=== PATIENT | female | born 1985 | race Caucasian/White ===

== ENCOUNTER → 2018-06-24 16:03 | Outpatient (CLI) | payer BC, SELFPAY ==
[2018-06-24 17:53] LABS: Absolute Lymphocyte Count 2.35 X10^3/ul (0.83-4.51); Absolute Neutrophil Count 5.5 X10^3/uL (2.0-7.7); Basophil# 0.06 X10^3/uL; Basophil% 0.7 % (0-1); Eosinophils% 1.2 % (0-5); Hematocrit 40.9 % (37-47); Hemoglobin 13.6 g/dl (12.0-15.0); Lymphocyte # 2.35 X10^3/ul (4.0); Lymphocyte % 27.6 % (19-41); Mean Corp Hgb Conc 33.3 g/gl (32-36); Mean Corpuscular Hgb 29.8 pg (27.0-32.0); Mean Corpuscular Volume 89.7 fL (81-99); Mean Platelet Vol. 9.9 fl (6.2-12.0); Monocyte# 0.52 X10^3/uL; Monocyte% 6.1 % (0-10); Neutrophil # 5.46 X10^3/uL (2.7-7.7); Neutrophil % 64.2 % (47-70); Platelet Count 331 K/mm3 (150-450); RBC Distribution Width CV 12.6 % (11.6-14.6); RBC Distribution Width SD 40.9 fl (35.1-43.9); Red Blood Count 4.56 M/mm3 (4.2-5.4); White Blood Count 8.5 K/mm3 (4.4-11.0)
[2018-06-24 17:54] LABS: POSITIVE COUNT NO; POSITIVE DIFFERENTIAL NO; POSITIVE MORPHOLOGY NO
[2018-06-24 18:33] LABS: ALB/GLOB Ratio 1.2 RATIO (0.9-2.4); AST(SGOT) 16 U/L (15-37); Alanine Aminotransfer ALT/SGPT 21 U/L (13-56); Albumin, Serum 4.2 g/dL (3.2-5.0); Alkaline Phosphatase 79 U/L (45-117); Anion Gap 10 (5-15); BUN 11 mg/dL (7-18); BUN/Creat Ratio 17.2 RATIO (10-20); Calcium,Total 9.3 mg/dL (8.5-10.1); Chloride 105 mmol/L (98-107); Creatinine, Serum 0.64 mg/dL (0.55-1.02); EST Glomerular Filtration Rate 115 mL/min (>60); Est Glom Filt Rate - Afr Amer 139 mL/min (>60); Globulin 3.5 g/dL (2.2-4.2); Glucose 78 mg/dL (74-106); Potassium 4.2 mmol/L (3.5-5.1); Protein, Total 7.7 g/dL (6.4-8.2); Sodium Level 140 mmol/L (136-145); Thyroid Stim Hormone (TSH) 3.77 uIU/mL (0.358-3.74)
== END ==
PROVIDERS: Family Provider Family Medicine; PCP Family Medicine; Referring Provider Family Medicine; Visit Provider Family Medicine
DX: F32.9 Major depressive disorder, single episode, unspecified (principal)
CPT/HCPCS: 36415; 80053; 84443; 85025

== ENCOUNTER → 2019-04-04 | Outpatient (CLI) | payer BC, SELFPAY | END | disposition home or self-care (01) | PROVIDERS: PCP Family Medicine; Referring Provider Obstetrics & Gynecology; Visit Provider Obstetrics & Gynecology | DX: Z12.4 Encounter for screening for malignant neoplasm of cervix (principal) ==

== ENCOUNTER → 2019-04-16 09:40 | Outpatient (CLI) | payer BC, SELFPAY ==
[2019-04-16 10:57] LABS: Glucose 75GTT - Fasting 85 mg/dL (70-99)
[2019-04-16 11:38] LABS: Glucose 75GTT - 30 minutes 144 mg/dL (100-160)
[2019-04-16 11:38] LABS: Glucose 75GTT - 60 minutes 104 mg/dL (100-160)
[2019-04-16 12:25] LABS: Insulin 75GTT - Fasting 7.9 mU/L (2.6-37.6)
[2019-04-16 12:25] LABS: Insulin 75GTT - 30 MIN 119.1 mU/L (Not Estab.)
[2019-04-16 12:27] LABS: Insulin 75GTT - 60 min 98.6 mU/L (Not Estab)
[2019-04-16 12:43] LABS: Glucose 75GTT - 120 minutes 62 mg/dL (70-140)
== END ==
PROVIDERS: PCP Family Medicine; Visit Provider Obstetrics & Gynecology
DX: Z13.1 Encounter for screening for diabetes mellitus (principal); E28.8 Other ovarian dysfunction; E31.9 Polyglandular dysfunction, unspecified
CPT/HCPCS: 36415; 82951; 82952; 83525

== ENCOUNTER → 2019-04-18 12:05 | Outpatient (CLI) | payer BC, SELFPAY ==
--- NOTE | 2019-04-18 12:25 | RAD_ITS ---
EXAM DESCRIPTION: Hysterosalpingogram CLINICAL HISTORY: 34 years Female, infertility COMPARISON: None. TECHNIQUE: 20 seconds of fluoroscopy was performed and 5 fluoroscopic images were performed FINDINGS: Dr.Summer Brooke performed hysterosalpingogram and fluoroscopy was performed showing the uterus to be normal. The right ductal reduction well visualized and appear normal bilaterally and contrast material spills onto the perineum indicating both oviducts are patent and normal. RAD/Salpingogram IMPRESSION: Normal hysterosalpingogram. Electronically Signed: Ganesh Palacio, at 13:57 EST Tel , Service support ,
== END ==
PROVIDERS: PCP Family Medicine; Referring Provider Obstetrics & Gynecology; Visit Provider Obstetrics & Gynecology
DX: N97.9 Female infertility, unspecified (principal)
CPT/HCPCS: 58340; 74740

== ENCOUNTER → 2019-07-07 11:26 | Outpatient (CLI) | payer BC, SELFPAY ==
[2019-07-07 14:09] LABS: T3 Total - Triiodothyronine 1.25 ng/mL (0.6-1.81)
[2019-07-07 14:14] LABS: Estradiol 39.6 pg/mL; Prolactin 6.3 ng/mL; T4 Free Direct 0.86 ng/dL (0.76-1.46); Thyroid Stim Hormone (TSH) 1.11 uIU/mL (0.358-3.74)
[2019-07-08 16:41] LABS: Sex Hormone-binding Globulin 67.7 nmol/L (24.6-122.0)
[2019-07-09 13:39] LABS: 17-Hydroxyprogesterone 56 ng/dL (.)
[2019-07-09 16:28] LABS: Vitamin D,25 Hydroxy 18.7 ng/mL
[2019-07-09 16:31] LABS: ALB/GLOB Ratio 1.2 RATIO (0.9-2.4); AST(SGOT) 16 U/L (15-37); Alanine Aminotransfer ALT/SGPT 21 U/L (13-56); Albumin, Serum 4.3 g/dL (3.2-5.0); Alkaline Phosphatase 67 U/L (45-117); Anion Gap 6 (5-15); BUN 12 mg/dL (7-18); BUN/Creat Ratio 16.3 RATIO (10-20); CRP, High Sensitivity Cardiac 2.24 mg/L; Calcium,Total 9.3 mg/dL (8.5-10.1); Chloride 105 mmol/L (98-107); Creatinine, Serum 0.74 mg/dL (0.55-1.02); EST Glomerular Filtration Rate 97 mL/min (>60); Est Glom Filt Rate - Afr Amer 117 mL/min (>60); Globulin 3.7 g/dL (2.2-4.2); Glucose 79 mg/dL (74-106); Potassium 4.4 mmol/L (3.5-5.1); Sodium Level 136 mmol/L (136-145)
== END ==
PROVIDERS: PCP Family Medicine; Visit Provider Obstetrics & Gynecology
DX: Z13.1 Encounter for screening for diabetes mellitus (principal); Z11.3 Encounter for screening for infections with a predominantly sexual mode of transmission; E20.8 Other hypoparathyroidism; E31.8 Other polyglandular dysfunction; N94.6 Dysmenorrhea, unspecified
CPT/HCPCS: 36415; 80053; 82306; 82533; 82627; 82670; 83001; 83498; 84146; 84270; 84403; 84439; 84443; 84480; 84481; 86141; 82626

== ENCOUNTER 2019-08-07 09:27 | Day surgery (SDC) | payer BC, SELFPAY ==
[2019-08-01 11:56] LABS: Hematocrit 42.5 % (37-47); Mean Corp Hgb Conc 32.9 g/dL (32-36); Mean Corpuscular Volume 94.2 fL (81-99); Mean Platelet Vol. 9.3 fl (6.2-12.0); Platelet Count 299 K/mm3 (150-450); RBC Distribution Width CV 11.6 % (11.6-14.6); RBC Distribution Width SD 39.9 fl (35.1-43.9); Red Blood Count 4.51 M/mm3 (4.2-5.4); White Blood Count 7.5 K/mm3 (4.4-11.0)
[2019-08-01 12:05] LABS: Prothrombin Time (Protime)PT. 13.2 SECONDS (11.7-14.9)
[2019-08-01 12:06] LABS: Partial Thromboplast Time 26.2 Seconds (24.1-36.2)
[2019-08-07] VITALS (7 sets, daily range): BP systolic 100–129; BP diastolic 52–81; PULSE 75–97; RESP 15–18; TEMP 36.3–37.2; O2SAT 95–100; BMI 28.4
--- NOTE | 2019-08-07 08:30 | HP.PCM_ITS ---
- Problem List (1) Dysmenorrhea, unspecified Status: Acute History and Physical Date of Admission: 08/07/19 Date: 08/01/2019 Name: SOLANGE MCDONNELL Age: 34 Date of : 1985 Solange Mcdonnell, a 34 year old female 0 0 0 0 0, presents for Diagnostic laparoscopy, surgical treatment of endometriosis on August 07, 2019 at 12:30. -- Solange has a hx dysmenorrhea and infertility. ULTRASOUND UTERUS: 8.3 x 4.1 x 3.8cm anterior submucous fibroid measures 1.5 x 1.3 x 1.4cm. ENDOMETRIAL ECHO: 9.7mm. RIGHT OVARY: 3.9 x 3.7 x 2.4cm. simple follicle seen measures 2 x 2.2 x 2cm. LEFT OVARY: 3.2 x 2.4 x 2.5cm. BLADDER: No bladder masses visualized. FREE FLUID: NONE. OTHER PERTINENT FINDINGS: simple right ovarian cyst measures 2 x 2.2 x 2cm. Anterior submucous fibroid 1.5 x 1.3 x 1.4cm. MEDICATIONS HISTORY: Current medications prescribed by our practice are: 1. metformin 500 mg tablet, 1 tab PO daily daily x 1 week, then 1 po bid x 1 week, then 1 po tid 2. Synthroid 50 mcg tablet, One pill by mouth once a day 3. Vitamin D3 100 mcg (4,000 unit) capsule, 1 tab po daily Patient is also takin. fluoxetine 40 mg capsule, daily ALLERGIES: Penicillins, Rash Infections - Chicken pox Illnesses - Depression/Mild anxiety Accidents - no injuries of consequence Hospitalizations - see surgery Review of Systems: GENERAL - Denies fever, or chills SKIN - Denies skin changes EYES - Denies visual changes EARS - Denies difficulty hearing NOSE - Denies nasal congestion or bleeding MOUTH - Denies sore throat or difficulty swallowing NECK - Denies pain or swelling RESPIRATORY - Denies shortness of breath or wheezing CARDIOVASCULAR - Denies palpitations or chest pain GASTROINTESTINAL - Denies nausea, vomiting, diarrhea, constipation GENITOURINARY - Denies dysuria, frequency of urination, incontinence of urine MUSCULOSKELETAL - Denies joint or muscle pain NEUROLOGICAL - Denies localized numbness or weakness PSYCHIATRIC - Denies depression or anxiety ENDOCRINE - Denies heat or cold intolerance, weight loss or gain HEMATO-IMMUNOLOGIC - Denies excesive bleeding with cuts SOCIAL HISTORY: Alcohol Use - socially and weekends Smoking - denies smoking Diet - no special diet Lifestyle - moderate stress lifestyle and Exercise - walking Employer - [employer] Job Description - [employer] Illicit Drug Use - denies use of street drugs Sexual Activity - Hours Worked - 40+ Spouse-Sig Other Name - Primitivo Spouse-Sig Other Occupation - Electric Truck Operator Control - None-attempting pregancy FAMILY HISTORY: MENSTRUAL HISTORY: LMP Known?- DefiniteAmount/Duration - 3-4 DAYS, Frequency - monthly days, LMP - 07/11/19, Age Onset Menarche - 15 PAST PREGNANCIES: Total Pregnancies - 0; Full Term Pregnancies - 0; Premature - 0; Abortions, Induced - 0; Abortions, Spontaneous - 0; Ectopics - 0; Multiple Births - 0; Living Children - 0 SURGICAL HISTORY: 1. ACL repair, L knee, 2003 ; - PHYSICAL EXAM BP- 90/70 Sitting, Right arm, regular cuff Temp- 98.5 Taken Orally Weight- 160.89506 lbs Height- 63.75 inch BMI:27.74 CONSTITUTIONAL - NAD, well nourished, and well developed SKIN - No rash, lesions, or ulcers HEENT - Normocephalic, PERRLA, EOMI LUNGS - CTA x2 without wheezes, crackles or rales CARDIAC - Regular rate and rhythm without rubs, murmurs, or gallops ABDOMEN - Without hepatosplenomegaly, distention, masses, rebound, or guarding; normal bowel sounds; no hernias EXTREMITIES - No edema or calf tenderness NEUROLOGICAL - normal gait, normal balance, normal motor PSYCHIATRIC - A and O to time, place, person, mood and affect External Genitial Vagina - non-tender without lesions Urethra/Urethral Meatus - non-tender Bladder - non-tender Vagina - vaginal contreras are pink and moist without loss of rugae and no evidence of atropy Cervix - without cervical motion tenderness and has normal size and features without evident lesions Uterus - 5-6 cm in size, mobile and nontender Adnexa - clear without massess or tenderness Laboratory Tests 08/07/19 08/01/19 08/01/19 Range/Units 09:00 11:32 11:32 WBC (4.4-11.0) K/mm3 RBC (4.2-5.4) M/mm3 Hgb (12.0-15.0) g/dL Hct (37-47) % MCV (81-99) fL MCH (27.0-32.0) pg MCHC (32-36) g/dL RDW Std Deviation (35.1-43.9) fl RDW Coeff of Gerry (11.6-14.6) % Plt Count (150-450) K/mm3 MPV (6.2-12.0) fl PT 13.2 (11.7-14.9) SECONDS INR 1.0 APTT 26.2 (24.1-36.2) Seconds COVID-19 (MOIRA) Not Detected (Not Detect) Blood Type A POSITIVE Antibody Screen NEGATIVE 08/01/19 Range/Units 11:32 WBC 7.5 (4.4-11.0) K/mm3 RBC 4.51 (4.2-5.4) M/mm3 Hgb 14.0 (12.0-15.0) g/dL Hct 42.5 (37-47) % MCV 94.2 (81-99) fL MCH 31.0 (27.0-32.0) pg MCHC 32.9 (32-36) g/dL RDW Std Deviation 39.9 (35.1-43.9) fl RDW Coeff of Gerry 11.6 (11.6-14.6) % Plt Count 299 (150-450) K/mm3 MPV 9.3 (6.2-12.0) fl PT (11.7-14.9) SECONDS INR APTT (24.1-36.2) Seconds COVID-19 (MOIRA) (Not Detect) Blood Type Antibody Screen ASSESSMENT/PLAN: 1. Dysmenorrhea, Unspecified, Encounter For Procreative Investigation And Testing, Hypothyroidism and Unspecified Plan for diagnostic laparoscopy, surgical treatment of endometriosis as indicated. Reviewed procedure, how performed, surgical r isks/benefits/indications/alternatives consents signed and reviewed Blood transfusion acceptable Preop labs ordered Procedure Criteria Procedure Type: Elective COVID Risk Discussion: The surgeon/proceduralist and patient have discussed in detail the risk of exposure to and/or potential harm posed by the COVID-19 virus with having a surgery/procedure at this time versus the risk of delaying the surgery/procedure. It is not possible to know either the risk of delaying the surgery or procedure or chance of getting an infection with perfect accuracy, but a joint decision was made between the patient and the surgeon/proceduralist to proceed at this time with the scheduled surgery/procedure as indicated on the consent form.
[2019-08-07 11:11] LABS: Internal QC Validated? YES +Cl - CLEAR BKGD; Pregnancy, Urine Negative Negative
[2019-08-07] MEDS: Lactated Ringers 1,000 ML 100 ML IV ×3 (11:15→16:13)
--- NOTE | 2019-08-07 12:35 | MISC_PTH ---
PATIENT: KIRAN MILLIGAN LOC: [facility] [place] U#:[id number] AGE/SX: 34/F ROOM: RE08/07/[address]: Dr. Kimberli Eastman MD : 1985 BED: DIS: 08/07/2019 SPEC #: [id number] RECD: 08/08/19 10:10 STATUS: MICHAEL REPaulino #: [id number] LEI: 08/07/19 12:[address]: Kimberli Ricketts DEPT: SURGICAL PATHOLOGY RECD BY: Taj Hall ENTERED: 08/08/19 13:05 SP TYPE: MISC OTHR DR: Dr. Jess Guerrero MD Tissues: A - Peritoneal cavity, NOS B - Peritoneal cavity, NOS C - Peritoneal cavity, NOS D - Abdomen, NOS E - Peritoneal cavity, NOS F - Peritoneal cavity, NOS G - Peritoneal cavity, NOS Procedures: Surgery Specimen Level IV HEADER OPERATION: Diagnostic laparoscopy with treatment of endometriosis PRE-OP DIAGNOSIS: Dysmenorrhea TISSUE SUBMITTED: A - Left anterior peritoneum, B - Anterior cul-de-sac peritoneum, C - Left round ligament endometriosis, D - Right abdominal side wall, E - Left uterosacral peritoneum, F - Right uterosacral peritoneum, G - Right ovarian fossa peritoneum MICROSCOPIC DIAGNOSIS A. Left anterior peritoneum, biopsy: Fragments of benign fibrofatty tissue. B. Anterior cul-de-sac peritoneum, biopsy: Consistent with endometriosis. C. Left round ligament, biopsy: Consistent with endometriosis. D. Right abdominal side wall, biopsy: Consistent with endometriosis. E. Left uterosacral peritoneum, biopsy: Consistent with endometriosis. F. Right uterosacral peritoneum, biopsy: Consistent with endometriosis. G. Right ovarian fossa peritoneum, biopsy: Consistent with endometriosis. AM:nancy 08/11/19 MICROSCOPIC DESCRIPTION Slides are reviewed. GROSS DESCRIPTION A - Received in fixative is one container labeled with the patient's name and designated left anterior peritoneum. The specimen consists of one irregular fragment of light parra soft tissue that measures 3 x 0.5 x 0.2 cm. The specimen is totally submitted in one cassette. B - Received in fixative is one container labeled with the patient's name and designated anterior cul-de-sac peritoneum. The specimen consists of two irregular fragments of light parra soft tissue that in aggregate measure 2.5 x 1 x 0.2 cm. The specimen is totally submitted in one cassette. C - Received in fixative is one container labeled with the patient's name and designated left round ligament. The specimen consists of one irregular fragment of light parra soft tissue that measures 1 x 0.7 x 0.2 cm. The specimen is sectioned and totally submitted in two cassettes. D - Received in fixative is one container labeled with the patient's name and designated right abdominal side wall. The specimen consists of one irregular fragment of parra-pink soft tissue that measures 2.5 x 2 x 0.2 cm. The specimen is totally submitted in two cassettes. E - Received in fixative is one container labeled with the patient's name and designated left uterosacral peritoneum. The specimen consists of three irregular fragments of light parra soft tissue that in aggregate measure 1.3 x 0.8 x 0.2 cm. The specimen is totally submitted in one cassette. F - Received in fixative is one container labeled with the patient's name and designated right uterosacral peritoneum. The specimen consists of multiple irregular fragments of light parra soft tissue that in aggregate measure 2.5 x 2 x 0.2 cm. The specimen is totally submitted in one cassette. G - Received in fixative is one container labeled with the patient's name and designated right ovarian fossa peritoneum. The specimen consists of one irregular fragment of light parra soft tissue that measures 1.8 x 1 x 0.2 cm. The specimen is totally submitted in one cassette. / AM:nancy 08/08/19 TC:5 CPT: 42597 x7
[2019-08-07] MEDS: Bupivacaine Mpf 0.5% 30 ML VIAL (15:47)
--- NOTE | 2019-08-07 15:57 | PCM.DC ---
- Discharge Diagnoses Current Active Problems: Endometriosis Reason(s) for Visit for Discharge Instructions: Laparoscopy for Endometriosis You will use the following diet at home:: No restrictions Your food should be the consistency of: Regular Discharge Activity: Return to Normal Activity, May not drive while taking narcotic pain medications., May Shower, - - No tub bath for 1-2 weeks May resume sexual activity in: 4 weeks Lifting Restrictions: 10-20 lb Call your doctor if your incision/area has: Continuous Slow Oozing, Sudden Increased Bleeding, Increased Pain/ Swelling, Increased Redness Call your doctor if you observe: Fever of 101 or Higher, Inability to urinate, Inability to have a bowel movement, Using more than one pad per hour, Shortness of breath, Chest pain, Calf discomfort, Uncontrolled pain, - - Persistent nausea or vomiting Suture Line Care: Avoid Pulling/Pushing Remove Dressing in (days):: 1 - Remove outer dressing in 24 hours, remove steristrips in 5 days Cleanse incision/area with: Soap & Water Instructions: ED Endometriosis Allergies/Adverse Reactions: Allergies Penicillins [PCN] Allergy (Verified 08/07/19 10:40) Hives Medications to take at Discharge Fluoxetine HCl 40 mg PO DAILY 05/01/19 Multivitamins,Therapeutic [Multivitamin] 1 tab PO DAILY 05/01/19 Cholecalciferol (VIT D3) [Vitamin D3] 2,000 unit PO BID 07/31/19 Levothyroxine [Synthroid] 50 mcg PO DAILY 07/31/19 Pnv No.103/Folic/Om3s/Fish Oil [ Gummies] 4 ea PO DAILY 07/31/19 Prasterone (Dhea) [Dhea] 25 mg PO BID 07/31/19 metFORMIN (XR) [Glucophage Xr] 500 mg PO BID 07/31/19 Docusate Sodium [Colace] 100 mg PO BID PRN PRN #60 cap 08/07/19 Ibuprofen 600 mg PO TID PRN #30 tab 08/07/19 Oxycodone [Oxyir] 5 mg PO Q6H PRN PRN 5 Days #20 tablet 08/07/19 The following prescriptions were given: Docusate Sodium [Colace] 100 mg PO BID PRN PRN #60 cap PRN Reason: Constipation Transmission Status: Pending to [facility] Ibuprofen 600 mg PO TID PRN #30 tab PRN Reason: Pain Score 1-10/10 Transmission Status: Pending to [facility] Oxycodone [Oxyir] 5 mg PO Q6H PRN PRN 5 Days #20 tablet PRN Reason: severe pain Transmission Status: Received by [facility] Primary Care Physician: Jess Guerrero MD [Primary Care Provider] - Test Results: Test results from this visit will be discussed in further detail at your follow-up appointment, if applicable. Please Follow Up With: Kimberli Interiano MD When: 1-2 weeks
--- NOTE | 2019-08-07 16:00 | OP.PCM_ITS ---
Problem List (1) Dysmenorrhea, unspecified Status: Chronic (2) Endometriosis determined by laparoscopy Status: Acute (3) Infertility Status: Chronic Report of Operation Date of Procedure: 08/07/19 Pre-Operative Diagnosis: 1. Dysmenorrhea. 2. r/o endometriosis. 3. Infertility Post-Operative Diagnosis: 1. Secondary dysmenorrhea. 2. Endometriosis. 3. Inf ertility Surgery/Procedure Performed:: 1. Diagnostic laparoscopy. 2. Surgical treatment of endometriosis with multiple peritoneal biopsies. 3. Lysis of adhesions Description of Surgical Findings:: Peritoneal endometriosis in the anterior and posterior culdesacs and abdominal wall. with Rectovaginal nodule palpable on exam with associated scarring in posterior culdesac Sigmoid endometriosis laborer steel handling: Raquel Alarcon laborer steel handling: Von Callejas Type of Anesthesia:: General, Local Anesthesiologist: Mo Stout Specimen's removed: 1. left round ligament endometriosis. 2. left pelvic side wall endometriosis. 3. right abdominal peritoneal biopsy. 4. left pelvic endometriosis. 5. anterior culdesac peritoneum. 6. Right ovarian fossa peritoneum. 7. left uterosacral peritoneum. 8. Right uterosacral peritoneum Drains: UO 300 ml Estimated Blood Loss (mL): 50 Fluids Replaced: 1999 Description of Procedure: Indications: 34-year-old nulligravida with a history of severe dysmenorrhea as well as infertility. She was counseled regarding management options and as she desired fertility opted to proceed with diagnostic laparoscopy and surgical treatment of endometriosis as indicated. Procedural risks, benefits, indications and alternatives were reviewed at length. Patient desired to proceed. Procedure: The patient was brought to the operating room and signed was performed. She was placed in the dorsal supine position, used under general anesthesia and intubated. He was repositioned into dorsolithotomy and her arms were tucked at her sides. Examination under anesthesia was performed. The perineum and abdomen were prepped and draped in sterile fashion. Straight catheterization of the bladder was performed. The patient was placed into high lithotomy and a speculum placed vaginally. The cervix was grasped the anterior cervical lip using a Forbes tenaculum and the uterus sounded to 7 cm. A ZUMI uterine manipulator was placed and secured. The tenaculum was removed from the cervix. The patient was placed into low lithotomy and attention turned to the abdomen. An inferior umbilical incision was made and laparoscopic entry performed using the trocar. The abdomen was insufflated to 15 mmHg and the patient was placed into Trendelenburg. Already it was evident there was clear endometriosis along the anterior pelvic peritoneum. I returned to the perineum and placed a Haider catheter. bilateral tap blocks were placed using half percent Marcaine and under transillumination incisions were made at the sites in the right and left lower quadrants respectively followed by placement of 5 mm trochars. Additionally a 5 mm trocar was placed following infiltration with Marcaine. I turned my attention to the junction of the descending colon and sigmoid bowel. There were adhesions at the site. That adhesions were sharply and bluntly dissected. Endometriosis along the infundibulopelvic ligament previously obscured by this adhesion was electrocoagulated. I turned my attention to the anterior pelvic peritoneum. This peritoneum was excised with wide margins utilizing electrocoagulation and sharp dissection. Similarly, anterior cul-de-sac peritoneum as well as left round ligament peritoneum was sharply and bluntly dissected with peritoneal resection with assistance of electrocoagulation. Right peritoneal endometriosis was present just adjacent to the ascending colon with the presence of colonic adhesions. The adhesion was lysed sharply and bluntly. The abdominal sidewall peritoneum was excised again using electrocoagulation, sharp and blunt dissection. Attention was again returned to the pelvis, the left ureter was identified and left uterosacral lisa toneum was excised. The right ureter was identified and in similar fashion right uterosacral ligament peritoneum then right ovarian fossa peritoneum including that along a Rufino's window was excised. Arteriolar bleeding at the site of the right uterosacral ligament peritoneal resection was controlled using electrocoagulation. There was evidence of dimpling of the rectum. I performed a laparoscopic guided bimanual exam with the palpable vaginal nodule corresponding to the intra-abdominal perirectal dimpling. Additionally there was evidence of sigmoid colonic endometriosis. Due to bowel involvement and limited availability of a bowel endometriosis surgeon I deferred treatment at the sites. Peritoneal endometriosis just inferior to the pelvic brim at the left was ablated using electrocoagulation. The abdomen and pelvis were irrigated and suctioned. Interceed was placed over each of the excisional biopsy sites. The abdomen was desufflated and the trochars removed. The incisi ons were reapproximated using 4-0 Monocryl by the SCREENER AND BLENDER OPERATOR under my supervision. Steri-Strips and OpSite dressing were placed over the incisions. The patient was given additional half percent Marcaine for a total of 30 cc. The patient was awakened, extubated and transferred to the recovery room without complication. She tolerated the procedure well. Sponge counts were correct x2. - Complications None - Admit VTE Documentation VTE Present on Admission: No VTE Mechan Device Prophylaxis: SCD's VTE Pharm Prophylaxis ordered?: No
[2019-08-07] MEDS: HYDROcodone Bitartrate/Apap 5/325 Tablet PO (17:19)
== END 2019-08-07 18:01 | disposition home or self-care (01) ==
LOC: SDC 09:28 → AC 09:29
PROVIDERS: Anesthesiology; PCP Family Medicine; Referring Provider Obstetrics & Gynecology; Visit Provider Obstetrics & Gynecology
PROC: (CPT 49320; principal; 2019-08-07 12:20)
DX: N80.3 Endometriosis of pelvic peritoneum (principal); N97.9 Female infertility, unspecified; K66.0 Peritoneal adhesions (postprocedural) (postinfection); Z11.59 Encounter for screening for other viral diseases; E03.9 Hypothyroidism, unspecified; F32.9 Major depressive disorder, single episode, unspecified; F41.9 Anxiety disorder, unspecified; Z79.84 Long term (current) use of oral hypoglycemic drugs; Z79.899 Other long term (current) drug therapy
CPT/HCPCS: 49321; 36415; 81025; 85027; 85610; 85730; 86850; 86900; 86901; 87635; 88305; G2023; J7120; J2405; U0003

== ENCOUNTER → 2019-08-26 | Outpatient (CLI) | payer BC, SELFPAY ==
[2019-08-07 11:03] VITALS: BMI 28.4
[2019-08-26 14:18] LABS: Vitamin D,25 Hydroxy 33.8 ng/mL
[2019-08-31 08:37] LABS: Anti-Mullerian Hormone,Serum 6.33 ng/mL (.)
== END | disposition home or self-care (01) ==
LOC: LABSPEC 13:27
PROVIDERS: PCP Family Medicine; Visit Provider Obstetrics & Gynecology
DX: N94.6 Dysmenorrhea, unspecified (principal); E55.9 Vitamin D deficiency, unspecified
CPT/HCPCS: 36415; 82306; 82627; 83516; 82626

== ENCOUNTER 2020-02-05 22:46 | Emergency (ER) | payer BC, SELFPAY ==
[2019-08-07 11:03] VITALS: BMI 28.4
[2020-02-05 22:48] VITALS: BP 118/69; PULSE 69; RESP 16; TEMP 36.8; O2SAT 98; BMI 29.5
--- NOTE | 2020-02-05 23:20 | ED.DCSUM_ITS ---
History of Present Illness Chief Complaint: Abd Pain Informant: Patient Narrative: She stated she is postop day 3 for laparoscopy for endometriosis. She had adhesions to her large intestine and they remove 15 cm of her right large intestine as well as her appendix. This procedure was done at [facility] by WATER FILTERER HELPER. She has postoperative pain that she has been taking ibuprofen and Tylenol for as well as 1 oxycodone yesterday evening when she arrived home from the hospital. She took some anti-inflammatories today walked on the treadmill for short period of time and then developed some increased abdominal pain this evening. She took an oxycodone at 9 PM which was her only one today. She waited approximately half hour and continued to have significant pain therefore came in for further evaluation. She stated the oxycodone has now kicked in and she is back to her baseline. She thinks she just got behind the pain her. Denies any fevers or chills. She is having bowel movements. Urinating normally. Stated her incisions look well. Feels back to normal. - Past Medical History (1) Endometriosis determined by laparoscopy Status: Acute (2) Dysmenorrhea, unspecified Status: Chronic (3) Infertility Status: Chronic Past Medical History - Allergies and Home Meds Allergies/Adverse Reactions: Allergies Penicillins [PCN] Allergy (Verified 02/05/20 22:47) [facility] Primary Care Physician: Jess Guerrero MD [Primary Care Provider] - Prior records reviewed: Yes Past Medical History: - - See problem list Surgical History: - - Laparoscopy with partial colectomy and adhesion removal Lives: With Family Smoking Status: Never smoker Alcohol: None Drugs: None Review of Systems General: Denies: Chills, Fever, Sweats Eyes: Denies: Visual changes - bilaterally, Diplopia ENT: Denies: Rhinorrhea, Sore throat Cardiovascular: Denies: Chest pain, Palpitations Respiratory: Denies: Dyspnea, Cough, Dyspnea on exertion Gastrointestinal: Reports: Abdominal pain. Denies: Nausea, Vomiting, Diarrhea, Melena, Hematochezia Genitourinary: Denies: Dysuria, Hematuria, Frequency Musculoskeletal: Denies: Back pain, Extremity Pain Skin: Denies: Rash, Wounds Neurological: Denies: Headache, Weakness, Numbness Physical Exam Vital Signs/Narrative: Vital Signs Temp Pulse Resp BP Pulse Ox 02/05/20 22:48 98.3 F 69 16 118/69 98 General: Well nourished, Well developed, No Acute Distress Head: Normocephalic, Atraumatic Eyes: Perrl, EOMI ENT: Moist mucous membranes, No rhinorrhea Neck: Supple, Nontender Cardiovascular: Regular rate, Regular rhythm, No murmurs Respiratory: No distress, CTA bilaterally, Chest nontender Abdomen: Soft, Nondistended, Normal bowel sounds, Tender - Mild diffuse tenderness secondary to air in her abdomen which she states is at her baseline. Surgical scars are clean dry and intact. No significant tenderness.. Negative for: Guarding, Rebound tenderness, Hyperactive bowel sounds, Hypoactive bowel sounds, Hepatomegaly, Splenomegaly, Mass Back: Nontender, Normal Inspection Extremities: Nontender, No edema Skin: Normal color, No rash Neurological: Alert, Oriented x3, Cranial nerves II-XII grossly intact, Normal Strength, Normal Sensation Psychological: Normal affect, Normal Mood Diagnostic/Tx/Re-eval - Medical Decision Making Patient stated she is back to baseline and feels silly for coming in now. At this time I think she got behind the pain curve. Given 1 dose of morphine to help with her pain further. She would like to go home with no lab work or imaging. I feel this is reasonable given the fact that she feels back to her postsurgical self. Patient will follow up with her WATER FILTERER HELPER and return if she worsens again. She has pain medicine at home. ED Disposition - Plan for ED Patient: Disposition: Home or Assisted Living Diagnosis: Postoperative pain Instructions: Managing Post-Op Pain at Home: Medications Additional Instructions: Follow with your WATER FILTERER HELPER as scheduled in [place]
[2020-02-05] MEDS: Morphine 4 MG/ML Syringe IV (23:24)
--- NOTE | 2020-02-05 23:45 | ED.RN ---
pt assisted up to bathroom with RN help after receiving IV morphine. pt steady on her feet. upon leaving bathroom pt felt dizzy and lightheaded and asked for help. Pt was visibly pale. This RN assisted pt into chair and wheeled pt back to room where pt was able to stand and get back into bed. Pt coloring returned to normal and pt was speaking and stating that she felt better. pain was relieved after using restroom.
[2020-02-06 00:17] VITALS: BP 109/61; PULSE 75; RESP 16; O2SAT 98
== END 2020-02-06 00:21 | disposition home or self-care (01) ==
LOC: ED 23:49
PROVIDERS: Emergency Provider Emergency Medicine; PCP Family Medicine
DX: R10.9 Unspecified abdominal pain (principal); G89.18 Other acute postprocedural pain; Z88.0 Allergy status to penicillin
CPT/HCPCS: 96374; 99284; A4216

== ENCOUNTER → 2020-11-08 15:50 | Outpatient (CLI) | payer BC, SELFPAY ==
[2020-11-08 18:44] LABS: Thyroid Stim Hormone (TSH) 1.96 uIU/mL (0.358-3.74)
== END ==
PROVIDERS: PCP Family Medicine; Visit Provider Family Medicine
DX: E03.9 Hypothyroidism, unspecified (principal)
CPT/HCPCS: 36415; 84436; 84443

== ENCOUNTER → 2022-01-31 | Outpatient (CLI) | payer OTHER, SELFPAY ==
[2022-01-31 17:47] LABS: Absolute Lymphocyte Count 2.94 X10^3/uL (0.83-4.51); Absolute Neutrophil Count 9.7 X10^3/uL (2.0-7.7); Basophil# 0.06 X10^3/uL; Basophil% 0.4 % (0-1); Eosinophil# 0.09 X10^3/uL; Eosinophils% 0.7 % (0-5); Hematocrit 31.2 % (37-47); Hemoglobin 10.5 g/dL (12.0-15.0); Lymphocyte # 2.94 X10^3/ul (0.83-4.51); Lymphocyte % 21.3 % (19-41); Mean Corp Hgb Conc 33.7 g/dL (32-36); Mean Corpuscular Volume 89.1 fL (81-99); Mean Platelet Vol. 9.6 fl (6.2-12.0); Monocyte# 0.93 X10^3/uL; Monocyte% 6.7 % (0-10); NRBC Flagged by Analyzer 0 % (0-5); Neutrophil # 9.73 X10^3/uL (2.7-7.7); Neutrophil % 70.3 % (47-70); Platelet Count 446 K/mm3 (150-450); RBC Distribution Width CV 11.1 % (11.6-14.6); RBC Distribution Width SD 35.8 fl (35.1-43.9); White Blood Count 13.8 K/mm3 (4.4-11.0)
[2022-01-31 19:33] LABS: HIV - WCH Non-Reactive (Nonreactive); Hepatitis B Surface Antigen Non-Reactive (Nonreactive); Hepatitis C Antibody Non-Reactive (Nonreactive); Rubella IgG Equiv (Nonreactive); Syphilis Antibodies Non-reactive
[2022-02-02 10:37] LABS: V-Zoster IgG (Immunity) 1500 index (Immune >165)
[2022-02-03 05:08] LABS: Chlamydia By Nucleic Acid AMP Negative (Negative)
[2022-02-05 15:32] LABS: Gonococcus By Nucleic Acid AMP Negative (Negative)
== END | disposition home or self-care (01) ==
LOC: WOBLAB 17:02
PROVIDERS: PCP Family Medicine; Visit Provider Obstetrics & Gynecology
DX: Z34.81 Encounter for supervision of other normal pregnancy, first trimester (principal)
CPT/HCPCS: 36415; 85025; 86703; 86762; 86780; 86787; 86803; 87086; 87088; 87340; 87491; 87591

== ENCOUNTER → 2022-02-14 | Outpatient (CLI) | payer OTHER, SELFPAY ==
[2022-02-14 15:29] LABS: Vitamin D,25 Hydroxy 26.3 ng/mL
[2022-02-14 15:33] LABS: T4 Total, Thyroxin 10.5 ug/dL (4.8-13.9); Thyroid Stim Hormone (TSH) 0.85 uIU/mL (0.358-3.74)
== END | disposition home or self-care (01) ==
LOC: MFPLAB 12:08
PROVIDERS: PCP Family Medicine; Visit Provider Family Medicine
DX: E03.9 Hypothyroidism, unspecified (principal); E55.9 Vitamin D deficiency, unspecified
CPT/HCPCS: 36415; 82306; 84436; 84443

== ENCOUNTER 2022-05-16 14:36 | Emergency (ER) | payer OTHER, SELFPAY ==
[2022-05-16 14:37] VITALS: BP 120/91; PULSE 92; RESP 16; TEMP 37.1; O2SAT 97; BMI 30.7
--- NOTE | 2022-05-16 14:47 | EKG12_ITS ---
Test Reason : PALPS/SOB Blood Pressure : / mmHG Vent. Rate : 078 BPM Atrial Rate : 078 BPM P-R Int : 146 ms QRS Dur : 078 ms QT Int : 364 ms P-R-T Axes : 036 013 031 degrees QTc Int : 414 ms Normal sinus rhythm Normal ECG Confirmed by SANDRA RICHMOND, BO ([id number]), editor news AURELIO KAUR ([id number]) on 05/22/2022 6:54:52 AM Referred By: ANGY Confirmed By:DONNA FLORES MD
[2022-05-16 15:54] LABS: Absolute Lymphocyte Count 2.37 X10^3/uL (0.83-4.51); Absolute Neutrophil Count 8.7 X10^3/uL (2.0-7.7); Basophil# 0.06 X10^3/uL; Basophil% 0.5 % (0-1); Eosinophil# 0.05 X10^3/uL; Eosinophils% 0.4 % (0-5); Hematocrit 38.4 % (37-47); Hemoglobin 12.9 g/dL (12.0-15.0); Lymphocyte # 2.37 X10^3/ul (0.83-4.51); Lymphocyte % 19.9 % (19-41); Mean Corp Hgb Conc 33.6 g/dL (32-36); Mean Corpuscular Hgb 30.9 pg (27.0-32.0); Mean Corpuscular Volume 92.1 fL (81-99); Mean Platelet Vol. 9.4 fl (6.2-12.0); Monocyte# 0.66 X10^3/uL; Monocyte% 5.5 % (0-10); NRBC Flagged by Analyzer 0 % (0-5); Neutrophil # 8.73 X10^3/uL (2.7-7.7); Neutrophil % 73.2 % (47-70); Platelet Count 324 K/mm3 (150-450); RBC Distribution Width CV 12.9 % (11.6-14.6); RBC Distribution Width SD 42.9 fl (35.1-43.9); Red Blood Count 4.17 M/mm3 (4.2-5.4); White Blood Count 11.9 K/mm3 (4.4-11.0)
[2022-05-16 16:03] VITALS: O2SAT 98
[2022-05-16 16:05] VITALS: O2SAT 98
--- NOTE | 2022-05-16 16:22 | EX.ED.DYSGE1 ---
HPI History of Present Illness Chief Complaint: Shortness of Breath Detail of Chief Complaint: Pain, shortness of breath, palpitations Informant: patient Narrative Narrative: Patient presents secondary to waking overnight and having shortness of breath, palpitations, pain from her shoulders to her pelvis. She is currently 23 weeks . Symptoms do seem to be improved today. She saw her SOFTWARE SALES CONSULTANT and she states baby's heart rate was normal. She was sent to the ER for EKG and possible blood work. She does report history of some problems with her thyroid numbers, but states that they have been normal of late. [facility] Medical History Endometriosis Infertility Home Medications fluoxetine 40 mg capsule 40 mg PO DAILY anxiety/depression 05/01/19 [History Last Taken Unknown] multivitamin with folic acid 400 mcg tablet 1 tab PO DAILY 05/01/19 [History Last Taken Unknown] cholecalciferol (vitamin D3) 25 mcg (1,000 unit) tablet 2,000 unit PO BID 07/31/19 [History Last Taken Unknown] levothyroxine 50 mcg tablet 50 mcg PO DAILY 07/31/19 [History Last Taken 08/07/19 08:30] prasterone (dhea) 25 mg capsule 25 mg PO BID 07/31/19 [History Last Taken Unknown] 103-folic acid 400 mcg-omeg3 32.5 mg-dha-fish oil chew tablet 4 ea PO DAILY 07/31/19 [History Last Taken Unknown] docusate sodium 100 mg capsule 100 mg PO BID PRN PRN Constipation #60 caps 08/07/19 [Rx Last Taken Unknown] ibuprofen 600 mg tablet 600 mg PO TID PRN Pain Score 1-10/10 #30 tabs 08/07/19 [Rx Last Taken Unknown] acetaminophen 500 mg tablet 1,000 mg PO Q6H PRN Pain 1-10 Or Fever 02/05/20 [History Last Taken Unknown] oxycodone 5 mg tablet 5 - 10 mg PO Q4H PRN PRN Pain Score 1-10 02/05/20 [History Last Taken Unknown] Social History Smoking Status: Never smoker ROS ROS ED Constitutional Constitutional ED: Denies chills or fever(s) Eyes Eyes: Denies change in vision or discharge from eye(s) ENT ENT ED: Denies discharge from eye(s), rhinorrhea or sore throat Cardiovascular Cardiovascular: Reports chest pain and palpitations Respiratory/Chest Respiratory/Chest: Reports dyspnea; Denies cough Gastrointestinal Gastrointestinal: Denies abdominal pain, diarrhea, nausea or vomiting Genitourinary Genitourinary ED: Denies difficulty urinating or dysuria Musculoskeletal Musculoskeletal: Reports back pain; Denies extremity pain Integumentary Denies Abrasions or rash Neurologic Neurologic: Denies headache(s) or weakness Allergic/Immunologic Allergic/Immunologic ED: Denies lip swelling or urticaria EXAM Physical Exam Const Vital Signs: 05/16/22 14:37 05/16/22 16:02 05/16/22 16:03 Temperature 98.7 F Temperature Source Temporal Pulse Rate 92 Respiratory Rate 16 Respiratory Effort Normal Respiratory Pattern Normal Blood Pressure 120/91 H Blood Pressure Mean 100 Pulse Ox 97 Oxygen Delivery Method Room Air Room Air Room Air 05/16/22 16:05 Temperature Temperature Source Pulse Rate Respiratory Rate Respiratory Effort Respiratory Pattern Blood Pressure Blood Pressure Mean Pulse Ox 98 Oxygen Delivery Method Room Air Positive well nourished and well developed General Appearance ED: well developed HEENT Reports normocephalic and head/scalp atraumatic Eyes PERRL and EOMs intact bilaterally Neck supple Chest Wall inspection of chest normal and palpation of chest normal Resp normal respiratory effort and clear to auscultation bilaterally Cardio regular rate and regular rhythm GI normal to inspection, nondistended, normoactive bowel sounds GI Narrative: Abdomen gravid. Palpation: soft Extremity normal to inspection Neuro oriented x3 and no sensory deficits noted Sensorium / Orientation: alert Motor Exam: strength 5/5 throughout Psych mental status grossly normal Skin no rashes or lesions noted MDM MDM MDM Narrative Medical decision making narrative: Patient is placed on monitor technician. EKG obtained to evaluate for cardiac arrhythmia/ischemia. Labwork obtained to evaluate for leukocytosis, anemia, and electrolyte derangement. Lab Data Attestation: I reviewed the patient's lab results. Labs: Laboratory Results - last 24 hr 05/16/22 05/16/22 05/16/22 15:35 15:35 15:35 WBC 11.9 H RBC 4.17 L Hgb 12.9 Hct 38.4 MCV 92.1 MCH 30.9 MCHC 33.6 RDW Std Deviation 42.9 RDW Coeff of Gerry 12.9 Plt Count 324 MPV 9.4 Immature Gran % (Auto) 0.500 Neut % (Auto) 73.2 H Lymph % (Auto) 19.9 [place] % (Auto) 5.5 Eos % (Auto) 0.4 Baso % (Auto) 0.5 Absolute Neuts (auto) 8.7 H Absolute Lymphs (auto) 2.37 Nucleated RBC % 0 Sodium 137 Potassium 3.9 Chloride 106 Carbon Dioxide 26.0 Anion Gap 5 BUN 6 L Creatinine 0.57 Estim Creat Clear Calc 113.95 Est GFR (MDRD) Af Amer 155 Est GFR (MDRD) Non-Af 128 BUN/Creatinine Ratio 10.5 Glucose 85 Calcium 9.1 Troponin I High Sens 4 TSH 1.30 EKG Initial EKG: Attestation: I personally reviewed and interpreted this EKG as follows: Interpretation: Sinus Rhythm (Sinus at 78 with no acute ischemia.) Treatment and Re-Evaluation :: White count is 11.9 with normal differential. Hemoglobin is normal at 12.9. Chemistry studies unremarkable. Troponin and TSH are both normal. Patient has had no arrhythmias noted while on the monitor technician here. Her symptoms have essentially subsided. I did encourage her to return during an episode if it were to recur. She voices understanding and agreement. Discharge Plan Triage Chief Complaint: Shortness of Breath ED Provider: Natacha Trujillo Dx/Rx/DC Orders Clinical Impression: Palpitations Instructions: ED Palpitations Prescriptions: No Action fluoxetine 40 MG capsule 40 mg PO DAILY multivitamin with folic acid 1 TABLET tablet 1 tab PO DAILY prasterone (dhea) 25 MG capsule 25 mg PO BID levothyroxine 50 MCG tablet 50 mcg PO DAILY cholecalciferol (vitamin D3) 1,000 UNIT tablet 2,000 unit PO BID PNV [id number] oil 1 EACH tablet,chewable 4 ea PO DAILY docusate sodium 100 MG capsule 100 mg PO BID PRN PRN (Reason: Constipation) Qty: 60 0RF ibuprofen 600 MG tablet 600 mg PO TID PRN (Reason: Pain Score 1-10/10) Qty: 30 0RF acetaminophen 500 MG tablet 1,000 mg PO Q6H PRN (Reason: Pain 1-10 Or Fever) oxycodone 5 MG tablet 5 - 10 mg PO Q4H PRN PRN (Reason: Pain Score 1-10) Primary Care Provider: Jess Guerrero Referrals: Jess Guerrero MD [Primary Care Provider] - Betty Amin DO [Med Staff - Active Staff] - Keep Christopher appointment Disposition Disposition: Home, Self Care
[2022-05-16 17:27] LABS: Anion Gap 5 (5-15); BUN 6 mg/dL (7-18); BUN/Creat Ratio 10.5 RATIO (10-20); Calcium,Total 9.1 mg/dL (8.5-10.1); Chloride 106 mmol/L (98-107); Creatinine, Serum 0.57 mg/dL (0.55-1.02); EST Glomerular Filtration Rate 128 mL/min (>60); Est Glom Filt Rate - Afr Amer 155 mL/min (>60); Estimated Creatinine Clearance 113.95 ml/min; Glucose 85 mg/dL (74-106); Potassium 3.9 mmol/L (3.5-5.1); Sodium Level 137 mmol/L (136-145)
[2022-05-16 17:51] LABS: Troponin-I HS 4 pg/mL (3.0-54.0)
[2022-05-16 18:36] VITALS: BP 114/58; PULSE 73; RESP 16; O2SAT 96
== END 2022-05-16 18:41 | disposition home or self-care (01) ==
PROVIDERS: Emergency Provider Emergency Medicine; PCP Family Medicine; Visit Provider Emergency Medicine
DX: O99.891 Other specified diseases and conditions complicating pregnancy (principal); R00.2 Palpitations; Z3A.23 23 weeks gestation of pregnancy
CPT/HCPCS: 80048; 84443; 84484; 85025; 93005; 94760; 99282; A4216

== ENCOUNTER → 2022-06-28 | Outpatient (CLI) | payer OTHER, SELFPAY ==
[2022-06-28 17:07] LABS: Absolute Lymphocyte Count 2.67 X10^3/uL (0.83-4.51); Absolute Neutrophil Count 7.5 X10^3/uL (2.0-7.7); Basophil# 0.05 X10^3/uL; Basophil% 0.5 % (0-1); Eosinophil# 0.05 X10^3/uL; Eosinophils% 0.5 % (0-5); Hematocrit 34.4 % (37-47); Hemoglobin 12.1 g/dL (12.0-15.0); Lymphocyte # 2.67 X10^3/ul (0.83-4.51); Lymphocyte % 24.5 % (19-41); Mean Corp Hgb Conc 35.2 g/dL (32-36); Mean Corpuscular Hgb 32.1 pg (27.0-32.0); Mean Corpuscular Volume 91.2 fL (81-99); Mean Platelet Vol. 9.2 fl (6.2-12.0); Monocyte# 0.59 X10^3/uL; Monocyte% 5.4 % (0-10); NRBC Flagged by Analyzer 0 % (0-5); Neutrophil # 7.49 X10^3/uL (2.7-7.7); Neutrophil % 68.7 % (47-70); Platelet Count 292 K/mm3 (150-450); RBC Distribution Width CV 12.5 % (11.6-14.6); RBC Distribution Width SD 41.3 fl (35.1-43.9); Red Blood Count 3.77 M/mm3 (4.2-5.4); White Blood Count 10.9 K/mm3 (4.4-11.0)
[2022-06-28 17:14] LABS: Glucose Challenge Gest 1H 50g 188 mg/dL (70-140)
[2022-06-28 17:35] LABS: Syphilis Antibodies Non-reactive
== END | disposition home or self-care (01) ==
LOC: WOBLAB 16:07
PROVIDERS: PCP Family Medicine; Visit Provider Obstetrics & Gynecology
DX: Z34.82 Encounter for supervision of other normal pregnancy, second trimester (principal)
CPT/HCPCS: 36415; 82950; 85025; 86780

== ENCOUNTER → 2022-06-30 | Outpatient (CLI) | payer OTHER, SELFPAY ==
[2022-06-30 09:41] LABS: Glucose GTT-Gestation. Fasting 83 mg/dL (<105)
[2022-06-30 10:26] LABS: Glucose GTT-Gestational 1 Hr 163 mg/dL (<190)
[2022-06-30 11:19] LABS: Glucose GTT-Gestational 2 Hr 120 mg/dL (<165)
[2022-06-30 12:30] LABS: Glucose GTT-Gestational 3 Hr 58 L (<145)
== END | disposition home or self-care (01) ==
LOC: WOBLAB 08:41
PROVIDERS: PCP Family Medicine; Visit Provider Obstetrics & Gynecology
DX: O24.912 Unspecified diabetes mellitus in pregnancy, second trimester (principal); Z3A.00 Weeks of gestation of pregnancy not specified
CPT/HCPCS: 36415; 82951; 82952

== ENCOUNTER 2022-09-01 03:00 | Inpatient (IN) | payer OTHER, SELFPAY ==
[2022-09-01] VITALS (45 sets, daily range): BP systolic 103–166; BP diastolic 50–89; PULSE 57–86; TEMP 36.6–37.3; O2SAT 81–100; BMI 31.9
[2022-09-01 02:59] LABS: ROM Internal Control Test YES-OK TO RESULT pt. (Internal QC)
[2022-09-01 03:00] LABS: ROM Patient Test POSITIVE (Negative); Record Kit Lot#, ROM+ K1374
[2022-09-01] MEDS: Lactated Ringers 1,000 ML 50 ML IV (03:18)
[2022-09-01 03:32] LABS: Absolute Lymphocyte Count 2.95 X10^3/uL (0.83-4.51); Absolute Neutrophil Count 5.1 X10^3/uL (2.0-7.7); Basophil# 0.04 X10^3/uL; Basophil% 0.5 % (0-1); Eosinophil# 0.04 X10^3/uL; Eosinophils% 0.5 % (0-5); Hematocrit 34.5 % (37-47); Hemoglobin 11.7 g/dL (12.0-15.0); Lymphocyte # 2.95 X10^3/ul (0.83-4.51); Lymphocyte % 33.4 % (19-41); Mean Corp Hgb Conc 33.9 g/dL (32-36); Mean Corpuscular Hgb 30.3 pg (27.0-32.0); Mean Corpuscular Volume 89.4 fL (81-99); Mean Platelet Vol. 10.2 fl (6.2-12.0); Monocyte# 0.61 X10^3/uL; Monocyte% 6.9 % (0-10); NRBC Flagged by Analyzer 0 % (0-5); Neutrophil # 5.14 X10^3/uL (2.7-7.7); Neutrophil % 58.2 % (47-70); Platelet Count 252 K/mm3 (150-450); RBC Distribution Width CV 11.9 % (11.6-14.6); RBC Distribution Width SD 37.9 fl (35.1-43.9); Red Blood Count 3.86 M/mm3 (4.2-5.4); White Blood Count 8.8 K/mm3 (4.4-11.0)
[2022-09-01 04:46] LABS: Syphilis Antibodies Non-reactive
[2022-09-01] MEDS: Oxytocin 15 Units/NS 250ml 15 UNITS/250 ML IV.SOLN 2 UNITS IV (06:43)
--- NOTE | 2022-09-01 07:37 | PCM.HP.BLA ---
History and Physical Date of Admission: 09/01/22 Chief complaint: Leakage of fluid History present illness: 37-year-old G1, P0 at 38 weeks and 5 days with TRISTAN 09/10/2022 arrives with leakage of clear fluid. Denies headache, vision change, chest pain, shortness of breath, nausea vomit, right upper quadrant pain. Patient states good movement. is complicated by AMA, BMI 32, IVF , anxiety depression, GBS positive Obstetric history: G1: Current Past medical history: Anxiety depression Medications: vitamin, fluoxetine Allergies: No known drug allergies Past surgical history: Lasix, wisdom teeth extraction, fulguration of endometriosis, IVF, left ACL Family history: Denies history DVT or PE Social history: Denies smoking, alcohol use, drug use Review of systems: Besides above pertinent positives a full review of systems was performed and found to be negative Physical exam: Vitals: Blood pressure 135/82 pulse 74 General: Normal-appearing no acute distress HEENT: Normocephalic/atraumatic no cervical lymphadenopathy Cardiac/respiratory: No use of accessory muscles, nonlabored breathing Abdomen: Soft, nontender, gravid Extremities: No peripheral edema normal peripheral pulses Psych: Normal affect normal demeanor nonpressured speech Labs: White blood cell count 8.8 hemoglobin 11.7 hematocrit 34.5% platelets 252. RPR nonreactive. Blood type a positive antibody negative. ROM positive Assessment and plan: Called by nursing patient arrived with leakage of clear fluid and ROM positive, given orders for admit labor and delivery along with patient GBS positive for penicillin. Called back by nursing with unchanged cervical exam given orders for Pitocin augmentation. Patient seen and examined. 37-year-old G1, P0 at 38 weeks and 5 days arrives with SROM. Continue penicillin for GBS prophylaxis. Continue augmentation with Pitocin
[2022-09-01] MEDS: Penicillin G 3,000,000 Units 50 ML 100 UNITS IV ×4 (08:19→20:14)
[2022-09-01] MEDS: Lactated Ringers 1,000 ML 200 ML IV ×2 (10:33→19:28)
[2022-09-01] MEDS: LACTATED RINGERS 500 ML 999 ML IV ×2 (10:34→14:21)
[2022-09-01] MEDS: Ondansetron 4 MG/2 ML Vial IV (11:06)
[2022-09-01] MEDS: fentaNYL-bupivacaine (epidural) 100 ML BAG EPIDURAL ×3 (11:30→20:38)
--- NOTE | 2022-09-01 17:28 | PN.OBGYN_ITS ---
Subjective Subjective Patient now comfortable with epidural. No complaints Objective Data Objective Data Vital Signs: Vital Signs Temp Pulse BP Pulse Ox 98.1 F 64 121/62 H 97 09/01/22 16:29 09/01/22 16:30 09/01/22 16:30 09/01/22 12:10 Weight: 186 lb 4.65 oz Body Mass Index (BMI) 31.9 Intake & Output: Intake and Output for Last 24 Hours 08/30/22 08/31/22 09/01/22 23:59 23:59 23:59 Intake Total 1629.37 / 1629.37 Output Total 600 / 600 Balance 1029.37 / 1029.37 Lab / Micro Data 09/01/22 03:15 Labs: Laboratory Results - last 24 hr 09/01/22 02:42: Vag Amniotic Fld Detect POSITIVE H 09/01/22 03:15: WBC 8.8, RBC 3.86 L, Hgb 11.7 L, Hct 34.5 L, MCV 89.4, MCH 30.3, MCHC 33.9, RDW Std Deviation 37.9, RDW Coeff of Gerry 11.9, Plt Count 252, MPV 10.2, Immature Gran % (Auto) 0.500, Neut % (Auto) 58.2, Lymph % (Auto) 33.4, [place] % (Auto) 6.9, Eos % (Auto) 0.5, Baso % (Auto) 0.5, Absolute Neuts (auto) 5 .1, Absolute Lymphs (auto) 2.95, Nucleated RBC % 0, Syphilis Total Ab Non- reactive, Blood Type A POSITIVE, Antibody Screen NEGATIVE Physical Exam Const alert, oriented x3, no apparent distress, average body habitus, healthy appearing and well nourished HEENT normocephalic and moist oral mucous membranes Eyes PERRL Neck full ROM Resp normal respiratory effort, no retractions and no use of accessory muscles Psych mental status grossly normal, affect normal, speech normal and activity/motor behavior normal Assessment & Plan (1) : PLAN: Met with nursing and reviewed internal progress and notified patient feeling lots of pressure and was checked to be 7 cm decided for epidural epidural placed and rechecked after epidural placement and cervical exam was found at that time to be 5 cm by nursing. Later contacted by nursing with prolonged deceleration that resolved, given orders for expectant management. Then later meeting and review of heart tracing with nursing found to have recurrent decelerations. Patient seen and examined comfortable with epidural in hands and knees for approximately 10 minutes no decelerations Pitocin still on then deceleration occurred while in room and given orders to nursing to turn off Pitocin for at least 30 minutes and we will continue to evaluate heart rate tracing. Educated patient on findings and length of recurrent decelerations borderline to discuss other delivery options, patient stated understanding. We will continue to monitor with Pitocin off
[2022-09-01] MEDS: Mag Hydrox/Al Hydrox/Simeth 30 ML UDC PO (23:06)
--- NOTE | 2022-09-01 23:32 | PCM.PN.OB ---
Subjective Subjective Patient comfortable with epidural Objective Data Objective Data Vital Signs: Vital Signs Temp Pulse BP Pulse Ox 99.0 F 81 120/65 96 09/01/22 23:19 09/01/22 23:20 09/01/22 23:20 09/01/22 23:19 Weight: 186 lb 4.65 oz Body Mass Index (BMI) 31.9 Intake & Output: Intake and Output for Last 24 Hours 08/30/22 08/31/22 09/01/22 23:59 23:59 23:59 Intake Total 1749.04 / 1749.04 Output Total 800 / 800 Balance 949.04 / 949.04 Lab / Micro Data 09/01/22 03:15 Labs: Laboratory Results - last 24 hr 09/01/22 02:42: Vag Amniotic Fld Detect POSITIVE H 09/01/22 03:15: WBC 8.8, RBC 3.86 L, Hgb 11.7 L, Hct 34.5 L, MCV 89.4, MCH 30.3, MCHC 33.9, RDW Std Deviation 37.9, RDW Coeff of Gerry 11.9, Plt Count 252, MPV 10.2, Immature Gran % (Auto) 0.500, Neut % (Auto) 58.2, Lymph % (Auto) 33.4, [place] % (Auto) 6.9, Eos % (Auto) 0.5, Baso % (Auto) 0.5, Absolute Neuts (auto) 5.1, Absolute Lymphs (auto) 2.95, Nucleated RBC % 0, Syphilis Total Ab Non-reactive, Blood Type A POSITIVE, Antibody Screen NEGATIVE Physical Exam Const alert, oriented x3, no apparent distress, average body habitus, healthy appearing and well nourished HEENT normocephalic and moist oral mucous membranes Eyes PERRL Neck full ROM Resp normal respiratory effort, no retractions and no use of accessory muscles GI GI Narrative: Soft, nontender, gravid Narrative: Cervical exam: /-1, swelling of anterior lip of cervix Psych mental status grossly normal, affect normal, speech normal and activity/motor behavior normal Assessment & Plan (1) : PLAN: Called by nursing that patient has been observed for 30 minutes with reassuring heart tones okay to restart Pitocin. Patient seen and examined. Cervical exam as above unchanged from previous exam. Overall moments of recurrent decelerations but less than 1 hour and then heart tones resolve. Educated patient on findings discussed care plan going forward and her options. Educated patient on last cervical change was at 1800 and discussed findings of swelling of the anterior lip. Discussed possible asynclitic along with inappropriate dilation progression. Discussed heart tones including recurrent decelerations that ultimately resolve. Educated patient and partner on findings and options. Patient wishes to continue labor. We will recheck in 1 hour
[2022-09-02] VITALS (25 sets, daily range): BP systolic 98–141; BP diastolic 54–82; PULSE 66–88; RESP 16–18; TEMP 36.1–37.2; O2SAT 96–99
[2022-09-02] MEDS: Acetaminophen 500 MG Tablet PO (01:02)
[2022-09-02] MEDS: Sodium Citrate/Citric Acid 30 ML UDC PO (01:02)
--- NOTE | 2022-09-02 01:11 | PCM.PN.OB ---
Subjective Subjective Patient comfortable with epidural Objective Data Objective Data Vital Signs: Vital Signs Temp Pulse BP Pulse Ox 99.0 F 81 120/65 96 09/01/22 23:19 09/01/22 23:20 09/01/22 23:20 09/01/22 23:19 Weight: 186 lb 4.65 oz Body Mass Index (BMI) 31.9 Intake & Output: Intake and Output for Last 24 Hours 08/31/22 09/01/22 09/02/22 23:59 23:59 23:59 Intake Total 1749.04 / 1749.04 Output Total 800 / 800 Balance 949.04 / 949.04 . Lab / Micro Data 09/01/22 03:15 Labs: Laboratory Results - last 24 hr 09/01/22 02:42: Vag Amniotic Fld Detect POSITIVE H 09/01/22 03:15: WBC 8.8, RBC 3.86 L, Hgb 11.7 L, Hct 34.5 L, MCV 89.4, MCH 30.3, MCHC 33.9, RDW Std Deviation 37.9, RDW Coeff of Gerry 11.9, Plt Count 252, MPV 10.2, Immature Gran % (Auto) 0.500, Neut % (Auto) 58.2, Lymph % (Auto) 33.4, [place] % (Auto) 6.9, Eos % (Auto) 0.5, Baso % (Auto) 0.5, Absolute Neuts (auto) 5.1, Absolute Lymphs (auto) 2.95, Nucleated RBC % 0, Syphilis Total Ab Non-reactive, Blood Type A POSITIVE, Antibody Screen NEGATIVE Physical Exam Const alert, oriented x3, no apparent distress, average body habitus, healthy appearing and well nourished HEENT normocephalic and moist oral mucous membranes Eyes PERRL Neck full ROM Resp normal respiratory effort, no retractions and no use of accessory muscles GI GI Narrative: Soft, nontender, gravid Psych mental status grossly normal, affect normal, speech normal and activity/motor behavior normal Assessment & Plan (1) : PLAN: Called by nursing with repeat cervical exam unchanged and further worsening of swelling of anterior cervical lip, nursing also notes possible asynclitic position. Patient seen and examined educated patient on findings we discussed options for continued augmentation of labor versus primary section with no cervical change in greater than 6 hours risk benefits alternatives discussed. Patient elects for primary section. Patient understands risk of the procedure include but are not limited to visceral or vascular injury, prolonged hospitalization, blood loss need for transfusion, reoperation. Educated patient on increased risk of infection and blood loss with section versus vaginal delivery. Patient states understanding and wished to proceed. All questions were answered for patient and partner, and consent signed. For primary section now. For 2 g Ancef and 500 mg of azithromycin. Instructed nursing to call and surgical team including anesthesia and PUBLIC POLICY ASSOCIATE
[2022-09-02] MEDS: Cefazolin 2 GM in 0.9% Normal Saline 100 ML IV (01:23)
--- NOTE | 2022-09-02 02:29 | EX.PCM.OBRPT ---
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 Normal uterus, tubes, and ovaries. Posterior cul-de-sac with moderate amount of adhesions. Left uterine extension noted and repaired with Vicryl suture. Consent: Patient arrived with spontaneous rupture of membranes subsequently augmented in labor with Pitocin and noted to be 8 cm for greater than 6 hours educated patient on options including continued labor versus primary section Via Pfannenstiel incision. Patient elected for primary section via Pfannenstiel incision. Patient understands risks of the procedure include but are not limited to visceral or vascular injury, prolonged hospitalization, blood loss and need for transfusion, reoperation. Patient state understanding wish to proceed. All questions were answered and consent was signed. Procedure: Patient was brought back to the OR where epidural anesthesia was found to be adequate. 2 g of Ancef and 500 mg of azithromycin were given for infection prophylaxis. Patient was prepared and draped in a supine position with leftward tilt. A Pfannenstiel incision was made at the skin with a scalpel. The incision was carried down to the fascia with scalpel. The fascia was excised and extended laterally. Rectus muscle was dissected at the midline down to the level of pubic symphysis. Preperitoneal fatty tissue was noted and peritoneum was entered bluntly. Peritoneum was extended superiorly and inferiorly with good visualization of bladder. Bladder blade was inserted and vesicouterine peritoneum was identified. Low transverse hysterotomy was made. Hand was placed into the incision and gentle fundal pressure was applied once the bladder blade was removed and the head was brought into the incision. Head and shoulders were delivered. Cord was clamped and cut. Baby was handed off to nursing. Placenta was delivered via cord traction and fundal massage. IV oxytocin was initiated in order to facilitate uterine contractions. Uterus was exteriorized and wiped out with dry laparotomy sponge in order to remove remaining placental membranes. Uterus was closed in continuous running fashion with Vicryl suture. As noted above left uterine extension noted and repaired with Vicryl suture. Good hemostasis was noted. Uterus was placed back in the abdominal cavity and the hysterotomy and extension was reinspected and good hemostasis was noted. Juan was placed over the extension and the hysterotomy. Good hemostasis was noted. Fascia was closed in a continuous running fashion with PDS suture. Subcutaneous irrigation was performed and good hemostasis was noted. Skin was closed in a subcuticular fashion. Good hemostasis was noted. All counts were correct x2. Patient tolerated procedure well and was brought to recovery in a stable condition.
[2022-09-02] MEDS: Oxytocin 15 Units/NS 250ml 15 UNITS/250 ML IV.SOLN 83 UNITS IV (03:00)
[2022-09-02] MEDS: Ketorolac 30 MG/ML Syringe IV ×3 (04:08→18:05)
[2022-09-02] MEDS: Lactated Ringers 1,000 ML 100 ML IV (05:57)
[2022-09-02] MEDS: Acetaminophen 500 MG Tablet 1000 MG PO ×3 (06:37→19:48)
[2022-09-02] MEDS: Fluoxetine HCl 40 MG CAPSULE PO (10:54)
[2022-09-02] MEDS: Cefazolin 1 GM/50 ML BAG IV ×2 (10:54→18:05)
[2022-09-02] MEDS: Senna/Docusate Sodium 1 Tablet PO (10:54)
[2022-09-02] MEDS: 0.9% Saline Lock 10 ML Syringe IV (11:16)
[2022-09-02] MEDS: Enoxaparin 40 MG/0.4 ML Syringe SC ×2 (16:59→21:51)
[2022-09-03] MEDS: 0.9% Saline Lock 10 ML Syringe IV (00:06)
[2022-09-03] MEDS: Ketorolac 30 MG/ML Syringe IV (00:06)
[2022-09-03 01:05] VITALS: BP 124/68; PULSE 74; RESP 16; TEMP 36.4; O2SAT 96
[2022-09-03] MEDS: Acetaminophen 500 MG Tablet 1000 MG PO ×4 (01:53→21:34)
[2022-09-03] MEDS: oxyCODONE 5 MG Tablet PO ×3 (01:54→20:35)
[2022-09-03 06:06] LABS: Hematocrit 26.7 % (37-47); Hemoglobin 8.9 g/dL (12.0-15.0); Mean Corp Hgb Conc 33.3 g/dL (32-36); Mean Corpuscular Hgb 30.1 pg (27.0-32.0); Mean Corpuscular Volume 90.2 fL (81-99); Mean Platelet Vol. 10.1 fl (6.2-12.0); Platelet Count 220 K/mm3 (150-450); RBC Distribution Width CV 11.8 % (11.6-14.6); Red Blood Count 2.96 M/mm3 (4.2-5.4)
[2022-09-03 08:08] VITALS: BP 142/85; PULSE 68; RESP 18; TEMP 36.2; O2SAT 97
[2022-09-03] MEDS: Ibuprofen 600 MG Tablet PO ×3 (09:16→21:35)
--- NOTE | 2022-09-03 09:35 | PCM.PN.OB ---
Subjective Subjective No overnight complaints Objective Data Objective Data Vital Signs: Vital Signs Temp Pulse Resp BP Pulse Ox O2 Del Method 97.2 F L 68 18 142/85 H 97 Room Air 09/03/22 08:08 09/03/22 08:08 09/03/22 08:08 09/03/22 08:08 09/03/22 08:08 09/03/22 08:08 Oxygen Delivery Method Room Air Weight: 186 lb 4.65 oz Body Mass Index (BMI) 31.9 Intake & Output: Intake and Output for Last 24 Hours 09/01/22 09/02/22 09/03/22 23:59 23:59 23:59 Intake Total 1749.04 / 1749.04 2612.75 / 2612.75 Output Total 800 / 800 1800 / 1800 Balance 949.04 / 949.04 812.75 / 812.75 Lab / Micro Data 09/03/22 05:55 Labs: Laboratory Results - last 24 hr 09/03/22 05:55: WBC 15.0 H, RBC 2.96 L, Hgb 8.9 L, Hct 26.7 L, MCV 90.2, MCH 30.1, MCHC 33.3, RDW Std Deviation 38.0, RDW Coeff of Gerry 11.8, Plt Count 220, MPV 10.1 Physical Exam Const alert, oriented x3, no apparent distress, average body habitus, healthy appearing and well nourished HEENT normocephalic and moist oral mucous membranes Eyes PERRL Neck full ROM Resp normal respiratory effort, no retractions and no use of accessory muscles GI GI Narrative: Soft, nontender, bandage clean dry and intact Extremity normal to inspection, full ROM and no clubbing, cyanosis or edema Neuro moves all extremities and no focal motor deficits Psych mental status grossly normal, affect normal, speech normal and activity/motor behavior normal Assessment & Plan (1) delivery delivered: PLAN: Postop day 1 status post primary section for failure to progress. Breast-feeding. Pain overall well controlled. Likely discharge home tomorrow
[2022-09-03] MEDS: Enoxaparin 40 MG/0.4 ML Syringe SC ×2 (09:48→21:35)
[2022-09-03] MEDS: Senna/Docusate Sodium 1 Tablet PO (09:49)
[2022-09-03] MEDS: Fluoxetine HCl 40 MG CAPSULE PO (12:13)
[2022-09-03 13:52] VITALS: BP 133/73; PULSE 82; RESP 16; O2SAT 98
[2022-09-03 20:40] VITALS: BP 143/55; PULSE 91; RESP 18; TEMP 36.7; O2SAT 96
[2022-09-04] MEDS: oxyCODONE 5 MG Tablet PO ×2 (00:36→05:27)
[2022-09-04 01:05] VITALS: BP 134/74; PULSE 82; RESP 16; O2SAT 97
[2022-09-04] MEDS: Ibuprofen 600 MG Tablet PO ×2 (03:36→10:07)
[2022-09-04] MEDS: Acetaminophen 500 MG Tablet 1000 MG PO ×2 (03:37→10:07)
--- NOTE | 2022-09-04 08:44 | PCM.DC.BLA ---
Discharge Summary Date of Admission: 09/01/22 Date of Discharge: 09/04/22 Summary: Patient arrived on 09/01/2022 with SROM. Subsequently with rest of active phase of labor and elected for primary section performed on 09/02/2022. Routine postoperative recovery and discharged home on 09/04/2022 Meaningful Use Info Meaningful Use Diagnoses (Choose all that apply): None applicable Discharge Plan Admission Admit Date/Time: 09/01/22 03:00 Primary Reason for Your Visit: Spontaneous rupture membranes Attending Provider: Salvador Amin Primary Care Provider: Jess Guerrero Instructions Additional Instructions / Restrictions: Regular diet. Okay to shower. No tub baths for 2 weeks. No lifting over 25 pounds for 2 to 3 weeks. No intercourse for 6 to 8 weeks. Call if fevers, chills, chest pain, shortness of breath. Follow-up 2 weeks postoperatively Discharge Orders/Prescriptions Prescriptions: New oxycodone 5 mg tablet 5 mg PO Q6H PRN (Reason: pain (scale score 7-10)) 4 Days Qty: 16 0RF Continued fluoxetine 40 MG capsule 40 mg PO DAILY multivitamin with folic acid 1 TABLET tablet 1 tab PO DAILY prasterone (dhea) 25 MG capsule 25 mg PO BID levothyroxine 50 MCG tablet 50 mcg PO DAILY cholecalciferol (vitamin D3) 1,000 UNIT tablet 2,000 unit PO BID PNV 370-pgnlk-fthhm-3-fish oil 1 EACH tablet,chewable 4 ea PO DAILY docusate sodium 100 MG capsule 100 mg PO BID PRN PRN (Reason: Constipation) Qty: 60 0RF ibuprofen 600 MG tablet 600 mg PO TID PRN (Reason: Pain Score 1-10/10) Qty: 30 0RF acetaminophen 500 MG tablet 1,000 mg PO Q6H PRN (Reason: Pain 1-10 Or Fever) Discontinued oxycodone 5 MG tablet 5 - 10 mg PO Q4H PRN PRN (Reason: Pain Score 1-10) Referrals / Follow Up: Jess Guerrero MD [Primary Care Provider] - Disposition Disposition (needs filled in before D/C Order can be placed): Home, Self Care
--- NOTE | 2022-09-04 08:44 | PCM.PN.OB ---
Subjective Subjective No overnight complaints Objective Data Objective Data Vital Signs: Vital Signs Temp Pulse Resp BP Pulse Ox O2 Del Method 98.1 F 82 16 134/74 H 97 Room Air 09/03/22 20:40 09/04/22 01:05 09/04/22 01:05 09/04/22 01:05 09/04/22 01:05 09/04/22 01:05 Oxygen Delivery Method Room Air Weight: 186 lb 4.65 oz Body Mass Index (BMI) 31.9 Intake & Output: Intake and Output for Last 24 Hours 09/02/22 09/03/22 09/04/22 23:59 23:59 23:59 Intake Total 2612.75 / 2612.75 Output Total 1800 / 1800 Balance 812.75 / 812.75 Lab / Micro Data 09/03/22 05:55 Physical Exam Const alert, oriented x3, no apparent distress, average body habitus, healthy appearing and well nourished HEENT normocephalic and moist oral mucous membranes Eyes PERRL Neck full ROM Resp normal respiratory effort, no retractions and no use of accessory muscles Extremity normal to inspection, full ROM and no clubbing, cyanosis or edema Neuro moves all extremities and no focal motor deficits Psych mental status grossly normal, affect normal, speech normal and activity/motor behavior normal Assessment & Plan (1) delivery delivered: PLAN: Postop day 2 status post primary section for failure to progress. Breast-feeding. Pain well controlled. Okay to discharge home
[2022-09-04 08:54] VITALS: BP 131/67; PULSE 79; RESP 16; TEMP 36.6; O2SAT 97
[2022-09-04] MEDS: Senna/Docusate Sodium 1 Tablet PO (10:07)
[2022-09-04] MEDS: Fluoxetine HCl 40 MG CAPSULE PO (10:07)
[2022-09-04] MEDS: Enoxaparin 40 MG/0.4 ML Syringe SC (10:08)
--- NOTE | 2022-09-04 10:20 | CASEMGMT ---
Social Work Assessment Labor and Delivery Unit Patient Address: [address] Phone number: [phone] Date of Referral: 09/02/2022 Time of Referral: 3:00 Referred By: Brennan Date of Intervention: 09/02/2022? Time of Intervention:? 3:45p Reason for Referral:? Hx of anxiety History obtained from: MOB, FOB, Med record Household composition: FOB, MOB, new baby and 2 dogs Patient's parent/guardian status:? MOB and FOB have been about 9 years and known each other since childhood. Medical History: MOB reports using IVF an this is her first child. Baby boy, Adan Dominguez, via , 8.12 lbs and 6/8 apgars. Educational Status: Denies concerns. College degree. Financial Status: Denies concerns, gets no assistance and denies need. Supplies: MOB reports having all needed items. Childcare/Caregiver(s):? MOB and grandparents Transportation:? Reports adequate transportation. Programs/Agencies Involved: None. ??? Children Services/Legal Issues: Denies. Behavioral Health Issues: MOB denies concerns for her mental health. Reports some history of anxiety/depression that has been well controlled with Prozac. Some family history of depression/anxiety. Denies any substance abuse concerns for self or family. Family/Social Stressors: Denies concerns. ? Support Systems: Grandparents. Siblings, cousins Depression Provided education and gave resources. Shaken Baby Provided education, parents report understanding Safe Sleeping Provided education, parents report understanding ASSESSMENT:? MOB/FOB responded appropriately. Parents report infertility and preparing for baby for years. Resources given and no concerns reported. PLAN:? No other services requested or indicated. Amalia Benitez SIGNALLING AND COMMUNICATIONS ENGINEER, HUMAN RESOURCES ASSISTANT MANAGER
== END 2022-09-04 10:54 | disposition home or self-care (01) | DRG 788 ==
LOC: WPOUT 03:02 → WP 03:02
PROVIDERS: Admitting Provider Obstetrics & Gynecology; PCP Family Medicine; Referring Provider Obstetrics & Gynecology; Visit Provider Obstetrics & Gynecology
DX: O76 Abnormality in fetal heart rate and rhythm complicating labor and delivery (principal); F32.A Depression, unspecified; F41.9 Anxiety disorder, unspecified; O62.1 Secondary uterine inertia; O99.344 Other mental disorders complicating childbirth; O42.92 Full-term premature rupture of membranes, unspecified as to length of time between rupture and onset of labor; O99.824 Streptococcus B carrier state complicating childbirth; Z37.0 Single live birth; Z3A.38 38 weeks gestation of pregnancy; Z79.899 Other long term (current) drug therapy
CPT/HCPCS: 59025; 59050; 84112; 85025; 85027; 86780; 86850; 86900; 86901; 99221; J7120; A4216; G0378; J2405

== ENCOUNTER → 2023-02-20 | Outpatient (CLI) | payer OTHER, SELFPAY ==
[2023-02-20 12:23] LABS: Absolute Lymphocyte Count 2.58 X10^3/uL (0.83-4.51); Absolute Neutrophil Count 3.1 X10^3/uL (2.0-7.7); Basophil# 0.07 X10^3/uL; Basophil% 1.1 % (0-1); Eosinophils% 1.6 % (0-5); Hematocrit 40.5 % (37-47); Lymphocyte # 2.58 X10^3/ul (0.83-4.51); Lymphocyte % 40.8 % (19-41); Mean Corp Hgb Conc 32.1 g/dL (32-36); Mean Corpuscular Volume 90.4 fL (81-99); Mean Platelet Vol. 9.3 fl (6.2-12.0); Monocyte# 0.44 X10^3/uL; NRBC Flagged by Analyzer 0 % (0-5); Neutrophil # 3.11 X10^3/uL (2.7-7.7); Neutrophil % 49.2 % (47-70); Platelet Count 320 K/mm3 (150-450); RBC Distribution Width SD 42.4 fl (35.1-43.9); Red Blood Count 4.48 M/mm3 (4.2-5.4); White Blood Count 6.3 K/mm3 (4.4-11.0)
[2023-02-20 12:42] LABS: Vitamin D,25 Hydroxy 26.7 ng/mL
[2023-02-20 12:50] LABS: Progesterone Level < 0.21 ng/mL (See Comment)
[2023-02-20 17:43] LABS: AST(SGOT) 15 U/L (15-37); Alanine Aminotransfer ALT/SGPT 17 U/L (13-56); Albumin, Serum 3.6 g/dL (3.2-5.0); Alkaline Phosphatase 88 U/L (45-117); Anion Gap 6 (5-15); BUN 12 mg/dL (7-18); BUN/Creat Ratio 17.2 RATIO (10-20); Calcium,Total 8.8 mg/dL (8.5-10.1); Chloride 106 mmol/L (98-107); EST Glomerular Filtration Rate 101 mL/min (>60); Est Glom Filt Rate - Afr Amer 123 mL/min (>60); Follicle Stimulating Hormone 3.3 mIU/mL; Globulin 3.5 g/dL (2.2-4.2); Glucose 85 mg/dL (74-106); Luteinizing Hormone 2.2 mIU/mL; Potassium 3.7 mmol/L (3.5-5.1); Protein, Total 7.1 g/dL (6.4-8.2); Sodium Level 139 mmol/L (136-145); Thyroid Stim Hormone (TSH) 2.09 uIU/mL (0.358-3.74)
[2023-02-23 00:07] LABS: Estrogen, Total, Serum 52 pg/mL (.)
== END | disposition home or self-care (01) ==
LOC: MFPLAB 10:31
PROVIDERS: PCP Family Medicine; Visit Provider Family Medicine
DX: E03.9 Hypothyroidism, unspecified (principal); E55.9 Vitamin D deficiency, unspecified; R53.83 Other fatigue
CPT/HCPCS: 36415; 80053; 82306; 82672; 83001; 83002; 84144; 84439; 84443; 85025

== ENCOUNTER → 2023-11-22 | Outpatient (CLI) | payer OTHER, SELFPAY ==
--- NOTE | 2023-11-22 16:13 | BI_ITS ---
MAMMOGRAPHY - BILATERAL SCREENING REASON FOR EXAM: Female, 38 years old. Routine annual screening examination. PERTINENT HISTORY: Non-contributory. TECHNIQUE: Digital bilateral breast ced (3D mammographic acquisition) in the CC and MLO projections. 2-D mediolateral oblique (MLO) and craniocaudad (CC) views of both breasts were obtained. CAD: Full Field Digital Mammography with Computer Added Detection was performed. COMPARISON: None. Baseline examination. FINDINGS: Breast Composition: The breasts are heterogeneously dense, which may obscure small masses. There are no dominant masses or suspicious calcifications. No other significant abnormalities are identified. BI/SCRN MAMM (CAD)W/CED BILAT IMPRESSION: Negative screening mammogram. Yearly followup mammogram recommended. (A) ASSESSMENT CATEGORY: BIRADS Category 1: Negative. A letter regarding these results will be sent to the patient by the facility within 30 days. Approximately 10% of breast cancers are not detected by mammography. A normal mammogram should not delay biopsy of a clinically suspicious abnormality. [id number] Electronically Signed: Joey Whitman MD at 8:31 EDT ,
== END | disposition home or self-care (01) ==
LOC: OPBI 16:13
PROVIDERS: PCP Family Medicine; Referring Provider Nurse Practitioner Family; Visit Provider Nurse Practitioner Family
DX: Z12.31 Encounter for screening mammogram for malignant neoplasm of breast (principal)
CPT/HCPCS: 77063; 77067

== ENCOUNTER → 2024-05-15 | Outpatient (CLI) | payer OTHER, SELFPAY ==
[2024-05-20 11:08] LABS: HPV APTIMA, High Risk Negative (Negative)
== END | disposition home or self-care (01) ==
LOC: LABSPEC 15:56
PROVIDERS: PCP Family Medicine; Referring Provider Nurse Practitioner Family; Visit Provider Nurse Practitioner Family
DX: Z12.4 Encounter for screening for malignant neoplasm of cervix (principal)
CPT/HCPCS: 87624; 88175; G0145

== ENCOUNTER → 2024-09-08 | Outpatient (CLI) | payer OTHER, SELFPAY ==
[2024-09-08 12:25] LABS: Hematocrit 41.2 % (37-47); Hemoglobin 13.8 g/dL (12.0-15.0); Immature Granulocytes Count 0.020 X10^3/uL (0.0-0.0); Mean Corp Hgb Conc 33.5 g/dL (32-36); Mean Corpuscular Volume 90.9 fL (81-99); Mean Platelet Vol. 9.9 fl (6.2-12.0); NRBC Flagged by Analyzer 0 % (0-5); Platelet Count 323 K/mm3 (150-450); RBC Distribution Width CV 11.6 % (11.6-14.6); RBC Distribution Width SD 38.3 fl (35.1-43.9); Red Blood Count 4.53 M/mm3 (4.2-5.4); White Blood Count 7.6 K/mm3 (4.4-11.0)
[2024-09-08 12:53] LABS: Barbiturate Urine NEGATIVE (< 200 ng/mL); Benzodiazepine Urine NEGATIVE (< 200 ng/mL); PCP Urine NEGATIVE (< 25 ng/mL); THC Urine NEGATIVE (< 50 ng/mL)
[2024-09-08 14:09] LABS: HIV Nonreactive (Nonreactive); Hepatitis B Surface Antigen Nonreactive (Nonreactive); Hepatitis C Antibody Nonreactive (Nonreactive); Syphilis Antibodies Nonreactive (Nonreactive)
[2024-09-09 21:07] LABS: Chlamydia By Nucleic Acid AMP Negative (Negative); Gonococcus By Nucleic Acid AMP Negative (Negative)
== END | disposition home or self-care (01) ==
PROVIDERS: PCP Family Medicine; Visit Provider Obstetrics & Gynecology
DX: O09.90 Supervision of high risk pregnancy, unspecified, unspecified trimester (principal); O99.320 Drug use complicating pregnancy, unspecified trimester; F12.99 Cannabis use, unspecified with unspecified cannabis-induced disorder; Z3A.00 Weeks of gestation of pregnancy not specified; Z86.39 Personal history of other endocrine, nutritional and metabolic disease
CPT/HCPCS: 36415; 80307; 83036; 84443; 85025; 86703; 86762; 86780; 86803; 86850; 86900; 86901; 87086; 87088; 87340; 87491; 87591

== ENCOUNTER 2024-12-29 13:55 | Outpatient (CLI) | payer OTHER, SELFPAY ==
[2024-12-29 16:11] VITALS: BP 112/59; PULSE 94
[2024-12-29 16:13] VITALS: PULSE 96; RESP 16; TEMP 37.2; O2SAT 99
[2024-12-29 16:20] VITALS: BMI 30.6
[2024-12-29] MEDS: Lactated Ringers 1,000 ML 999 ML IV (17:00)
[2024-12-29 17:13] LABS: Mucous, Urine 0 SEEN /hpf (<or=2+)
[2024-12-29 17:19] LABS: Hematocrit 37.2 % (37-47); Hemoglobin 13.0 g/dL (12.0-15.0); Immature Granulocytes Count 0.070 X10^3/uL (0.0-0.0); Mean Corp Hgb Conc 34.9 g/dL (32-36); Mean Corpuscular Volume 89.6 fL (81-99); Mean Platelet Vol. 9.4 fl (6.2-12.0); NRBC Flagged by Analyzer 0 % (0-5); Platelet Count 324 K/mm3 (150-450); RBC Distribution Width CV 11.9 % (11.6-14.6); RBC Distribution Width SD 38.7 fl (35.1-43.9); Red Blood Count 4.15 M/mm3 (4.2-5.4); White Blood Count 13.6 K/mm3 (4.4-11.0)
[2024-12-29 19:17] VITALS: BP 119/62; PULSE 90; PULSE 96; RESP 16; TEMP 37.1; O2SAT 98
[2024-12-29 19:50] LABS: Glucose, Dipstick Normal (Normal); Ketone-Dipstick 15 mg/dl (Negative); Leukocyte Esterase-Dipstick 100 /ul (Negative); Nitrite-Dipstick Negative (Negative); Occult Blood-Urine Negative /ul (Negative); Protein-Dipstick 15 mg/dl (Negative); Specific Gravity, Urine 1.010 (1.002-1.030); Urine Bilirubin Dipstick Negative (Negative)
[2024-12-29 19:51] LABS: Color, Urine Yellow (Yellow)
--- NOTE | 2024-12-29 21:09 | OB.TRI.HP_ITS ---
HPI - General HPI Narrative KIRAN MILLIGAN, is a 39 F who presents with symptoms of nausea, vomiting, no fevers, and some intermittent SOB over the last few weeks and occaisonal palpitations. she had sob and palpitations last and had a nl echo. Maternal Data Information TRISTAN Calculator Estimated Delivery Date Method Current WG Current Estimate 04/02/25 Conception 26w 4d Other Estimates 04/02/25 Manual 26w 4d IVF 5 day tr jovita 07/15/24 PFSH PFSH Medical History Screening for cervical cancer delivery delivered Acute postoperative pain Depression Anxiety Endometriosis Infertility Endometriosis determined by laparoscopy Home Medications ?Medication ?Instructions ?Recorded ?Last Taken ?Type promethazine 12.5 mg tablet 12.5 mg PO Q6H PRN nausea and 08/19/24 Unknown Rx vomiting #60 tabs PNV no.63-iron,carbonyl 27 1 cap PO QDAY 08/28/24 Unkn own History mg-folic acid 800 mcg-dha 200 mg capsule ondansetron 4 mg disintegrating 4 mg PO Q4H PRN nausea and 08/28/24 12/29/24 Rx tablet vomiting #60 tabs escitalopram oxalate 20 mg tablet 20 mg PO HS #30 tabs 10/31/24 12/28/24 Rx bupropion HCl 150 mg 24 hr tablet, 150 mg PO DAILY 12/1312/29/24 History extended release promethazine 25 mg tablet 25 mg PO TID PRN nausea and 12/29/24 Unknown Rx vomiting #20 tabs Allergy/AdvReac Type Severity Reaction Status Date / Time No Known Allergies Allergy Verified 12/29/24 16:20 Family History Father Cancer Non-Hodgkins Lymphoma Mother Cancer skin cancer Surgical History History of surgery Hx of LASIK [place] teeth extracted History of repair of anterior cruciate ligament of left knee Social History adopted: No household members: spouse and children housing: house number of children: 1 current occupational status: employed 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 pets and animals: Yes history of recent travel: Yes ([place] 2024) out of state: Yes out of country: Yes sexually active: Yes Smoking Status: Never smoker alcohol intake: current alcohol intake frequency: a few times a week details: social, not while substance use type: does not use, marijuana and other details: last use March 2024 caffeine: Yes Type: coffee what type of physical activity do you participate in: walking frequency: 3-4 times per week trang/orthodoxy: None seatbelt use: always do you feel safe at home: Yes 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 Date Name GA/Weeks Outcome Route Bth Weight Infant Gen Labor Lgth Anesthesia Del Locatn Provider FOB 09/02/22 Adan live - full term Visit Details Expected Delivery Route/Plan patient counseled regarding risks/benefits of trial of labor versus repeat . ACOG/uptodate education given to patient. 42 % likelihood of success per calculator TOLAC consent form signed: [] still undecided about vs rpt IF NO SPONTANEOUS LABOR BY 39 WEEKS, THEN THE PLAN IS FOR A REPEAT SECTION. Plans Covid status: [] Flu vaccine: [] Tdap vaccine: [] Rhogam: [] LARC form signed: [] Problem list reviewed and updated with the most current plan of care details and appropriate orders placed. Relevant counseling for the gestational age provided. Continue routine care and follow up unless otherwise noted in visit notes/problem list details OB Flowsheet Initial Weight: Not Recorded Date -?-?-?-?-?-?-?-?-?-?-?-?- EGA Weight BP Urine Prot -?-?-?-?--?-?-?-?-?-?-?-?- Glucose FHR FuHt Pres Dilation -?-?-?-?-?-?-?-?-?-?--?-?- Effaced St Visit Note 09/30/24 -?-?-?-?-?-?-?-?-?-?-?-?- 13w 5d 175 lb 118/79 Negative -?-?-?-?-?-?-?-?-?-?-?-?- Negative 151 -?-?-?-?-?-?-?-?-?-?-?-?- KW- NOB was done by JAVON at end august. KW- NOB was done by [facility] at august. is IVF and AMA, hx of 1 c/s with Bashir Amin. did genetic testing with IVF. unsure if she would like a repeat c/s or TOLAC 10/30/24 -?-?-?-?-?-?-?-?-?-?-?-?- 18w 0d 172 lb 9 oz 114/76 Nega tive -?-?-?-?-?-?-?-?-?-?-?-?- Negative 143 -?-?-?-?-?-?-?-?-?-?-?-?- MH-No VB. Nausea resolved. Denies concerns 11/25/24 -?-?-?-?-?-?-?-?-?-?-?-?- 21w 5d 177 lb 7 oz 115/71 Nega tive -?-?-?-?-?-?-?-?-?-?-?-?- Negative 144 -?-?-?-?-?-?-?-?-?-?-?-?- JV- no lof, vagi nal bleeding or cramping. + FM. has anatomy scan + echo on same day with MFM . 12/26/24 -?-?-?-?-?-?-?-?-?-?-?-?- 26w 1d 175 lb 6 oz 109/73 Nega tive -?-?-?-?-?-?--?-?-?-?-?-?- Negative 144 -?-?-?-?-?-?-?-?-?-?-?-?- JV- every 4 beat murmur heard today. no lof, vaginal bleeding, or dec fm. NST FHR Rate Baby A Baseline: 140 Variability:: Moderate Accelerations:: 15 x 15 Decelerations:: None NST Reactive:: Yes FHR Category:: Category I Uterine Activity:: regular q 2-4 Assessment & Plan (1) Supervision of high-risk : QUALIFIERS: Trimester: second trimester Qualified Code(s): O09.92 - Supervision of high risk , unspecified, second trimester COMMENT: PRR, TRISTAN 04/02 PC: Adan : Jc (2) : QUALIFIERS: Weeks of gestation: 26 weeks Qualified Code(s): Z3A.26 - 26 weeks gestation of COMMENT: NIPT w gender/carrier - declines (IVF transfer embryos are tested) (3) Nausea/vomiting in : COMMENT: likely acute viral illness, support given, dc home, ua culture sent Charges/Coding Multi Select Codes Urinary/Genital Urinary/Genital CPT Codes: 79642-71 non-stress test Interp
[2024-12-29 21:20] LABS: Red Blood Cells-Urine 0-5 SEEN /hpf (0-5)
[2024-12-29 21:21] LABS: Squamous Epithelial Cells - UA 10-25 SEEN /hpf (5-10)
== END 2024-12-29 21:38 | disposition home or self-care (01) ==
LOC: WPOUT 16:00 → WP 16:02
PROVIDERS: PCP Family Medicine; Referring Provider Obstetrics & Gynecology; Visit Provider Obstetrics & Gynecology
DX: O21.2 Late vomiting of pregnancy (principal); O99.342 Other mental disorders complicating pregnancy, second trimester; F41.9 Anxiety disorder, unspecified; F32.A Depression, unspecified; Z79.899 Other long term (current) drug therapy; Z3A.26 26 weeks gestation of pregnancy
CPT/HCPCS: 96365; 96375; 96376; 36415; 59050; 81001; 85025; 99221; G0378; J2405

== ENCOUNTER → 2025-01-01 | Outpatient (CLI) | payer OTHER, SELFPAY ==
--- NOTE | 2025-01-01 07:08 | EKG12_ITS ---
Test Reason : MURMUR/ Blood Pressure : */* mmHG Vent. Rate : 75 BPM Atrial Rate : 75 BPM P-R Int : 150 ms QRS Dur : 84 ms QT Int : 382 ms P-R-T Axes : 50 47 30 degrees QTcB Int : 426 ms Normal sinus rhythm Possible Left atrial enlargement Borderline ECG Confirmed by SANDRA RICHMOND, BO ([id number]), website/blog editor DESTINY MONTES DE OCA ([id number]) on 01/01/2025 2:14:32 PM Referred By: Natacha Wei Confirmed By: BO FLORES MD
--- OUTSIDE RECORDS SUMMARY | 2025-01-01 07:29 | XMS RPT_ITS | CCD ---
Author Organization [facility] Care Team Providers Care Appointment Clerk Name Role Phone Jess Guerrero Primary Care Provider Lisa RICHMOND, Geovany Unavailable Gogo RICHMOND, Maynor Primary Care Provider [phone] Gogo RICHMOND, Maynor Primary Care Provider [phone] Gogo RICHMOND, Maynor Referring Provider Dimitri TELEPHONE LINEWORKER-C, Elizabeth Attending Provider Dimitri TELEPHONE LINEWORKER-C, Elizabeth Referring Provider [phone] AMIR, JAWARIA Referring Unavailable GOGO, CHALON Primary Care Unavailable AMIR, JAWARIA Referring Unavailable GOGO, CHALON Primary Care Unavailable TANTIBHEDHYANGKUL, JULIERUT Referring Unav ailable GOGO, CHALON Primary Care Unavailable GOGO, CHALON Primary Care Unavailable GOGO, CHALON Primary Care Unavailable GOGO, CHALON Primary Care Unavailable TANTIBHEDHYANGKUL, JULIERUT Attending Unav ailable TANTIBHEDHYANGKUL, JULIERUT Referring Unav ailable GOGO, CHALON Primary Care Unavailable AMIR, JAWARIA Referring Unavailable GOGO, CHALON Primary Care Unavailable TANTIBHEDHYANGKUL, JULIERUT Referring Unav ailable GOGO, CHALON Primary Care Unavailable TANTIBHEDHYANGKUL, JULIERUT Referring Unav ailable GOGO, CHALON Primary Care Unavailable GOGO, CHALON Primary Care Unavailable TANTIBHEDHYANGKUL, JULIERUT Attending Unav ailable TANTIBHEDHYANGKUL, JULIERUT Referring Unav ailable GOGO, CHALON Primary Care Unavailable TANTIBHEDHYANGKUL, JULIERUT Attending Unav ailable SELF Referring Unavailable GOGO, CHALON Primary Care Unavailable GOGO, CHALON Primary Care Unavailable AMIR, JAWARIA Referring Unavailable GOGO, CHALON Primary Care Unavailable Weston RICHMOND, Dr. Rolon Attending Provider [phone] Jelena Ramsey DO, Dr. Manzano Attending Provider Gogo RICHMOND, Chalon Primary Care Provider [phone] Gogo RICHMOND, Cecyon Referring Provider [phone] Evonne Mendez CNM Attending Provider [phone] Gogo RICHMOND, Chalon Primary Care Provider [phone] Gogo RICHMOND, Chalon Referring Provider [phone] Neel TELEPHONE LINEWORKER-C, Paco Attending Provider [phone] Gogo RICHMOND, Maynor Primary Care Physician [phone] Jelena Ramsey DO, Dr. Manzano Attending Physician Evonne Mendez CNM Attending Physician [phone] Neel TELEPHONE LINEWORKER-CPaco Attending Physician [phone] DWAYNE SORTO Attending Unavailable PACO SHAIKH Referring Unavailable GOGO, CHALON J Primary Care Unavailable Gogo, Chalon Primary Care Unavailable Paco Shaikh NP Attending Unavailable Gogo, Chalon Referring Unavailable Natacha Wei Attending Unavailabl e Gogo, Chalon Referring Unavailable Gogo, Chalon Primary Care Unavailable Gogo, Chalon Referring Unavailable Vande Natacha Ramsey Attending Unavailabl e Gogo, Chalon Primary Care Unavailable Gogo, Chalon Primary Care Unavailable Elizabeth Mosley Attending Unavailable Gogo, Chalon Referring Unavailable Marcanthony, Ольга Referring Unavailable Marcanthony, Ольга Consulting Unavailable MarcanthonyОльга Attending Unavailable Gogo, Chalon Primary Care Unavailable Marcanthony, Ольга Attending Unavailable Marcanthony, Ольга Referring Unavailable Gogo, Chalon Primary Care Unavailable Gogo, Chalon Primary Care Unavailable Elizabeth Mosley Attending Unavailable Elizabeth Mosley Referring Unavailable Gogo, Chalon Primary Care Unavailable Vande VeldeNatacha Attending Unavailabl e Gogo, Chalon Primary Care Unavailable Elizabeth Mosley Attending Unavailable Gogo, Chalon Referring Unavailable MarcanthonyОльга Attending Unavailable Gogo, Chalon Primary Care Unavailable Gogo, Chalon Referring Unavailable Gogo, Chalon Primary Care Unavailable Natacha Wei Attending Unavailabl e Maynor Bowens Referring Unavailable Maynor Bowens Primary Care Unavailable Evonne Mendez Attending Unavailable Maynor Bowens Referring Unavailable Allergies Allergy Classification Reported Allergen(s) Allergy Type Date of Onset Reaction(s) Facility (20 sources) Seasonal allergy; Translations: [SEASONAL ALLERGIES] Allergy to substance 1 Other: See Comments [facility] (3 sources) Penicillins Allergy to substance [address] [facility] Work Phone: Medications Current Medications Medication Drug Class(es) Dates Sig (Normalized) Sig (Original) azelastine hydrochloride 0.137 mg/actuat metered dose nasal spray (20 sources) Histamine-1 Receptor Antagonist Start: 08-25-2020 End: 06-27-2023 take 2 spray(s) nasal route twice daily as needed azelastine 0.1% nasal spray Use 2 Sprays in each nostril two times a day as needed. 30 mL 06/27/2023 Active Comment on above: Use 2 Sprays in each nostril twice daily as needed. benzonatate 100 mg oral capsule (5 sources) Non-narcotic Antitussive Start: 02-17-2024 End: 03-13-2024 take 2 capsules by mouth every eight hours as needed benzonatate (TESSALON PERLE) 100 mg capsule Take 2 capsules by mouth three times a day as needed. 30 capsule 02/17/2024 03/13/2024 Discontinued cholecalciferol 0.025 mg oral tablet (20 sources) Vitamin D Start: 07-31-2019 End: 02-17-2024 cholecalciferol (VITAMIN D3) 1,000 unit tab tablet Take by mouth. 07/31/2019 02/17/2024 Discontinued (Course of therapy completed) Start: 07-31-2019 End: 11-08-2023 take 2 tablets by mouth twice daily Cholecalciferol (Vitamin D3) 1,000 UNIT tablet Discontinued 2000 U PO TWICE A DAY July 31, 2019 12:00am November 08, 2023 2:11pm Start: 07-31-2019 take 2000 [IU] by mo [facility] twice daily Cholecalciferol (Vitamin D3) Active 2000 UNIT PO TWICE A DAY July 31, 2019 12:00am Comment on above: Take by mouth. chorionic gonadotropin 25251 unt/ml injectable solution (20 sources) Gonadotropin Start: 07-04-2021 End: 08-22-2021 chorionic gonadotropin (PREGNYL) 10,000 unit solr 10,000 Units as directed. Inject 10,000 units for HCG trigger subq 1 Each 1 07/04/2021 08/22/2021 Discontinued Start: 05-16-2021 End: 05-16-2021 Choriogonadotropin Anthony,HumR ec (OVIDREL) 250 mcg/0.5 mL syrg Inject 250 mcg subcutaneously one time only for 1 dose. 1 Each 2 05/16/2021 05/16/2021 Active Comment on above: Inject 250 mcg subcu taneously one time only for 1 dose. 10,000 Units as dire cted. Inject 10,000 units for HCG trigger subq clotrimazole 10 mg/ml topical cream (1 source) Azole Antifungal Start: 07-19-19 End: 07-26-19 clotrimazole (LOTRIMIN) 1 % cream Apply to affected area two times a day for 7 days. 12 g 0 07/19/2023 07/26/2023 Active doxycycline hyclate 100 mg oral tablet (20 sources) Tetracycline-class Drug Start: 06-17-19 take 1 tablet by mouth twice daily doxycycline (VIBRA-TABS) 100 mg tablet Take 1 tablet by mouth two times a day. 8 tablet 06/16/2024 Active Start: 09-08-2021 End: 02-17-2024 take 1 tablet by mouth twice daily doxycycline (VIBRA-TABS) 100 mg tablet Take 1 tablet by mouth twice daily. 8 tablet 11/28/2021 02/17/2024 Discontinued (Course of therapy completed) Comment on above: Take 1 tablet by emre th twice daily. estradiol 2 mg oral tablet (20 sources) Estrogen Start: 06-16-2024 End: 08-19-2024 take 3 tablets by mouth once daily estradiol (ESTRACE) 2 mg tablet Take 3 tablets by mouth once daily. 120 tablet 3 08/19/2024 Active Start: 09-08-2021 End: 02-17-2024 take 3 tablets by mouth once daily estradiol (ESTRACE) 2 mg tablet Take 3 tablets by mouth once daily. 90 tablet 3 09/08/2021 02/17/2024 Discontinued (Course of therapy completed) Comment on above: Take 3 tablets by mo ut once daily. Ethinyl Estradiol / Norethindrone (20 sources) Estrogen Start: End: take 1 tablet by mouth once daily Norethindrone Acet-Ethinyl Est (, ,) 1.5-30 mg-mcg Take 1 tablet by mouth once daily for 21 days. Take continuously 21 tablet 2 09/30/2021 02/17/2024 Discontinued (Course of therapy completed) Start: 09-30-2021 take 1 tablet by emre once daily Norethindrone Acet-Ethinyl Est (, ,) 1.5-30 mg-mcg Take 1 tablet by mouth once daily for 21 days. Take continuously 21 tablet 2 09/30/2021 Active Start: 09-30-2021 End: 10-21-2021 take 1 tablet by mouth once daily Norethindrone Acet-Ethinyl Est (, ,) 1.5-30 mg-mcg Take 1 tablet by mouth once daily for 21 days. Take continuously 21 tablet 2 09/30/2021 10/21/2021 Active Start: 06-27-2021 End: 07-08-2021 take 1 tablet by mouth once daily Norethindrone Acet-Ethinyl Est (, ,) 1.5-30 mg-mcg Take 1 tablet by mouth once daily for 21 days. Take continuously 21 tablet 2 06/27/2021 07/08/2021 Discontinued Start: 06-27-2021 End: 07-18-2021 take 1 tablet by mouth once daily Norethindrone Acet-Ethinyl Est (, ,) 1.5-30 mg-mcg Take 1 tablet by mouth once daily for 21 days. Take continuously 21 tablet 2 06/27/2021 07/18/2021 Active Comment on above: Take 1 tablet by emre th once daily for 21 days. Take continuously 0.36 ml follitropin beta 833 unt/ml cartridge (20 sources) Start : 07-04 End: 08-22 inject 200 [IU] by subcutaneous injection once daily Follitropin Beta (FOLLISTIM AQ) 300 unit/0.36 mL Inject 200 Units subcutaneously once daily. 6 Each 3 07/04/2021 08/22/2021 Discontinued Comment on above: Inject 200 Units sub cutaneously once daily. 0.5 ml ganirelix acetate 0.5 mg/ml prefilled syringe (20 sources) Gonadotropin Releasing Hormone Antagonist Start : 07-04 End: 08-22 inject 0.5 mL by subcutaneous injection once daily Ganirelix Acetate 250 mcg/0.5 mL Inject 0.5 mL subcutaneously once daily. 6 Each 3 07/04/2021 08/22/2021 Discontinued Comment on above: Inject 0.5 mL subcut aneously once daily. letrozole 2.5 mg oral tablet (20 sources) Aromatase Inhibitor Start : 04-25 End: 08-22 letrozole (FEMARA) 2.5 mg tablet Indications: Primary female infertility , Anovulation Take 2 tablets by mouth once daily for 5 days. Take on cycle days 3-7. 10 tablet 1 04/25/2021 08/22/2021 Discontinued Comment on above: Take 2 tablets by [facility] once daily for 5 days. Take on cycle days 3-7. leuprolide acetate 5 mg/ml injectable solution (20 sources) Gonadotropin Releasing Hormone Receptor Agonist Start : 07-04 End: 08-22 inject 80 [IU] by subcutaneous injection once leuprolide (LUPRON) 1 mg/0.2 mL Inject 80 units subq once as directed for Lupron trigger 1 Kit 1 07/04/2021 08/22/2021 Discontinued Comment on above: Inject 80 units subq once as directed for Lupron trigger lidocaine hydrochloride 20 mg/ml mucous membrane topical solution (3 sources) Antiarrhythmic, Amide Local Anesthetic Start : 02-16 End: 03-13 LIDOCAINE VISCOUS 2 % solution Take 15 mL by mouth as needed. 100 mL 02/17/2024 03/13/2024 Discontinued methylPREDNISolone 16 mg oral tablet (20 sources) Corticosteroid Start : 06-16 take 1 tablet by mouth once daily methylPREDNISolone (MEDROL) 16 mg tablet Take 1 tablet by mouth once daily. 4 tablet 06/16/2024 Active Start: 09-08-2021 End: 02-17-2024 take 1 tablet by mouth once daily methylPREDNISolone (MEDROL) 16 mg tablet Take 1 tablet by mouth once daily. 4 tablet 11/28/2021 02/17/2024 Discontinued (Course of therapy completed) Comment on above: Take 1 tablet by emre th once daily. Multivitamin With Folic Acid (6 sources) Start: 05-01-2019 take 1 tablet by mouth once daily Multivitamin With Folic Acid Active 1 TABLET PO DAILY May 01, 2019 12:00am Start: 05-01-2019 take 1 tablet by emre th once daily Multivitamin With Folic Acid Active 1 TABLET PO DAILY April 30, 2019 11:00pm ondansetron 4 mg disintegrating oral tablet (5 sources) Serotonin-3 Receptor Antagonist Start: 08-28-2024 take 1 tablet by mouth every four hours as needed for nausea and vomiting Ondansetron 4 mg tablet,disintegrating Active 4 mg PO Q4H as needed for nausea and vomiting 60 2 August 28, 2024 12:00am Complies with drug therapy Pnv 245-Cbsvn-Rbtbe-3-F lamberto Oil (6 sources) Start: 07-31-2019 Pnv 988-Tyqpz-Qfvzc-3-Fish Oil Active 4 EACH PO DAILY July 31, 2019 12:00am Start: 07-31-2019 Pnv 103-Folic- Yxsqe-7-Izio Oil Active 4 EACH PO DAILY July 30, 2019 11:00pm Pnv No.63-Iron,Bwglqyvu-Dl-U ledesma 27 mg iron- 800 mcg-200 mg capsule (5 sources) Start: 08-28-2024 Pnv No.63-Iron,Luqeokfg-Ht-F ledesma 27 mg iron- 800 mcg-200 mg capsule Active 1 NMA PO daily August 28, 2024 12:00am Complies with drug therapy Start: 08-28-2024 Pnv No.63-Iron ,Oecmfohh-Fb-Sfa 27 mg iron- 800 mcg-200 mg capsule Active 1 NMA PO daily August 28, 2024 12:00am PNV no.95/ferrous fum/folic ac ( ORAL) (20 sources) End: 02-17-2024 take 1 tablet by mouth once daily before mealtime PNV no.95/ferrous fum/folic ac ( ORAL) Take 1 tablet by mouth once daily. 02/17/2024 Discontinued (Course of therapy completed) take 1 tablet by emre th once daily before mealtime PNV no.95/ferrous fum/folic ac ( ORAL) Take 1 tablet by mouth once daily. Active take 1 tablet by emre th once daily before mealtime PNV no.95/ferrous fum/folic ac ( ORAL) Take 1 tablet by mouth once daily. 0 Suspended take 1 tablet by emre th once daily before mealtime PNV no.95/ferrous fum/folic ac ( ORAL) Take 1 tablet by mouth once daily. 0 Active Comment on above: Take 1 tablet by emre th once daily. predniSONE 10 mg oral tablet (1 source) Start: End: take 4 tablets by mouth once daily predniSONE (DELTASONE) 10 mg tablet Take 4 tablets by mouth once daily for 5 days. 20 tablet 01/20/2024 01/25/2024 Active progesterone 50 mg/ml injectable solution (20 sources) Progesterone Start: End: inject 1 mL by intramuscular injection once daily in the morning progesterone 50 mg/mL injection Inject 1 mL intramuscularly once daily. Inject in the morning 90 mL 08/26/2024 11/24/2024 Active Start: 09-08-2021 End: 02-17-2024 inject 1 mL by intramuscular injection once daily in the morning progesterone 50 mg/mL injection Inject 1 mL intramuscularly once daily. Inject in the morning 30 mL 3 09/08/2021 02/17/2024 Discontinued (Course of therapy completed) Comment on above: Inject 1 mL intramus cularly once daily. Inject in the morning promethazine hydrochloride 12.5 mg oral tablet (5 sources) Phenothiazine Start: take 1 tablet by mouth every six hours as needed for nausea and vomiting Promethazine 12.5 mg tablet Active 12.5 mg PO EVERY 6 HOURS as needed for nausea and vomiting 60 2 August 19, 2024 12:00am Complies with drug therapy Syringe with Needle, Disp, (SYRINGE 3CC/20GX1") (20 sources) Start: End: Syringe with Needle, Disp, (SYRINGE 3CC/20GX1") To be used to draw up progesterone in oil 30 Each 3 09/08/2021 02/17/2024 Discontinued (Course of therapy completed) Start: 09-08-2021 Syringe with N Marilu monae, (SYRINGE 3CC/20GX1") To be used to draw up progesterone in oil 30 Each 3 09/08/2021 Active Comment on above: To be used to draw u p progesterone in oil triamcinolone acetonide 1 mg/ml topical cream (1 source) Corticosteroid Start: 01-20-2024 End: 01-27-2024 triamcinolone acetonide (KENALOG) 0.1 % cream Apply 1 application to affected area three times a day for 7 days. Apply sparingly to area for rash/itching. 28.5 g 01/20/2024 01/27/2024 Active Completed/Discontinued Medications Medication Drug Class(es) Dates Sig (Normalized) Sig (Original) acetaminophen 500 mg oral tablet (12 sources) Start: 02-05-2020 End: 08-28-2024 take 1-10 tablets by mouth every six hours as needed for pain Acetaminophen 500 MG tablet Discontinued 1000 mg PO EVERY 6 HOURS as needed for Pain 1-10 Or Fever February 05, 2020 1:00am August 28, 2024 11:24am Start: 02-05-2020 take 1000 mg by mout h every six hours Acetaminophen Active 1000 MG PO EVERY 6 HOURS February 05, 2020 1:00am 24 hr buPROPion hydrochloride 150 mg extended release oral tablet (20 sources) Aminoketone Start: 01-12-2024 take 1 tablet by mouth every hour buPROPion XL (WELLBUTRIN XL) 150 mg 24 hr tablet Take 1 tablet by mouth every afternoon. 01/12/2024 Active Start: 11-08-2023 End: 08-28-2024 take 1 tablet by mouth once daily in the morning Bupropion Hcl 150 mg tablet extended release 24 hr Discontinued 150 mg PO EVERY MORNING 17 02June 17, 2024 1:37pm August 28, 2024 11:24am ilhiholbukMOFNT-ksllcq-ebsne josselin (BMX 1:1:1) 1:1:1 liqd (3 sources) Start: 02-17-2024 End: 02-17-2024 amuwmaufuwQDWPI-sqtyge-zscjq josselin (BMX 1:1:1) 1:1:1 liqd Mix in equal amounts - 1 T every 2hrs as needed for mouth pain, Swish/swallow or expectorate. (8oz) 240 mL 02/17/2024 02/17/2024 Discontinued Start: 02-17-2024 diphenhydrAMIN F-qkbvfr-ydezfnffm (BMX 1:1:1) 1:1:1 liqd Mix in equal amounts - 1 T every 2hrs as needed for mouth pain, Swish/swallow or expectorate. (8oz) 240 mL 02/17/2024 Active docusate sodium 100 mg oral capsule (16 sources) Start: 08-07-2019 End: 08-28-2024 take 1 capsule by mouth twice daily as needed for constipation Docusate Sodium 100 MG capsule Discontinued 100 mg PO TWICE DAILY NEEDED as needed for Constipation 60 0 August 07, 2019 12:00am August 28, 2024 11:24am Comment on above: Take 1 capsule by [facility] twice daily. escitalopram 20 mg oral tablet (20 sources) Serotonin Reuptake Inhibitor Start: 06-17-2024 End: 10-31-2024 take 1 tablet by mouth at bedtime Escitalopram Oxalate 20 mg tablet Discontinued 20 mg PO BEDTIME 30 8 October 30, 2024 4:48pm October 31, 2024 8:34am Start: 06-17-2024 End: 06-17-2024 take 2 tablets by mouth at bedtime Escitalopram Oxalate (Lexapro) 10 mg tablet Discontinued 20 mg PO BEDTIME June 17, 2024 1:06pm June 17, 2024 1:38pm Start: 12-22-2023 take 1 tablet by mouth once es citalopram oxalate (LEXAPRO) 20 mg tablet Take 1 tablet by mouth every afternoon. 12/22/2023 Active Start: 11-08-2023 End: 06-17-2024 take 1 tablet by mouth at bedtime Escitalopram Oxalate (Lexapro) 10 mg tablet Discontinued 10 mg PO BEDTIME November 08, 2023 12:00am June 17, 2024 1:06pm FLUoxetine 40 mg oral capsule (20 sources) Serotonin Reuptake Inhibitor Start: 05-01-2019 End: 11-08-2023 take 1 capsule by mouth once daily Fluoxetine 40 MG capsule Discontinued 40 mg PO DAILY May 01, 2019 12:00am November 08, 2023 2:12pm anxiety/depression End: 02-17-2024 FLUoxetine (PROZAC) 40 mg ca psule Take 50 mg by mouth once daily. 02/17/2024 Discontinued (Course of therapy completed) Comment on above: Take 50 mg by mouth once daily. ibuprofen 600 mg oral tablet (12 sources) Nonsteroidal Anti-inflammatory Drug Start: 08-07-19 End: 08-29-19 take 1 tablet by mouth three times daily as needed for pain Ibuprofen 600 MG tablet Discontinued 600 mg PO THREE TIMES A DAY as needed for Pain Score 30 0 August 07, 2019 3:50pm August 28, 2024 11:24am levothyroxine sodium 0.05 mg oral tablet (20 sources) l-Thyroxine Start: 07-21-19 End: 02-17-20 take 1 tablet by mouth once daily Levothyroxine 50 MCG tablet Discontinued 50 ug PO DAILY July 31, 2019 12:00am November 08, 2023 2:12pm Comment on above: Take 50 mcg by mouth once daily. Multivitamin With Folic Acid 1 TABLET tablet (6 sources) Start: 05-01-19 End: 11-08-19 take 1 tablet by mouth once daily Multivitamin With Folic Acid 1 TABLET tablet Discontinued 1 {tbl} PO DAILY May 01, 2019 12:00am November 08, 2023 2:12pm oxyCODONE hydrochloride 5 mg oral tablet (20 sources) Opioid Agonist Start: 09-03-19 End: 11-08-19 take 1 tablet by mouth every six hours as needed for pain Oxycodone 5 mg tablet Discontinued 5 mg PO EVERY 6 HOURS as needed for pain (scale score 7-10) 16 4 0 September 02, 2022 November 08, 2023 2:13pm Acute postoperative pain Other acute postprocedural pain Start: 02-05-2020 End: 09-02-2022 take 5-10 mg by mouth every four hours as needed for pain Oxycodone 5 MG tablet Discontinued 5 - 10 mg PO EVERY 4 HOURS NEEDED as needed for Pain Score 1-February 05, 2020 1:00am September 02, 2022 2:26am Start: 08-07-2019 End: 08-12-2019 take 1 tablet by mouth every six hours as needed for pain Oxycodone 5 MG tablet Discontinued 5 mg PO EVERY 6 HOURS NEEDED as needed for severe pain 20 5 0 August 07, 2019 August 11, 2019 12:00am August 12, 2019 12:02am Endometriosis, unspecified Pnv 846-Xjoem-Hwyuh-3-Fish Oil 1 EACH tablet,chewable (6 sources) Start: 07-31-2019 End: 11-08-2023 Pnv 756-Rctzy-Ymxxw-3-Fish Oil 1 EACH tablet,chewable Discontinued 4 NMA PO DAILY July 31, 2019 12:00am November 08, 2023 2:13pm prasterone 25 mg oral capsule (12 sources) Start: 07-31-2019 End: 11-08-2023 take 1 capsule by mouth twice daily Prasterone (Dhea) 25 MG capsule Discontinued 25 mg PO TWICE A DAY July 31, 2019 12:00am November 08, 2023 2:13pm Problems Active Problems Problem Classification Problem Date Documented Date Episodic/Chronic Anxiety disorders (17 sources) Anxiety; Translations: [Anxiety disorder, unspecified] Onset: 11-25-2024 08-28-2024 Chronic Comment on above: Lexapro Cardiac dysrhythmias (9 sources) Palpitations; Translations: [Palpitations] 05-16-2022 Episodic Complications of surgical procedures or medical care (1 source) Hyperstimulation of ovaries; Translations: [Hyperstimulation of ovaries] Episodic Contraceptive and procreative management (18 sources) Patient encounter status; Translations: [Encounter for fertility testing] Onset: 05-29-2024 Episodic Endometriosis (20 sources) Endometriosis of large intestine; Translations: [Endometriosis of intestine] Onset: 09-05-2019 09-05-2019 Chronic Female infertility (20 sources) Female infertility; Translations: [Female infertility, unspecified] Onset: 07-07-2024 Chronic Menstrual disorders (20 sources) Dysmenorrhea; Translations: [Dysmenorrhea, unspecified] Onset: 09-05-2019 09-05-2019 Chronic Mood disorders (20 sources) Depressive disorder; Translations: [Depression] Onset: 01-20-2020 01-20-2020 Chronic Comment on above: counseled regarding risks of therapy, recommend staying on current therapy due to previous SI after coming off. referral to [place] [id number] or [facility]. discussed possible zurzuvae if needed next time Mood disorders (1 source) Mood disorders; Translations: [Depression, unspecified] Onset: 11-25-2024 Nutritional deficiencies (2 sources) Vitamin D deficiency; Translations: [Vitamin D deficiency, unspecified] Onset: 03-15-2024 03-13-2024 Chronic Other aftercare (20 sources) Marijuana user; Translations: [Other longterm (current) drug therapy] Onset: 01-20-2020 01-20-2020 Episodic Comment on above: not while , last use 03/2024. counseling provided, random tox screen notified Other and unspecified benign neoplasm (3 sources) Leiomyoma; Translations: [Benign neoplasm of connective and other soft tissue, unspecified] Episodic Other and unspecified benign neoplasm (1 source) Benign neoplasm of connective and other soft tissue, unspecified; Translations: [Fibroids] Onset: 05-29-2024 Episodic Other complications of ; puerperium affecting management of mother (7 sources) Deliveries by ; Translations: [Encounter for delivery without indication] 09-03-2022 Episodic Other complications of ; puerperium affecting management of mother (1 source) Encounter for delivery without indication; Translations: [ delivery, without mention of indication, delivered, with or without mention of antepartum condition] 09-04-2022 Episodic Other complications of (20 sources) ; Translations: [ with inconclusive viability, not applicable or unspecified] Episodic Comment on above: NIPT w gender/jennifer r - declines (IVF transfer embryos are tested) Other complications of (4 sources) with inconclusive viability, not applicable or unspecified; Translations: [ with inconclusive viability] Onset: 07-29-2024 07-29-2024 Episodic Other complications of (16 sources) High risk ; Translations: [Supervision of high risk , unspecified, unspecified trimester] 08-28-2024 Episodic Comment on above: TRISTAN 04/02 PC: No emilee : Jc PRR, TRISTAN 04/02 P C: Adan : Jc Other complications of (2 sources) Supervision of high risk , unspecified, second trimester; Translations: [Supervision of high risk , unspecified, second trimester] Onset: 12-29-2024 Episodic Other complications of (2 sources) Vomiting of , unspecified; Translations: [Vomiting of , unspecified] Onset: 12-29-2024 Episodic Other female genital disorders (20 sources) Pain in female genitalia on intercourse; Translations: [Unspecified dyspareunia] Onset: 09-05-2019 09-05-2019 Chronic Other female genital disorders (1 source) History of endometriosis; Translations: [Personal history of other diseases of the female genital tract] Episodic Other female genital disorders (1 source) Vaginal irritation; Translations: [Other specified noninflammatory disorders of vagina] 07-18-2023 Episodic Other nervous system disorders (12 sources) Postoperative pain ; Translations: [Other acute postprocedural pain] 02-07-2020 Episodic Other nervous system disorders (7 sources) Acute postoperative pain; Translations: [Other acute postprocedural pain] 09-02-2022 Episodic Other nutritional; endocrine; and metabolic disorders (11 sources) H/O: hypothyroidism; Translations: [Personal history of other endocrine, nutritional and metabolic disease] 09-08-2024 Episodic Other nutritional; endocrine; and metabolic disorders (1 source) Personal history of other endocrine, nutritional and metabolic disease; Translations: [Personal history of other endocrine, nutritional and metabolic disease] Onset: 11-25-2024 Episodic Other skin disorders (1 source) Eruption; Translations: [Rash and other nonspecific skin eruption] 01-20-2024 Episodic Other upper respiratory disease (20 sources) Allergic rhinitis due to pollen; Translations: [Allergic rhinitis due to pollen] Onset: 08-26-2020 08-26-2020 Chronic Other upper respiratory infections (2 sources) Upper respiratory infection; Translations: [Acute upper respiratory infection, unspecified] 02-17-2024 Episodic Residual codes; unclassified (20 sources) Infertile 09-01-2022 Episodic Comment on above: IVF IVF 5day transfer TRISTAN 04/02/25 IVF 5day transfer TRISTAN 04/02/25; echo [id number] Residual codes; unclassified (2 sources) 26 weeks gestation of ; Translations: [26 weeks gestation of ] Onset: 12-29-2024 Episodic Residual codes; unclassified (1 source) History of uterine scar from previous surgery; Translations: [History of uterine scar from previous surgery] Onset: 11-25-2024 Episodic Residual codes; unclassified (1 source) 18 weeks gestation of ; Translations: [18 weeks gestation of ] Onset: 11-25-2024 Episodic Substance-related disorders (1 source) Cannabis use, unspecified, uncomplicated; Translations: [Cannabis use, unspecified, uncomplicated] Onset: 11-25-2024 Episodic Thyroid disorders (20 sources) Hypothyroidism; Translations: [Hypothyroidism, unspecified] Onset: 01-20-2020 01-20-2020 Chronic Unclassified (20 sources) Infertile; Translations: [Infertility] Onset: 07-08-2021 07-08-2021 Unclassified (1 source) APPOINTMENT CANCELLED Unclassified (1 source) MEET WITH PHYSICIAN Unclassified (1 source) , location unknown (HCC) 07-29-2024 Past or Other Problems Problem Classification Problem Date Documented Da te Episodic/Chronic Abdominal pain (20 sources) Chronic pelvic pain of female; Translations: [Pelvic and perineal pain] Onset: 09-05-2019 09-05-2019 Episodic Diabetes mellitus without complication (20 sources) Increased glucose level; Translations: [Other abnormal glucose] Onset: 01-20-2020 01-20-2020 Episodic Genitourinary symptoms and ill-defined conditions (20 sources) Urgent desire to urinate; Translations: [Urgency of urination] Onset: 09-05-2019 09-05-2019 Episodic Other complications of (1 source) Supervision of high risk , unspecified, unspecified trimester; Translations: [Supervision of high risk , unspecified, unspecified trimester] Onset: 09-30-2024 Episodic Other connective tissue disease (20 sources) Female pelvic floor dysfunction; Translations: [Other specified disorders of muscle] Onset: 08-12-2021 Episodic Other gastrointestinal disorders (20 sources) Constipation; Translations: [Constipation, unspecified] Onset: 09-05-2019 09-05-2019 Episodic Other gastrointestinal disorders (20 sources) Pain associated with defecation; Translations: [Constipation, unspecified] Onset: 09-05-2019 09-05-2019 Episodic Other lower respiratory disease (20 sources) Disorder of diaphragm; Translations: [Disorders of diaphragm] Onset: 09-05-2019 09-05-2019 Episodic Other and delivery including normal (11 sources) test positive; Translations: [Encounter for test, result positive] Onset: 07-29-2024 Episodic Other screening for suspected conditions (not mental disorders or infectious disease) (12 sources) Cancer cervix screening status; Translations: [Encounter for screening for malignant neoplasm of cervix] Onset: 05-20-2024 Episodic Residual codes; unclassified (20 sources) Postoperative state; Translations: [Other specified postprocedural states] Onset: 02-04-2020 02-04-2020 Episodic Residual codes; unclassified (1 source) 13 weeks gestation of ; Translations: [13 weeks gestation of ] Onset: 09-30-2024 Episodic Residual codes; unclassified (1 source) Other general symptoms and signs; Translations: [Other general symptoms and signs] Onset: 09-08-2024 Episodic Viral infection (20 sources) Condyloma acuminatum of the anogenital region; Translations: [Anogenital (venereal) warts] Onset: 08-05-2007 Resolved: 06-24-2012 06-24-2012 Episodic Results Test Name Value Interpretation Reference Range Facility CBC W/Diff, Automatedon 11-1 Absolute Lymph 1.11 X10 3/uL Normal 0.83-4.51 [facility] Comment on above: Performed By: #### L 3890.6102, L509.8002, L509.4006, L501.9985, L100.0100, BTS, L3890.6006, L3890.6301, L501.9520 #### [facility] [address] [place], [address] Absolute Neut 11.8 X10 3/uL High 2.0-7.7 [facility] Comment on above: Performed By: #### L 3890.6102, L509.8002, L509.4006, L501.9985, L100.0100, BTS, L3890.6006, L3890.6301, L501.9520 #### [facility] [address] [place], [address] Basophils/100 WBC (Bld) 0.3 % Normal 0-1 [facility] Comment on above: Performed By: #### L 3890.6102, L509.8002, L509.4006, L501.9985, L100.0100, BTS, L3890.6006, L3890.6301, L501.9520 #### [facility] [address] [place], [address] Eosinophils/100 WBC (Bld) 0.1 % Normal 0-5 [facility] Comment on above: Performed By: #### L 3890.6102, L509.8002, L509.4006, L501.9985, L100.0100, BTS, L3890.6006, L3890.6301, L501.9520 #### [facility] [address] [place], [address] Erythrocyte distribution width (RBC) [Ratio] 11.9 % Normal 11.6-14.6 [facility] Comment on above: Performed By: #### L 3890.6102, L509.8002, L509.4006, L501.9985, L100.0100, BTS, L3890.6006, L3890.6301, L501.9520 #### [facility] [address] [place], [address] Hematocrit (Bld) [Volume fraction] 37.2 % Normal 37-47 [facility] Comment on above: Performed By: #### L 3890.6102, L509.8002, L509.4006, L501.9985, L100.0100, BTS, L3890.6006, L3890.6301, L501.9520 #### [facility] [address] [place], [address] Hemoglobin (Bld) [Mass/Vol] 13.0 g/dL Normal 12.0-15.0 [facility] Comment on above: Performed By: #### L 3890.6102, L509.8002, L509.4006, L501.9985, L100.0100, BTS, L3890.6006, L3890.6301, L501.9520 #### [facility] [address] [place], [address] IG% 0.500 Normal 0.0-0.9 [facility] Comment on above: Result Comment: IG% - Immature Granulocytes (promyelocytes, myelocytes and metamyelocytes) > 1% indicates that a LEFT SHIFT is Present. Performed By: #### L 3890.6102, L509.8002, L509.4006, L501.9985, L100.0100, BTS, L3890.6006, L3890.6301, L501.9520 #### [facility] [address] [place], [address] Lymphocytes/100 WBC (Bld) 8.2 % Low 19-41 [facility] Comment on above: Performed By: #### L 3890.6102, L509.8002, L509.4006, L501.9985, L100.0100, BTS, L3890.6006, L3890.6301, L501.9520 #### [facility] [address] [place], [address] MCH (RBC) [Entitic mass] 31.3 pg Normal 27.0-32.0 [facility] Comment on above: Performed By: #### L 3890.6102, L509.8002, L509.4006, L501.9985, L100.0100, BTS, L3890.6006, L3890.6301, L501.9520 #### [facility] [address] [place], [address] MCHC (RBC) [Mass/Vol] 34.9 g/dL Normal 32-36 [facility] Comment on above: Performed By: #### L 3890.6102, L509.8002, L509.4006, L501.9985, L100.0100, BTS, L3890.6006, L3890.6301, L501.9520 #### [facility] [address] [place], [address] MCV (RBC) [Entitic vol] 89.6 fL Normal 81-99 [facility] Comment on above: Performed By: #### L 3890.6102, L509.8002, L509.4006, L501.9985, L100.0100, BTS, L3890.6006, L3890.6301, L501.9520 #### [facility] [address] [place], [address] Monocytes/100 WBC (Bld) 3.8 % Normal 0-10 [facility] Comment on above: Performed By: #### L 3890.6102, L509.8002, L509.4006, L501.9985, L100.0100, BTS, L3890.6006, L3890.6301, L501.9520 #### [facility] [address], [address] Neutrophils/100 WBC (Bld) 87.1 % High 47-70 [facility] Comment on above: Performed By: #### L 3890.6102, L509.8002, L509.4006, L501.9985, L100.0100, BTS, L3890.6006, L3890.6301, L501.9520 #### [facility] [address] [place], [address] Nucleated RBC (Bld) [#/Vol] 0 10*3/uL Normal 0-5 [facility] Comment on above: Performed By: #### L 3890.6102, L509.8002, L509.4006, L501.9985, L100.0100, BTS, L3890.6006, L3890.6301, L501.9520 #### [facility] [address] [place], [address] Platelet mean volume (Bld) [Entitic vol] 9.4 fL Normal 6.2-12.0 [facility] Comment on above: Performed By: #### L 3890.6102, L509.8002, L509.4006, L501.9985, L100.0100, BTS, L3890.6006, L3890.6301, L501.9520 #### [facility] [address] [place], [address] Platelets (Bld) [#/Vol] 324 10*3/uL Normal 150-450 [facility] Comment on above: Performed By: #### L 3890.6102, L509.8002, L509.4006, L501.9985, L100.0100, BTS, L3890.6006, L3890.6301, L501.9520 #### [facility] [address] [place], [address] RBC (Bld) [#/Vol] 4.15 10*6/uL Low 4.2-5.4 [facility] Comment on above: Performed By: #### L 3890.6102, L509.8002, L509.4006, L501.9985, L100.0100, BTS, L3890.6006, L3890.6301, L501.9520 #### [facility] [address] [place], [address] RDW SD 38.7 fl Normal 35.1-43.9 [facility] Comment on above: Performed By: #### L 3890.6102, L509.8002, L509.4006, L501.9985, L100.0100, BTS, L3890.6006, L3890.6301, L501.9520 #### [facility] [address] [place], [address] WBC (Bld) [#/Vol] 13.6 10*3/uL High 4.4-11.0 [facility] Comment on above: Performed By: #### L 3890.6102, L509.8002, L509.4006, L501.9985, L100.0100, BTS, L3890.6006, L3890.6301, L501.9520 #### [facility] [address] [place], [address] OB Triage Physician Noteon 1 02-29-2024 OB Triage Physician Note [facility] Medical Records Department [address] [place] [address] OB Triage Physician Note 12/29/242108 MR#: [id number] Acct: [id number] Name: SOLANGE MILLIGAN Rep #: [id number] : 1985 39 From: Ольга Ontiveros MD PCP: Dr. Maynor Bowens MD Status:REG CLI Y Location: [place] [address] HPI - General HPI Narrative SOLANGE MILLIGAN, is a 39 F who presents with symptoms of nausea, vomiting, no fevers, and some intermittent SOB over the last few weeks and occaisonal palpitations. she had sob and palpitations last and had a nl echo. Maternal Data Information TRISTAN Calculator Estimated Delivery Date Method Current WG Current Estimate 04/02/25 Conception 26w 4d Other Estimates 04/02/25 Manual 26w 4d IVF 5 day transfer [facility] Medical History Screening for cervical cancer delivery delivered Acute postoperative pain Depression Anxiety Endometriosis Infertility Endometriosis determined by laparoscopy Home Medications ???Medication ???Instructions ???Recorded ???Last Taken ???Type promethazine 12.5 mg tablet 12.5 mg PO Q6H PRN nausea and 03/15 Unknown Rx vomiting #60 tabs PNV no.63-iron,carbonyl 27 1 cap PO QDAY 08/28/24 Unknown His tory mg-folic acid 800 mcg-dha 200 mg capsule ondansetron 4 mg disintegrating 4 mg PO Q4H PRN nausea and 5 12/29/24 Rx tablet vomiting #60 tabs escitalopram oxalate 20 mg tablet 20 mg PO HS #30 tabs 10/31/2411/13 Rx bupropion HCl 150 mg 24 hr tablet, 150 mg PO DAILY 12/29/24 5 History extended release promethazine 25 mg tablet 25 mg PO TID PRN nausea and Unknown Rx vomiting #20 tabs Allergy/AdvReac Type Severity Reaction Status Date / Time No Known Allergies Allergy Verified 12/29/24 16:20 Family History Father Cancer Non-Hodgkins Lymphoma Mother Cancer skin cancer Surgical History History of surgery Hx of LASIK [place] teeth extracted History of repair of anterior cruciate ligament of left knee Social History adopted: No household members: spouse and children housing: house number of children: 1 current occupational status: employed 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 and animals: Yes history of recent travel: Yes ([place] 2024) out of state: Yes out of country: Yes sexually active: Yes Smoking Status: Never smoker alcohol intake: current alcohol intake frequency: a few times a week details: social, not while substance use type: does not use, marijuana and other details: last use March 2024 caffeine: Yes Type: coffee what type of physical activity do you participate in: walking frequency: 3-4 times per week trang/voodoo: None seatbelt use: always do you feel safe at home: Yes 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 Date Name GA/Weeks Outcome Route Bth Weight Infant Gen Labor Lgth Anesthesia Del Locatn Provider FOB 09/02/22 Adan live - full term Visit Details Expected Delivery Route/Plan patient counseled regarding risks/benefits of trial of labor versus repeat . ACOG/uptodate education given to patient. 42 % likelihood of success per calculator TOLAC consent form signed: [] still undecided about vs rpt IF NO SPONTANEOUS LABOR BY 39 WEEKS, THEN THE PLAN IS FOR A REPEAT SECTION. Plans Covid status: [] Flu vaccine: [] Tdap vaccine: [] Rhogam: [] LARC form signed: [] Problem list reviewed and updated with the most current plan of care details and appropriate orders placed. Relevant counseling for the gestational age provided. Continue routine care and follow up unless otherwise noted in visit notes/problem list details OB Flowsheet Initial Weight: Not Recorded Date -???-???-???-???-???- ???-???-???-???-???-? ??-???- EGA Weight BP Urine Prot -???-???-???-???-???- ???-???-???-???-???-? ??-???- Glucose FHR FuHt Pres Dilation -???-???-???-???-???- ???-???-???-???-???-? ??-???- Effaced St Visit Note 09/30/24 -???-???-???-???-???- ???-???-???-???-???-? ??-???- 13w 5d 175 lb 118/79 Negative -???-???-???-???-???- ???-???-???-???-???-? ??-???- Negative 151 -???-???-???-???-???- ???-???-???-???-???-? ??-???- KW- NOB was done by JAVON at end of August. KW- NOB was done by JAVON at end of pierre. i (more content not included)... Normal [facility] Urinalysis, Completeon 12-29 EPI,SQUAMOUS 10-25 SEEN Normal 5-10 [facility] Comment on above: Order Comment: CLEAN CATCH Performed By: #### L 3890.6102, L509.8002, L509.4006, L501.9985, L100.0100, BTS, L3890.6006, L3890.6301, L501.9520 #### [facility] [address] [place], [address] BACTERIA 2+ /hpf Normal None Seen [facility] Comment on above: Order Comment: CLEAN CATCH Performed By: #### L 3890.6102, L509.8002, L509.4006, L501.9985, L100.0100, BTS, L3890.6006, L3890.6301, L501.9520 #### [facility] [address] [place], [address] RBC 0-5 SEEN Normal 0-5 [facility] Comment on above: Order Comment: CLEAN CATCH Performed By: #### L 3890.6102, L509.8002, L509.4006, L501.9985, L100.0100, BTS, L3890.6006, L3890.6301, L501.9520 #### [facility] [address] [place], [address] WBC 10-25 SEEN Normal 0-5 [facility] Comment on above: Order Comment: CLEAN CATCH Performed By: #### L 3890.6102, L509.8002, L509.4006, L501.9985, L100.0100, BTS, L3890.6006, L3890.6301, L501.9520 #### [facility] [address] [place], [address] Mucus Ql (Urine sed) 0 SEEN Normal [facility] Comment on above: Order Comment: CLEAN CATCH Performed By: #### L 3890.6102, L509.8002, L509.4006, L501.9985, L100.0100, BTS, L3890.6006, L3890.6301, L501.9520 #### [facility] [address] [place], [address] Greenhouse Technician Office Visit Reporton 12-26-2024 Greenhouse Technician Office Visit Report [facility] [address], [address] [place] [address] OFFICE VISIT Date of Service: 12/26/24 MR#: [id number] Acct: [id number] Name: SOLANGE MILLIGAN Rep #: [id number] : 1985 Provider: Dr. 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 Is patient in pain?: No Allergies No Known Allergies Allergy (Verified 12/26/24 15:57) Medications ???Medication ???Instructions ???Recorded ???Confirmed ???Type promethazine 12.5 mg tablet 12.5 mg PO Q6H PRN nausea and 03/1512/26/24 Rx vomiting #60 tabs PNV no.63-iron,carbonyl 27 1 cap PO QDAY 08/28/24 12/26/24 Hi story mg-folic acid 800 mcg-dha 200 mg capsule ondansetron 4 mg disintegrating 4 mg PO Q4H PRN nausea and 5 12/26/24 Rx tablet vomiting #60 tabs escitalopram oxalate 20 mg tablet 20 mg PO HS #30 tabs 10/31/2409/12 Rx Last Menstrual Period: 05/20/24 Zika: Zika virus screening: Negative : No PFSH PFSH Medical History Screening for cervical cancer delivery delivered Acute postoperative pain Depression Anxiety Endometriosis Infertility Endometriosis determined by laparoscopy Surgical History History of surgery Hx of LASIK [place] teeth extracted History of repair of anterior cruciate ligament of left knee Family History Father Cancer Non-Hodgkins Lymphoma Mother Cancer skin cancer Social History adopted: No household members: spouse and children housing: house number of children: 1 current occupational status: employed 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 history of recent travel: Yes ([place] 2024) out of state: Yes out of country: Yes sexually active: Yes Smoking Status: Never smoker alcohol intake: current alcohol intake frequency: a few times a week details: social, not while substance use type: does not use, marijuana and other details: last use March 2024 caffeine: Yes Type: coffee what type of physical activity do you participate in: walking frequency: 3-4 times per week trang/voodoo: None seatbelt use: always do you feel safe at home: Yes 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 Date Name GA/Weeks Outcome Route Bth Weight Infant Gen Labor Lgth Anesthesia Del [facility] Provider FOB 09/02/22 Adan live - full term HPI 26wk1d ob Details: SOLANGE MILLIGAN is a 39 year old who presents for routine OB visit. OB Visit TRISTAN Calculator Estimated Delivery Date Method Current WG Current Estimate 04/02/25 Conception 26w 1d Other Estimates 04/02/25 Manual 26w 1d IVF 5 day transfer Expected Delivery Route/Plan patient counseled regarding risks/benefits of trial of labor versus repeat . ACOG/uptodate education given to patient. 42 % likelihood of success per calculator TOLAC consent form signed: [] still undecided about vs rpt IF NO SPONTANEOUS LABOR BY 39 WEEKS, THEN THE PLAN IS FOR A REPEAT SECTION. Specific Issue/Plans Covid status: [] Flu vaccine: [] Tdap vaccine: [] Rhogam: [] LARC form signed: [] Problem list reviewed and updated with the most current plan of care details and appropriate orders placed. Relevant counseling for the gestational age provided. Continue routine care and follow up unless otherwise noted in visit notes/problem list details Initial Weight: Not Recorded Date -???-???-???-???-???- ???-???-???-???-???-? ??-???- EGA Weight BP Urine Prot -???-???-???-???-???- ???-???-???-???-???-? ??-???- Glucose FHR FuHt Pres Dilation -???-???-???-???-???- ???-???-???-???-???-? ??-???- Effaced St Visit Note 09/30/24 -???-???-???-???-???- ???-???-???-???-???-? ??-???- 13w 5d 175 lb 118/79 Negative -???-???-???-???-???- ???-???-???-???-???-? ??-???- Negative 151 -???-???-???-???-???- ???-???-???-???-???-? ??-???- KW- NOB was done by JAVON at end of August. KW- NOB was done by JAVON at end of . is IVF and AMA, hx of 1 c/s with Bashir Amin. did (more content not included)... Normal [facility] Greenhouse Technician Office Visit Reporton 10-07-2025 Greenhouse Technician Office Visit Report [facility] [address], [address] [place] [address] OFFICE VISIT Date of Service: 11/25/24 MR#: [id number] Acct: [id number] Name: SOLANGE MILLIGAN Rep #: [id number] : 1985 Provider: Dr. 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 Is patient in pain?: No Allergies No Known Allergies Allergy (Verified 11/25/24 15:46) Medications ???Medication ???Instructions ???Recorded ???Confirmed ???Type promethazine 12.5 mg tablet 12.5 mg PO Q6H PRN nausea and 03/1511/25/24 Rx vomiting #60 tabs PNV no.63-iron,carbonyl 27 1 cap PO QDAY 08/28/24 11/25/24 Hi story mg-folic acid 800 mcg-dha 200 mg capsule ondansetron 4 mg disintegrating 4 mg PO Q4H PRN nausea and 5 11/25/24 Rx tablet vomiting #60 tabs escitalopram oxalate 20 mg tablet 20 mg PO HS #30 tabs 10/31/2409/12 Rx Last Menstrual Period: 05/20/24 Zika: Zika virus screening: Negative : No PFSH PFSH Medical History Screening for cervical cancer delivery delivered Acute postoperative pain Depression Anxiety Endometriosis Infertility Endometriosis determined by laparoscopy Surgical History History of surgery Hx of LASIK [place] teeth extracted History of repair of anterior cruciate ligament of left knee Family History Father Cancer Non-Hodgkins Lymphoma Mother Cancer skin cancer Social History adopted: No household members: spouse and children housing: house number of children: 1 current occupational status: employed 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 history of recent travel: Yes (2024) out of state: Yes out of country: Yes sexually active: Yes Smoking Status: Never smoker alcohol intake: current alcohol intake frequency: a few times a week details: social, not while substance use type: does not use, marijuana and other details: last use March 2024 caffeine: Yes Type: coffee what type of physical activity do you participate in: walking frequency: 3-4 times per week trang/voodoo: None seatbelt use: always do you feel safe at home: Yes 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 Date Name GA/Weeks Outcome Route Bth Weight Gen Labor Lgth Anesthesia Del Locatn Provider FOB 09/02/22 Adan live - full term HPI 21wk5d ob Details: SOLANGE MILLIGAN is a 39 year old who presents for routine OB visit. OB Visit TRISTAN Calculator Estimated Delivery Date Method Current WG Current Estimate 04/02/25 Conception 21w 5d Other Estimates 04/02/25 Manual 21w 5d IVF 5 day transfer Expected Delivery Route/Plan patient counseled regarding risks/benefits of trial of labor versus repeat . ACOG/uptodate education given to patient. 42 % likelihood of success per calculator TOLAC consent form signed: [] still undecided about vs rpt IF NO SPONTANEOUS LABOR BY 39 WEEKS, THEN THE PLAN IS FOR A REPEAT SECTION. Specific Issue/Plans Covid status: [] Flu vaccine: [] Tdap vaccine: [] Rhogam: [] LARC form signed: [] Problem list reviewed and updated with the most current plan of care details and appropriate orders placed. Relevant counseling for the gestational age provided. Continue routine care and follow up unless otherwise noted in visit notes/problem list details Initial Weight: Not Recorded Date -???-???-???-???-???- ???-???-???-???-???-? ??-???- EGA Weight BP Urine Prot -???-???-???-???-???- ???-???-???-???-???-? ??-???- Glucose FHR FuHt Pres Dilation -???-???-???-???-???- ???-???-???-???-???-? ??-???- Effaced St Visit Note 09/30/24 -???-???-???-???-???- ???-???-???-???-???-? ??-???- 13w 5d 175 lb 118/79 Negative -???-???-???-???-???- ???-???-???-???-???-? ??-???- Negative 151 -???-???-???-???-???- ???-???-???-???-???-? ??-???- KW- NOB was done by JAVON at end of August. KW- NOB was done by JAVON at end . is IVF and AMA, hx of 1 c/s with (more content not included)... Normal [facility] - Chemistry and C hemistry - challengeOrdered By: Paco Shaikh on 10-30-2024 Glucose Ql (U) Negative [facility] - UrinalysisOrder ed By: Paoc Shaikh on 10-30-2024 Protein Ql (U) Negative [facility] Greenhouse Technician Office Visit Reporton 10-30-2024 Greenhouse Technician Office Visit Report [facility] [address], [address] [place] [address] OFFICE VISIT Date of Service: 10/30/24 MR#: [id number] Acct: [id number] Name: SOLANGE MILLIGAN Rep #: [id number] : 1985 Provider: CARLOS johnston Age/Sex: 39/F Location: [facility] Status: Signed Intake Vital Signs 09/30/24 15:23 10/30/24 15:36 10/30/24 15:42 Height 5 ft 4 in 5 ft 4 in 5 ft 4 in Weight: 172 lb 9 oz BMI 29.6 BP 114/76 Intake Visit Reasons: 18 WK OB Chief Complaint: 18 Week OB 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 Is patient in pain?: No Allergies No Known Allergies Allergy (Verified 10/30/24 15:36) Medications ???Medication ???Instructions ???Recorded ???Confirmed ???Type escitalopram oxalate 20 mg tablet 20 mg PO HS #30 tabs 06/17/2401/13 Rx promethazine 12.5 mg tablet 12.5 mg PO Q6H PRN nausea and 03/1510/30/24 Rx vomiting #60 tabs PNV no.63-iron,carbonyl 27 1 cap PO QDAY 08/28/24 10/30/24 Hi story mg-folic acid 800 mcg-dha 200 mg capsule ondansetron 4 mg disintegrating 4 mg PO Q4H PRN nausea and 5 10/30/24 Rx tablet vomiting #60 tabs Last Menstrual Period: 05/20/24 Zika: Zika virus screening: Negative : No PFSH PFSH Medical History Screening for cervical cancer delivery delivered Acute postoperative pain Depression Anxiety Endometriosis Infertility Endometriosis determined by laparoscopy Surgical History History of surgery Hx of LASIK [place] teeth extracted History of repair of anterior cruciate ligament of left knee Family History Father Cancer Non-Hodgkins Lymphoma Mother Cancer skin cancer Social History adopted: No household members: spouse and children housing: house number of children: 1 current occupational status: employed 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 pets and animals: Yes history of recent travel: Yes (2024) out of state: Yes out of country: Yes sexually active: Yes Smoking Status: Never smoker alcohol intake: current alcohol intake frequency: a few times a week details: social, not while substance use type: does not use, marijuana and other details: last use March 2024 caffeine: Yes Type: coffee what type of physical activity do you participate in: walking frequency: 3-4 times per week trang/voodoo: None seatbelt use: always do you feel safe at home: Yes 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 Date Name GA/Weeks Outcome Route Bth Weight Gen Labor Lgth Anesthesia Del Locatn Provider FOB 09/02/22 Adan live - full term HPI 18 WK OB Details: SOLANGE MILLIGAN is a 39 year old who presents for routine OB visit. OB Visit TRISTAN Calculator Estimated Delivery Date Method Current WG Current Estimate 04/02/25 Conception 18w 0d Other Estimates 04/02/25 Manual 18w 0d IVF 5 day transfer Expected Delivery Route/Plan patient counseled regarding risks/benefits of trial of labor versus repeat . ACOG/uptodate education given to patient. 42 % likelihood of success per calculator TOLAC consent form signed: [] still undecided about vs rpt Specific Issue/Plans Covid status: [] Flu vaccine: [] Tdap vaccine: [] Rhogam: [] LARC form signed: [] Problem list reviewed and updated with the most current plan of care details and appropriate orders placed. Relevant counseling for the gestational age provided. Continue routine care and follow up unless otherwise noted in visit notes/problem list details Initial Weight: Not Recorded Date -???-???-???-???-???- ???-???-???-???-???-? ??-???- EGA Weight BP Urine Prot -???-???-???-???-???- ???-???-???-???-???-? ??-???- Glucose FHR FuHt Pres Dilation -???-???-???-???-???- ???-???-???-???-???-? ??-???- Effaced St Visit Note 09/30/24 -???-???-???-???-???- ???-???-???-???-???-? ??-???- 13w 5d 175 lb 118/79 Negative -???-???-???-???-???- ???-???-???-???-???-? ??-???- Negative 151 -???-???-???-???-???- ???-???-???-???-???-? ??-???- KW- NOB was done by JAVON at end of August. KW- NOB was done by JAVON at end of . is IVF and AMA, hx of 1 c/s with Bashir Amin. did genetic testing with IVF. unsure if she would like a repeat c/s or TOLAC 10/30/24 (more content not included)... Normal [facility] - Chemistry and C hemistry - challengeOrdered By: Evonne Mendez on 09-30-2024 Glucose Ql (U) Negative [facility] - UrinalysisOrder ed By: Evonne Mendez on 09-30-2024 Protein Ql (U) Negative [facility] Greenhouse Technician Office Visit Reporton 09-30-2024 Greenhouse Technician Office Visit Report [facility] [address], [address] [place] [address] OFFICE VISIT Date of Service: 09/30/24 MR#: [id number] Acct: [id number] Name: SOLANGE MILLIGAN Rep #: [id number] : 1985 Provider: TANYA Kate ams Age/Sex: 39/F Location: [facility] Status: Signed Intake Vital Signs 06/17/24 13:09 09/08/24 08:30 09/30/24 15:23 Height 5 ft 4 in 5 ft 4 in 5 ft 4 in Weight: 175 lb BMI 30.0 BP 118/79 Intake Visit Reasons: 14wk OB *IVF transfer 07/15 TRISTAN 04/02 Chief Complaint: 14wk OB 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 Is patient in pain?: No Allergies No Known Allergies Allergy (Verified 09/30/24 15:23) Medications ???Medication ???Instructions ???Recorded ???Confirmed ???Type escitalopram oxalate 20 mg tablet 20 mg PO HS #30 tabs 06/17/2402/12 Rx promethazine 12.5 mg tablet 12.5 mg PO Q6H PRN nausea and 03/1509/30/24 Rx vomiting #60 tabs PNV no.63-iron,carbonyl 27mg-folic 1 cap PO QDAY 08/28/24 09/30/24 History acid 800 mcg-dha 200 mg capsule ondansetron 4 mg disintegrating 4 mg PO Q4H PRN nausea and 5 09/30/24 Rx tablet vomiting #60 tabs Last Menstrual Period: 05/20/24 : No PFSH PFSH Medical History Screening for cervical cancer delivery delivered Acute postoperative pain Depression Anxiety Endometriosis Infertility Endometriosis determined by laparoscopy Surgical History History of surgery Hx of LASIK [place] teeth extracted History of repair of anterior cruciate ligament of left knee Family History Father Cancer Non-Hodgkins Lymphoma Mother Cancer skin cancer Social History adopted: No household members: spouse and children housing: house number of children: 1 current occupational status: employed 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 pets and animals: Yes history of recent travel: Yes (2024) out of state: Yes out of country: Yes sexually active: Yes Smoking Status: Never smoker alcohol intake: current alcohol intake frequency: a few times a week details: social, not while substance use type: does not use, marijuana and other details: last use March 2024 caffeine: Yes Type: coffee what type of physical activity do you participate in: walking frequency: 3-4 times per week trang/voodoo: None seatbelt use: always do you feel safe at home: Yes 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 Date Name GA/Weeks Outcome Route Bth Weight Gen Labor Lgth Anesthesia Del Locatn Provider FOB 09/02/22 Adan live - full term HPI 14wk OB *IVF transfer 07/15 TRISTAN 04/02 Details: SOLANGE MILLIGAN is a 39 year old who presents for routine OB visit. OB Visit TRISTAN Calculator Estimated Delivery Date Method Current WG Current Estimate 04/02/25 Conception 13w 5d Other Estimates 04/02/25 Manual 13w 5d IVF 5 day transfer Expected Delivery Route/Plan patient counseled regarding risks/benefits of trial of labor versus repeat . ACOG/uptodate education given to patient. 42 % likelihood of success per calculator TOLAC consent form signed: [] still undecided about vs rpt Specific Issue/Plans Covid status: [] Flu vaccine: [] Tdap vaccine: [] Rhogam: [] LARC form signed: [] Problem list reviewed and updated with the most current plan of care details and appropriate orders placed. Relevant counseling for the gestational age provided. Continue routine care and follow up unless otherwise noted in visit notes/problem list details Initial Weight: Not Recorded Date -???-???-???-???-???- ???-???-???-???-???-? ??-???- EGA Weight BP Urine Prot -???-???-???-???-???- ???-???-???-???-???-? ??-???- Glucose FHR FuHt Pres Dilation -???-???-???-???-???- ???-???-???-???-???-? ??-???- Effaced St Visit Note 09/30/24 -???-???-???-???-???- ???-???-???-???-???-? ??-???- 13w 5d 175 lb 118/79 Negative -???-???-???-???-???- ???-???-???-???-???-? ??-???- Negative 151 -???-???-???-???-???- ???-???-???-???-???-? ??-???- KW- NOB was done by JAVON at end of August. KW- NOB was done by JAVON at end . is IVF and AMA, hx of 1 c/s with Bashir Amin. did genetic testing with IVF. unsure if she would like a repeat c/s or TOLAC ACOG First Trimester First (more content not included)... Normal [facility] Urine Cultureon 09-10-2024 URC Below infection level. Mixed Gram Pos Gram Neg Org [place] Count 1000-10,000 MIXC Mixed contaminants. Submit a new specimen if indicated. Normal [facility] Comment on above: Performed By: #### L 3890.6102, L509.8002, L509.4006, L501.9985, L100.0100, BTS, L3890.6006, L3890.6301, L501.9520 #### [facility] [address] [place], [place], [id number] Chlamydia/GC MOIRA aptimaon CHLAMY,NUC ACID Negative Normal Negative [facility] Comment on above: Performed By: #### L 3890.6102, L509.8002, L509.4006, L501.9985, L100.0100, BTS, L3890.6006, L3890.6301, L501.9520 #### [facility] [address] [place], [place], [phone] GC BY NUC ACID Negative Normal Negative [facility] Comment on above: Result Comment: Perf ormed at: =G - [facility] [address] [id number] Cosmetics Machine Operator: Tri Leal MD, Phone: [phone] Performed By: #### L 3890.6102, L509.8002, L509.4006, L501.9985, L100.0100, BTS, L3890.6006, L3890.6301, L501.9520 #### [facility] [address] [place], [place], [phone] Absolute lymphocyte countOrd ered By: Natacha Ramsey on 09-08-2024 Lymphocytes Auto (Unsp spec) [#/Vol] 1.71 10*3/uL 0.83-4.51 [facility] Absolute neutrophil countOrd ered By: Natacha Ramsey on 09-08-2024 Neutrophils (Bld) [#/Vol] 5.5 10*3/uL 2.0-7.7 [facility] Amphetamine detection with 1 000 ng/mL as cutoffOrdered By: Natacha Ramsey on 09-08-2024 Amphetamines Screen method >1000 ng/mL Ql (U) Negative < 200 ng/mL [facility] Automated lymphocyte count a s percentage of total leukocytesOrdered By: Natacha Ramsey on 09-08-2024 Lymphocytes/100 WBC Auto (Unsp spec) 22.4 % 19-41 [facility] Basophil percentageOrdered B y: Natacha Ramsey on 09-08-2024 Basophils/100 WBC (Bld) 0.7 % 0-1 [facility] CBC W/Diff, Automatedon - Absolute Lymph 1.71 X10 3/uL Normal 0.83-4.51 [facility] Comment on above: Performed By: #### L 3890.6102, L509.8002, L509.4006, L501.9985, L100.0100, BTS, L3890.6006, L3890.6301, L501.9520 #### [facility] [address] [place], [address] Absolute Neut 5.5 X10 3/uL Normal 2.0-7.7 [facility] Comment on above: Performed By: #### L 3890.6102, L509.8002, L509.4006, L501.9985, L100.0100, BTS, L3890.6006, L3890.6301, L501.9520 #### [facility] [address] [place], [address] Basophils/100 WBC (Bld) 0.7 % Normal 0-1 [facility] Comment on above: Performed By: #### L 3890.6102, L509.8002, L509.4006, L501.9985, L100.0100, BTS, L3890.6006, L3890.6301, L501.9520 #### [facility] [address] [place], [address] Eosinophils/100 WBC (Bld) 0.5 % Normal 0-5 [facility] Comment on above: Performed By: #### L 3890.6102, L509.8002, L509.4006, L501.9985, L100.0100, BTS, L3890.6006, L3890.6301, L501.9520 #### [facility] [address] [place], [address] Erythrocyte distribution width (RBC) [Ratio] 11.6 % Normal 11.6-14.6 [facility] Comment on above: Performed By: #### L 3890.6102, L509.8002, L509.4006, L501.9985, L100.0100, BTS, L3890.6006, L3890.6301, L501.9520 #### [facility] [address] [place], [address] Hematocrit (Bld) [Volume fraction] 41.2 % Normal 37-47 [facility] Comment on above: Performed By: #### L 3890.6102, L509.8002, L509.4006, L501.9985, L100.0100, BTS, L3890.6006, L3890.6301, L501.9520 #### [facility] [address] [place], [address] Hemoglobin (Bld) [Mass/Vol] 13.8 g/dL Normal 12.0-15.0 [facility] Comment on above: Performed By: #### L 3890.6102, L509.8002, L509.4006, L501.9985, L100.0100, BTS, L3890.6006, L3890.6301, L501.9520 #### [facility] [address] [place], [address] IG% 0.300 Normal 0.0-0.9 [facility] Comment on above: Result Comment: IG% - Immature Granulocytes (promyelocytes, myelocytes and metamyelocytes) > 1% indicates that a LEFT SHIFT is Present. Performed By: #### L 3890.6102, L509.8002, L509.4006, L501.9985, L100.0100, BTS, L3890.6006, L3890.6301, L501.9520 #### [facility] [address] [place], [address] Lymphocytes/100 WBC (Bld) 22.4 % Normal 19-41 [facility] Comment on above: Performed By: #### L 3890.6102, L509.8002, L509.4006, L501.9985, L100.0100, BTS, L3890.6006, L3890.6301, L501.9520 #### [facility] [address] [place], [address] MCH (RBC) [Entitic mass] 30.5 pg Normal 27.0-32.0 [facility] Comment on above: Performed By: #### L 3890.6102, L509.8002, L509.4006, L501.9985, L100.0100, BTS, L3890.6006, L3890.6301, L501.9520 #### [facility] [address] [place], [address] MCHC (RBC) [Mass/Vol] 33.5 g/dL Normal 32-36 [facility] Comment on above: Performed By: #### L 3890.6102, L509.8002, L509.4006, L501.9985, L100.0100, BTS, L3890.6006, L3890.6301, L501.9520 #### [facility] [address] [place], [address] MCV (RBC) [Entitic vol] 90.9 fL Normal 81-99 [facility] Comment on above: Performed By: #### L 3890.6102, L509.8002, L509.4006, L501.9985, L100.0100, BTS, L3890.6006, L3890.6301, L501.9520 #### [facility] [address] [place], [address] Monocytes/100 WBC (Bld) 4.5 % Normal 0-10 [facility] Comment on above: Performed By: #### L 3890.6102, L509.8002, L509.4006, L501.9985, L100.0100, BTS, L3890.6006, L3890.6301, L501.9520 #### [facility] [address] [place], [address] Neutrophils/100 WBC (Bld) 71.6 % High 47-70 [facility] Comment on above: Performed By: #### L 3890.6102, L509.8002, L509.4006, L501.9985, L100.0100, BTS, L3890.6006, L3890.6301, L501.9520 #### [facility] [address] [place], [address] Nucleated RBC (Bld) [#/Vol] 0 10*3/uL Normal 0-5 [facility] Comment on above: Performed By: #### L 3890.6102, L509.8002, L509.4006, L501.9985, L100.0100, BTS, L3890.6006, L3890.6301, L501.9520 #### [facility] [address] [place], [address] Platelet mean volume (Bld) [Entitic vol] 9.9 fL Normal 6.2-12.0 [facility] Comment on above: Performed By: #### L 3890.6102, L509.8002, L509.4006, L501.9985, L100.0100, BTS, L3890.6006, L3890.6301, L501.9520 #### [facility] [address] [place], [address] Platelets (Bld) [#/Vol] 323 10*3/uL Normal 150-450 [facility] Comment on above: Performed By: #### L 3890.6102, L509.8002, L509.4006, L501.9985, L100.0100, BTS, L3890.6006, L3890.6301, L501.9520 #### [facility] [address] [place], [address] RBC (Bld) [#/Vol] 4.53 10*6/uL Normal 4.2-5.4 [facility] Comment on above: Performed By: #### L 3890.6102, L509.8002, L509.4006, L501.9985, L100.0100, BTS, L3890.6006, L3890.6301, L501.9520 #### [facility] [address] [place], [place], [phone] (194) RDW SD 38.3 fl Normal 35.1-43.9 [facility] Comment on above: Performed By: #### L 3890.6102, L509.8002, L509.4006, L501.9985, L100.0100, BTS, L3890.6006, L3890.6301, L501.9520 #### [facility] [address] [place], [place], [phone] WBC (Bld) [#/Vol] 7.6 10*3/uL Normal 4.4-11.0 [facility] Comment on above: Performed By: #### L 3890.6102, L509.8002, L509.4006, L501.9985, L100.0100, BTS, L3890.6006, L3890.6301, L501.9520 #### [facility] [address] [place], [place], [id number] Chlamydia trachomatis rRNA d etection by probe and target amplification methodOrdered By: Natacha Ramsey on 09-08-2024 C. trachomatis rRNA MOIRA+probe Ql (Unsp spec) Negative Negative [facility] Eosinophil percentageOrdered By: Natacha Ramsey on 09-08-2024 Eosinophils/100 WBC (Bld) 0.5 % 0-5 [facility] Erythrocyte distribution wid th ratioOrdered By: Natacha Ramsey on 09-08-2024 Erythrocyte distribution width (RBC) [Ratio] 11.6 % 11.6-14.6 [facility] Erythrocyte distribution wid th standard deviationOrdered By: Natacha Ramsey on 09-08-2024 Erythrocyte distribution width (RBC) [Ratio] 38.3 fl 35.1-43.9 [facility] HIVon 09-08-2024 HIV Non-Reactive Normal Nonreactive [facility] Comment on above: Result Comment: Non- Reactive Reactive Repeatedly reactive samples must be confirmed according to CDC recommended confirmatory algorithms. The subresults for either HIVAG or AHIV can be used as an aid in the selection of the confirmation algorithm for reactive samples. Send out specimens with Reactive results to [facility] for confirmation. Order the HIV antibody detection and differentiation: [id number] Performed By: #### L 3890.6102, L509.8002, L509.4006, L501.9985, L100.0100, BTS, L3890.6006, L3890.6301, L501.9520 #### [facility] [address] [place], [place], [id number] Hematocrit Auto (Bld) [Volum e fraction]Ordered By: Natacha Ramsey on 09-08-2024 Hematocrit (Bld) [Volume fraction] 41.2 % 37-47 [facility] Hemoglobin A1con 09-08-2024 HbA1c (Bld) [Mass fraction] 5.1 % Normal <=5.6 [facility] Comment on above: Result Comment: Norm al < 5.7 % Prediabetic 5.7 - 6.4 % Diabetic >or= 6.5 % Please note range changes. Performed By: #### L 3890.6102, L509.8002, L509.4006, L501.9985, L100.0100, BTS, L3890.6006, L3890.6301, L501.9520 #### [facility] [address] [place], [place], [phone] Hemoglobin A1c percentageOrd ered By: Natacha Ramsey on 09-08-2024 HbA1c (Bld) [Mass fraction] 5.1 % <5.7 [facility] Comment on above: Normal < 5.7 % Predi abetic 5.7 - 6.4 % Diabetic >or= 6.5 % Please note range changes. Hemoglobin measurementOrdere d By: Natacha Ramsey on 09-08-2024 Hemoglobin (Bld) [Mass/Vol] 13.8 g/dL 12.0-15.0 [facility] Hepatitis C Antibodyon 09-08 Hepatitis C Ab Non-Reactive Normal Nonreactive [facility] Comment on above: Result Comment: Reac tive: Presumptive evidence of antibodies to HCV. Follow CDC recommendations for supplemental testing. Non-Reactive: Antibodies to HCV were not detected; does not exclude the possibility of exposure to HCV Reactive Results are presumptive evidence of antibodies to HCV. Follow CDC recommendations for supplemental testing. Order confirmation testing: HCV Quant by PCR testing - HCVPCR [id number] Non Reactive: < 0.8 Equivocal: >/= 0.8 to < 1.0 Reactive: >/= 1.0 The [facility] requires that a reactive/equivocal HCV antibody result be sent out for confirmation. HCV Quant by PCR testing. Performed By: #### L 3890.6102, L509.8002, L509.4006, L501.9985, L100.0100, BTS, L3890.6006, L3890.6301, L501.9520 #### [facility] [address] [place], [address] Immature granulocytes/100 WB C Auto (Bld)Ordered By: Natacha Ramsey on 09-08-2024 Immature granulocytes/100 WBC (Bld) 0.300 % 0.0-0.9 [facility] Comment on above: IG% - Immature Granu locytes (promyelocytes, myelocytes and metamyelocytes) > 1% indicates that a LEFT SHIFT is Present. L3890.6102on 09-08-2024 HEP B Surf Ag Non-Reactive Normal Nonreactive [facility] Comment on above: Result Comment: Reac tive: Presumptive evidence of HBV. Repeatedly reactive samples must be confirmed using a neutralization test ([employer] HBsAg Confirmatory Test) Non-Reactive: HBsAg not detected; does not exclude the possibility of exposure to HBV Performed By: #### L 3890.6102, L509.8002, L509.4006, L501.9985, L100.0100, BTS, L3890.6006, L3890.6301, L501.9520 #### [facility] [address] [place], [address] L509.4006on 09-08-2024 Rubella IgG REAC Normal Nonreactive [facility] Comment on above: Result Comment: Anti body Result: Interpretation Non-Reactive: Non-Immune Reactive: Immune The following results were obtained with the [employer] Rubella IgG assay. Results from assays of other manufacturers cannot be used interchangeably. Performed By: #### L 3890.6102, L509.8002, L509.4006, L501.9985, L100.0100, BTS, L3890.6006, L3890.6301, L501.9520 #### [facility] [address] [place], [address] Laboratory - Microbiology an d Antimicrobial susceptibilityOrdered By: Natacha Ramsey on 09-08-2024 HBV surface Ag Ql (S) Non-Reactive Nonreactive [facility] Comment on above: Reactive: Presumptiv e evidence of HBV. Repeatedly reactive samples must be confirmed using a neutralization test ([employer] HBsAg Confirmatory Test)Non-Reactive: HBsAg not detected; does not exclude the possibility of exposure to HBV MCV (mean corpuscular volume ) determinationOrdered By: Natacha Ramsey on 09-08-2024 MCV (RBC) [Entitic vol] 90.9 fL 81-99 [facility] Mean corpuscular hemoglobin (MCH) determinationOrdered By: Natacha Ramsey on 09-08-2024 MCH (RBC) [Entitic mass] 30.5 pg 27.0-32.0 [facility] Mean corpuscular hemoglobin concentration (MCHC) determinationOrdered By: Natacha Ramsey on 09-08-2024 MCHC (RBC) [Mass/Vol] 33.5 g/dL 32-36 [facility] Mean platelet volume determi nationOrdered By: Natacha Ramsey on 09-08-2024 Platelet mean volume (Bld) [Entitic vol] 9.9 fL 6.2-12.0 [facility] Monocyte percentageOrdered B y: Natacha Ramsey on 09-08-2024 Monocytes/100 WBC (Bld) 4.5 % 0-10 [facility] Neisseria gonorrhoeae nuclei c acid detection by amplified probe techniqueOrdered By: Natacha Ramsey on 09-08-2024 N. gonorrhoeae DNA MOIRA+probe Ql (Unsp spec) Negative Negative [facility] Comment on above: Performed at: =[address] [id number] Director: Tri Leal MD, Phone: [phone] Neutrophil percentageOrdered By: Natacha Ramsey on 09-08-2024 Neutrophils/100 WBC (Bld) 71.6 % High 47-70 [facility] No Panel InformationOrdered By: Natacha Ramsey on 09-08-2024 Urine Buprenorphine Qualitative Negative < 200 ng/mL [facility] Urine Oxycodone Screen Negative < 100 ng/mL [facility] HIV (1&2) Antibody Non-Reactive Nonreactive [facility] Comment on above: Non-ReactiveReactive Repeatedly reactive samples must be confirmed according to CDC recommended confirmatory algorithms. The subresults for either HIVAG or AHIV can be used as an aid in the selection of the confirmation algorithm for reactive samples.Send out specimens with Reactive results to [facility] for confirmation.Order the HIV antibody detection and differentiation: #[id number] Nucleated red blood cell per centageOrdered By: Natacha Ramsey on 09-08-2024 Nucleated RBC/100 WBC (Bld) [Ratio] 0 % 0-5 [facility] Greenhouse Technician Office Visit Reporton 09-08-2024 Greenhouse Technician Office Visit Report [facility] [address], [address] [place] [address] OFFICE VISIT Date of Service: 09/08/24 MR#: [id number] Acct: [id number] Name: SOLANGE MILLIGAN Rep #: [id number] : 1985 Provider: Dr. Natacha Basilio, Age/Sex: 39/F [place] [facility] [place]: Signed Intake Vital Signs 06/17/24 13:09 09/08/24 08:28 07/21/25 08:30 Height 5 ft 4 in 5 ft 4 in 5 ft 4 in Weight: 178 lb 8 oz 174 lb 8 oz BMI 30.6 29.9 BP 111/77 104/69 Intake Visit Reasons: NOB IVF 07/15 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 Is patient in pain?: No Allergies No Known Allergies Allergy (Verified 09/08/24 08:27) Medications ???Medication ???Instructions ???Recorded ???Confirmed ???Type escitalopram oxalate 20 mg tablet 20 mg PO HS #30 tabs 06/17/24 Rx promethazine 12.5 mg tablet 12.5 mg PO Q6H PRN nausea and 03/1509/08/24 Rx vomiting #60 tabs PNV no.63-iron,carbonyl 27mg-folic 1 cap PO QDAY 08/28/24 09/08/24 History acid 800 mcg-dha 200 mg capsule ondansetron 4 mg disintegrating 4 mg PO Q4H PRN nausea and 5 08/28/24 Rx tablet vomiting #60 tabs Last Menstrual Period: 05/20/24 Zika: Zika virus screening: Negative : No PFSH PFSH Medical History Screening for cervical cancer delivery delivered Acute postoperative pain Depression Anxiety Endometriosis Infertility Endometriosis determined by laparoscopy Surgical History History of surgery Hx of LASIK [place] teeth extracted History of repair of anterior cruciate ligament of left knee Family History Father Cancer Non-Hodgkins Lymphoma Mother Cancer skin cancer Social History adopted: No household members: spouse and children housing: house number of children: 1 service: No current occupational status: employed 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 history of recent travel: Yes (2024) out of state: Yes out of country: Yes sexually active: Yes Smoking Status: Never smoker alcohol intake: current alcohol intake frequency: a few times a week details: social, not while substance use type: does not use, marijuana and other details: last use March 2024 caffeine: Yes Type: coffee what type of physical activity do you participate in: walking How many days of moderate to strenuous exercise, like a brisk walk, did you do in the last 7 days: 3 frequency: 3-4 times per week trang/voodoo: None seatbelt use: always do you feel safe at home: Yes 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 Date Name GA/Weeks Outcome Route Bth Weight Infant Gen Labor Lgth Anesthesia Del Locatn Provider FOB 09/02/22 Adan live - full term HPI NOB IVF 07/15 Details: SOLANGE MILLIGAN is a 39 year old who presents for New OB visit. OB Visit TRISTAN Calculator Estimated Delivery Date Method Current WG Current Estimate 04/02/25 Manual 10w 4d IVF 5 day transfer 07/15/24 Other Estimates 04/07/25 Conception 9w 6d Comments: HIV: Urine Culture: Sequential Screen: NIPT Screen: Estimated Due Date: 04/02/25 Expected Delivery Route/Plan patient counseled regarding risks/benefits of trial of labor versus repeat . ACOG/uptodate education given to patient. 42 % likelihood of success per calculator TOLAC consent form signed: [] still undecided about vs rpt Menstrual History Last Menstrual Period: 05/20/24 Reported LMP: unknown Normal amount/duration: No Frequency in days: 30 On hormonal BC at conception: No hCG+: 07/29/24 Antepartum Record Genetic Screening: Congenital Heart Defect: Other, Neural Tube Defect: Other, Hemoglobinopathy Or Carrier: Other, Cystic Fibrosis: Other, Chromosome Abnormality: Other, Mlaick-Sachs: Other, Hemophilia: Other, Intellectual Disability/Autism: Other, Recurrent Loss/Stillbirth: Other, Other Structural Defect: Other, Other Genetic Disease: Other and Maternal Metabolic Disorder: Partner ( is type1 diabetic) Infection History: Live with someone with TB or Exposed to TB: No, Patient or Partner has history of Genital Herpes: No, Rash or Viral illness since last mentrual period: No, Prior GBS-Infected child: No, History of STD: No, HIV Infection: No, History of Hepatitis: (more content not included)... Normal [facility] Platelet countOrdered By: Toby benz Braulio on 09-08-2024 Platelets (Bld) [#/Vol] 323 10*3/uL 150-450 [facility] Quantitative urine opiates m easurementOrdered By: Natachajo ann Ramsey on 09-08-2024 Opiates Ql (U) Negative < 300 ng/mL [facility] RBC Auto (Bld) [#/Vol]Ordere d By: Natacha Ramsey on 09-08-2024 RBC (Bld) [#/Vol] 4.53 10*6/uL 4.2-5.4 [facility] Screening urine fentanyl colt surementOrdered By: Natacha Ramsey on 09-08-2024 fentaNYL Screen Ql (U) Negative [facility] Syphilis Antibodieson 2024 Syphilis Abs Non-Reactive Normal Nonreactive [facility] Comment on above: Performed By: #### L 3890.6102, L509.8002, L509.4006, L501.9985, L100.0100, BTS, L3890.6006, L3890.6301, L501.9520 #### [facility] [address] [place], [place], [id number] TSH DL <= 0.005 mIU/L QnOrde red By: Natacha Ramsey on 09-08-2024 TSH Qn 1.010 uIU/mL 0.300-4.200 [facility] Thyroid Stim Hormone (TSH)on 09-08-2024 TSH 1.010 uIU/mL Normal 0.300-4.200 [facility] Comment on above: Performed By: #### L 3890.6102, L509.8002, L509.4006, L501.9985, L100.0100, BTS, L3890.6006, L3890.6301, L501.9520 #### [facility] [address] [place], [place], [id number] Type AND Screenon 09-08-2024 Ab SCREEN GEL Negative Normal [facility] Comment on above: Order Comment: PN Performed By: #### L 3890.6102, L509.8002, L509.4006, L501.9985, L100.0100, BTS, L3890.6006, L3890.6301, L501.9520 #### [facility] [address] [place], [place], [id number] Urine Drug Screen (VISTA)on 09-08-2024 AMPHETAMINES Negative Normal <1000 ng/mL [facility] Comment on above: Order Comment: UNK Performed By: #### L 3890.6102, L509.8002, L509.4006, L501.9985, L100.0100, BTS, L3890.6006, L3890.6301, L501.9520 #### [facility] [address] [place], [place], [id number] BARBITIURATES Negative Normal < 200 ng/mL [facility] Comment on above: Order Comment: UNK Performed By: #### L 3890.6102, L509.8002, L509.4006, L501.9985, L100.0100, BTS, L3890.6006, L3890.6301, L501.9520 #### [facility] [address] [place], [place], [id number] BENZODIAZIPINE Negative Normal < 200 ng/mL [facility] Comment on above: Order Comment: UNK Performed By: #### L 3890.6102, L509.8002, L509.4006, L501.9985, L100.0100, BTS, L3890.6006, L3890.6301, L501.9520 #### [facility] [address] [place], [place], [id number] BUP Ur Drug Scr Negative Normal < 200 ng/mL [facility] Comment on above: Order Comment: UNK Performed By: #### L 3890.6102, L509.8002, L509.4006, L501.9985, L100.0100, BTS, L3890.6006, L3890.6301, L501.9520 #### [facility] [address] [place], [address] COCAINE Negative Normal < 300 ng/mL [facility] Comment on above: Order Comment: UNK Performed By: #### L 3890.6102, L509.8002, L509.4006, L501.9985, L100.0100, BTS, L3890.6006, L3890.6301, L501.9520 #### [facility] [address] [place], [place], [id number] Fentanyl Negative Normal [facility] Comment on above: Order Comment: UNK Performed By: #### L 3890.6102, L509.8002, L509.4006, L501.9985, L100.0100, BTS, L3890.6006, L3890.6301, L501.9520 #### [facility] [address] [place], [place], [id number] METHADONE Negative Normal < 300 ng/mL [facility] Comment on above: Order Comment: UNK Performed By: #### L 3890.6102, L509.8002, L509.4006, L501.9985, L100.0100, BTS, L3890.6006, L3890.6301, L501.9520 #### [facility] [address] [place], [address] OPIATES Negative Normal < 300 ng/mL [facility] Comment on above: Order Comment: UNK Performed By: #### L 3890.6102, L509.8002, L509.4006, L501.9985, L100.0100, BTS, L3890.6006, L3890.6301, L501.9520 #### [facility] [address] [place], [place], [id number] OXYCODONE Negative Normal < 100 ng/mL [facility] Comment on above: Order Comment: UNK Performed By: #### L 3890.6102, L509.8002, L509.4006, L501.9985, L100.0100, BTS, L3890.6006, L3890.6301, L501.9520 #### [facility] [address] [place], [place], [id number] PCP Negative Normal < 25 ng/mL [facility] Comment on above: Order Comment: UNK Performed By: #### L 3890.6102, L509.8002, L509.4006, L501.9985, L100.0100, BTS, L3890.6006, L3890.6301, L501.9520 #### [facility] [address] [place], [place], [id number] THC Negative Normal < 50 ng/mL [facility] Comment on above: Order Comment: UNK Performed By: #### L 3890.6102, L509.8002, L509.4006, L501.9985, L100.0100, BTS, L3890.6006, L3890.6301, L501.9520 #### [facility] [address] [place], [address] Urine benzodiazepine levelOr dered By: Natacha Ramsey on 09-08-2024 Benzodiazepines Ql (U) Negative < 200 ng/mL [facility] Urine cocaine levelOrdered B y: Natacha Ramsey on 09-08-2024 Cocaine Ql (U) Negative < 300 ng/mL [facility] Urine cultureOrdered By: Sylvie Ramsey on 09-08-2024 Bacteria identified Cx Nom (U) Mixed Gram Pos & Gram Neg Org Abnormal [facility] Urine mmfwd-9-qjbuhmvasfypya abinol (THC) measurementOrdered By: Natacha Ramsey on 09-08-2024 Cannabinoids Screen Ql (U) Negative < 50 ng/mL [facility] Urine phencyclidine (PCP) de tectionOrdered By: Natacha Ramsey on 09-08-2024 Phencyclidine Ql (U) Negative < 25 ng/mL [facility] White blood cell (WBC) count Ordered By: Natacha Ramsey on 09-08-2024 WBC (Bld) [#/Vol] 7.6 10*3/uL 4.4-11.0 [facility] CNNURSEon 08-19-2024 CNNURSE Nurse Visit (REIBD) SRINISOLANGE Paty ([id number]) 1985 F Date Time Provider Department 08/19/24 11:10 AM [employer] [facility] REIBD During your visit today, we recorded the following information about you: Tucker Rose, RN 08/19/2024 1:47 PM Signed Patient presents today for OB scan s/p FET#3 on 07/15/24. The patient did stay to meet with nursing. Patient presents with spouse. Primary ATA: Ct Hodge MD Number of embryos transferred: 1 By FET date patient is 7w5d By CRL on ultrasound patient is 8w2d FHR 165 TRISTAN is Ultrasound findings are consistent with dates. Patient denies pain. Patient denies bleeding. Patient confirms that they continue to take their medications, Estrogen and Progesterone, as prescribed. Patient understands they will take these medications until 10 weeks of . Patient's medication stop date is 09/04/2024. Patient educated that OB scan will be reviewed by the physician today and plan will be communicated to patient. Patient plans to follow up with local provider for ongoing OB care. Patient reported feeling very nauseous, inquiring about nausea medications. Patient informed that as she is now transitioning to OB for care management, to contact their office to inquire what their recommendations are and request intervention per primary provider, as they will be the one to manage and assess patient's ongoing symptoms. Patient verbalized understanding. Patient requesting estrace prescription be reordered to new pharmacy as current pharmacy is closing. New order pended to provider to [facility] in [place] per patient request. Tucker Rose RN August 19, 2024 11:51 AM Ary iGfford MD 08/19/2024 1:47 PM Signed Viable fletcher IUP Size equal Date. Plan: patient to follow up with her ob for care. Ct Hodge MD Referring Provider: RACHEL FREDERICK [[id number]] Allergies As of Date: 08/19/2024 Noted Allergy Reaction SEASONAL ALLERGIES 08/25/2020 14 - Other: See Comments Comments: Trees, grasses, weeds, ragweed Date Reviewed: 03/13/2024 Reviewed by: Ary Gifford MD - Fully Assessed Visit Diagnosis:, location unknown (HCC) [O36.80X0] Order(s):OBSTETRIC ULTRASOUND [facility] [[id number]] Order #: [id number]. #:[id number] IEWPOINTQty: 1 estradiol (ESTRACE) 2 mg tabletTake 3 tablets by mouth once daily.Disp: 120 tabletRfl: 3 Prescriptions as of 08/19/2024 - estradiol (ESTRACE) 2 mg tablet Take 3 tablets by mouth once daily. - Needle, Disp, 22 G 22 gauge x 1 1/2" To be used to inject progesterone in oil - Syringe with Needle, Disp, (SYRINGE 3CC/20GX1") 3 mL 20 gauge x 1" To be used to draw up Progesterone in oil - Syringe with Needle, Safety (BD INTEGRA) 3 mL 22 gauge x 1 1/2" use as directed - Needle, Disp, 20 G (BD DISPOSABLE NEEDLES) 20 gauge x 1" ndle use as directed - doxycycline (VIBRA-TABS) 100 mg tablet Take 1 tablet by mouth two times a day. - methylPREDNISolone (MEDROL) 16 mg tablet Take 1 tablet by mouth once daily. - progesterone 50 mg/mL injection Inject 1 mL intramuscularly once daily. Inject in the morning - buPROPion XL (WELLBUTRIN XL) 150 mg 24 hr tablet Take 1 tablet by mouth every afternoon. - escitalopram oxalate (LEXAPRO) 20 mg tablet Take 1 tablet by mouth every afternoon. - azelastine 0.1% nasal spray Use 2 Sprays in each nostril two times a day as needed. Problem List As Of Date 08/19/2024 Noted Resolved Condyloma acuminatum [A63.0] 08/05/2007 06/24/2012 S/P LASIK (laser assisted in situ keratomileusi* 015 Disease of diaphragm- endometriosis, depth unk*09/05/2019 Constipation [K59.00] 09/05/2019 Dyschezia [K59.00] 09/05/2019 Urinary urgency [R39.15] 09/05/2019 Dyspareunia in female [N94.10] 09/05/2019 Urinary frequency [R35.0] 09/05/2019 Dysmenorrhea [N94.6] 09/05/2019 Endometriosis of large intestine [N80.50] 09/05/2019 Endometriosis [N80.9] 09/05/2019 Chronic female pelvic pain [R10.2, G89.29] 09/05/2019 Medical marijuana use [Z79.899] 01/20/2020 Hypothyroidism [E03.9] 01/20/2020 Elevated glucose [R73.09] 01/20/2020 Depression [F32.A] 01/20/2020 Post-operative state [Z98.890] 02/04/2020 Seasonal allergic rhinitis due to pollen [J30.1]08/26/2020 Infertility [NBD2196] 07/08/2021 High-tone pelvic floor dysfunction in female [M*08/12/2021 Prescriptions ordered this encounter Disp Refills Start End ESTRADIOL 2 MG TABLET 120 * 3 08/19/2024 Route: PO Sig: Take 3 tablets by mouth once daily. Medications Discontinued During This Encounter Prescriptions - estradiol (ESTRACE) 2 mg tablet (Discontinued) Take 3 tablets by mouth once daily. Encounter Status:Closed by TUCKER ROSE on 08/19/24 Normal [facility] Examination level ultrasound on 08-19-2024 Indication Viability Impression - A normally located single intrauterine gestational sac with a yolk sac and an embryo is present. - [place] rump length measurement is consistent with the established gestational age of 7w 5d. - Embryonic cardiac motion is within normal limits. Recommendations Refer to ob team for care. Method Transvaginal ultrasound examination Fletcher . Number of embryos: 1 Dating Conception: IVF Embryo transfer on: 07/15/2024 IVF / ET 5 d GA by IVF / ET 7 w + 5 d TRISTAN by IVF / ET: 04/02/2025 Ultrasound examination on: 08/19/2024 GA by U/S based upon: CRL GA by U/S 8 w + 2 d TRISTAN by U/S: 03/29/2025 Assigned: based on the IVF / ET date, selected on 08/19/2024 Assigned GA 7 w + 5 d Assigned TRISTAN: 04/02/2025 Biometry Standard FHR 165 bpm CRL 17.7 mm 8w 2d >99% [place] Extended YS 2.8 mm <1% [place] Assessment Gestational sac: visualized Location: intrauterine Yolk sac: visualized YS 2.8 mm <1% [place] Embryo: visualized CRL 17.7 mm 8w 2d >99% [place] Cardiac activity: present FHR 165 bpm Maternal Structures Uterus / Cervix Uterus: Visualized Myometrium: echogenic calcification anteriorly measuring 6 x 5 x 5 mm. Uterus length 107 mm Uterus width 66 mm Uterus height 64 mm Uterus Vol 236.2 cm Ovaries / Tubes / Adnexa Rt ovary: Visualized Rt ovary D1 35 mm Rt ovary D2 40 mm Rt ovary D3 31 mm Rt ovary Vol 22.3 cm Rt ovarian cyst(s): Cysts identified Rt ovarian cyst D1 31 mm Rt ovarian cyst D2 20 mm Rt ovarian cyst D3 32 mm Rt ovarian cyst mean 27.7 mm Rt ovarian cyst vol 10.388 cm Rt ovarian cyst findings: Multilocular cyst with smooth inner wall/non-vascular septations Lt ovary: Visualized Lt ovary D1 43 mm Lt ovary D2 21 mm Lt ovary D3 18 mm Lt ovary Vol 8.4 cm Performed By: Flores Brown RDMS Read By: Ary Gifford M.D. MATERNAL MEDICINE [facility] Radiology Study observation (narrative) Jhoana argueta [facility] B-HCG SerPl-[place]Cncon 5 [place] [address].0 m[IU]/mL High <5.0 [facility] Comment on above: Order Comment: Speci men Type: BLOOD SPECIMENOrdering Facility: [facility] Address: [address] [place] [address] Result Comment: MARY TITATIVE HCG NORMAL RANGES Weeks of Gestation (Weeks Since LMP) 3 Weeks (5.8-71.2 mIU/mL) 4 Weeks (9.5-750 mIU/mL) 5 Weeks (217-7138 mIU/mL) 6 Weeks (158-12372 mIU/mL) 7 Weeks (3697-309124 mIU/mL) 8 Weeks (35297-745507 mIU/mL) 9 Weeks (68078-765997 mIU/mL) 10 Weeks (86929-032217 mIU/mL) 12 Weeks (17216-636980 mIU/mL) Referenced to 4th IS of NIBS Performed By: #### 2 1198-7 ####[facility] LAB[facility] [id number] [place] [address] [place] B-HCG SerPl-aCncon 5 HCG.beta subunit Qn 2370.0 m[IU]/mL High <5.0 [facility] Comment on above: Order Comment: Speci men Type: BLOOD SPECIMEN [facility] Address: [address] [place] [address] Result Comment: MARY TITATIVE HCG NORMAL RANGES Weeks of Gestation (Weeks Since LMP) 3 Weeks (5.8-71.2 mIU/mL) 4 Weeks (9.5-750 mIU/mL) 5 Weeks (217-7138 mIU/mL) 6 Weeks (158-45260 mIU/mL) 7 Weeks (3697-194172 mIU/mL) 8 Weeks (76622-293026 mIU/mL) 9 Weeks (68250-844237 mIU/mL) 10 Weeks (37381-174041 mIU/mL) 12 Weeks (16716-221490 mIU/mL) Referenced to 4th IS of NIBSC Performed By: #### 2 1198-7 #### [facility] CLIA [id number] [address] [place] [address] [place] CNCOon 07-15-2024 CNCO Letter Text Normal [facility] CNOVon 07-15-2024 CNOV Office Visit (ANDRBE ) SOLANGE MILLIGAN ([id number]) 1985 F Date Time Provider Department 07/15/24 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 Detailed notes can be found in the paper chart in the [facility] Office. Rosalie Paige Referring Provider: ARY GIFFORD [[id number]] Allergies As of Date: 07/15/2024 Noted Allergy Reaction SEASONAL ALLERGIES 08/25/2020 14 - Other: See Comments Comments: Trees, grasses, weeds, ragweed Date Reviewed: 03/13/2024 Reviewed by: Ary Gifford MD - Fully Assessed Primary Visit Diagnosis:Female infertility [N97.9] Prescriptions as of 07/16/2024 - Needle, Disp, 22 G 22 gauge x 1 1/2" To be used to inject progesterone in oil - Syringe with Needle, Disp, (SYRINGE 3CC/20GX1") 3 mL 20 gauge x 1" To be used to draw up Progesterone in oil - Syringe with Needle, Safety (BD INTEGRA) 3 mL 22 gauge x 1 1/2" use as directed - Needle, Disp, 20 G (BD DISPOSABLE NEEDLES) 20 gauge x 1" ndle use as directed - doxycycline (VIBRA-TABS) 100 mg tablet Take 1 tablet by mouth two times a day. - estradiol (ESTRACE) 2 mg tablet Take 3 tablets by mouth once daily. - methylPREDNISolone (MEDROL) 16 mg tablet Take 1 tablet by mouth once daily. - progesterone 50 mg/mL injection Inject 1 mL intramuscularly once daily. Inject in the morning - buPROPion XL (WELLBUTRIN XL) 150 mg 24 hr tablet Take 1 tablet by mouth every afternoon. - escitalopram oxalate (LEXAPRO) 20 mg tablet Take 1 tablet by mouth every afternoon. - azelastine 0.1% nasal spray Use 2 Sprays in each nostril two times a day as needed. Problem List As Of Date 07/15/2024 Noted Resolved Condyloma acuminatum [A63.0] 08/05/2007 06/24/2012 S/P LASIK (laser assisted in situ keratomileusi* 015 Disease of diaphragm- endometriosis, depth unk*09/05/2019 Constipation [K59.00] 09/05/2019 Dyschezia [K59.00] 09/05/2019 Urinary urgency [R39.15] 09/05/2019 Dyspareunia in female [N94.10] 09/05/2019 Urinary frequency [R35.0] 09/05/2019 Dysmenorrhea [N94.6] 09/05/2019 Endometriosis of large intestine [N80.50] 09/05/2019 Endometriosis [N80.9] 09/05/2019 Chronic female pelvic pain [R10.2, G89.29] 09/05/2019 Medical marijuana use [Z79.899] 01/20/2020 Hypothyroidism [E03.9] 01/20/2020 Elevated glucose [R73.09] 01/20/2020 Depression [F32.A] 01/20/2020 Post-operative state [Z98.890] 02/04/2020 Seasonal allergic rhinitis due to pollen [J30.1]08/26/2020 Infertility [[id number]] 07/08/2021 High-tone pelvic floor dysfunction in female [M*08/12/2021 Encounter Status:Closed by ROSALIE PAIGE on 07/15/24 Normal [facility] CNOV Office Visit (IVFBE) SOLANGE MILLIGAN ([id number]) 1985 F Date Time Provider Department 07/15/24 2:00 PM ARY GIFFORD IVFBE During your visit today, we recorded the following information about you: Reena Hernandez RN 07/15/2024 1:31 PM Signed POST EMBRYO TRANSFER INSTRUCTIONS You will need to have your blood drawn for Quantitative HCG on 07/29/24 at [place]. You can expect to be called the afternoon of your blood draw with your test results. If for any reason that date or location is changed, please call [phone] to inform us. Continue your current medications as instructed UNTIL YOU ARE 10 WEEKS or until a BLOOD test is confirmed negative. It is not uncommon to have breast tenderness, bloating, vaginal spotting ranging from pink to red to brown and generally feeling premenstrual while waiting to test. You can feel this way and still be - DO NOT STOP YOUR MEDICATIONS until testing is completed. Call the office if you develop: - Pain, redness and heat at your injection sites From the day of your transfer on, please treat yourself as if you are . Things to avoid: - Hot tubs/raising your core temperature - Chemical exposures - Drugs/medications that are not safe in - Processed lunch meat, unpasteurized cheeses - Smoking - Fish that are high in mercury Our recommendations on maintaining a healthy lifestyle during this time include: - Regular physical activity. Bed-rest is NOT recommended and will not increase your chance of - Daily vitamin or folic acid - Healthy diet - Adequate sleep - Sexual intimacy/intercourse/ orgasm will not interfere with implantation. It is difficult to maintain the balance between optimism and realism. Remember you have done and are doing all that you can to improve your odds. Set reasonable expectations for yourselves. Keeping yourself busy and mentally distracted will help the time pass while waiting to test. If you have any questions, please call [phone]. Ary Gifford MD 07/15/2024 9:11 PM Signed [facility] ATA TRANSFER PROCEDURE NOTE Date: 07/15/2024 Primary Proceduralist: Ct Hodge MD Neurosurgical Nurse(s): Not applicable Informed Consent: Indications: Solange Milligan, is a 39 year old female here today for Embryo Transfer. [place] Protocol: UNIVERSAL PROTOCOL / SAFETY CHECKLIST Procedure to be Performed: FET Sign In: A Moment of CARE was completed. Appropriate PPE (Personal Protective Equipment) worn by all providers involved with the procedure. Special equipment not required. Patient/Surrogate Stated/Verified: Patient name, Date of , Relevant allergies, and The intended procedure Time Out: Relevant labs, photos, and/or imaging studies have been reviewed. Intended patient and procedure match the source document(s) (e.g. consent, HANDP, associated studies [imaging, pathology]) match the intended patient and procedure. Consent obtained and matches the intended procedure. Yes. Correct side/site is not applicable. Medications required for this procedure are verified. Fire risk assessed and is not applicable. Implants: embryo dish verified with patient. Sign Out: Specimens not collected. All instruments, equipment, possible retained foreign bodies are accounted for. Yes. The post-procedure plan of care has been communicated to the patient or surrogate. TRANSFER Transfer Date: 07/15/24 Transfer Procedure: Embryo Transfer Transfer Physician: Ary Gifford M.D. Pre-Procedure Diagnosis: Infertility Post-Procedure Diagnosis: Infertility Source of embryos: Patient Total Thawed: 1 # of Embryos Transferred: 1 ASRM Guidelines: Recommended limits adhered to Catheter Type: Doherty Comment: 23 cm Ease of Transfer: Easy Direction: Mid Curve: no Depth (cm): 9 Distance from fundus (mm): 12 Tissue Status: For Autologous Use Only/ Not Evaluated for Infectious Substances Cell Stage: Grade: PGT?: Specimens: None No qualified resident/fellow was available. I/primary surgeon/proceduralist performed the entire procedure. SIGNATURE: Ct Hodge MD PATIENT NAME: Solange Milligan DATE: July 15, 2024 TIME: 9:10 PM Referring Provider: ARY GIFFORD [[id number]] Allergies As of Date: 07/15/2024 Noted Allergy Reaction SEASONAL ALLERGIES 08/25/2020 14 - Other: See Comments Comments: Trees, grasses, weeds, ragweed Date Reviewed: 03/13/2024 Reviewed by: Ary Gifford MD - Fully Assessed Primary Visit Diagnosis: examination or test, unconfirmed [Z32.00] Other Visit Diagnosis:Encounter for assisted reproductive fertility procedure cycle [Z31.83] Order(s):HCG QUANTITATIVE [SQHCGQT] Order #: [id number] FUTURE Prescriptions as of 07/15/2024 - Needle, Disp, 22 G 22 gau (more content not included)... Normal [facility] Estradiol SerPl-mCncon 07-07 E2 [Mass/Vol] 262 pg/mL Normal See comment [facility] Comment on above: Order Comment: Speci men Type: BLOOD SPECIMEN Ordering Facility: [facility] Address: [facility] [place] [address] Result Comment: Adul t Female Menstrual cycle: Follicular: <90 pg/mL Ovulation: 60-533 pg/mL Luteal: <232 pg/mL Adult Female : First Trimester: 154-3243 pg/mL Second Trimester: 1561-08388 pg/mL Third Trimester: 8525->03836 pg/mL Adult Female Post Menopausal: <138 pg/mL Performed By: #### 2 839-9, 2243-4 #### [facility] CLIA [id number] [address] Follicle Diameter USon 07-07 Indication Lining Assessment Impression The central endometrium complex measures 8.9 mm in combined thickness. Views somewhat limited but appears trilaminar with no abnormal blood flow to suggest a polyp or focal endometrial pathology is observed within the endometrial complex. Recommendations Follow up as clinically indicated Method Transvaginal ultrasound examination. 3D ultrasound examination Uterus Uterus: Visualized Endometrium: three-layer pattern Cervix details: cystic lesions identified suggesting superficial Nabothian cysts Endometrial thickness, total 8.9 mm Right Ovary Rt ovary: Visualized Rt ovary morphology: premenopausal polycystic Rt ovary D1 50 mm Rt ovary D2 38 mm Rt ovary D3 41 mm Rt ovary mean 43.0 mm Rt ovary Vol 41.0 cm Rt ovarian cyst(s): Cysts identified Rt ovarian cyst D1 39 mm Rt ovarian cyst D2 33 mm Rt ovarian cyst D3 35 mm Rt ovarian cyst mean 35.7 mm Rt ovarian cyst vol 23.586 cm Rt ovarian cyst findings: Multilocular cyst with smooth inner wall/non-vascular septations Left Ovary Lt ovary: Visualized Lt ovary morphology: premenopausal polycystic Lt ovary D1 29 mm Lt ovary D2 17 mm Lt ovary D3 16 mm Lt ovary mean 20.7 mm Lt ovary Vol 4.2 cm Cul de Sac Visualized. no free fluid visualized Performed By: Karla Carson RDMS Read By: Enrique Ken M.D. MATERNAL MEDICINE [facility] Radiology Study observation (narrative) [facility] Progest Mariekia 19-2 025 Progesterone [Mass/Vol] 0.2 ng/mL Normal See comment [facility] Comment on above: Order Comment: Speci men Type: BLOOD SPECIMEN Ordering Facility: [facility] Address: [address] [place] [address] [place] [address] Result Comment: Mens trual Cycle Progesterone Reference Ranges: Follicular: <0.2 ng/mL Ovulation: 0.1 - 4.1 ng/mL Luteal: 4.1 - 14.5 ng/mL. Progesterone Reference Ranges vary by gestational period: First Trimester: 11.0 - 44.3 ng/mL Second Trimester: 25.4 - 83.4 ng/mL Third Trimester: 58.7 - 214.0 ng/mL Post menopausal Progesterone: <0.1 ng/mL Performed By: #### 2 839-9, 2243-4 #### [facility] CLIA [id number] 1 [place] [address] [place] [address] [facility] Greenhouse Technician Office Visit Reporton 06-17-2024 Greenhouse Technician Office Visit Report [facility] [address] [place] [address], [address] [place] [address] OFFICE VISIT Date of Service: 06/17/24 MR#: [id number] Acct: [id number] Name: SOLANGE MILLIGAN Rep #: [id number] : 1985 Provider: Dr. Ольга cesar MD Age/Sex: 39/F [place] [facility] [place]: Signed Intake Vital Signs 05/15/24 14:11 06/17/24 13:09 Height 5 ft 4 in 5 ft 4 in Weight: 180 lb 8 oz 178 lb 8 oz BMI 30.9 30.6 BP 119/89 H 111/77 Intake Visit Reasons: Depression med discussion *IVF 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 Is patient in pain?: No Allergies No Known Allergies Allergy (Verified 05/15/24 14:13) Medications ???Medication ???Instructions ???Recorded ???Confirmed ???Type docusate sodium 100 mg capsule 100 mg PO BID PRN PRN Constipation 08/07/19 06/17/24 Rx #60 caps ibuprofen 600 mg tablet 600 mg PO TID PRN Pain Score 08/0606/17/24 Rx 1-10/10 #30 tabs acetaminophen 500 mg tablet 1,000 mg PO Q6H PRN Pain 1-10 Or 1 04/07/19 06/17/24 History Fever bupropion HCl 150 mg 24 hr tablet, 150 mg PO QAM #30 tabs 06/17/24 06/17/24 Rx extended release escitalopram oxalate 20 mg tablet 20 mg PO HS #30 tabs 06/17/24 Rx Is last menstrual period known: Yes Last Menstrual Period: 05/20/24 Post menopausal: No Patient : No : No [facility] Medical History (Updated 06/17/24 @ 13:[address] 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 she is stable on wellbutrin and lexapro, she had suicidal ideation when previously taken off of wellbutrin. she had severe depression also in the past and is wondering what the plan will be for care next time. she is planning on soon with IVF, has [address] Hodge at [facility] Female Reproductive History Last Menstrual Period: 05/20/24 History 1 Elective abortions Hx Para 1 Spontaneous abortions Hx # Term Pregnancies Ectopic pregnancies Hx # Pregnancies Multiple births # of living children Past Pregnancies Del. Date Name GA/Weeks Outcome Route Bth Weight Infant Gen Labor Lgth Anesthesia Del Daryn Provider FOB 09/02/22 Adan live - full term ROS Const Constitutional: Denies fatigue, fever(s), headache(s), increased appetite, poor appetite, weight gain or weight loss GI GI: Reports as per HPI; Denies abdominal pain, constipation, nausea or vomiting : Reports as per HPI; Denies difficulty voiding, dysuria, hematuria, pelvic pain, urinary frequency, urinary incontinence, urinary hesitancy, urinary urgency, vaginal discharge, vaginal dryness, vaginal odor, vaginal pruritus or other Exam Const General: cooperative, healthy appearing, comfortable, no acute distress and well developed Orientation: alert HENMT Head: normal to inspection and normocephalic Ears: hearing grossly normal bilaterally and external ears normal Nose: external nose normal and nares normal Face and sinus: normal facial exam Neck Neck: normal visual inspection, no lymphadenopathy and trachea midline Thyroid: thyroid normal Resp Effort Inspection: normal respiratory effort Musc Other: gross motor intact no deficits, full bilateral strength Skin General: no rashes or lesions noted Neuro Motor: muscle tone normal throughout Coding Level of Care Code Off vis,est,level 3 Diagnoses Depression F32.A Assessment and Plan Assessment and Plan (1) Depression: Status: Acute Comment: counseled regarding risks of therapy, recommend staying on current therapy due to previous SI after coming off. referral to [place] [id number] or [facility]. discussed possible zurzuvae if needed next time Medications: New (more content not included)... Normal [facility] CNOVon 05-29-2024 CNOV Office Visit (REIBD) SOLANGE MILLIGAN ([id number]) 1985 F Date Time Provider Department 05/29/24 2:15 PM ARY GIFFORD REIBD During your visit today, we recorded the following information about you: Ary Gifford MD 05/29/2024 7:56 PM Signed HYSTERSONOGRAPY PROCEDURE Date/Time: 05/29/2024 7:54 PM Performed by: Ary Gifford MD Authorized by: Ary Gifford MD Informed Consent / [place] Protocol: The "Time-Out" verifies the correct patient, procedure, side/site, position (if applicable) and completion and review of fire risk assessment/protocols (if appropriate): Diagnosis: (Z01.812) Pre-procedural laboratory examination (primary encounter diagnosis) (N80.9) Endometriosis (D21.9) Fibroids (Z31.41) Fertility testing Pre-Procedure Details: Informed Consent Consent Obtained: Written [place] Protocol A moment to CARE was completed. SIGN IN Sign in communication not applicable due to emergent procedure. Personnel directly involved with the procedure wore the appropriate PPE. Special Equipment: Yes Patient/Surrogate Stated/Verified: Patient name, Date of , Relevant allergies and Intended procedure TIME OUT Relevant labs, photos, and/or imaging studies have been reviewed. Intended patient and procedure match source documents. Consent obtained and matches the intended procedure. No correct side/site applicable for marking and visibility. No medications required for procedure. No fire risk assessment and interventions applicable. No implant(s) inserted. : fibroids, endometriosis, fertility testing. HCG: Negative Procedure Details: External Genitalia: Normal in appearance Vagina: Normal in appearance Pelvic Exam Performed: no Speculum placed in vagina: yes Cervix cleaned and prepped: yes Tenaculum applied to cervix: no Uterus sounded: no Saline Infused Sonohysterogram Sucessfully Performed: Yes Post-Procedure Details: Patient tolerance: Patient tolerated the procedure well with no immediate complications Patient Education: side effects discussed with patient including irregular spotting SIGN OUT No specimen collected. All instruments, equipment, possible retained foreign bodies accounted for. The post-procedure POC has been communicated to the patient or surrogate. Comments: Normal cavity. Ct Hodge MD Referring Provider: ARY GIFFORD [[id number]] Allergies As of Date: 05/29/2024 Noted Allergy Reaction SEASONAL ALLERGIES 08/25/2020 14 - Other: See Comments Comments: Trees, grasses, weeds, ragweed Date Reviewed: 03/13/2024 Reviewed by: Ary Gifford MD - Fully Assessed Primary Visit Diagnosis:Pre-procedu ral laboratory examination [Z01.812] Other Visit Diagnoses:Endometrios is [N80.9] Fibroids [D21.9] Fertility testing [Z31.41] Order(s):SONOHYSTEROG EMILIANO (SIS) [facility] [[id number]] Order #: [id number]: 1 HCG QUAL UR B/O [[id number]] Order #: [id number] HYSTERSONOGRAPHY (W NOTE) [PRO15] Order #: [id number] Prescriptions as of 05/29/2024 - buPROPion XL (WELLBUTRIN XL) 150 mg 24 hr tablet Take 1 tablet by mouth every afternoon. - escitalopram oxalate (LEXAPRO) 20 mg tablet Take 1 tablet by mouth every afternoon. - azelastine 0.1% nasal spray Use 2 Sprays in each nostril two times a day as needed. Problem List As Of Date 05/29/2024 Noted Resolved Condyloma acuminatum [A63.0] 08/05/2007 06/24/2012 S/P LASIK (laser assisted in situ keratomileusi* 015 Disease of diaphragm- endometriosis, depth unk*09/05/2019 Constipation [K59.00] 09/05/2019 Dyschezia [K59.00] 09/05/2019 Urinary urgency [R39.15] 09/05/2019 Dyspareunia in female [N94.10] 09/05/2019 Urinary frequency [R35.0] 09/05/2019 Dysmenorrhea [N94.6] 09/05/2019 Endometriosis of large intestine [N80.50] 09/05/2019 Endometriosis [N80.9] 09/05/2019 Chronic female pelvic pain [R10.2, G89.29] 09/05/2019 Medical marijuana use [Z79.899] 01/20/2020 Hypothyroidism [E03.9] 01/20/2020 Elevated glucose [R73.09] 01/20/2020 Depression [F32.A] 01/20/2020 Post-operative state [Z98.890] 02/04/2020 Seasonal allergic rhinitis due to pollen [J30.1]08/26/2020 Infertility [[id number]] 07/08/2021 High-tone pelvic floor dysfunction in female [M*08/12/2021 Encounter Status:Closed by ARY FRYE on 05/29/24 Normal [facility] HCG QUAL UR B/Oon 05-29-2024 Interpretation and review of laboratory results Normal [facility] status Negative neg - pos Jhoana argueta [facility] Quality Check Yes yes/no [facility] HYSTERSONOGRAPHY (W NOTE)on 05-29-2024 [facility] CNPNon 05-28-2024 CNPN Telephone (REIBD) SRINISOLANGE ([id number]) 1985 F Date Time Provider Department 05/28/24 ARY GIFFORD During your visit today, we recorded the following information about you: Chely Mckeon 05/28/2024 11:00 AM Signed Needs sis order put in so she can schedule Compa Campos RN 06/24/2024 11:33 AM Signed Lmp 06/21. Pt started 6 mg estrace 06/22. Pt will upload notarized thaw plan, then I will schedule lining check 07/04. Pt will notify me when consent is uploaded. Compa Campos RN June 24, 2024 11:33 AM Allergies As of Date: 05/28/2024 Noted Allergy Reaction SEASONAL ALLERGIES 08/25/2020 14 - Other: See Comments Comments: Trees, grasses, weeds, ragweed Date Reviewed: 03/13/2024 Reviewed by: Ary Gifford MD - Fully Assessed Reason for Visit: need sis order put in so she can schedule [Other] Prescriptions as of 06/24/2024 - doxycycline (VIBRA-TABS) 100 mg tablet Take 1 tablet by mouth two times a day. - estradiol (ESTRACE) 2 mg tablet Take 3 tablets by mouth once daily. - methylPREDNISolone (MEDROL) 16 mg tablet Take 1 tablet by mouth once daily. - progesterone 50 mg/mL injection Inject 1 mL intramuscularly once daily. Inject in the morning - Needle, Disp, 22 G 22 gauge x 1 1/2" To be used to inject progesterone in oil - Syringe with Needle, Disp, (SYRINGE 3CC/20GX1") 3 mL 20 gauge x 1" To be used to draw up Progesterone in oil - buPROPion XL (WELLBUTRIN XL) 150 mg 24 hr tablet Take 1 tablet by mouth every afternoon. - escitalopram oxalate (LEXAPRO) 20 mg tablet Take 1 tablet by mouth every afternoon. - azelastine 0.1% nasal spray Use 2 Sprays in each nostril two times a day as needed. Problem List As Of Date 05/28/2024 Noted Resolved Condyloma acuminatum [A63.0] 08/05/2007 06/24/2012 S/P LASIK (laser assisted in situ keratomileusi* 015 Disease of diaphragm- endometriosis, depth unk*09/05/2019 Constipation [K59.00] 09/05/2019 Dyschezia [K59.00] 09/05/2019 Urinary urgency [R39.15] 09/05/2019 Dyspareunia in female [N94.10] 09/05/2019 Urinary frequency [R35.0] 09/05/2019 Dysmenorrhea [N94.6] 09/05/2019 Endometriosis of large intestine [N80.50] 09/05/2019 Endometriosis [N80.9] 09/05/2019 Chronic female pelvic pain [R10.2, G89.29] 09/05/2019 Medical marijuana use [Z79.899] 01/20/2020 Hypothyroidism [E03.9] 01/20/2020 Elevated glucose [R73.09] 01/20/2020 Depression [F32.A] 01/20/2020 Post-operative state [Z98.890] 02/04/2020 Seasonal allergic rhinitis due to pollen [J30.1]08/26/2020 Infertility [[id number]] 07/08/2021 High-tone pelvic floor dysfunction in female [M*08/12/2021 Encounter Status:Closed by COMPA CAMPOS on 06/24/24 Normal [facility] PAP IG HPV APTIMA 16/18,45on 05-20-2024 ADEQ Comment Normal . [facility] Comment on above: Order Comment: Speci men Comment: [id number] Comment: Source.............CervixSpecimen Comment: No. of containers..01 ThinPrep Vial Result Comment: Sati sfactory for evaluation. Endocervical and/or squamous metaplastic cells (endocervical component) are present. Performed By: #### L 3890.6102, L509.8002, L509.4006, L501.9985, L100.0100, BTS, L3890.6006, L3890.6301, L501.9520 #### [facility] [address] [place], [place], [id number] COMM . Normal . [facility] Comment on above: Order Comment: Speci men Comment: [id number] Comment: Source.............CervixSpecimen Comment: No. of containers..01 ThinPrep Vial Performed By: #### L 3890.6102, L509.8002, L509.4006, L501.9985, L100.0100, BTS, L3890.6006, L3890.6301, L501.9520 #### [facility] [address] [place], [place], [id number] COMMENT Comment Normal . [facility] Comment on above: Order Comment: Speci men Comment: [id number] Comment: Source.............CervixSpecimen Comment: No. of containers..01 ThinPrep Vial Result Comment: This liquid based ThinPrep(R) pap test was screened with the use of an image guided system. Performed By: #### L 3890.6102, L509.8002, L509.4006, L501.9985, L100.0100, BTS, L3890.6006, L3890.6301, L501.9520 #### [facility] [address] [place], [place], [phone] (850) DIAG Comment Normal . [facility] Comment on above: Order Comment: Speci men Comment: [id number] Comment: Source.............CervixSpecimen Comment: No. of containers..01 ThinPrep Vial Result Comment: NEGA TIVE FOR INTRAEPITHELIAL LESION OR MALIGNANCY. Performed By: #### L 3890.6102, L509.8002, L509.4006, L501.9985, L100.0100, BTS, L3890.6006, L3890.6301, L501.9520 #### [facility] [address] [place], [address] HPV APTIMA, HR Negative Normal Negative [facility] Comment on above: Order Comment: Speci men Comment: [id number] Comment: Source.............CervixSpecimen Comment: No. of containers..01 ThinPrep Vial Result Comment: This nucleic acid amplification test detects fourteen high- risk HPV types (16,18,31,33,35,39,45,51,52,56,58,59,66,68) without differentiation. Performed By: #### L 3890.6102, L509.8002, L509.4006, L501.9985, L100.0100, BTS, L3890.6006, L3890.6301, L501.9520 #### [facility] [address] [place], [place], [phone] (660) HPV Christine Rfx Comment Normal . [facility] Comment on above: Order Comment: Speci men Comment: [id number] Comment: Source.............CervixSpecimen Comment: No. of containers..01 ThinPrep Vial Result Comment: Crit michael not met, HPV Genotype not performed. Performed at: - [facility] [id number] Cosmetics Machine Operator: Tri Leal MD, Phone: [phone] Performed at: = - [facility] [address] [id number] Cosmetics Machine Operator: Tri Leal MD, Phone: [phone] Performed By: #### L 3890.6102, L509.8002, L509.4006, L501.9985, L100.0100, BTS, L3890.6006, L3890.6301, L501.9520 #### [facility] [address] [place], [place], [id number] PAPSMR Comment Normal . [facility] Comment on above: Order Comment: Speci men Comment: [id number] Comment: Source.............CervixSpecimen Comment: No. of containers..01 ThinPrep Vial Result Comment: The Pap smear is a screening test designed to aid in the detection of premalignant and malignant conditions of the uterine cervix. It is not a diagnostic procedure and should not be used as the sole means of detecting cervical cancer. Both false-positive and false-negative reports do occur. Performed By: #### L 3890.6102, L509.8002, L509.4006, L501.9985, L100.0100, BTS, L3890.6006, L3890.6301, L501.9520 #### [facility] [address] [place], [place], [id number] PERFORM Comment Normal . [facility] Comment on above: Order Comment: Speci men Comment: [id number] Comment: Source.............CervixSpecimen Comment: No. of containers..01 ThinPrep Vial Result Comment: Mona Padilla, District Plant Supervisor (ASCP) Performed By: #### L 3890.6102, L509.8002, L509.4006, L501.9985, L100.0100, BTS, L3890.6006, L3890.6301, L501.9520 #### [facility] [place], [address] Cervical or vaginal specimen microscopic examination by liquid based cytology (reportOrdered By: Elizabeth Mosley on 05-15-2024 Cytology report Cyto stain.thin prep Doc (Cvx/Vag) Comment . [facility] Comment on above: Criteria not met, HP V Genotype not performed.Performed at: [address] [id number] Director: Tri Leal MD, Phone: [phone] at: =[facility] [id number] Director: Tri Leal MD, Phone: [phone] Cervical or vagninal specime n microscopic examination by cytology stain (reported asOrdered By: Elizabeth Mosley on 05-15-2024 Cytology report Cyto stain Doc (Cvx/Vag) Comment . [facility] [facility] Comment on above: The Pap smear is a s creening test designed to aid in thedetection of premalignant and malignant conditions of theuterine cervix. It is not a diagnostic procedure andshould not be used as the sole means of detecting cervicalcancer. Both false-positive and false-negative reports dooccur. Detection in cervical specim en of any of human papilloma virus (HPV) 16, 18, 31, 33,Ordered By: Elizabeth Mosley on 05-15-2024 HPV 16+18+31+33+35+39+45+51+ 52+56+58+59+66+68 DNA Probe+sig amp Ql (Cvx) Negative Negative [facility] Comment on above: This nucleic acid am plification test detects fourteen high-risk HPV types (16,18,31,33,35,39,45,51,52,56,58,59,66,68)without differentiation. Laboratory - CytologyOrdered By: Elizabeth Mosley on 05-15-2024 Buffing And Sueding Machine Operator Cyto stain Nom (Cvx/Vag) [ID] Comment . [facility] Comment on above: Bhupinder Shirley totechnologist (ASCP) Laboratory - Miscellaneous t estsOrdered By: Elizabeth Mosley on 05-15-2024 Service comment (Unsp spec) [Interp] . . [facility] No Panel InformationOrdered By: Elizabeth Mosley on 05-15-2024 Pap Smear Specimen Adequacy Comment . [facility] Comment on above: Satisfactory for petty luation. Endocervical and/or squamous metaplasticcells (endocervical component) are present. Greenhouse Technician Office Visit Reporton 05-15-2024 Greenhouse Technician Office Visit Report [facility] [address], [address] [place] [address] OFFICE VISIT Date of Service: 05/15/24 MR#: [id number] Acct: [id number] Name: SOLANGE MILLIGAN Rep #: [id number] : 1985 Provider: CARLOS Humphrey Age/Sex: 39/F [place] [facility] [place]: Signed Intake Vital Signs 11/08/23 14:19 05/15/24 14:11 Height 5 ft 4 in 5 ft 4 in Weight: 180 lb 8 oz BMI 30.9 BP 119/89 H Intake Visit Reasons: PAP ONLY 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 Is patient in pain?: No Allergies No Known Allergies Allergy (Verified 05/15/24 14:13) Medications ???Medication ???Instructions ???Recorded ???Confirmed ???Type docusate sodium 100 mg capsule 100 mg PO BID PRN PRN Constipation 08/07/19 05/15/24 Rx #60 caps ibuprofen 600 mg tablet 600 mg PO TID PRN Pain Score 08/0605/15/24 Rx 1-10/10 #30 tabs acetaminophen 500 mg tablet 1,000 mg PO Q6H PRN Pain 1-10 Or 1 04/07/19 05/15/24 History Fever bupropion HCl 150 mg 24 hr tablet, 150 mg PO QAM 11/08/23 05/15/24 History extended release escitalopram oxalate 10 mg tablet 10 mg PO HS 11/08/23 05/15/24 His tory (Lexapro) Post menopausal: No Patient : No : No PFSH Medical History Depression Anxiety Endometriosis Infertility Endometriosis determined by laparoscopy Surgical History History of surgery Hx of LASIK [place] teeth extracted History of repair of anterior cruciate ligament of left knee Family History Father Cancer Non-Hodgkins Lymphoma Mother Cancer skin cancer Social History household members: spouse and children housing: house number of children: 1 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 She reports no issues or concerns today. History 1 Elective abortions Hx Para 1 Spontaneous abortions Hx # Term Pregnancies Ectopic pregnancies Hx # Pregnancies Multiple births # of living children Past Pregnancies Del. Date Name GA/Weeks Outcome Route Bth Weight Infant Gen Labor Lgth Anesthesia [facility] Provider FOB 09/02/22 Adan live - full term ROS GI GI: Denies abdominal pain, constipation or nausea : Denies difficulty voiding, dysuria, hematuria, pelvic pain, prolapse symptoms, urinary incontinence, vaginal discharge, vaginal dryness, vaginal odor or vaginal pruritus Exam Const General: cooperative, healthy appearing, comfortable, no acute distress, well groomed and well hydrated Nutritional Appearance: well nourished Orientation: alert, awake and oriented x3 HENMT Head: normal to inspection and normocephalic Ears: hearing grossly normal bilaterally and external ears normal Nose: external nose normal Face and sinus: normal facial exam Eyes General: appearance normal, both eyes and all related structures Resp Effort Inspection: normal respiratory effort, able to speak in complete sentences and symmetric chest movement GI Inspection: normal to inspection Palpation: soft and no hepatosplenomegaly General: bladder normal to palpation External Female Exam: normal external appearance and normal appearance of the urethra Urethra: normal appearance of the urethra Speculum Exam - Vagina: normal appearance of the vagina, normal vaginal discharge, no lesions and nontender Speculum Exam - Cervix: normal appearance of the cervix, no lesions and no masses Bimanual Exam- Vagina Uterus: normal bimanual exam, uterine size normal, bladder normal to palpation, normal palpation and non-tender Bimanual Exam- Adnexa, other: normal adnexae, no masses, normal and non-tender Pelvic Support: normal Neuro General: patient alert, patient awake, patient oriented x3 and moves all extremities Psych Appearance: grossly normal Mental Status: mental status grossly normal Affect: normal affect Speech and Movement: speech and movement normal Attitude: cooperative Coding Level of Care Code Established Pt Off vis,est,level 3 Patient Type Established Diagnoses Screening for cervical can (more content not included)... Normal [facility] 25(OH)D3 [facility] 2024 25-hydroxyvitamin D3 [Mass/Vol] 21.6 ng/mL Low 31.0-80.0 [facility] Comment on above: Order Comment: Speci men Type: BLOOD SPECIMENOrdering Facility: [facility] Address: [address] [place] [address] Result Comment: Clas sification of 25 [place] Vitamin D status: Deficiency/Insufficiency: < or = 30 ng/ml. Sufficiency/Optimal Levels: 31-80 ng/mL Toxicity: > 100 ng/mL. Test performed by chemiluminescent immunoassay. Performed By: #### 1 989-3 ####[facility] LABCLIA [id number] [place] [address] [place] T4 Free SerPl-mCncon 03-15- 025 Free T4 [Mass/Vol] 1.0 ng/dL Normal 0.9-1.7 [facility] Comment on above: Order Comment: Speci men Type: BLOOD SPECIMENOrdering Facility: [facility] Address: [address] [place] [address] Performed By: #### 3 024-7, 3016-3 ####[facility] LABIA [id number] [place] [address] [place] TSH SerPl-aCncon 03-15-2024 TSH Qn 2.810 m[IU]/L Normal 0.270-4.200 [facility] Comment on above: Order Comment: Speci men Type: BLOOD SPECIMENOrdering Facility: [facility] Address: [address] [place] [address] Result Comment: If t he patient is , TSH reference range varies by gestational period: First Trimester (weeks 9-12): 0.180-2.990 mIU/L Second Trimester: 0.110-3.980 mIU/L Third Trimester: 0.480-4.710 mIU/L Best Rich et al. A Practical Approach for the Verifications and Determination of Site- and Trimester-Specific Reference Intervals for Thyroid Function tests in . Thyroid, 2019:29:3:412-420. Boom E, et al. 2017 Guidelines of the [place] Thyroid Association for the Diagnosis and Management of Thyroid Disease during and the . Thyroid, 2017:27:3:315-389. Performed By: #### 3 024-7, 3016-3 ####[facility] LABIA [id number] [place] [id number] [place] 03-13-2024 O ID: [id number] Author: ARY GIFFORD MD Service: ? Author Type: Physician Type: Filed: 03/13/2024 08:33 Note Text: ATA Frozen Embryo Transfer Treatment Plan: Specialty comments (one liner/diamond things to know): Solange Milligan is a 39 year old female with history of endometriosis and unexplained infertility. She underwent IVF in 2021 and has her son via at term for failure to progress in 2022. She has been having regular period since stops over a year ago. She reports dysmenorrhea but is mild to moderate. We briefly discuss possible laparoscopy if pain is worsen. She is comfortable of not doing laparoscopy and moving forward to FET. The following plan discuss with pt. Pretreatment:OCP Uterine cavity testing: SIS date: ordered Protocol: Programmed NatPro Study: No If programmed, type of estradiol: Oral estradiol Type of progesterone: 50 mg Progesterone in Oil IM daily OK for OCPs to delay cycle start if needed: Yes Appointment on 03/13/24 THYROID STIMULATING HORMONE VITAMIN D 25 HYDROXY T4 FREE/FREE THYROXINE TYPE + SCREEN SONOHYSTEROGRAPHY (SIS) US [facility] Solange Milligan is a 39 year old female here to discuss FET. - FET pre-requirement sent/given to pt - protocol discussed - estrace and IM prog protocol - Number of embryo to transfer 1 - Up to date physical exam - she will set up. - After all of the pre-requirement are done, pt aware that she needs to call IVF coordinator to discuss about protocol, get meds order and we will send thaw plan to her at that time. - Other test needed - see above All questions are answered MD Ct Webb MD 03/13/2024 Normal [facility] CONSULT PROGon 03-13-2024 CONSULT PROG HNO ID: [id number] Author: ARY GIFFORD MD Service: ? Author Type: Physician Type: Consult Progress Note Filed: 03/13/2024 08:33 Note Text: Date of Consult: 03/13/2024 Solange Milligan is a 39 year old female presenting with the following history: HISTORY OF PRESENT ILLNESS: Solange Milligan is a 39 year old female with March 13, 2024 Patient is here to discuss FET. Solange Milligan is a 39 year old female with history of endometriosis and unexplained infertility. She underwent IVF in 2021 and has her son via at term for failure to progress in 2022. She has been having regular period since stops over a year ago. She reports dysmenorrhea but is mild to moderate. We briefly discuss possible laparoscopy if pain is worsen. She is comfortable of not doing laparoscopy and moving forward to FET. Prior note G0 with stage IV endometriosis s/p complete resection, including bowel resection 01/2020. Bilaterally patent tubes on chromopertubation. TTC x3 years. Reports that she has ovulation problems detected on outside lab work. Reports abnormal SA "bad motility" but results unavailable, patient will get results to me via [employer]. Obstetric History T1 L1 SAB0 IAB0 Ectopic0 Multiple0 Live Births1 Fertility Evaluations and Treatments: Eval Checklist Results Date Comments HSG Normal Chromopertubation during surgery 02/07 Hysteroscopy Laparoscopy OPK (Ovulation Predictor Kit) Ovarian [place] Normal [facility]H 6.33 09/07 Semen Analysis Ultrasound Other (See comments) MENSTRUAL HISTORY: Menarche Age: 15 Length of Cycle: 28-35 Regular Days: 4 Menstrual Flow: Moderate,Heavy Menstrual Symptoms: Pain,Cramping Patient's last menstrual period was 02/21/2024 (approximate). PAST MEDICAL HISTORY Diagnosis Date Abnormal glandular Papanicolaou smear of cervix 2008 Abn. Pap smear (cervix) Dysmenorrhea Endometriosis Fibroid Thyroid disease PAST SURGICAL HISTORY Procedure Laterality Date COLPOSCOPY CERVIX UPPER/ADJACENT VAGINA 10/07/2008 Colposcopy, for lgsil IVF RETRIEVAL ANY METHOD 08/2021 YANI 2014 PAST SURGICAL HISTORY OF 06/01/2003 ACL OF LEFT LEG PAST SURGICAL HISTORY OF 07/2019 laparoscopy FAMILY HISTORY Problem Relation Age of Onset other (non hodgkins lymphoma) Father Cancer Paternal Grandfather No Hodgkins Lymphoma ETHNICITY: White Assessment and Plan ATA Frozen Embryo Transfer Treatment Plan: Specialty comments (one liner/diamond things to know): Solange Milligan is a 39 year old female with history of endometriosis and unexplained infertility. She underwent IVF in 2021 and has her son via at term for failure to progress in 2022. She has been having regular period since stops over a year ago. She reports dysmenorrhea but is mild to moderate. We briefly discuss possible laparoscopy if pain is worsen. She is comfortable of not doing laparoscopy and moving forward to FET. The following plan discuss with pt. Pretreatment:OCP Uterine cavity testing: SIS date: ordered Protocol: Programmed NatPro Study: No If programmed, type of estradiol: Oral estradiol Type of progesterone: 50 mg Progesterone in Oil IM daily OK for OCPs to delay cycle start if needed: Yes Appointment on 03/13/24 THYROID STIMULATING HORMONE VITAMIN D 25 HYDROXY T4 FREE/FREE THYROXINE TYPE + SCREEN SONOHYSTEROGRAPHY (SIS) US [facility] Solange Milligan is a 39 year old female here to discuss FET. - FET pre-requirement sent/given to pt - protocol discussed - estrace and IM prog protocol - Number of embryo to transfer 1 - Up to date physical exam - she will set up. - After all of the pre-requirement are done, pt aware that she needs to call IVF coordinator to discuss about protocol, get meds order and we will send thaw plan to her at that time. - Other test needed - see above All questions are answered MD Ct Webb MD 03/13/2024 This visit was conducted as a virtual visit via zoom. I have communicated my name and active licensure. The patient's identity and physical location were verified at the time of this visit. Either the patient or their legal risk control field representative has been informed of the risks and benefits of -- and alternatives to -- treatment through a remote evaluation and consents to proceed with the evaluation remotely. I spent a total of 30 minutes on the date of the service which included preparing to see the patient, [id number] patient care, completing clinical documentation, performing a medically appropriate examination, counseling and educating the patient/family/caregi magno, ordering medications, tests, or procedures, communicating results to the patient/family/caregi magno, and care coordination (not separately reported). Ct Hodge MD [facility] 02-18-2024 LEE Telephone (EXPMAC) SOLANGE MILLIGAN ([id number]) 1985 F Date Time Provider Department 02/18/24 EVIE VARGAS EXPMAC During your visit today, we recorded the following information about you: Evie Vargas APRN.CNP 02/18/2024 8:05 AM Signed Appears viscous lidocaine was sent to pharmacy. Evie Vargas APRN.CNP Allergies As of Date: 02/18/2024 Noted Allergy Reaction SEASONAL ALLERGIES 08/25/2020 14 - Other: See Comments Comments: Trees, grasses, weeds, ragweed Date Reviewed: 02/17/2024 Reviewed by: Mikaela Stephen RN - Fully Assessed Reason for Visit: Results [95] Prescriptions as of 02/18/2024 - benzonatate (TESSALON PERLE) 100 mg capsule Take 2 capsules by mouth three times a day as needed. - LIDOCAINE VISCOUS 2 % solution Take 15 mL by mouth as needed. - buPROPion XL (WELLBUTRIN XL) 150 mg 24 hr tablet Take 1 tablet by mouth every afternoon. - escitalopram oxalate (LEXAPRO) 20 mg tablet Take 1 tablet by mouth every afternoon. - azelastine 0.1% nasal spray Use 2 Sprays in each nostril two times a day as needed. Problem List As Of Date 02/18/2024 Noted Resolved Condyloma acuminatum [A63.0] 08/05/2007 06/24/2012 S/P LASIK (laser assisted in situ keratomileusi* 015 Disease of diaphragm- endometriosis, depth unk*09/05/2019 Constipation [K59.00] 09/05/2019 Dyschezia [K59.00] 09/05/2019 Urinary urgency [R39.15] 09/05/2019 Dyspareunia in female [N94.10] 09/05/2019 Urinary frequency [R35.0] 09/05/2019 Dysmenorrhea [N94.6] 09/05/2019 Endometriosis of large intestine [N80.50] 09/05/2019 Endometriosis [N80.9] 09/05/2019 Chronic female pelvic pain [R10.2, G89.29] 09/05/2019 Medical marijuana use [Z79.899] 01/20/2020 Hypothyroidism [E03.9] 01/20/2020 Elevated glucose [R73.09] 01/20/2020 Depression [F32.A] 01/20/2020 Post-operative state [Z98.890] 02/04/2020 Seasonal allergic rhinitis due to pollen [J30.1]08/26/2020 Infertility [ZTJ1515] 07/08/2021 High-tone pelvic floor dysfunction in female [M*08/12/2021 Encounter Status:Closed by EVIE VARGAS on 02/18/24 [facility] CNOVon 02-17-2024 CNOV Office Visit (UCWSTR ) SOLANGE MILLIGAN ([id number]) 1985 F Date Time Provider Department 02/17/24 8:15 AM EVIE VARGAS [facility] During your visit today, we recorded the following information about you: Temperature Pulse Respiration Blood pressure 98.7 degrees 87/minute 20/minute 138/75 Weight Last Period 80 kg 01/27/24 Evie Vargas APRN.HEADER MACHINE OPERATOR 02/17/2024 8:31 AM Addendum Subjective The history is provided by the patient. No language pathologist was used. HPI Solange Milligan is a 39 year old female who presents today for CC of cough, sore throat, fcongestion, body aches for 3 days. She has used otc mucinex dm. She had a coworker that was ill BP 138/75 Pulse 87 Temp 37.1 ?C (98.7 ?F) Resp 20 Wt 80 kg (176 lb 5.9 oz) LMP 01/27/2024 (Exact Date) SpO2 96% No BMI 30.27 kg/m? Social History Tobacco Use Smoking status: Never Smokeless tobacco: Never Vaping Use Vaping status: Never Used Substance Use Topics Alcohol use: Not Currently Comment: 10 drinks per week per pt 01/20/2020 Drug use: Not Currently Types: Marijuana Comment: medical marijuana - for anxiety, pain - edibles PAST MEDICAL HISTORY Diagnosis Date Abnormal glandular Papanicolaou smear of cervix 2008 Abn. Pap smear (cervix) Dysmenorrhea Endometriosis Fibroid Thyroid disease I have confirmed and edited as necessary, the [facility] Review of Systems Constitutional: Negative for chills and fever. HENT: Positive for congestion, sinus pain and sore throat. Negative for ear pain. Respiratory: Positive for cough. Negative for sputum production, shortness of breath and wheezing. Cardiovascular: Negative for chest pain. Gastrointestinal: Negative for abdominal pain, diarrhea, nausea and vomiting. Musculoskeletal: Negative for myalgias. Neurological: Negative for headaches. Objective Physical Exam Vitals and nursing note reviewed. HENT: Head: Atraumatic. Microcephalic. Right Ear: Tympanic membrane, ear canal and external ear normal. Left Ear: Tympanic membrane, ear canal and external ear normal. Nose: Mucosal edema, congestion and rhinorrhea present. Right Sinus: No maxillary sinus tenderness or frontal sinus tenderness. Left Sinus: No maxillary sinus tenderness or frontal sinus tenderness. Mouth/Throat: Pharynx: Uvula midline. Posterior oropharyngeal erythema and postnasal drip present. No oropharyngeal exudate. Comments: Multiple herpangina present in the back of throat Cardiovascular: Rate and Rhythm: Normal rate and regular rhythm. Heart sounds: Normal heart sounds. Pulmonary: Effort: Pulmonary effort is normal. Breath sounds: Normal breath sounds. Lymphadenopathy: Head: Right side of head: No submental, submandibular or tonsillar adenopathy. Left side of head: No submental, submandibular or tonsillar adenopathy. Cervical: No cervical adenopathy. Skin: General: Skin is warm and dry. Neurological: Mental Status: She is alert. Psychiatric: Mood and Affect: Affect normal. ASSESSMENT/PLAN: 1. URI with cough and congestion - ICD9: 465.9, ICD10: J06.9 (primary diagnosis) - Discussed viral etiology and rationale for treatment. - Symptomatic treatment with prn analgesia - Supportive care with fluids and rest - COVID AND INFLUENZA A/B AND RSV PCR, ROUTINE Testing ordered Comfort measures discussed - see patient instructions. When to seek higher level of care Notified in 12-24 hours with results, available on F[facility]hart 2. Sore throat - ICD9: 462, ICD10: J02.9 - suspect viral - herpangina present - BMX solution - Discussed supportive care treatment with fluids, rest and analgesia. - The patient may also use warm salt water gargles, throat lozenges and/or OTC throat spray as needed. - The patient should follow up in one week if symptoms persist or worsen - Call back if drooling, increased temperature, symptoms of dehydration and/or still sick in one week Diagnosis and treatment plan were discussed and questions were answered to the patient's satisfaction. Pt acknowledged understanding of concepts and follow up plan. Specific signs and symptoms that would indicate the need for higher level of care were discussed in detail warranting prompt ER evaluation. Evie Vargas APRN.Evie Hale APRN.CNP 02/17/2024 8:31 AM Signed covid rsv and influenza test ordered You will be notified in 12-24 hours, results available on MyChart Rest, increase water intake Motrin or Tylenol as needed for fever or pain. Salt water gargles, chloraseptic spray or lozenges as needed for sore throat. Warm beverages, honey. Nasal saline spray as needed Cool mist humidifier at night Tylenol (generic acetaminophen) 500 mg-2 tabs every 8 hrs. as needed for fever and aches Ibuprofen 600 mg (3-200mg tablets) every 6 hours Mucinex dm Tessalon Perles 2 every 8 hours, do not combi (more content not included)... Normal [facility] 02-17-2024 [facility] Telephone (UCWSTR) SOLANGE MILLIGAN ([id number]) 1985 F Date Time Provider Department 02/17/24 NAOMI ELIZONDO [facility] [place] During your visit today, we recorded the following information about you: Naomi Elizondo PA 02/17/2024 3:30 PM Signed Please let patient know medication sent to pharmacy Ebony Vines MA 02/17/2024 4:02 PM Signed The following approved medication requests have been transmitted electronically. Requested Prescriptions Signed Prescriptions Disp Refills LIDOCAINE VISCOUS 2 % solution 100 mL 0 Sig: Take 15 mL by mouth as needed. Authorizing Provider: NAOMI ELIZONDO MA Allergies As of Date: 02/17/2024 Noted Allergy Reaction SEASONAL ALLERGIES 08/25/2020 14 - Other: See Comments Comments: Trees, grasses, weeds, ragweed Date Reviewed: 02/17/2024 Reviewed by: Mikaela Stephen RN - Fully Assessed Reason for Visit: Results [95] Order(s):LIDOCAINE VISCOUS 2 % solutionTake 15 mL by mouth as needed.Disp: 100 mLRfl: 0 Prescriptions as of 02/17/2024 - benzonatate (TESSALON PERLE) 100 mg capsule Take 2 capsules by mouth three times a day as needed. - LIDOCAINE VISCOUS 2 % solution Take 15 mL by mouth as needed. - buPROPion XL (WELLBUTRIN XL) 150 mg 24 hr tablet Take 1 tablet by mouth every afternoon. - escitalopram oxalate (LEXAPRO) 20 mg tablet Take 1 tablet by mouth every afternoon. - azelastine 0.1% nasal spray Use 2 Sprays in each nostril two times a day as needed. Problem List As Of Date 02/17/2024 Noted Resolved Condyloma acuminatum [A63.0] 08/05/2007 06/24/2012 S/P LASIK (laser assisted in situ keratomileusi* 015 Disease of diaphragm- endometriosis, depth unk*09/05/2019 Constipation [K59.00] 09/05/2019 Dyschezia [K59.00] 09/05/2019 Urinary urgency [R39.15] 09/05/2019 Dyspareunia in female [N94.10] 09/05/2019 Urinary frequency [R35.0] 09/05/2019 Dysmenorrhea [N94.6] 09/05/2019 Endometriosis of large intestine [N80.50] 09/05/2019 Endometriosis [N80.9] 09/05/2019 Chronic female pelvic pain [R10.2, G89.29] 09/05/2019 Medical marijuana use [Z79.899] 01/20/2020 Hypothyroidism [E03.9] 01/20/2020 Elevated glucose [R73.09] 01/20/2020 Depression [F32.A] 01/20/2020 Post-operative state [Z98.890] 02/04/2020 Seasonal allergic rhinitis due to pollen [J30.1]08/26/2020 Infertility [FGI2415] 07/08/2021 High-tone pelvic floor dysfunction in female [M*08/12/2021 Prescriptions ordered this encounter Disp Refills Start End LIDOCAINE HCL 2 % MUCOSAL SOLUTION 100 * 0 02/17/2024 Route: ORAL Sig: Take 15 mL by mouth as needed. Medications Discontinued During This Encounter Prescriptions - diphenhydrAMINE-maalo x-lidocaine (BMX 1:1:1) 1:1:1 liqd (Discontinued) Mix in equal amounts - 1 T every 2hrs as needed for mouth pain, Swish/swallow or expectorate. (8oz) Encounter Status:Closed by EBONY VINES on 02/17/24 Normal [facility] COVID AND INFLUENZA A/B AND RSV PCR, ROUTINEon 02-17-2024 SARS-CoV-2 (COVID-19) RNA MOIRA+probe Ql (Unsp spec) SARS-COV-2 (AGENT OF COVID-19) RNA: Not detected INFLUENZA A RNA: Not detected INFLUENZA B RNA: Not detected RESPIRATORY SYNCYTIAL VIRUS (RSV) RNA: Not detected Normal [facility] Comment on above: Performed By: #### C VFLRS ####[facility] LABCLIA [id number] [address] CNOVon 01-20-2024 CNOV Office Visit (WSTR ) SOLANGE MILLIGAN ([id number]) 1985 F Date Time Provider Department 01/20/24 11:15 AM JOSE ENRIQUE JENNINGS [facility] [place] During your visit today, we recorded the following information about you: Temperature Pulse Respiration Blood pressure 98.1 degrees 78/minute 16/minute 104/66 Weight 79 kg Jose Enrique Jennings APRN.HEADER MACHINE OPERATOR 01/20/2024 11:53 AM Signed Subjective HPI Nontoxic-appearing female presents urgent care chief complaint rash. Duration of symptoms 3 weeks. Associated symptoms pruritic rash on arms has now spread to chest. Had a similar rash 3 months ago that self resolved. Has been using tea tree oil lotion. This is helped some. Has been using a low potency corticosteroid hydrocortisone cream this has worked but rash returns. No recent medication changes. Overall feels well. No fevers. No nausea or vomiting. Denies chance of . Is not breast-feeding. Past medical history prescription medications allergies reviewed. .Patient presents with: Rash: itching x 3 weeks, recurring from 3 months ago, all over PAST MEDICAL HISTORY Diagnosis Date Abnormal glandular Papanicolaou smear of cervix 2008 Abn. Pap smear (cervix) Dysmenorrhea Endometriosis Fibroid Thyroid disease PAST SURGICAL HISTORY Procedure Laterality Date COLPOSCOPY CERVIX UPPER/ADJACENT VAGINA 10/07/2008 Colposcopy, for lgsil IVF RETRIEVAL ANY METHOD 08/2021 YANI 2014 PAST SURGICAL HISTORY OF 06/01/2003 ACL OF LEFT LEG PAST SURGICAL HISTORY OF 07/2019 laparoscopy ALLERGIES Seasonal Allergies MEDICATIONS buPROPion XL (WELLBUTRIN XL) 150 mg 24 hr tablet Take 1 tablet by mouth every afternoon. escitalopram oxalate (LEXAPRO) 20 mg tablet Take 1 tablet by mouth every afternoon. azelastine 0.1% nasal spray Use 2 Sprays in each nostril two times a day as needed. cholecalciferol (VITAMIN D3) 1,000 unit tab tablet Take by mouth. doxycycline (VIBRA-TABS) 100 mg tablet Take 1 tablet by mouth twice daily. (Patient not taking: Reported on 08/01/2022) methylPREDNISolone (MEDROL) 16 mg tablet Take 1 tablet by mouth once daily. (Patient not taking: Reported on 08/01/2022) Norethindrone Acet-Ethinyl Est (JUNEL ,) 1.5-30 mg-mcg Take 1 tablet by mouth once daily for 21 days. Take continuously (Patient not taking: Reported on 01/20/2024) progesterone 50 mg/mL injection Inject 1 mL intramuscularly once daily. Inject in the morning (Patient not taking: Reported on 08/01/2022) Needle, Disp, 22 G (BD DISPOSABLE NEEDLES) 22 gauge x 1 1/2" To be used to inject progesterone in oil (Patient not taking: Reported on 08/01/2022) Syringe with Needle, Disp, (SYRINGE 3CC/20GX1") To be used to draw up progesterone in oil (Patient not taking: Reported on 08/01/2022) estradiol (ESTRACE) 2 mg tablet Take 3 tablets by mouth once daily. (Patient not taking: Reported on 08/01/2022) FLUoxetine (PROZAC) 40 mg capsule Take 50 mg by mouth once daily. (Patient not taking: Reported on 01/20/2024) PNV no.95/ferrous fum/folic ac ( ORAL) Take 1 tablet by mouth once daily. (Patient not taking: Reported on 07/18/2023) levothyroxine (SYNTHROID) 50 mcg tablet Take 50 mcg by mouth once daily. (Patient not taking: Reported on 08/01/2022) FAMILY HISTORY Problem Relation Age of Onset other (non hodgkins lymphoma) Father Cancer Paternal Grandfather No Hodgkins Lymphoma Social History Tobacco Use Smoking status: Never Smokeless tobacco: Never Vaping Use Vaping status: Never Used Substance Use Topics Alcohol use: Not Currently Comment: 10 drinks per week per pt 01/20/2020 Drug use: Not Currently Types: Marijuana Comment: medical marijuana - for anxiety, pain - edibles BP 104/66 Pulse 78 Temp 36.7 ?C (98.1 ?F) Resp 16 Wt 79 kg (174 lb 2.6 oz) LMP 12/04/2021 (Approximate) SpO2 99% BMI 29.90 kg/m? Review of Systems Constitutional: Negative for chills, fever and malaise/fatigue. HENT: Negative for congestion, ear discharge, ear pain, sinus pain and sore throat. Eyes: Negative for blurred vision, pain, discharge and redness. Respiratory: Negative for cough, hemoptysis, sputum production, shortness of breath, wheezing and stridor. Cardiovascular: Negative for chest pain. Gastrointestinal: Negative for abdominal pain, diarrhea, nausea and vomiting. Musculoskeletal: Negative for myalgias. Skin: Positive for itching and rash. Neurological: Negative for dizziness and headaches. Objective Physical Exam Constitutional: General: She is not in acute distress. Appearance: She is not toxic-appearing. HENT: Head: Normocephalic. Nose: Nose normal. Mouth/Throat: Mouth: Mucous membranes are moist. Pharynx: Oropharynx is clear. No oropharyngeal exudate or posterior oropharyngeal erythema. Eyes: Pupils: Pupils are equal, round, and reactive to light. Cardiovascular: Rate and Rhyth (more content not included)... Normal [facility] Basophil percentageOrdered B y: Salvador Amin on 09-03-2022 WBC (Bld) [#/Vol] 15.0 10*3/uL 4.4-11.0 [facility] Blood erythrocytes count (nu mber/volume)Ordered By: Salvador Amin on 09-03-2022 RBC (Bld) [#/Vol] 2.96 10*6/uL 4.2-5.4 [facility] Blood hemoglobin measurement (mass/volume)Ordered By: Salvador Amin on 09-03-2022 Hemoglobin (Bld) [Mass/Vol] 8.9 g/dL 12.0-15.0 [facility] Blood platelet mean volumeOr dered By: Salvador Amin on 09-03-2022 Platelet mean volume (Bld) [Entitic vol] 10.1 fL 6.2-12.0 [facility] Determination of erythrocyte mean corpuscular volume (MCV)Ordered By: Salvador Amin on 09-03-2022 MCV (RBC) [Entitic vol] 90.2 fL 81-99 [facility] Hematocrit Auto (Bld) [Volum e fraction]Ordered By: Salvador Amin on 09-03-2022 Hematocrit (Bld) [Volume fraction] 26.7 % 37-47 [facility] Laboratory - Hematology and Cell countsOrdered By: Salvador Amin on 09-03-2022 Erythrocyte distribution width (RBC) [Entitic vol] 38.0 fL 35.1-43.9 [facility] Erythrocyte distribution width (RBC) [Ratio] 11.8 % 11.6-14.6 [facility] MCH (RBC) [Entitic mass] 30.1 pg 27.0-32.0 [facility] MCHC Auto (RBC) [Mass/Vol]Or dered By: Salvador Amin on 09-03-2022 MCHC (RBC) [Mass/Vol] 33.3 g/dL 32-36 [facility] Platelets bldOrdered By: Fracisco Amin on 09-03-2022 Platelets (Bld) [#/Vol] 220 10*3/uL 150-450 [facility] Absolute lymphocyte countOrd ered By: Salvador Amin on 09-01-2022 Lymphocytes Auto (Unsp spec) [#/Vol] 2.95 10*3/uL 0.83-4.51 [facility] Basophil percentageOrdered B y: Salvador Amin on 09-01-2022 Basophils/100 WBC (Bld) 0.5 % 0-1 [facility] Eosinophils/100 WBC (Bld) 0.5 % 0-5 [facility] Neutrophils (Bld) [#/Vol] 5.1 10*3/uL 2.0-7.7 [facility] Neutrophils/100 WBC (Bld) 58.2 % 47-70 [facility] Blood lymphocytes/100 leukoc ytesOrdered By: Salvador Amin on 09-01-2022 Lymphocytes/100 WBC (Bld) 33.4 % 19-41 [facility] Blood monocytes/100 leukocyt esOrdered By: Salvador Amin on 09-01-2022 Monocytes/100 WBC (Bld) 6.9 % 0-10 [facility] - Hematology and Cell countsOrdered By: Salvador Amin on 09-01-2022 Immature granulocytes/100 WBC (Bld) 0.500 % 0.0-0.9 [facility] Comment on above: IG% - Immature Granu locytes (promyelocytes, myelocytes and metamyelocytes) > 1% indicates that a LEFT SHIFT is Present. Nucleated RBC/100 WBC (Bld) [Ratio] 0 % 0-5 [facility] No Panel InformationOrdered By: Salvador Amin on 09-01-2022 Vaginal Amniotic Fluid Detection Positive Negative [facility] Comment on above: Amniotic fluid prese nt indicates rupture of Membranes. RESULTS CALLED TO [facility] 09/01/22 0259 Chandana Guo.REPORT READ BACK BY SAME. Serum Treponema species anti body detectionOrdered By: Salvador Amin on 09-01-2022 Treponema sp Ab Ql (S) Non-Reactive [facility] Quantitative serum or plasma 3 hour gestational glucose tolerance panelOrdered By: Dr. Amin on 06-30-2022 Glucose tolerance 3 hours gestational panel See comment [facility] Comment on above: FASTING 83 Col: 06/19 04/13 0849GLUCOSE TOLERANCE TEST FOR Reference Interval GESTATIONAL DIABETES Fasting <105 mg/dL 1 hour <190 mg/dl 2 hour <165 mg/dl 3 hour <145 mg/dl 1 HR GLU 163 Col: 06/30/22 0949 2 HR GLU 120 Col: 06/30/22 1049 3 HR GLU 58 Col: 06/30/22 1149 Absolute lymphocyte countOrd ered By: Dr. Amin on 06-28-2022 Lymphocytes Auto (Unsp spec) [#/Vol] 2.67 10*3/uL 0.83-4.51 [facility] Basophil percentageOrdered B y: Dr. Amin on 06-28-2022 Basophils/100 WBC (Bld) 0.5 % 0-1 [facility] Eosinophils/100 WBC (Bld) 0.5 % 0-5 [facility] Neutrophils (Bld) [#/Vol] 7.5 10*3/uL 2.0-7.7 [facility] Neutrophils/100 WBC (Bld) 68.7 % 47-70 [facility] WBC (Bld) [#/Vol] 10.9 10*3/uL 4.4-11.0 [facility] Blood erythrocytes count (nu mber/volume)Ordered By: Dr. Amin on 06-28-2022 RBC (Bld) [#/Vol] 3.77 10*6/uL 4.2-5.4 [facility] Blood hemoglobin measurement (mass/volume)Ordered By: Dr. Amin on 06-28-2022 Hemoglobin (Bld) [Mass/Vol] 12.1 g/dL 12.0-15.0 [facility] Blood lymphocytes/100 leukoc ytesOrdered By: Dr. Amin on 06-28-2022 Lymphocytes/100 WBC (Bld) 24.5 % 19-41 [facility] Blood monocytes/100 leukocyt esOrdered By: Dr. Amin on 06-28-2022 Monocytes/100 WBC (Bld) 5.4 % 0-10 [facility] Blood platelet mean volumeOr dered By: Dr. Amin on 06-28-2022 Platelet mean volume (Bld) [Entitic vol] 9.2 fL 6.2-12.0 [facility] Determination of erythrocyte mean corpuscular volume (MCV)Ordered By: Dr. Amin on 06-28-2022 MCV (RBC) [Entitic vol] 91.2 fL 81-99 [facility] Gestational diabetes screen 1-hour screen with 50g oral glucose loadOrdered By: Dr. Amin on 06-28-2022 Glucose 1 Hr post 50 g glucose PO [Mass/Vol] 188 mg/dL 70-140 [facility] Hematocrit Auto (Bld) [Volum e fraction]Ordered By: Dr. Amin on 06-28-2022 Hematocrit (Bld) [Volume fraction] 34.4 % 37-47 [facility] Laboratory - Hematology and Cell countsOrdered By: Dr. Amin on 06-28-2022 Erythrocyte distribution width (RBC) [Entitic vol] 41.3 fL 35.1-43.9 [facility] Erythrocyte distribution width (RBC) [Ratio] 12.5 % 11.6-14.6 [facility] Immature granulocytes/100 WBC (Bld) 0.400 % 0.0-0.9 [facility] Comment on above: IG% - Immature Granu locytes (promyelocytes, myelocytes and metamyelocytes) > 1% indicates that a LEFT SHIFT is Present. MCH (RBC) [Entitic mass] 32.1 pg 27.0-32.0 [facility] Nucleated RBC/100 WBC (Bld) [Ratio] 0 % 0-5 [facility] MCHC Auto (RBC) [Mass/Vol]Or dered By: Dr. Amin on 06-28-2022 MCHC (RBC) [Mass/Vol] 35.2 g/dL 32-36 [facility] Platelets bldOrdered By: Dr. Amin on 06-28-2022 Platelets (Bld) [#/Vol] 292 10*3/uL 150-450 [facility] Serum Treponema species anti body detectionOrdered By: Dr. Amin on 06-28-2022 Treponema sp Ab Ql (S) Non-Reactive [facility] Absolute lymphocyte countOrd ered By: ED PROVIDER on 05-16-2022 Lymphocytes Auto (Unsp spec) [#/Vol] 2.37 10*3/uL 0.83-4.51 [facility] Basophil percentageOrdered B y: ED PROVIDER on 05-16-2022 Basophils/100 WBC (Bld) 0.5 % 0-1 [facility] Chloride [Moles/Vol] 106 mmol/L 98-107 [facility] Eosinophils/100 WBC (Bld) 0.4 % 0-5 [facility] Glucose [Mass/Vol] 85 mg/dL 74-[facility] Neutrophils (Bld) [#/Vol] 8.7 10*3/uL 2.0-7.7 [facility] Neutrophils/100 WBC (Bld) 73.2 % 47-70 [facility] Potassium [Moles/Vol] 3.9 mmol/L 3.5-5.1 [facility] Sodium [Moles/Vol] 137 mmol/L 136-145 [facility] WBC (Bld) [#/Vol] 11.9 10*3/uL 4.4-11.0 [facility] Blood erythrocytes count (nu mber/volume)Ordered By: ED PROVIDER on 05-16-2022 RBC (Bld) [#/Vol] 4.17 10*6/uL 4.2-5.4 [facility] Blood hemoglobin measurement (mass/volume)Ordered By: ED PROVIDER on 05-16-2022 Hemoglobin (Bld) [Mass/Vol] 12.9 g/dL 12.0-15.0 [facility] Blood lymphocytes/100 leukoc ytesOrdered By: ED PROVIDER on 05-16-2022 Lymphocytes/100 WBC (Bld) 19.9 % 19-41 [facility] Blood monocytes/100 leukocyt esOrdered By: ED PROVIDER on 05-16-2022 Monocytes/100 WBC (Bld) 5.5 % 0-10 [facility] Blood platelet mean volumeOr dered By: ED PROVIDER on 05-16-2022 Platelet mean volume (Bld) [Entitic vol] 9.4 fL 6.2-12.0 [facility] Determination of erythrocyte mean corpuscular volume (MCV)Ordered By: ED PROVIDER on 05-16-2022 MCV (RBC) [Entitic vol] 92.1 fL 81-99 [facility] Hematocrit Auto (Bld) [Volum e fraction]Ordered By: ED PROVIDER on 05-16-2022 Hematocrit (Bld) [Volume fraction] 38.4 % 37-47 [facility] Laboratory - Chemistry and C hemistry - challengeOrdered By: ED PROVIDER on 05-16-2022 CO2 [Moles/Vol] 26.0 mmol/L 21.0-32.0 [facility] Urea nitrogen/Creatinine [Mass ratio] 10.5 mg/mg 10-20 [facility] - Hematology and Cell countsOrdered By: ED PROVIDER on 05-16-2022 Erythrocyte distribution width (RBC) [Entitic vol] 42.9 fL 35.1-43.9 [facility] Erythrocyte distribution width (RBC) [Ratio] 12.9 % 11.6-14.6 [facility] Immature granulocytes/100 WBC (Bld) 0.500 % 0.0-0.9 [facility] Comment on above: IG% - Immature Granu locytes (promyelocytes, myelocytes and metamyelocytes) > 1% indicates that a LEFT SHIFT is Present. MCH (RBC) [Entitic mass] 30.9 pg 27.0-32.0 [facility] Nucleated RBC/100 WBC (Bld) [Ratio] 0 % 0-5 [facility] MCHC Auto (RBC) [Mass/Vol]Or dered By: ED PROVIDER on 05-16-2022 MCHC (RBC) [Mass/Vol] 33.6 g/dL 32-36 [facility] No Panel InformationOrdered By: ED PROVIDER on 05-16-2022 Estimated Creatinine Clearance Calc 113.95 ml/min [facility] Estimated GFR (MDRD) Amer 155 mL/min >60 [facility] Comment on above: GFR Calc Estimated GFR (MDRD) Non-Af Amer 128 mL/min >60 [facility] Comment on above: Non- GFR Calc No Panel InformationOrdered By: Dr. Trujillo on 05-16-2022 Thyroid Stimulating Hormone (TSH) 1.30 uIU/mL 0.358-3.74 [facility] Troponin I High Sensitivity 4 pg/mL 3.0-54.0 [facility] Comment on above: Please Note: New [place] t Units and Gender Specific Reference Ranges. For more information see Policy Stat Procedure [place] High Sensitivity Troponin (TNIH) and attachments. Platelets bldOrdered By: ED PROVIDER on 05-16-2022 Platelets (Bld) [#/Vol] 324 10*3/uL 150-450 [facility] Serum or plasma calcium jimy urement (mass/volume)Ordered By: ED PROVIDER on 05-16-2022 Calcium [Mass/Vol] 9.1 mg/dL 8.5-10.1 [facility] Serum or plasma creatinine m easurement (mass/volume)Ordered By: ED PROVIDER on 05-16-2022 Creatinine [Mass/Vol] 0.57 mg/dL 0.55-1.02 [facility] Comment on above: The validity of the calculated GFR & GFRAA in patients over 70 years has not been determined. Clinical correlation is essential. Serum or plasma urea nitroge n measurement (mass/volume)Ordered By: ED PROVIDER on 05-16-2022 Urea nitrogen [Mass/Vol] 6 mg/dL 7-18 [facility] Thin prep Papanicolaou smear with manual screeningOrdered By: ED PROVIDER on 05-16-2022 Thin prep Papanicolaou smear with manual screening 5 5-15 [facility] Laboratory - Chemistry and C hemistry - challengeOrdered By: Dr. Guerrero on 02-14-2022 T4 [Mass/Vol] 10.5 ug/dL 4.8-13.9 [facility] No Panel InformationOrdered By: Dr. Guerrero on 02-14-2022 Thyroid Stimulating Hormone (TSH) 0.85 uIU/mL 0.358-3.74 [facility] Vitamin D 25-Hydroxy 26.3 ng/mL [facility] Comment on above: Vitamin D 25(OH) Sta tus Range Deficiency <20 ng/mL (50nmol/L) Insufficiency 20 - 30 ng/mL (50 - 75 nmol/L) Sufficiency 30 - 100 ng/mL (75 - 250 nmol/L) Toxicity >100 ng/mL (>250 nmol/L) Culture, urineOrdered By: Dr Allyn Amin on 02-01-2022 Bacteria identified Cx Nom (U) Positive [facility] Absolute lymphocyte countOrd ered By: Dr. Amin on 01-31-2022 Lymphocytes Auto (Unsp spec) [#/Vol] 2.94 10*3/uL 0.83-4.51 [facility] Basophil percentageOrdered B y: Dr. Amin on 01-31-2022 Basophils/100 WBC (Bld) 0.4 % 0-1 [facility] Eosinophils/100 WBC (Bld) 0.7 % 0-5 [facility] Neutrophils (Bld) [#/Vol] 9.7 10*3/uL 2.0-7.7 [facility] Neutrophils/100 WBC (Bld) 70.3 % 47-70 [facility] WBC (Bld) [#/Vol] 13.8 10*3/uL 4.4-11.0 [facility] Blood erythrocytes count (nu mber/volume)Ordered By: Dr. Amin on 01-31-2022 RBC (Bld) [#/Vol] 3.50 10*6/uL 4.2-5.4 [facility] Blood hemoglobin measurement (mass/volume)Ordered By: Dr. Amin on 01-31-2022 Hemoglobin (Bld) [Mass/Vol] 10.5 g/dL 12.0-15.0 [facility] Blood lymphocytes/100 leukoc ytesOrdered By: Dr. Amin on 01-31-2022 Lymphocytes/100 WBC (Bld) 21.3 % 19-41 [facility] Blood monocytes/100 leukocyt esOrdered By: Dr. Amin on 01-31-2022 Monocytes/100 WBC (Bld) 6.7 % 0-10 [facility] Blood platelet mean volumeOr dered By: Dr. Amin on 01-31-2022 Platelet mean volume (Bld) [Entitic vol] 9.6 fL 6.2-12.0 [facility] Chlamydia trachomatis rRNA d etection by probe and target amplification methodOrdered By: Dr. Amin on 01-31-2022 C. trachomatis rRNA MOIRA+probe Ql (Unsp spec) Negative Negative [facility] Determination of erythrocyte mean corpuscular volume (MCV)Ordered By: Dr. Amin on 01-31-2022 MCV (RBC) [Entitic vol] 89.1 fL 81-99 [facility] HIV 1 and HIV-2 antibody ass ay with HIV-1 p24 antigen detectionOrdered By: Dr. Amin on 01-31-2022 HIV 1+2 Ab+HIV1 p24 Ag IA Ql Non-Reactive Nonreactive [facility] Hematocrit Auto (Bld) [Volum e fraction]Ordered By: Dr. Amin on 01-31-2022 Hematocrit (Bld) [Volume fraction] 31.2 % 37-47 [facility] Laboratory - Hematology and Cell countsOrdered By: Dr. Amin on 01-31-2022 Erythrocyte distribution width (RBC) [Entitic vol] 35.8 fL 35.1-43.9 [facility] Erythrocyte distribution width (RBC) [Ratio] 11.1 % 11.6-14.6 [facility] Immature granulocytes/100 WBC (Bld) 0.600 % 0.0-0.9 [facility] Comment on above: IG% - Immature Granu locytes (promyelocytes, myelocytes and metamyelocytes) > 1% indicates that a LEFT SHIFT is Present. MCH (RBC) [Entitic mass] 30.0 pg 27.0-32.0 [facility] Nucleated RBC/100 WBC (Bld) [Ratio] 0 % 0-5 [facility] Laboratory - Microbiology an d Antimicrobial susceptibilityOrdered By: Dr. Amin on 01-31-2022 N. gonorrhoeae DNA MOIRA+probe Ql (Unsp spec) Negative Negative [facility] Comment on above: Performed at: [address] [id number] Director: Tri Leal MD, Phone: [phone] MCHC Auto (RBC) [Mass/Vol]Or dered By: Dr. Amin on 01-31-2022 MCHC (RBC) [Mass/Vol] 33.7 g/dL 32-36 [facility] No Panel InformationOrdered By: Dr. Amin on 01-31-2022 Hepatitis B Surface Antigen Non-Reactive Nonreactive [facility] Hepatitis C Antibody Non-Reactive Nonreactive [facility] Comment on above: Non Reactive: < 0.8 Equivocal: >/= 0.8 to < 1.0 Reactive: >/= 1.0The CDC recommends that a reactive/equivocal HCV antibody result be followed up by the HCV Nucleic Acid Amplificationtest (322606) Rubella IgG Antibody Equiv Nonreactive [facility] Comment on above: Antibody Results Int erpretation of Immune Status Non Reactive Presumed Non-Immune Equivocal Equivocal Reactive Presumed Immune Platelets bldOrdered By: Dr. Amin on 01-31-2022 Platelets (Bld) [#/Vol] 446 10*3/uL 150-450 [facility] Serum Treponema species anti body detectionOrdered By: Dr. Amin on 01-31-2022 Treponema sp Ab Ql (S) Non-Reactive [facility] Serum Varicella zoster virus IgG antibody assay by immunoassay (units/volume)Ordered By: Dr. Amin on 01-31-2022 VZV IgG IA Qn (S) 1500 index Immune >165 [facility] Comment on above: Negative <135 [facility] 135 - 165 Positive >165A positive result generally indicates exposure to thepathogen or administration of specific immunoglobulins,but it is not indication of active infection or stageof disease.Performed at: - [facility] [id number] Director: Elroy Orellana PhD, Phone: [phone] OBSTETRIC ULTRASOUND WHIon 1 03-20-2021 [facility] HCG [place]ANTITATIVEon 2 [place] [address].0 m[IU]/mL Abnormal 5.0 mIU/mL [facility] HCG QUANTITATIVEon 2 HCG.beta subunit Qn 2613.0 m[IU]/mL High <5.0 mIU/mL [facility] ESTRADIOL-17B Don 12-17-19 22 E2 [Mass/Vol] 157 pg/mL [facility] FOLLICULAR US WHIon 12-17-19 22 [facility] PROGESTERONE Don 2 Progesterone [Mass/Vol] 0.4 ng/mL See comment ng/mL [facility] HCG QUANTITATIVEon 2 HCG.beta subunit Qn <5.0 mIU/mL [facility] ESTRADIOL-17B BLDon 11-08-19 22 E2 [Mass/Vol] 265 pg/mL [facility] PROGESTERONE Don 2 Progesterone [Mass/Vol] 0.5 ng/mL See comment ng/mL [facility] Laboratory - Chemistry and C hemistry - challengeon 08-21-2021 Lutropin Qn 41.9 m[IU]/mL See comment mIU/mL [facility] Progesterone [Mass/Vol] 12.1 ng/mL See comment ng/mL [facility] PROGESTERONE BLDon 2 Progesterone [Mass/Vol] 1.9 ng/mL See comment ng/mL [facility] ESTRADIOL-17B BLDon 08-20-19 22 E2 [Mass/Vol] 2563 pg/mL [facility] Estradiol SerPl-mCncon 08-17 E2 [Mass/Vol] 1416 pg/mL [facility] Comment on above: Order Comment: Speci men Type: BLOOD SPECIMEN Ordering Facility: [facility] Address: [address] [place], [place] [id number] Result Comment: This test is not suitable for patients receiving treatment with the drug Fulvestrant (Faslodex). The drug causes an interference leading to falsely elevated estradiol results. Menstrual cycle Estradiol reference ranges: Follicular : < 234 pg/mL Ovulation : 41 to 398 pg/mL Luteal : < 342 pg/mL Estradiol reference ranges vary by gestational period: First trimester : 154 to 3243 pg/mL Second trimester : 1561 to 46122 pg/mL Third trimester : 8285 to >03680 pg/mL Post-menopausal Estradiol reference range: < 41 pg/mL Reference: 1. Estradiol - E2 (Estradiol III) [package insert V 3.0 Urdu]. [facility], [place], [place], July 2015. Performed By: #### 2 [id number] #### [facility] CLIA [id number] [address] [place] [address] [place] ESTRADIOL-17B BLDon 08-17-19 22 E2 [Mass/Vol] 1063 pg/mL [facility] ESTRADIOL-17B BLDon 08-09-19 22 E2 [Mass/Vol] pg/mL [facility] Hematocrit Auto (Bld) [Volum e fraction]on 08-08-2021 Hematocrit (Bld) [Volume fraction] 40.3 % 36.0 - 46.0 % [facility] HBV core Ab Ser Qlon 022 HBV core Ab Ql (S) Negative Normal Negative [facility] Comment on above: Order Comment: Sonido medina Type: BLOOD SPECIMEN Ordering Facility: [facility] Address: [address] [place], [place] [id number] Result Comment: No e vidence of current or past infection with Hepatitis B virus. Should recent infection be suspected, repeat testing may be considered 3-4 weeks after this draw. Performed By: #### 3 1201-7, 86143-9, 44213-9 #### [facility] CLIA [id number] [address] [place] [address] [place] HBV surface Ab IA Ql (S)on 07-19-2021 HBV surface Ag Ql (S) Negative Normal Negative [facility] Comment on above: Order Comment: Speci men Type: BLOOD SPECIMEN Ordering Facility: [facility] Address: [address] [place] [address] Performed By: #### 3 1201-7, 99296-2, 30777-9 #### [facility] CLIA [id number] [address] [place] [address] [place] HCV Ab Ser Qlon 07-19-2021 HCV Ab Ql (S) Negative Normal Negative [facility] Comment on above: Order Comment: Speci men Type: BLOOD SPECIMEN Ordering Facility: [facility] Address: [address] [place] [address] Result Comment: The result suggests no evidence of active infection with Hepatitis C virus. Should recent infection be suspected, repeat testing may be considered 4-6 weeks after this draw. Performed By: #### 1 6128-1 #### [facility] CLIA [id number] [address] [place] [address] [place] HIV 1+2 Ab IA Qlon 2 HIV 1 and 2 Ab IA.rapid Nom Normal [facility] Comment on above: Order Comment: Speci men Type: BLOOD SPECIMEN Ordering Facility: [facility] Address: [address] [place] [address] Result Comment: Test not indicated. Performed By: #### 3 1201-7, 60563-8, 29713-0 #### [facility] CLIA [id number] [address] [place] [address] [place] HIV 1+2 Ab+HIV1 p24 Ag IA Ql Non-Reactive Normal Nonreactive [facility] Comment on above: Order Comment: Speci men Type: BLOOD SPECIMEN Ordering Facility: [facility] Address: [address] [place] [address] Performed By: #### 3 1201-7, 82735-2, 63430-2 #### [facility] CLIA [id number] [address] [place] [address] [place] HIVINT [facility] Comment on above: Order Comment: Speci men Type: BLOOD SPECIMEN Ordering Facility: [facility] Address: [address] [place] [address] Result Comment: No e vidence of HIV-1 or HIV-2 infection. Should recent infection be suspected, repeat testing may be considered 2-3 weeks after this draw. [place] Rev. Code 3701.243(E): This information has been disclosed to you from confidential records protected from disclosure by state law. ???You shall make no further disclosure of this information without the specific, written, and informed release of the individual to whom it pertains or as otherwise permitted by state law. A general authorization for the release of medical or other information is not sufficient for the purpose of the release of HIV test results or diagnoses. Performed By: #### 3 1201-7, 66689-6, 86404-1 #### [facility] CLIA [id number] [address] [place] [address] [place] RPR Ser Qlon 07-19-2021 Reagin Ab RPR Ql (S) Non-Reactive Normal Nonreactive [facility] Comment on above: Order Comment: Speci men Type: BLOOD SPECIMEN Ordering Facility: [facility] Address: [address] [place] [address] Result Comment: Rapi d plasma reagin (RPR) test detects non-treponemal antibodies. RPR may be reactive in a variety of infectious and non-infectious conditions. Correlation with clinical picture and with treponemal antibody results is required for final interpretation. Performed By: #### 2 0507-0 #### [facility] CLIA [id number] [address] [place] [address] [place] TYPE AND SCREENon 07-19-2021 ABO A [facility] Comment on above: Order Comment: Speci men Type: BLOOD SPECIMEN Ordering Facility: [facility] Address: [address] [place] [address] Performed By: #### T SCR #### [facility] CLIA [id number] [address] HISTORICAL AB SCR STATUS Negative [facility] Comment on above: Order Comment: Speci men Type: BLOOD SPECIMEN Ordering Facility: [facility] Address: [address] [place] [address] Performed By: #### T SCR #### [facility] CLIA [id number] [address] Rh Nom (Bld) Positive [facility] Comment on above: Order Comment: Speci men Type: BLOOD SPECIMEN Ordering Facility: [facility] Address: [address] [place] [address] Performed By: #### T SCR #### [facility] CLIA [id number] [address] TYPE AND SCREEN EXPIRATION 07/22/2021 23:59 [facility] Comment on above: Order Comment: Speci men Type: BLOOD SPECIMEN Ordering Facility: [facility] Address: [address] [place] [address] Performed By: #### T SCR #### [facility] CLIA [id number] [address] [place] WHIIVF GC/CHLAMYDIA AMPLIF, URINEon 07-19-2021 WHIIVF GC/CHLAMYDIA AMPLIF, URINE GC AMPLIFICATION: Negative for Neisseria gonorrhoeae by amplification CHLAMYDIA AMPLIFICATION: Negative for Chlamydia trachomatis by amplification [facility] Comment on above: Performed By: #### U GCIVF #### [facility] CLIA [id number] [address] [place], [place] [id number] [place] Culture, urine Bacteria identified Cx Nom (U) Positive [facility] Work Phone: Vital Signs Date Time Vital Sign Value Performing Clinician Facility 11-25-2024 15:48-0400 Body height 162.56 cm Maynor Bowens MD Work Phone: [facility] 11-25-2024 15:46-0400 Body mass index (BMI) [Ratio] 30.4 kg/m2 Maynor Bowens MD Work Phone: [facility] 11-25-2024 15:46-0400 Body weight 80.48 kg Maynor Bowens MD Work Phone: [facility] 11-25-2024 15:46-0400 Diastolic blood pressure 71 mm[Hg] Maynor Bowens MD Work Phone: [facility] 11-25-2024 15:46-0400 Systolic blood pressure 115 mm[Hg] Maynor Bowens MD Work Phone: [facility] 10-30-2024 15:42-0400 Body height 162.56 cm Maynor Bowens MD Work Phone: [facility] 10-30-2024 15:36-0400 Body mass index (BMI) [Ratio] 29.6 kg/m2 Maynor Bowens MD Work Phone: [facility] 10-30-2024 15:36-0400 Body weight 78.27 kg Maynor Bowens MD Work Phone: [facility] 10-30-2024 15:36-0400 Diastolic blood pressure 76 mm[Hg] Maynor Bowens MD Work Phone: [facility] 10-30-2024 15:36-0400 Systolic blood pressure 114 mm[Hg] Maynor Bowens MD Work Phone: [facility] 09-30-2024 15:23-0400 Body height 162.56 cm Maynor Bowens MD Work Phone: [facility] 09-30-2024 15:23-0400 Body mass index (BMI) [Ratio] 30 kg/m2 Maynor Bowens MD Work Phone: [facility] 09-30-2024 15:23-0400 Body weight 79.37 kg Maynor Bowens MD Work Phone: [facility] 09-30-2024 15:23-0400 Diastolic blood pressure 79 mm[Hg] Maynor Bowens MD Work Phone: [facility] 09-30-2024 15:23-0400 Systolic blood pressure 118 mm[Hg] Maynor Bowens MD Work Phone: [facility] 09-08-2024 08:30-0400 Body height 162.56 cm Maynor Bowens MD Work Phone: [facility] 09-08-2024 08:28-0400 Body mass index (BMI) [Ratio] 29.9 kg/m2 Maynor Bowens MD Work Phone: [facility] 09-08-2024 08:28-0400 Body weight 79.15 kg Maynor Bowens MD Work Phone: 3(984)106-169387 [place] [address] 09-08-2024 08:28-0400 Diastolic blood pressure 69 mm[Hg] Maynor Bowens MD Work Phone: [facility] 09-08-2024 08:28-0400 Systolic blood pressure 104 mm[Hg] Maynor Bowens MD Work Phone: 8(746)[phone] [address] 06-17-2024 13:09-0400 Body mass index (BMI) [Ratio] 30.6 kg/m2 Maynor Bowens MD Work Phone: 1(088)221-572587 [place] [address] 06-17-2024 13:09-0400 Body weight 80.96 kg Maynor Bowens MD Work Phone: [facility] 06-17-2024 13:09-0400 Diastolic blood pressure 77 mm[Hg] Maynor Bowens MD Work Phone: 2(561)999-713587 [place] [address] 06-17-2024 13:09-0400 Systolic blood pressure 111 mm[Hg] Maynor Bowens MD Work Phone: [facility] 05-15-2024 14:11-0400 Body height 162.56 cm Maynor Bowens MD Work Phone: 7(114)279-587087 [place] [address] 05-15-2024 14:11-0400 Body mass index (BMI) [Ratio] 30.9 kg/m2 Maynor Bowens MD Work Phone: [facility] 05-15-2024 14:11-0400 Body weight 81.87 kg Maynor Bowens MD Work Phone: [facility] 05-15-2024 14:11-0400 Diastolic blood pressure 89 mm[Hg] Maynor Bowens MD Work Phone: [facility] 05-15-2024 14:11-0400 Systolic blood pressure 119 mm[Hg] Maynor Bowens MD Work Phone: [facility] 02-17-2024 08:13-0500 Body mass index (BMI) [Ratio] 30.27 kg/m2 Evie Vargas UTILITY SPRAY OPERATOR.HEADER MACHINE OPERATOR Work Phone: [facility] 02-17-2024 08:13-0500 Body temperature 98.71 [degF] Evie Vargas UTILITY SPRAY OPERATOR.HEADER MACHINE OPERATOR Work Phone: [facility] 02-17-2024 08:13-0500 Body weight 80 kg Evie Vargas UTILITY SPRAY OPERATOR.HEADER MACHINE OPERATOR Work Phone: [facility] 02-17-2024 08:13-0500 Diastolic blood pressure 75 mm[Hg] Evie Vargas UTILITY SPRAY OPERATOR.HEADER MACHINE OPERATOR Work Phone: [facility] 02-17-2024 08:13-0500 Heart rate 87 /min Evie Vargas UTILITY SPRAY OPERATOR.HEADER MACHINE OPERATOR Work Phone: [facility] 02-17-2024 08:13-0500 Respiratory rate 20 /min Evie Vargas UTILITY SPRAY OPERATOR.HEADER MACHINE OPERATOR Work Phone: [facility] 02-17-2024 08:13-0500 SaO2% (BldA) [Mass fraction] 96 % Evie Vargas UTILITY SPRAY OPERATOR.HEADER MACHINE OPERATOR Work Phone: [facility] 02-17-2024 08:13-0500 Systolic blood pressure 138 mm[Hg] Evie Vargas UTILITY SPRAY OPERATOR.HEADER MACHINE OPERATOR Work Phone: [facility] 01-20-2024 11:19-0500 Body mass index (BMI) [Ratio] 29.9 kg/m2 Jose Enrique Jennings UTILITY SPRAY OPERATOR.HEADER MACHINE OPERATOR Work Phone: [facility] 01-20-2024 11:19-0500 Body temperature 98.1 [degF] Jose Enrique Pendlebury UTILITY SPRAY OPERATOR.HEADER MACHINE OPERATOR Work Phone: [facility] 01-20-2024 11:19-0500 Body weight 79 kg Jose Enriquebrissa Jennings UTILITY SPRAY OPERATOR.HEADER MACHINE OPERATOR Work Phone: [facility] 01-20-2024 11:19-0500 Diastolic blood pressure 66 mm[Hg] Jose Enrique Pendlebury UTILITY SPRAY OPERATOR.HEADER MACHINE OPERATOR Work Phone: [facility] 01-20-2024 11:19-0500 Heart rate 78 /min Jose Enrique Jennings UTILITY SPRAY OPERATOR.HEADER MACHINE OPERATOR Work Phone: [facility] 01-20-2024 11:19-0500 Respiratory rate 16 /min Jose Enrique Jennings UTILITY SPRAY OPERATOR.HEADER MACHINE OPERATOR Work Phone: [facility] 01-20-2024 11:19-0500 SaO2% (BldA) [Mass fraction] 99 % Jose Enrique Jennings UTILITY SPRAY OPERATOR.HEADER MACHINE OPERATOR Work Phone: [facility] 01-20-2024 11:19-0500 Systolic blood pressure 104 mm[Hg] Jose Enrique Praterbury UTILITY SPRAY OPERATOR.HEADER MACHINE OPERATOR Work Phone: [facility] 07-18-2023 17:32-0400 Body mass index (BMI) [Ratio] 30.39 kg/m2 Krislyn Aberegg PA Work Phone: [facility] 07-18-2023 17:32-0400 Body temperature 98.2 [degF] Krislyn Aberegg PA Work Phone: [facility] 07-18-2023 17:32-0400 Body weight 80.3 kg Krislyn Aberegg PA Work Phone: [facility] 07-18-2023 17:32-0400 Diastolic blood pressure 78 mm[Hg] Krislyn Aberegg PA Work Phone: [facility] 07-18-2023 17:32-0400 Heart rate 76 /min Krislyn Aberegg PA Work Phone: [facility] 07-18-2023 17:32-0400 Respiratory rate 21 /min Krislyn Aberegg PA Work Phone: [facility] 07-18-2023 17:32-0400 SaO2% (BldA) [Mass fraction] 99 % Krislyn Aberegg PA Work Phone: [facility] 07-18-2023 17:32-0400 Systolic blood pressure 102 mm[Hg] Krislyn Aberegg PA Work Phone: [facility] 09-04-2022 08:54-0400 Body temperature 98 [degF] [facility] 09-04-2022 08:54-0400 Diastolic blood pressure 67 mm[Hg] [facility] 09-04-2022 08:54-0400 Heart rate 79 /min [facility] 09-04-2022 08:54-0400 Respiratory rate 16 /min [facility] 09-04-2022 08:54-0400 SaO2% (BldA) [Mass fraction] 97 % [facility] 09-04-2022 08:54-0400 Systolic blood pressure 131 mm[Hg] [facility] 09-01-2022 02:33-0400 Body height 162.56 cm [facility] 09-01-2022 02:33-0400 Body mass index (BMI) [Ratio] 31.9 kg/m2 [facility] 09-01-2022 02:33-0400 Body weight 84.5 kg [facility] 08-01-2022 11:42-0400 Body height 162.6 cm Hermes Parikh MD Work Phone: [facility] 08-01-2022 11:42-0400 Body weight 81.1 kg Hermes Parikh MD Work Phone: [facility] 05-16-2022 18:36-0400 Diastolic blood pressure 58 mm[Hg] [facility] 05-16-2022 18:36-0400 Heart rate 73 /min [facility] 05-16-2022 18:36-0400 Respiratory rate 16 /min [facility] 05-16-2022 18:36-0400 SaO2% (BldA) [Mass fraction] 96 % [facility] 05-16-2022 18:36-0400 Systolic blood pressure 114 mm[Hg] [facility] 05-16-2022 14:37-0400 Body height 160.02 cm [facility] 05-16-2022 14:37-0400 Body mass index (BMI) [Ratio] 30.7 kg/m2 [facility] 05-16-2022 14:37-0400 Body temperature 98.7 [degF] [facility] 05-16-2022 14:37-0400 Body weight 78.6 kg [facility] 08-12-2021 07:00-0400 Diastolic blood pressure 78 mm[Hg] Dayana Vera PT Work Phone: [facility] 08-12-2021 07:00-0400 Systolic blood pressure 122 mm[Hg] Dayana Vera PT Work Phone: [facility] 07-08-2021 07:12-0400 Body height 163.8 cm Audelia Squires UTILITY SPRAY OPERATOR.HEADER MACHINE OPERATOR Work Phone: [facility] 07-08-2021 07:12-0400 Body weight 80.83 kg Audelia Tara UTILITY SPRAY OPERATOR.HEADER MACHINE OPERATOR Work Phone: [facility] 07-08-2021 07:12-0400 Diastolic blood pressure 60 mm[Hg] Audelia Squires UTILITY SPRAY OPERATOR.HEADER MACHINE OPERATOR Work Phone: [facility] 07-08-2021 07:12-0400 Systolic blood pressure 100 mm[Hg] Audelia Tara UTILITY SPRAY OPERATOR.HEADER MACHINE OPERATOR Work Phone: [facility] 05-20-2021 07:18-0400 Body height 160 cm Hermes Parikh MD Work Phone: [facility] 05-20-2021 07:18-0400 Body weight 80.38 kg Hermes Parikh MD Work Phone: [facility] 05-20-2021 07:18-0400 Diastolic blood pressure 82 mm[Hg] Hermes Parikh MD Work Phone: [facility] 05-20-2021 07:18040 Systolic blood pressure 122 mm[Hg] Hermes Parikh MD Work Phone: [facility] Encounters Encounter Date Encounter Type Care Provider Facility Start: 12-29-2024 ambulatory Ольга Haganlukemegan Faci lity:[facility] Start: 12-29-2024 End: 12-29-2024 ambulatory Ольга Weston Facility:[facility] Start: 12-26-2024 End: 12-26-2024 ambulatory Cecymarilia Gogo Facility:[facility] Start: 12-05-2024 End: 12-05-2024 ambulatory ALEKREYNAYoel [facility] Start: 11-25-2024 End: 11-25-[address] Natacha Wei DO -[facility] Work Phone: Start: 11-25-2024 End: 11-25-2024 ambulatory Maynor Bowens MD Work Phone: -[facility] Start: 10-30-2024 End: 10-30-2024 Patient encounter procedure Paco GONZALEZ -[facility] Work Phone: Start: 10-30-2024 End: 10-30-2024 ambulatory Maynor Bowens MD Work Phone: -[facility] Start: 09-30-2024 End: 09-30-2024 Patient encounter procedure Evonne DOMINGUEZ -[facility] Work Phone: Start: 09-30-2024 End: 09-30-2024 ambulatory Maynor Bowens MD Work Phone: -[facility] Start: 09-18-2024 End: 09-18-2024 Frandy Gifford MD Work Phone: [facility] Comment on above: Med Change Request Start: 09-08-2024 End: 09-08-[address] Natacha Wei DO -[facility] Work Phone: Start: 09-08-2024 End: 09-08-2024 ambulatory Maynor Bowens MD Work Phone: -[facility] Start: 09-08-2024 End: 09-08-2024 ambulatory Maynor Bowens Facility:[facility] Start: 08-27-2024 End: 08-28-2024 Admission to same day surgery center Ary Gifford MD Work Phone: [facility] Comment on above: Progesterone pharmac y Start: 08-27-2024 End: 08-28-2024 ambulatory Ary Gifford MD Work Phone: [facility] Start: 08-26-2024 End: 08-26-2024 Refill Rachel Frederick MD Work Phone: [facility] Comment on above: Refill Request Start: 08-19-2024 End: 08-19-2024 E-mail encounter from caregiver [facility] Start: 08-19-2024 End: 08-19-2024 ambulatory [facility] Comment on above: Congratulations on G raduation! Start: 08-19-2024 End: 08-19-2024 Nursing evaluation of patient and report [employer] [facility] Work Phone: [facility] Comment on above: , location unknown (HCC) Start: 08-06-2024 End: 08-06-2024 Telemedicine consultation with patient Nurse Ata [facility] Work Phone: [facility] Start: 08-06-2024 End: 08-06-2024 ambulatory Nurse Ata [facility] Work Phone: [facility] Comment on above: Positive t est (HCC) (Primary Dx) Start: 08-05-2024 End: 08-05-2024 Telemedicine consultation with patient Nurse Ata [facility] Work Phone: [facility] Start: 08-05-2024 End: 08-05-2024 ambulatory Nurse Ata [facility] Work Phone: [facility] Comment on above: Positive t est (HCC) (Primary Dx) Start: 07-29-2024 End: 07-29-2024 Telemedicine consultation with patient Nurse Ata Henning Work Phone: [facility] Start: 07-29-2024 End: 07-29-2024 ambulatory ARY GIFFORD [facility] Comment on above: Positive t est (HCC) (Primary Dx); , location unknown (HCC) Start: 07-15-2024 End: 07-15-2024 Patient encounter procedure [employer] Work Phone: [facility] Comment on above: Female infertility ( Primary Dx) examinatio n or test, unconfirmed (Primary Dx); Encounter for assisted reproductive fertility procedure cycle Start: 07-15-2024 End: 07-15-2024 ambulatory ARY GIFFORD Facility:[facility] Start: 07-07-2024 End: 07-07-2024 Patient encounter procedure Ata Henning [facility] Work Phone: [facility] Start: 07-07-2024 End: 07-07-2024 ambulatory RACHEL FREDERICK [facility] Comment on above: Infertility Start: 06-24-2024 End: 06-26-2024 ambulatory Ary Gifford MD Work Phone: [facility] Start: 06-24-2024 End: 06-26-2024 Patient encounter procedure Ary Gifford MD Work Phone: [facility] Comment on above: Lining appointment Start: 06-17-2024 End: 06-17-[address] Ольга Ontiveros MD -[facility] Work Phone: Start: 06-17-2024 End: 06-17-2024 ambulatory Ольга Ontiveros Facility:[facility] Start: 06-16-2024 End: 06-16-2024 ambulatory Ary Gifford MD Work Phone: [facility] Start: 06-16-2024 End: 06-16-2024 Patient encounter procedure Ary Gifford MD Work Phone: [facility] Comment on above: Blood work appointme nt Start: 05-29-2024 End: 05-29-2024 ambulatory ARY GIFFORD Facility:[facility] Start: 05-29-2024 End: 05-29-2024 Patient encounter procedure Ary Gifford MD Work Phone: [facility] Comment on above: Pre-procedural labor atory examination (Primary Dx); Endometriosis; Fibroids; Fertility testing Start: 05-29-2024 End: 05-29-2024 Patient encounter status Ary Gifford MD Work Phone: [facility] Start: 05-28-2024 End: 06-24-2024 Telephone encounter Ary Gifford MD Work Phone: [facility] Comment on above: need sis order put i n so she can schedule Start: 05-15-2024 End: 05-15-2024 Patient encounter procedure Elizabeth GONZALEZ -Laboratory, Specimen Work Phone: Start: 05-15-2024 End: 05-15-2024 Patient encounter procedure Elizabeth GONZALEZ -[facility] Work Phone: Start: 05-15-2024 End: 05-15-2024 ambulatory Maynor Bowens Facility:[facility] Start: 05-15-2024 End: 05-22-2024 ambulatory Maynor Bowens MD Work Phone: [facility] Work Phone: Comment on above: Hysteroscopy questio n Start: 05-15-2024 End: 05-15-2024 ambulatory Maynor Bowens Facility:[facility] Start: 04-30-2024 End: 04-30-2024 ambulatory Ary Gifford MD Work Phone: [facility] Comment on above: Medication adjustmen t question Start: 03-15-2024 End: 03-15-2024 ambulatory ARY GIFFORD Facility:[facility] Start: 03-13-2024 End: 03-13-2024 E-mail encounter from caregiver Ary Gifford MD Work Phone: [facility] Start: 03-13-2024 End: 03-13-2024 Patient encounter procedure Ary Gifford MD Work Phone: [facility] Comment on above: Thaw plan Start: 03-13-2024 End: 03-13-2024 ambulatory ARY GIFFORD Facility:[facility] Start: 03-13-2024 End: 03-13-2024 Office outpatient visit 25 minutes Ary Gifford MD Work Phone: [facility] Comment on above: Endometriosis (Prima ry Dx); Fibroids; Fertility testing; Encounter for preconception consultation; Vitamin D deficiency; Hypothyroidism, unspecified type Start: 02-18-2024 End: 02-18-2024 Telephone encounter Evie Vargas APRN.CNP Work Phone: [facility] Comment on above: Results Start: 02-17-2024 End: 02-17-2024 Telephone encounter Naomi PEREZ Work Phone: [facility] Comment on above: Results Start: 02-17-2024 End: 02-17-2024 ambulatory Mikaela Stephen RN NURSE BLEACHING SUPERVISOR Comment on above: Medication Problem Start: 02-17-2024 End: 02-17-2024 Patient encounter procedure Evie Vargas APRN.CNP Work Phone: [facility] Comment on above: URI with cough and c ongestion (Primary Dx); Sore throat Start: 01-26-2024 End: 01-28-2024 Admission to same day surgery center Marcelina Chauhan MD Work Phone: [facility] Comment on above: Second round of IVF Start: 01-26-2024 End: 01-28-2024 ambulatory Marcelina Chauhan MD Work Phone: [facility] Start: 01-20-2024 End: 01-20-2024 ambulatory MAYNOR BOWENS Facility:[facility] Start: 01-20-2024 End: 01-20-2024 Office outpatient visit 15 minutes Jose Enrique Jennings APRN.CNP Work Phone: [facility] Comment on above: Rash (Primary Dx) Start: 07-19-2023 Telephone encounter Naomi PEREZ Work Phone: [facility] Comment on above: Results Start: 07-18-2023 End: 07-18-2023 Patient encounter procedure Naomi Elizondo PA Work Phone: [facility] Comment on above: Vaginal irritation ( Primary Dx) Start: 06-27-2023 Refill Sheng Salcedo MD Work Phone: Allergy Comment on above: Refill Request Start: 01-28-2023 ambulatory Earline Goldberg RN NURSE O N CALL Comment on above: Covid Positive Start: 09-01-2022 End: 09-04-2022 [facility] Work [facility]: Start: 08-01-2022 End: 08-01-2022 Patient encounter procedure Hermes Parikh MD Work Phone: Obstetrics/Gynecolog y Comment on above: Pelvic floor dysfunc tion in female; Endometriosis; Fibroids Start: 06-30-2022 End: 06-30-2022 Patient encounter procedure [facility] automobile contract clerk Off Start: 06-28-2022 End: 06-28-2022 ambulatory [facility] Work Phone: Start: 06-28-2022 End: 06-28-2022 Patient encounter procedure [facility] automobile contract clerk Off Start: 06-22-2022 End: 06-22-2022 Patient encounter procedure Geni Avelar MARTY.HEADER MACHINE OPERATOR Work Phone: [facility] Comment on above: MEET WITH PHYSICIAN (Primary Dx) Start: 05-16-2022 End: 05-16-2022 Emergency department patient visit [facility] Start: 02-14-2022 End: 02-14-2022 ambulatory [facility] Work Phone: Start: 02-14-2022 End: 02-14-2022 Patient encounter [facility] Start: 01-31-2022 End: 01-31-2022 ambulatory [facility] Work Phone: Start: 01-31-2022 End: 01-31-2022 Patient encounter procedure [facility] [place] automobile contract clerk Off Start: 01-18-2022 End: 01-18-2022 ambulatory Nurse Bath Work Phone: [facility] Comment on above: US Start: 01-18-2022 End: 01-18-2022 Patient encounter procedure Nurse Ata [facility] Work Phone: [facility] Start: 01-16-2022 End: 01-16-2022 ambulatory Nurse Ata hannah Beac Work Phone: [facility] Comment on above: Encounter for pregna ncy test, result positive (Primary Dx) Start: 01-16-2022 End: 01-16-2022 Telemedicine consultation with patient Nurse Ata hannah Beac Work Phone: [facility] [employer] Start: 01-14-2022 End: 01-14-2022 Telemedicine consultation with patient Nurse Ata [facility] Be[facility] Work Phone: [facility] [employer] Start: 01-14-2022 End: 01-14-2022 Patient encounter procedure Nurse Ata [facility] Beac Work Phone: [facility] Comment on above: Female infertility ( Primary Dx); APPOINTMENT CANCELLED Positive t est (Primary Dx); examination or test, unconfirmed Start: 01-13-2022 End: 01-13-2022 ambulatory Nurse Ata [facility] Fredis Work Phone: [facility] Comment on above: Encounter for pregna ncy test, result unknown (Primary Dx) Start: 01-13-2022 End: 01-13-2022 Telemedicine consultation with patient Nurse Ata [facility] Fred[facility] Work Phone: [facility] Start: 01-06-2022 End: 01-06-2022 Nursing evaluation of patient and report Nurse Ata [facility] Work Phone: [facility] Comment on above: examinatio n or test, unconfirmed (Primary Dx); , location unknown; Encounter for test, result positive Start: 12-23-2021 Telephone encounter Marcelina woodruff MD Work Phone: [facility] Comment on above: Patient Question Start: 12-23-2021 End: 12-23-2021 Patient encounter procedure [facility] Work Phone: [facility] Comment on above: Female infertility ( Primary Dx) examinatio n or test, unconfirmed (Primary Dx) Start: 12-22-2021 Telephone encounter Olive bray [facility] Comment on above: Patient Update Start: 12-16-2021 End: 12-16-2021 Nursing evaluation of patient and report Nurse Ata [facility] Fred[facility] Work Phone: [facility] Comment on above: Female infertility Start: 12-11-2021 Refill Marcelina Argueta Work Phone: [facility] Comment on above: Refill Request Start: 12-05-2021 Telephone encounter Marcelina woodruff MD Work Phone: [facility] Comment on above: Patient Update Start: 11-28-2021 End: 11-28-2021 Nursing evaluation of patient and report Nurse Ata [facility] Work Phone: [facility] Comment on above: examinatio n or test, unconfirmed Start: 11-14-2021 End: 11-14-2021 Patient encounter procedure [facility] [employer] [facility] Work Phone: [facility] Comment on above: Primary female infer tility (Primary Dx) Start: 11-11-2021 Telephone encounter Rosalie Paige [facility] Comment on above: Patient Update Start: 11-07-2021 Telephone encounter Marcelina woodruff MD Work Phone: [facility] Comment on above: Patient Question Start: 11-07-2021 End: 11-07-2021 Nursing evaluation of patient and report Nurse Ata [facility] Beac Work Phone: [facility] Comment on above: Female infertility Start: 10-19-2021 Telephone encounter Marcelina woodruff MD Work Phone: [facility] Comment on above: Next steps for impla ntation Start: 09-30-2021 Telephone encounter Marcelina woodruff MD Work Phone: [facility] Comment on above: Next Steps Start: 09-08-2021 ambulatory Argenis Espinoza PhD Work Phone: [facility] Comment on above: PGT results Start: 09-08-2021 E-mail encounter fro m caregiver Argenis Espinoza PhD Work Phone: [facility] [employer] Start: 09-08-2021 Telephone encounter Marcelina woodruff MD Work Phone: [facility] Comment on above: Meds and next steps Start: 08-28-2021 End: 08-28-2021 Patient encounter procedure [facility] Work Phone: [facility] Comment on above: Primary female infer tility (Primary Dx) Start: 08-26-2021 End: 08-26-2021 ambulatory Nurse Ata [facility] Beac Work Phone: [facility] Comment on above: Female infertility ( Primary Dx) Start: 08-26-2021 End: 08-26-2021 Telemedicine consultation with patient Nurse Ata [facility] Beac Work Phone: [employer] [employer] Start: 08-24-2021 End: 08-24-2021 Nursing evaluation of patient and [facility] Work Phone: [facility] Comment on above: Hyperstimulation of ovaries (Primary Dx) Start: 08-23-2021 Telephone encounter Marcelina woodruff MD Work Phone: [facility] Comment on above: Embryo testing; Michelle carroll (does she do the paperwork?) Start: 08-22-2021 End: 08-22-2021 Patient encounter procedure [facility] Work Phone: [facility] Comment on above: Female infertility ( Primary Dx) Start: 08-21-2021 End: 08-21-2021 Nursing evaluation of patient and report Nurse [facility] Work Phone: [facility] Comment on above: Primary female infer tility Start: 08-20-2021 End: 08-20-2021 Nursing evaluation of patient and report Nurse [facility] Work Phone: [facility] Comment on above: Primary female infer tility (Primary Dx) Start: 08-19-2021 End: 08-19-2021 Nursing evaluation of patient and report Nurse [facility] Be Work Phone: [facility] Comment on above: Female infertility Start: 08-17-2021 End: 08-17-2021 ambulatory Nurse [facility] Be Work Phone: [facility] Comment on above: Female infertility ( Primary Dx) Start: 08-17-2021 End: 08-17-2021 Telemedicine consultation with patient Nurse [facility] Work Phone: [facility] Start: 08-17-2021 Telephone encounter Marcelina woodruff MD Work Phone: [facility] Comment on above: Estrogen level resul ts Start: 08-16-2021 End: 08-16-2021 Nursing evaluation of patient and report Nurse [facility] Work Phone: [facility] Comment on above: Female infertility Start: 08-12-2021 End: 08-12-2021 ambulatory [facility] PT [facility] Start: 08-12-2021 End: 08-12-2021 Manual pelvic examination Dayana Vera PT Work Phone: [facility] Comment on above: High-tone pelvic rohan or dysfunction in female (Primary Dx) Start: 08-11-2021 Telephone encounter Marcelina woodruff MD Work Phone: [facility] Comment on above: cecile Start: 08-08-2021 End: 08-08-2021 Nursing evaluation of patient and report Nurse Ata [facility] Beac Work Phone: [facility] Comment on above: Female infertility Start: 07-28-2021 Telephone encounter Marcelina woodruff MD Work Phone: [facility] Comment on above: frederick Start: 07-25-2021 Telephone encounter Marcelina woodruff Work Phone: [facility] Comment on above: Question lmp started oc's 07/24 (set up baseline) Start: 07-21-2021 ambulatory Marcelina Argueta Work Phone: [facility] Comment on above: Genetic Test Results Start: 07-21-2021 Telephone encounter Marcelina woodruff Work Phone: [facility] Comment on above: Question Start: 07-13-2021 Telephone encounter Marcelina woodruff MD Work Phone: [facility] Comment on above: frederick (pt's mother has questions about finances and insurance) Start: 07-12-2021 Telephone encounter Marcelina woodruff MD Work Phone: [facility] Comment on above: frederick Start: 07-08-2021 End: 07-08-2021 Patient encounter procedure Audelia Pacheco APRN.CNP Work Phone: OB/Gynecology Comment on above: Encounter for gyneco logical examination (general) (routine) without abnormal findings (Primary Dx); Screening for cervical cancer; Encounter for screening for human papillomavirus (HPV) Start: 07-08-2021 End: 07-08-2021 Patient encounter status Audelia Pacheco APRN.HEADER MACHINE OPERATOR Work Phone: OB/Gynecology Start: 07-05-2021 ambulatory Hermes Parikh MD Work Phone: Gynecology Comment on above: Endo/Fertility quest ion Start: 07-04-2021 ambulatory No Pcp Libby momin [place] Start: 07-04-2021 End: 07-04-2021 Nursing evaluation of patient and report Nurse Ata [facility] Work Phone: [facility] Comment on above: Female infertility ( Primary Dx) Start: 06-28-2021 Telephone encounter Marcelina woodruff MD Work Phone: [facility] Comment on above: frederick Start: 06-27-2021 End: 06-27-2021 ambulatory Marcelina Chauhan MD Work Phone: [facility] Comment on above: Infertility counseli ng (Primary Dx) Start: 06-27-2021 End: 06-27-2021 Telemedicine consultation with patient Marcelina Chauhan MD Work Phone: [facility] Start: 05-30-2021 End: 05-30-2021 Patient encounter procedure Barb Galvez APRN.HEADER MACHINE OPERATOR Work Phone: [facility] Comment on above: Encounter for artifi cial insemination (Primary Dx) Start: 05-20-2021 End: 05-20-2021 Patient encounter procedure Hermes Parikh MD Work Phone: Gynecology Comment on above: High-tone pelvic rohan or dysfunction in female (Primary Dx); Chronic pelvic pain in female; History of endometriosis; Dyspareunia in female Start: 05-16-2021 Telephone encounter Marcelina woodruff MD Work Phone: [facility] Comment on above: lmp 05/16/21/switch p rotocol (see mychart message) Start: 05-12-2021 ambulatory Marcelina Argueta Work Phone: [facility] Comment on above: Test Result Question Start: 05-12-2021 Telephone encounter Marcelina woodruff MD Work Phone: [facility] Comment on above: Question Procedures Date Procedure Procedure Detail Performing Clinician Start: 09-08-2024 Methadone measurement, urine Maynor Bowens MD Work Phone: Start: 09-08-2024 Urine culture Maynor Bowens MD Work Phone: Start: 09-08-2024 Hepatitis C antibody measurement Maynor Bowens MD Work Phone: Comment on above: Reactive: Presumptive evidence of antibo dies to HCV. Follow CDC recommendations for supplemental testing.Non-Reactive: Antibodies to HCV were not detected; does not exclude the possibility of exposure to HCVReactive Results are presumptive evidence of antibodies to HCV. Follow CDC recommendations for supplemental testing.Order confirmation testing: HCV Quant by PCR testing - HCVPCR #[id number] Non Reactive: < 0.8 Equivocal: >/= 0.8 to < 1.0 Reactive: >/= 1.0The CDC requires that a reactive/equivocal HCV antibody result be sent out for confirmation. HCV Quant by PCR testing. Start: 09-08-2024 Rubella IgG measurement Maynor Bowens MD Work Phone: Comment on above: Antibody Result: InterpretationNon-React nati: Non-ImmuneReactive: ImmuneThe following results were obtained with the [employer] Rubella IgG assay. Results from assays of other manufacturers cannot be used interchangeably. Start: 09-08-2024 Serologic test for syphilis Maynor Bowens MD Work Phone: Start: 08-19-2024 Us preg uterus after 1st trimest 02/19 gestation Rachel Frederick MD Work Phone: Start: 07-07-2024 Us pelvic nonobstetric image dcmtn limited/f/u Rachel Frederick MD Work Phone: Start: 05-29-2024 Saline infus sonohysterography w/color doppler Ary Gifford MD Work Phone: Start: 05-29-2024 Urine test visual color cmprsn meths Ary Gifford MD Work Phone: Start: 05-15-2024 Liquid based cervical cytology screening Maynor Bowens MD Work Phone: Comment on above: NEGATIVE FOR INTRAEPITHELIAL LESION OR M ALIGNANCY. This liquid based Th inPrep(R) pap test was screened withthe use of an image guided system. Start: 01-18-2022 Us preg uterus after 1st trimest 02/19 gestation Enrique Ken MD Work Phone: Start: 01-13-2022 HCG QUANTITATIVE [facility] Provider Start: 01-06-2022 Gonadotropin chorionic quantitative Marcelina Chauhan MD Work Phone: Start: 12-16-2021 Us pelvic nonobstetric image dcmtn limited/f/u Marcelina Chauhan MD Work Phone: Start: 12-16-2021 Assay of estradiol Marcelina Chauhan MD Work Phone: Start: 11-28-2021 Gonadotropin chorionic quantitative Jovanna Diaz MD Work Phone: Start: 11-07-2021 Assay of estradiol Marcelina Chauhan MD Work Phone: Start: 08-21-2021 Gonadotropin luteinizing hormone Yesi Horn MD Work Phone: Start: 08-19-2021 Assay of estradiol Marcelina Chauhan MD Work Phone: Start: 08-16-2021 Assay of estradiol Marcelina Chauhan MD Work Phone: Start: 08-08-2021 Assay of estradiol Marcelina Chauhan MD Work Phone: Start: 07-19-2021 Antibody screen Comment on above: Order Comment: Specimen Type: BLOOD SPEC IMEN Ordering Facility: [facility] Address: [address] [place] [address] [place] [address] Performed By: #### T SCR #### [facility] CLIA [id number] [address] [place] [address] [place] Start: 08-07-2014 History of laser assisted in situ keratomileusis S/P LASIK (laser assisted in situ keratomileusis) of both eyes - Both Eyes Marcelina Chauhan MD Work Phone: H/O: section Previous c esarean section Maynor Bowens MD Work Phone: Comment on above: possibly interested in H/O: section Previous c esarean section Dr. Natacha Wei DO H/O: section Previous c esarean section Evonne Mendez CNM H/O: section Previous c esarean section Paco Shaikh TELEPHONE LINEWORKER-C H/O: section Previous c esarean section Dr. Natacha Wei DO Urine culture Urine culture Plan of Treatment Date Care Activity Detail Author Start: 2062 RSV Vaccine (1 - 1-dose 75+ series) RSV Vaccine (1 - 1-dose 75+ series) [facility] Start: 2047 RSV Vaccine (1 - 1-dose 60+ series) RSV Vaccine (1 - 1-dose 60+ series) [facility] Start: 07-31-2032 Urine microalbumin profile DTaP,Tdap,Td Vaccine (3 - Td or Tdap) [facility] Start: 09-10-2028 Urine microalbumin profile DTaP,Tdap,Td Vaccine (2 - Td or Tdap) [facility] Start: 07-08-2026 HPV TESTING HPV TESTING [facility] Start: 07-08-2026 PAP TESTING PAP TESTING [facility] Start: 07-08-2026 Screening for malignant neoplasm of cervix [facility] Start: 10-20-2024 Influenza vaccination [facility] Start: 09-08-2024 CBC W Auto Differential panel - Blood [facility] Start: 09-08-2024 Hemoglobin A1c/Hemoglobin.total in Blood [facility] Start: 09-08-2024 Hepatitis C antibody measurement [facility] Start: 09-08-2024 Rubella IgG measurement [facility] Start: 09-08-2024 Serologic test for syphilis [facility] Start: 09-08-2024 Thyroid stimulating hormone measurement [facility] Start: 09-08-2024 [facility] Start: 08-13-2024 End: 08-13-2024 Nursing evaluation of patient and report 08/13/2024 11:10 AM EDT Nurse Visit [facility] [address] [place] [address] ob scan [facility] Comment on above: ob scan Start: 08-06-2024 End: 08-06-2024 ambulatory 08/06/2024 6:00 PM EDT [facility] [address] [place] [phone] Beac, Nurse Ata [facility] [address] [place] [phone] repeat hcg level, f/u on 08/05 results [facility] Comment on above: repeat hcg level, f/u on 08/05 results Start: 08-05-2024 End: 08-05-2024 ambulatory 08/05/2024 6:00 PM EDT [facility] [address] [place] [phone] [place], Nurse Ata [facility] [address] [place] [address] 2nd hcg level [facility] Comment on above: 2nd hcg level Start: 07-30-2024 End: 10-29-2024 Choriogonadotropin.beta subunit [Units/volume] in Serum or Plasma HCG QUANTITATIVE Lab STAT Positive test (HCC) Expected: 07/30/2024, Expires: 10/29/2024 [facility] Work Phone: Comment on above: Expected: 07/30/2024, Expires: Start: 07-29-2024 End: 07-29-2024 ambulatory 07/29/2024 6:00 PM EDT [facility] [address] [place] [address] Beac, Nurse Ata [facility] [address] [place] [address] [facility] - HCG Levels - [facility] Comment on above: [facility] - HCG Levels - [facility] Start: 07-29-2024 End: 10-28-2024 Choriogonadotropin.beta subunit [Units/volume] in Serum or Plasma HCG QUANTITATIVE Lab STAT examination or test, unconfirmed Expected: 07/29/2024, Expires: 10/28/2024 [facility] Work Phone: Comment on above: Expected: 07/29/2024, Expires: Start: 07-29-2024 End: 07-29-2025 OBSTETRIC ULTRASOUND WHI OBSTETRIC ULTRASOUND [facility]I Anc Imaging Routine , location unknown (HCC) Expected: 07/29/2024, Expires: 07/29/2025 [facility] Comment on above: Expected: 07/29/2024, Expires: Start: 07-07-2024 End: 07-07-2024 ambulatory 07/07/2024 7:00 AM EDT Procedure [facility] [address] [facility] [place] [id number] Lining check e2/p4 [facility] Comment on above: Lining check e2/p4 Start: 05-15-2024 Liquid based cervical cytology screening [facility] Start: 03-15-2024 End: 03-15-2024 ambulatory 03/15/2024 8:15 AM EST Results Only [facility] [address] [facility] [place] [address] [facility] Start: 03-13-2024 End: 06-12-2024 25-hydroxyvitamin D3 [Mass/volume] in Serum or Plasma VITAMIN D 25 HYDROXY Lab Routine Vitamin D deficiency Expected: 03/13/2024, Expires: 06/12/2024 [facility] Comment on above: Expected: 03/13/2024, Expires: Start: 03-13-2024 End: 06-12-2024 Thyrotropin [Units/volume] in Serum or Plasma THYROID STIMULATING HORMONE Lab Routine Hypothyroidism, unspecified type Expected: 03/13/2024, Expires: 06/12/2024 [facility] Comment on above: Expected: 03/13/2024, Expires: Start: 03-13-2024 End: 06-12-2024 Thyroxine (T4) free [Mass/volume] in Serum or Plasma T4 FREE/FREE THYROXINE Lab Routine Hypothyroidism, unspecified type Expected: 03/13/2024, Expires: 06/12/2024 [facility] Comment on above: Expected: 03/13/2024, Expires: Start: 03-13-2024 End: 06-12-2024 TYPE + SCREEN TYPE + SCREEN Blood Bank Routine Encounter for preconception consultation Expected: 03/13/2024, Expires: 06/12/2024 [facility] Comment on above: Expected: 03/13/2024, Expires: Start: 03-13-2024 End: 03-13-2025 US Uterus and Fallopian tubes W saline IU SONOHYSTEROGRAPHY (SIS) US [facility]I Anc Imaging Routine Endometriosis Fibroids Fertility testing Expected: 03/13/2024, Expires: 03/13/2025 [facility] Work Phone: Comment on above: Expected: 03/13/2024, Expires: Start: 10-21-2023 Covid-19 Vaccine ( season) Covid-19 Vaccine () [facility] Start: 10-21-2023 Influenza vaccination [facility] Start: 06-23-2023 ANNUAL PCP TEAM CHRONIC DISEASE VISIT ANNUAL PCP TEAM CHRONIC DISEASE VISIT [facility] Start: 10-20-2022 Covid-19 Vaccine ( season) Covid-19 Vaccine () [facility] Start: 10-20-2022 Influenza vaccination [facility] Start: 09-04-2022 Patient discharge [facility] Start: 09-03-2022 Application of abdominal corset [facility] Start: 09-02-2022 End: 09-03-2022 [facility] Start: 09-02-2022 Administration of medication [facility] Start: 09-02-2022 Ambulation therapy management [facility] Start: 09-02-2022 Application of device [facility] Start: 09-02-2022 Application of intermittent pneumatic compression device [facility] Start: 09-02-2022 Assessment of risk of venous thromboembolism [facility] Start: 09-02-2022 Catheterization of vein [facility] Start: 09-02-2022 Deep breathing and coughing exercises [facility] Start: 09-02-2022 Exercises [facility] Start: 09-02-2022 Incentive spirometry [facility] Start: 09-02-2022 Measuring intake and output [facility] Start: 09-02-2022 End: 09-02-2022 Notification of physician [facility] Start: 09-02-2022 Procedure discontinued [facility] Start: 09-02-2022 Provision of activity privileges [facility] Start: 09-02-2022 Vital signs measurements [facility] Start: 09-02-2022 Wound care [facility] Start: 09-02-2022 Application of abdominal corset [facility] Start: 09-02-2022 Consultation [facility] Start: 09-01-2022 End: 09-02-2022 [facility] Start: 09-01-2022 Notification of physician [facility] Start: 09-01-2022 Admission procedure [facility] Start: 09-01-2022 Anesthesia consultation [facility] Start: 09-01-2022 Insertion of catheter into peripheral vein [facility] Start: 09-01-2022 Introduction of urinary catheter [facility] Start: 09-01-2022 Provision of activity privileges [facility] Start: 09-01-2022 Nonstress test [facility] Start: 09-01-2022 Obstetric monitoring [facility] Start: 09-01-2022 Vital signs measurements [facility] Start: 05-17-2022 [facility] Start: 05-16-2022 [facility] Start: 01-16-2022 End: 01-14-2023 OBSTETRIC ULTRASOUND [facility] OBSTETRIC ULTRASOUND [facility] Anc Imaging Routine examination or test, unconfirmed Expected: 01/16/2022, Expires: 01/14/2023 [facility] Work Phone: Comment on above: Expected: 01/16/2022, Expires: Start: 01-06-2022 End: 03-08-2022 Choriogonadotropin.beta subunit [Units/volume] in Serum or Plasma HCG QUANTITATIVE Lab STAT examination or test, unconfirmed Expected: 01/06/2022, Expires: 03/08/2022 [facility] Work Phone: Comment on above: Expected: 01/06/2022, Expires: 3 Start: 01-06-2022 End: 01-06-2023 OBSTETRIC ULTRASOUND [facility] OBSTETRIC ULTRASOUND [facility] Anc Imaging Routine , location unknown Expected: 01/06/2022, Expires: 01/06/2023 [facility] Work Phone: Comment on above: Expected: 01/06/2022, Expires: 3 Start: 12-08-2021 End: 02-07-2022 Estradiol (E2) [Mass/volume] in Serum or Plasma ESTRADIOL-17B BLD Lab STAT Female infertility Expected: 12/08/2021, Expires: 02/07/2022 [facility] Work Phone: Comment on above: Expected: 12/08/2021, Expires: 2 Start: 12-08-2021 End: 12-08-2022 FOLLICULAR US [facility] FOLLICULAR US [facility] Anc Imaging Routine Female infertility Expected: 12/08/2021, Expires: 12/08/2022 [facility] Work Phone: Comment on above: Expected: 12/08/2021, Expires: 3 Start: 12-08-2021 End: 02-07-2022 Progesterone [Mass/volume] in Serum or Plasma PROGESTERONE BLD Lab STAT Female infertility Expected: 12/08/2021, Expires: 02/07/2022 [facility] Work Phone: Comment on above: Expected: 12/08/2021, Expires: 2 Start: 10-20-2021 Influenza vaccination [facility] Start: 10-09-2021 End: 12-09-2021 Estradiol (E2) [Mass/volume] in Serum or Plasma ESTRADIOL-17B BLD Lab STAT Female infertility Expected: 10/09/2021, Expires: 12/09/2021 [facility] Work Phone: Comment on above: Expected: 10/09/2021, Expires: 2 Start: 10-09-2021 End: 10-21-2022 Progesterone [Mass/volume] in Serum or Plasma PROGESTERONE BLD Lab STAT Female infertility Expected: 10/09/2021, Expires: 12/09/2021 [facility] Work Phone: Comment on above: Expected: 10/09/2021, Expires: 2 Start: 08-08-2021 End: 10-08-2021 Blood count hematocrit HEMATOCRIT (HCT) Lab STAT Female infertility Expected: 08/08/2021, Expires: 10/08/2021 [facility] Work Phone: Comment on above: Expected: 08/08/2021, Expires: 2 Start: 07-18-2021 End: 07-04-2022 [facility] IVF PACKAGE 1 [facility] IVF PACKAGE 1 Lab Routine Female infertility Expected: 07/18/2021, Expires: 07/04/2022 [facility] Work Phone: Comment on above: Expected: 07/18/2021, Expires: 3 Start: 07-18-2021 End: 07-04-2022 WHIIVF GC/CHLAMYDIA AMPLIF, URINE WHIIVF GC/CHLAMYDIA AMPLIF, URINE Microbiology Routine Female infertility Expected: 07/18/2021, Expires: 07/04/2022 [facility] Work Phone: Comment on above: Expected: 07/18/2021, Expires: 3 Start: 07-04-2021 End: 09-03-2021 TYPE AND SCREEN TYPE AND SCREEN Blood Bank Routine Female infertility Expected: 07/04/2021, Expires: 09/03/2021 [facility] Work Phone: Comment on above: Expected: 07/04/2021, Expires: 2 Start: 12-27-2020 COVID-19 VACCINE (3 - Booster for Moderna series) COVID-19 VACCINE (3 - Booster for Moderna series) [facility] Start: 10-20-2020 Influenza vaccination INFLUENZA (#1) [facility] Start: 09-21-2020 COVID-19 VACCINE (3 - Booster for Moderna series) COVID-19 VACCINE (3 - Booster for Moderna series) [facility] Start: 08-24-2020 COVID-19 VACCINE (3 - Moderna risk 4-dose series) COVID-19 VACCINE (3 - Moderna risk 4-dose series) [facility] Start: 04-20-2020 PAP TESTING PAP TESTING [facility] Start: 07-25-2017 HPV TESTING HPV TESTING [facility] Start: 2006 Hepatitis B Vaccine (1 of 3 - 19+ 3-dose series) Hepatitis B Vaccine (1 of 3 - 19+ 3-dose series) [facility] Start: 2006 Urine microalbumin profile DTAP,TDAP,TD (1 - Tdap) [facility] Start: 2005 ANNUAL PCP TEAM CHRONIC DISEASE VISIT ANNUAL PCP TEAM CHRONIC DISEASE VISIT [facility] Start: 2005 Anxiety Screening Anxiety Screening [facility] Start: 2005 HEPATITIS C SCREENING HEPATITIS C SCREENING [facility] Start: 2005 HIV SCREENING HIV SCREENING [facility] Start: 1987 HEPATITIS B (1 of 3 - 3-dose series) HEPATITIS B (1 of 3 - 3-dose series) [facility] Start: 1987 Hepatitis B Vaccine (1 of 3 - 3-dose series) Hepatitis B Vaccine (1 of 3 - 3-dose series) [facility] BACTERIAL VAGINOSIS NAAT BACTERI AL VAGINOSIS NAAT Lab Routine Vaginal irritation 07/18/2023 5:49 PM EDT [facility] WILL/TRICHOMONAS NAAT WILL /TRICHOMONAS NAAT Lab Routine Vaginal irritation 07/18/2023 5:49 PM EDT [facility] Work Phone: Chlamydia deoxyribonucleic acid detection [facility] COVID & INFLUENZA A/ B & RSV PCR, ROUTINE COVID & INFLUENZA A/B & RSV PCR, ROUTINE Microbiology Routine URI with cough and congestion Ordered: 02/17/2024 [facility] Work Phone: Comment on above: Ordered: 02/17/2024 Cytology report of Cervical or vaginal smear or scraping Cyto stain.thin prep [facility] Drugs identified in Urine by Screen method [facility] Erythrocyte mean corpuscular volume determination [facility] End: 09-24-2021 Estradiol (E2) [Mass/volume] in Serum or Plasma ESTRADIOL-17B BLD Lab STAT Female infertility 6 Occurrences starting 07/25/2021 until 09/24/2021 [facility] Work Phone: Comment on above: 6 Occurrences starting 07/25/2021 until 09/24/2021 FOLLICULAR US [facility] FOLLICULAR US [facility] Anc Imaging Routine Encounter for fertility testing Ordered: 05/16/2021 [facility] Work Phone: Comment on above: Ordered: 05/16/2021 End: 09-24-2021 FOLLICULAR US [facility]I FOLLICULAR US [facility] Anc Imaging Routine Female infertility 6 Occurrences starting 07/25/2021 until 09/24/2021 [facility] Work Phone: Comment on above: 6 Occurrences starting 07/25/2021 until 09/24/2021 End: 09-08-2022 FOLLICULAR US [facility]I FOLLICULAR US [facility] Anc Imaging Routine Female infertility 1 Occurrences starting 09/08/2021 until 09/08/2022 [facility] Work Phone: Comment on above: 1 Occurrences starting 09/08/2021 until 09/08/2022 Hematocrit [Volume Fraction] of Blood [facility] Hemoglobin [Mass/vol ume] in Blood [facility] Hepatitis B virus surface Ag [Presence] in Serum [facility] Leukocytes [#/volume ] in Blood [facility] Mean corpuscular hemoglobin concentration determination [facility] Mean corpuscular hemoglobin determination [facility] Neutrophil count [facility] Neutrophil percent differential count [facility] PAP FLUID CERVICAL SCREENING PAP FLUID CERVICAL SCREENING Lab Routine Screening for cervical cancer Encounter for screening for human papillomavirus (HPV) Ordered: 07/08/2021 [facility] Work Phone: Comment on above: Ordered: 07/08/2021 Path report.final Dx Spec [facility] Patient Education ED Palpitations [facility] Work Phone: Patient referral [facility] Work Phone: Platelets [#/volume] in Blood [facility] Red blood cell count [facility] Red cell distributio n width determination [facility] c [facility] c [facility] c [facility] c [facility] c [facility] c [facility] c [facility] c [facility] Immunizations Immunization Date Immunization Notes Care Provider Fa [facility] 09-04-2022 measles, mumps and rubella virus vaccine [facility] 02-04-2020 influenza, injectabl e, quadrivalent, preservative free Marcelina Chauhan MD Work Phone: [facility] 02-04-2020 influenza virus vaccine, unspecified formulation Earline Goldberg RN [facility] 09-27-2010 human papilloma viru s vaccine, quadrivalent Marcelina Chauhan MD Work Phone: [facility] Work Phone: 01-25-2009 human papilloma viru s vaccine, quadrivalent Marcelina Chauhan MD Work Phone: [facility] 09-24-2008 human papilloma viru s vaccine, quadrivalent Marcelina Chauhan MD Work Phone: [facility] Payers Date Payer Category Payer Self-pay [id number] 2023 Unknown MMO MMO [employer] PPO [id number] 2023-Present [phone] [address] [place] [address] PPO [id number] 2023 Unknown [id number] 2021 Private Health Insurance [facility] CHOICE PLUS [id number] 2021-Present [phone] [address] [place] [address] O [id number] 2021 Private Health Insurance [id number] 1987 Unknown [id number] Private Health Insurance [id number] Unknown [id number] Unknown [id number] 462 Unknown [id number] 462 Unknown [id number] 462 Unknown [id number] 462 Unknown [id number] 462 Unknown [id number] 462 Unknown [id number] 462 Unknown [id number] 462 Unknown [id number] 462 Unknown [id number] 462 Unknown [id number] 462 Unknown [id number] 462 Social History Date Type Detail Facility Start: 07-25-2012 End: 08-28-2024 Tobacco smoking status NHIS Never smoked tobacco [facility] Work Phone: Start: 07-25-2012 End: 08-01-2022 Tobacco use and exposure Smokeless tobacco non-user [facility] Work Phone: Start: 03-31-2021 End: 09-07-2021 Alcohol intake Current drinker of alcohol (finding) [facility] Start: 01-20-2020 History SDOH Alcohol Comment 10 drinks per week per pt 01/20/2020 [facility] Start: 1985 Sex Assigned At Female [facility] Start: 04-28-2021 End: 01-18-2022 Exposure to SARS-CoV-2 (event) Not sure [facility] Start: 07-15-2021 End: 08-28-2021 Exposure to SARS-CoV-2 (event) Unable to assess [facility] Start: 02-05-2020 End: 09-01-2022 Tobacco smoking status NHIS Unknown if ever smoked [facility] Start: 02-05-2020 None [facility] Start: 02-05-2020 With Family [facility] Start: 02-05-2020 Non-smoker [facility] Start: 12-18-2021 [facility] Start: 08-01-2022 End: 08-05-2024 Alcohol intake Ex-drinker (finding) [facility] Start: 06-22-2022 End: 08-01-2022 History of Social function [facility] Start: 06-22-2022 End: 08-01-2022 Tobacco use panel [facility] National Score (1-100), lower number is lower risk 69 [facility] Start: 10-28-2019 Gender identity Identifies as female gender (finding) [facility] Start: 05-20-2024 Sex Female (finding) [facility] Medical Equipment Procedure Code Equipment Code Equipment Original Text Equipment Identifier Dates Laparoscopy, diagnostic DRESSING,INTERCEE D 3X4 FDA Start: 08-07-2019 Laparoscopy, diagnostic DRESSING,INTERCEE D 3X4 FDA Start: 08-07-2019 Laparoscopy, diagnostic DRESSING,INTERCEE D 3X4 FDA Start: 08-07-2019 Laparoscopy, diagnostic DRESSING,INTERCEE D 3X4 FDA Start: 08-07-2019 Laparoscopy, diagnostic DRESSING,INTERCEE D 3X4 FDA Start: 08-07-2019 Laparoscopy, diagnostic DRESSING,INTERCEE D 3X4 FDA Start: 08-07-2019 Laparoscopy, diagnostic DRESSING,INTERCEE D 3X4 FDA Start: 08-07-2019 Laparoscopy, diagnostic DRESSING,INTERCEE D 3X4 FDA Start: 08-07-2019 Laparoscopy, diagnostic DRESSING,INTERCEE D 3X4 FDA Start: 08-07-2019 Laparoscopy, diagnostic DRESSING,INTERCEE D 3X4 FDA Start: 08-07-2019 Laparoscopy, diagnostic DRESSING,INTERCEE D 3X4 FDA Start: 08-07-2019 Laparoscopy, diagnostic DRESSING,INTERCEE D 3X4 FDA Start: 08-07-2019 Laparoscopy, diagnostic DRESSING,INTERCEE D 3X4 FDA Start: 08-07-2019 Laparoscopy, diagnostic DRESSING,INTERCEE D 3X4 FDA Start: 08-07-2019 Laparoscopy, diagnostic DRESSING,INTERCEE D 3X4 FDA Start: 08-07-2019 Laparoscopy, diagnostic DRESSING,INTERCEE D 3X4 FDA Start: 08-07-2019 Laparoscopy, diagnostic DRESSING,INTERCEE D 3X4 FDA Start: 08-07-2019 Laparoscopy, diagnostic DRESSING,INTERCEE D 3X4 FDA Start: 08-07-2019 Laparoscopy, diagnostic DRESSING,INTERCEE D 3X4 FDA Start: 08-07-2019 Laparoscopy, diagnostic DRESSING,INTERCEE D 3X4 FDA Start: 08-07-2019 Laparoscopy, diagnostic DRESSING,INTERCEE D 3X4 FDA Start: 08-07-2019 Laparoscopy, diagnostic DRESSING,INTERCEE D 3X4 FDA Start: 08-07-2019 Laparoscopy, diagnostic DRESSING,INTERCEE D 3X4 FDA Start: 08-07-2019 Laparoscopy, diagnostic DRESSING,INTERCEE D 3X4 FDA Start: 08-07-2019 Laparoscopy, diagnostic DRESSING,INTERCEE D 3X4 FDA Start: 08-07-2019 Laparoscopy, diagnostic DRESSING,INTERCEE D 3X4 FDA Start: 08-07-2019 Laparoscopy, diagnostic DRESSING,INTERCEE D 3X4 FDA Start: 08-07-2019 Laparoscopy, diagnostic DRESSING,INTERCEE D 3X4 FDA Start: 08-07-2019 Laparoscopy, diagnostic DRESSING,INTERCEE D 3X4 FDA Start: 08-07-2019 Laparoscopy, diagnostic DRESSING,INTERCEE D 3X4 FDA Start: 08-07-2019 Laparoscopy, diagnostic DRESSING,INTERCEE D 3X4 FDA Start: 08-07-2019 Laparoscopy, diagnostic DRESSING,INTERCEE D 3X4 FDA Start: 08-07-2019 Laparoscopy, diagnostic DRESSING,INTERCEE D 3X4 FDA Start: 08-07-2019 Laparoscopy, diagnostic DRESSING,INTERCEE D 3X4 FDA Start: 08-07-2019 Laparoscopy, diagnostic DRESSING,INTERCEE D 3X4 FDA Start: 08-07-2019 Laparoscopy, diagnostic DRESSING,INTERCEE D 3X4 FDA Start: 08-07-2019 Laparoscopy, diagnostic DRESSING,INTERCEE D 3X4 FDA Start: 08-07-2019 Laparoscopy, diagnostic DRESSING,INTERCEE D 3X4 FDA Start: 08-07-2019 Laparoscopy, diagnostic DRESSING,INTERCEE D 3X4 FDA Start: 08-07-2019 Laparoscopy, diagnostic DRESSING,INTERCEE D 3X4 FDA Start: 08-07-2019 Laparoscopy, diagnostic DRESSING,INTERCEE D 3X4 FDA Start: 08-07-2019 Laparoscopy, diagnostic DRESSING,INTERCEE D 3X4 FDA Start: 08-07-2019 Laparoscopy, diagnostic DRESSING,INTERCEE D 3X4 FDA Start: 08-07-2019 Laparoscopy, diagnostic DRESSING,INTERCEE D 3X4 FDA Start: 08-07-2019 Laparoscopy, diagnostic DRESSING,INTERCEE D 3X4 FDA Start: 08-07-2019 Laparoscopy, diagnostic DRESSING,INTERCEE D 3X4 FDA Start: 08-07-2019 Laparoscopy, diagnostic DRESSING,INTERCEE D 3X4 FDA Start: 08-07-2019 Laparoscopy, diagnostic DRESSING,INTERCEE D 3X4 FDA Start: 08-07-2019 [id number], [id number], [id number], [id number], [id number], [id number], [id number] Start: 09-08-2021 End: 02-17-2024 Comment on above: To be used to inject progesterone in oil Goals Date Patient Goal Desired Activity /State Functional Status Date Assessment Result Facility 02-04-2020 Are you deaf, or do you have serious difficulty hearing No 02/04/2020 6:00 PM Trina Pringle, SAVANAH No [facility] 02-04-2020 Are you blind, or do you have serious difficulty seeing, even when wearing glasses No 02/04/2020 6:00 PM Trina Pringle, SAVANAH No [facility] 02-04-2020 Do you have serious difficulty walking or climbing stairs No 02/04/2020 6:00 PM Trina Pringle RN No [facility] 02-04-2020 Do you have difficul ty dressing or bathing No 02/04/2020 6:00 PM Trina Pringle RN No [facility] 02-04-2020 Because of a physica l, mental, or emotional condition, do you have difficulty doing errands alone such as visiting a physician's office or shopping No 02/04/2020 6:00 PM Trina Pringle RN No [facility] Mental Status Date Assessment Result Facility 09-02-2022 Cognitive function Level Of Cons ciousness Awake;Alert;Appropriate;Fol lows Commands [facility] Work Phone: 02-04-2020 Because of a physica l, mental, or emotional condition, do you have serious difficulty concentrating, remembering, or making decisions No 02/04/2020 6:00 PM Trina Pringle RN No [facility] Clinical Notes 08-05-2007 to 11-25-2024 Note Date & Type Note Facility 11-25-2024 Progress note [facility] 11-25-2024 Progress note Note Date/Time November 25, 2024 4:12pm [facility] [address], [address] [place] [address] OFFICE VISIT Date of Service: 11/25/24 MR#: [id number] Acct: [id number] Name: SOLANGE MILLIGAN Rep #: [id number] : 1985 Provider: Dr. 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 Is patient in pain?: No Allergies No Known Allergies Allergy (Verified 11/25/24 15:46) Medications ?Medication ?Instructions ?Recorded ?Confirmed ?Type promethazine 12.5 mg tablet 12.5 mg PO Q6H PRN nausea and 08/19/24 11/25/24 Rx vomiting #60 tabs PNV no.63-iron,carbonyl 27 1 cap PO QDAY 08/28/2409/12 History mg-folic acid 800 mcg-dha 200 mg capsule ondansetron 4 mg disintegrating 4 mg PO Q4H PRN nausea and 08/28/24 11/25/24 Rx tablet vomiting #60 tabs escitalopram oxalate 20 mg tablet 20 mg PO HS #30 tabs 10/31/24 11/25/24 Rx Last Menstrual Period: 05/20/24 Zika: Zika virus screening: Negative : No PFSH PFSH Medical History Screening for cervical cancer delivery delivered Acute postoperative pain Depression Anxiety Endometriosis Infertility Endometriosis determined by laparoscopy Surgical History History of surgery Hx of LASIK [place] teeth extracted History of repair of anterior cruciate ligament of left knee Family History Father Cancer Non-Hodgkins Lymphoma Mother Cancer skin cancer Social History adopted: No household members: spouse and children housing: house number of children: 1 current occupational status: employed 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 pets and animals: Yes history of recent travel: Yes (2024) out of state: Yes out of country: Yes sexually active: Yes Smoking Status: Never smoker alcohol intake: current alcohol intake frequency: a few times a week details: social, not while substance use type: does not use, marijuana and other details: last use March 2024 caffeine: Yes Type: coffee what type of physical activity do you participate in: walking frequency: 3-4 times per week trang/voodoo: None seatbelt use: always do you feel safe at home: Yes 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 Date Name GA/Weeks Outcome Route Bth Weight Gen Labor Lgth Anesthesia Del Locatn Provider FOB 09/02/22 Adan live - full term HPI 21wk5d ob Details: SOLANGE MILLIGAN is a 39 year old who presents for routine OB visit. OB Visit [facility]ST[facility] Calculator Estimated Delivery Date Method Current WG Current Estimate 04/02/25 Conception 21w 5d Other Estimates 04/02/25 Manual 21w 5d IVF 5 day tr eduinfer 07/15/24 Expected Delivery Route/Plan patient counseled regarding risks/benefits of trial of labor versus repeat . ACOG/uptodate education given to patient. 42 % likelihood of success per calculator TOLAC consent form signed: [] still undecided about vs rpt IF NO SPONTANEOUS LABOR BY 39 WEEKS, THEN THE PLAN IS FOR A REPEAT SECTION. Specific Issue/Plans Covid status: [] Flu vaccine: [] Tdap vaccine: [] Rhogam: [] LARC form signed: [] Problem list reviewed and updated with the most current plan of care details and appropriate orders placed. Relevant counseling for the gestational age provided. Continue routine care and follow up unless otherwise noted in visit notes/problem list details Initial Weight: Not Recorded Date -?-?-?-?-?-?-?-?-?-?-?-?- EGA Weight BP Urine Prot -?-?-?-?-?-?-?-?-?-?-?-?- Glucose FHR FuHt Pres Dilation -?-?-?-?-?-?-?-?-?-?-?-?- Effaced St Visit Note 09/30/24 -?-?-?-?-?-?-?-?-?-?-?-?- 13w 5d 175 lb 118/79 Negative -?-?-?-?-?-?-?-?-?-?-?-?- Negative 151 -?-?-?-?-?-?-?-?-?-?-?-?- KW- NOB was done by JAVON at end of August. KW- NOB was done by JAVON at august. is IVF and AMA, hx of 1 c/s with Bashir Amin. did genetic testing with IVF. unsure if she would like a repeat c/s or TOLAC 10/30/24 -?-?-?-?-?-?-?-?-?-?-?-?- 18w 0d 172 lb 9 oz 114/76 Nega tive -?-?-?-?-?-?-?-?-?-?-?-?- Negative 143 -?-?-?-?-?-?-?-?-?-?-?-?- MH-No VB. Nausea resolved. Denies concerns 11/25/24 -?-?-?-?-?-?-?-?-?-?-?-?- 21w 5d 177 lb 7 oz 115/71 Nega tive -?-?-?-?-?-?-?-?-?-?-?-?- Negative 144 -?-?-?-?-?-?-?-?-?-?-?-?- JV- no lof, vagi nal bleeding or cramping. + FM. has anatomy scan + echo on same day with MFM . ACOG First Trimester First Trimester: Desire for , Alcohol, Tobacco Cessation, Illicit/Recreational Drug/Substance Use, Intimate Partner Violence, Barriers to care, Unstable Housing, Communication Barriers, Environmental/Work Hazards, Anticipated Course of Care, Toxoplasmosis Precations, Use of Any medications, Sexual activity, Exercise, Dental Care, Sauna/Hot tub use, Seat Belt use, Childbirth classes/Hospital facilities, Travel, Indications for Ultrasound and Screening for Aneuploidy; Discussed Results POC Urinalysis 2 Dip (Clinic) Office Urine Glucose Negative Last Edit by Cecile Vargas on 11/25/24 15: 58 Office Urine Protein Negative Last Edit by Cecile Vargas on 11/25/24 15: 58 Coding Level of Care Code OB Routine Diagnoses History of hypothyroidism Z86.39 Previous section Z98.891 Anxiety F41.9 Marijuana use F12.90 Supervision of high risk in second trimester O09.92 Trimester: second trimester 18 weeks gestation of Z3A.18 Weeks of gestation: 18 weeks Depression F32.A Dysmenorrhea, unspecified N94.6 Endometriosis determined by laparoscopy N80.9 Infertility Assessment and Plan Assessment and Plan (1) History of hypothyroidism: Status: Acute (2) Previous section: Status: Acute Comment: possibly interested in (3) Anxiety: Status: Acute Comment: Lexapro (4) Marijuana use: Status: Acute Comment: not while , last use 03/2024. counseling provided, random tox screen notified (5) Supervision of high-risk : Status: Acute Qualifiers: Trimester: second trimester Qualified Code(s): O09.92 - Supervision of high risk , unspecified, second trimester Comment: PRR, TRISTAN 04/02 PC: Adan : Jc (6) : Status: Acute Qualifiers: Weeks of gestation: 18 weeks Qualified Code(s): Z3A.18 - 18 weeks gestation of Comment: NIPT w gender/carrier - declines (IVF transfer embryos are tested) (7) Depression: Status: Acute Comment: counseled regarding risks of therapy, recommend staying on current therapy due to previous SI after coming off. referral to [place] [phone] or [facility]. discussed possible zurzuvae if needed next time (8) Dysmenorrhea, unspecified: Status: Chronic (9) Endometriosis determined by laparoscopy: Status: Acute (10) Infertility: Status: Chronic Comment: IVF 5day transfer 07/15 TRISTAN 04/02/25; echo [id number] Orders: Orders POC Urinalysis 2 Dip (Clinic) Today 11/25/24 1612 <Electronically signed by Natacha Gonzalez DO> Date _ [facility] Signature: Date (if applicable) CC: ~ [facility] Work Phone: 1(689) 114-421808-12-2025 [facility] [address] [place] [address], [address] [place] [address] OFFICE VISIT Date of Service: 09/30/24 MR#: [id number] Acct: [id number] Name: SOLANGE MILLIGAN Rep #: [id number] : 1985 Provider: TANYA Mendez Age/Sex: 39/F [place] [facility] [place]: Signed Intake Vital Signs 06/17/24 13:09 09/08/24 08:30 09/30/24 15:23 Height 5 ft 4 in 5 ft 4 in 5 ft 4 in Weight: 175 lb BMI 30.0 BP 118/79 Intake Visit Reasons: 14wk OB *IVF transfer 07/15 TRISTAN 04/02 Chief Complaint: 14wk OB 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 Is patient in pain?: No Allergies No Known Allergies Allergy (Verified 09/30/24 15:23) Medications ?Medication ?Instructions ?Recorded ?Confirmed ?Type escitalopram oxalate 20 mg tablet 20 mg PO HS #30 tabs 06/17/24 09/30/24 Rx promethazine 12.5 mg tablet 12.5 mg PO Q6H PRN nausea and 08/19/24 09/30/24 Rx vomiting #60 tabs PNV no.63-iron,carbonyl 27mg-folic 1 cap PO QDAY 08/2809/30/24 History acid 800 mcg-dha 200 mg capsule ondansetron 4 mg disintegrating 4 mg PO Q4H PRN nausea and 08/28/24 09/30/24 Rx tablet vomiting #60 tabs Last Menstrual Period: 05/20/24 : No PFSH PFSH Medical History Screening for cervical cancer delivery delivered Acute postoperative pain Depression Anxiety Endometriosis Infertility Endometriosis determined by laparoscopy Surgical History History of surgery Hx of LASIK [place] teeth extracted History of repair of anterior cruciate ligament of left knee Family History Father Cancer Non-Hodgkins Lymphoma Mother Cancer skin cancer Social History adopted: No household members: spouse and children housing: house number of children: 1 current occupational status: employed 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 history of recent travel: Yes (2024) out of state: Yes out of country: Yes sexually active: Yes Smoking Status: Never smoker alcohol intake: current alcohol intake frequency: a few times a week details: social, not while substance use type: does not use, marijuana and other details: last use March 2024 caffeine: Yes Type: coffee what type of physical activity do you participate in: walking frequency: 3-4 times per week trang/voodoo: None seatbelt use: always do you feel safe at home: Yes 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 Date Name GA/Weeks Outcome Route Bth Weight Infant Gen Labor Lgth Anesthesia Del Locatn Provider FOB 09/02/22 Adan live - full term HPI 14wk OB *IVF transfer 07/15 TRISTAN 04/02 Details: SOLANGE MILLIGAN is a 39 year old who presents for routine OB visit. OB Visit TRISTAN Calculator 2 Estimated Delivery Date Method Current WG Current Estimate 04/02/25 Conception 13w 5d Other Estimates 04/02/25 Manual 13w 5d IVF 5 day tr ansfer 07/15/24 Expected Delivery Route/Plan patient counseled regarding risks/benefits of trial of labor versus repeat . ACOG/uptodate education given to patient. 42 % likelihood of success per calculator TOLAC consent form signed: [] still undecided about vs rpt Specific Issue/Plans Covid status: [] Flu vaccine: [] Tdap vaccine: [] Rhogam: [] LARC form signed: [] Problem list reviewed and updated with the most current plan of care details and appropriate ordersplaced. Relevant counseling for the gestational age provided. Continue routine care and follow up unless otherwise noted in visit notes/problem list details Initial Weight: Not Recorded Date -?-?-?-?-?-?-?-?-?-?-?-?- EGA Weight BP Urine Prot -?-?--?-?-?-?-?-?-?-?-?-?- Glucose FHR FuHt Pres Dilation -?-?-?-?-?-?-?-?--?-?-?-?- Effaced St Visit Note 09/30/24 -?-?-?-?-?-?-?-?-?-?-?-?- 13w 5d 175 lb 118/79 Negative -?-?-?-?-?-?-?-?-?-?-?-?- Negative 151 -?-?-?-?-?-?-?-?-?-?-?-?- KW- NOB was done by JAVON at end august. KW- NOB was done by JAVON at en august. is IVF and AMA, hx of 1 c/s with Bashir Amin. did genetic testing with IVF. unsure if she would like a repeat c/s or TOLAC ACOG First Trimester First Trimester: Desire for , Alcohol, Tobacco Cessation, Illicit/Recreational Drug/Substance Use, Intimate Partner Violence, Barriers to care, Unstable Housing, Communication Barriers, Environmental/Work Hazards, Anticipated Course of Care, Toxoplasmosis Precations, Use of Any med ications, Sexual activity, Exercise, Dental Care, Sauna/Hot tub use, Seat Belt use, Childbirth classes/Hospital facilities, Travel, Indications for Ultrasound and Screening for Aneuploidy; Discussed ROS Const Reports system reviewed and no additional complaints, except as documented Eyes Reports system reviewed and no additional complaints, except as documented ENT Reports system reviewed and no additional complaints, except as documented Card Reports system reviewed and no additional complaints, except as documented Resp Reports system reviewed and no additional complaints, except as documented GI Reports system reviewed and no additional complaints, except as documented, Denies nausea and Denies vomiting Reports system reviewed and no additional complaints, except as documented Musc Reports system reviewed and no additional complaints, except as documented Skin/Breast Reports system reviewed and no additional complaints, except as documented Neuro Yes system reviewed and no additional complaints, except as documented Psych Reports system reviewed and no additional complaints, except as documented Endo Reports system reviewed and no additional complaints, except as documented Ancelmo/Lymph Reports system reviewed and no additional complaints, except as documented Aller/Immun Reports system reviewed and no additional complaints, except as documented Exam Const General: cooperative, healthy appearing and no acute distress Orientation: alert, awake and oriented x3 Neck Neck: normal visual inspection and full ROM Resp Effort & Inspection: normal respiratory effort, able to speak in complete sentences and symmetric chest movement GI Inspection: normal to inspection Palpation: soft and other Other: gravid Skin General: no rashes or lesions noted Neuro General: patient alert, patient awake and patient oriented x3 Cognition: normal cognition Speech: speech normal Gait: normal gait Motor: muscle tone normal throughout Extrem General: normal to inspection and full ROM Psych Appearance: grossly normal Mental Status: mental status grossly normal Mood: congruent mood Affect: normal affect Speech and Movement: speech and movement normal Attitude: cooperative Thought Process: normal Thought Content: normal Judgment: judgment good Results POC Urinalysis 2 Dip (Clinic) Office Urine Glucose Negative Last Edit by Alva Crowder on 09/30/24 15:27 Office Urine Protein Negative Last Edit by Alva Crowder on 09/30/24 15:27 Coding Level of Care Code OB Routine Diagnoses History of hypothyroidism Z86.39 Marijuana use F12.90 Previous section Z98.891 Anxiety F41.9 Supervision of high-risk O09.90 13 weeks gestation of Z3A.13 Weeks of gestation: 13 weeks Depression F32.A Dysmenorrhea, unspecified N94.6 Endometriosis determined by laparoscopy N80.9 Infertility Assessment and Plan Assessment and Plan (1) History of hypothyroidism: Status: Acute (2) Marijuana use: Status: Acute Comment: not while , last use 03/2024. counseling provided, random tox screen notified (3) Previous section: Status: Acute Comment: possibly interested in (4) Anxiety: Status: Acute Comment: Lexapro (5) Supervision of high-risk : Status: Acute Comment: PRR, TRISTAN 04/02 PC: Adan : Jc (6) : Status: Acute Qualifiers: Weeks of gestation: 13 weeks Qualified Code(s): Z3A.13 - 13 weeks gestation of Comment: NIPT w gender/carrier - declines (IVF transfer embryos are tested) (7) Depression: Status: Acute Comment: counseled regarding risks of therapy, recommend staying on current therapy due to previous SI aftercoming off. [facility]. discussed possible zurzuvae if needed next time (8) Dysmenorrhea, unspecified: Status: Chronic (9) Endometriosis determined by laparoscopy: Status: Acute (10) Infertility: Status: Chronic Comment: IVF 5day transfer 07/15 TRISTAN 04/02/25 Orders: Orders POC Urinalysis 2 Dip (Clinic) Today Plan Details Additional Comments: ACOG trimester education reviewed and updated. see problem list details for updated plan management information and see below for orders placed atthis visit. GA appropriate handout given. 09/30/24 1551 s CNM> Date _ Evonne Andrea TANYA Cosigner Signature: Date (if applicable) CC: ~ [facility]08-12-2025 Progress note Author Evonne Mendez [facility] Note Date/Time September 30, 2024 3: 51pm [facility] [address] [place] [address], [address] [place] [address] OFFICE VISIT Date of Service: 09/30/24 MR#: [id number] Acct: [id number] Name: SOLANGE MILLIGAN Rep #: [id number] : 1985 Provider: TANYA Mendez Age/Sex: 39/F Location: [facility] Status: Signed Intake Vital Signs 06/17/24 13:09 09/08/24 08:30 09/30/24 15:23 Height 5 ft 4 in 5 ft 4 in 5 ft 4 in Weight: 175 lb BMI 30.0 BP 118/79 Intake Visit Reasons: 14wk OB *IVF transfer 07/15 TRISTAN 04/02 Chief Complaint: 14wk OB 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 Is patient in pain?: No Allergies No Known Allergies Allergy (Verified 09/30/24 15:23) Medications ?Medication ?Instructions ?Recorded ?Confirmed ?Type escitalopram oxalate 20 mg tablet 20 mg PO HS #30 tabs 06/17/24 09/30/24 Rx promethazine 12.5 mg tablet 12.5 mg PO Q6H PRN nausea and 08/19/24 09/30/24 Rx vomiting #60 tabs PNV no.63-iron,carbonyl 27mg-folic 1 cap PO QDAY 08/2809/30/24 History acid 800 mcg-dha 200 mg capsule ondansetron 4 mg disintegrating 4 mg PO Q4H PRN nausea and 08/28/24 09/30/24 Rx tablet vomiting #60 tabs Last Menstrual Period: 05/20/24 : No PFSH PFSH Medical History Screening for cervical cancer delivery delivered Acute postoperative pain Depression Anxiety Endometriosis Infertility Endometriosis determined by laparoscopy Surgical History History of surgery Hx of LASIK [place] teeth extracted History of repair of anterior cruciate ligament of left knee Family History Father Cancer Non-Hodgkins Lymphoma Mother Cancer skin cancer Social History adopted: No household members: spouse and children housing: house number of children: 1 current occupational status: employed 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 history of recent travel: Yes ([place] 2024) out of state: Yes out of country: Yes sexually active: Yes Smoking Status: Never smoker alcohol intake: current alcohol intake frequency: a few times a week details: social, not while substance use type: does not use, marijuana and other details: last use March 2024 caffeine: Yes Type: coffee what type of physical activity do you participate in: walking frequency: 3-4 times per week trang/voodoo: None seatbelt use: always do you feel safe at home: Yes 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 Date Name GA/Weeks Outcome Route Bth Weight Infant Gen Labor Lgth Anesthesia Del Locatn Provider FOB 09/02/22 Adan live - full term HPI 14wk OB *IVF transfer 07/15 TRISTAN 04/02 Details: SOLANGE MILLIGAN is a 39 year old who presents for routine OB visit. OB Visit TRISTAN Calculator 2 Estimated Delivery Date Method Current WG Current Estimate 04/02/25 Conception 13w 5d Other Estimates 04/02/25 Manual 13w 5d IVF 5 day jake hussein 07/15/24 Expected Delivery Route/Plan patient counseled regarding risks/benefits of trial of labor versus repeat . ACOG/uptodate education given to patient. 42 % likelihood of success per calculator TOLAC consent form signed: [] still undecided about vs rpt Specific Issue/Plans Covid status: [] Flu vaccine: [] Tdap vaccine: [] Rhogam: [] LARC form signed: [] Problem list reviewed and updated with the most current plan of care details and appropriate orders placed. Relevant counseling for the gestational age provided. Continue routine care and follow up unless otherwise noted in visit notes/problem list details Initial Weight: Not Recorded Date -?-?-?-?-?-?-?-?-?-?-?-?- EGA Weight BP Urine Prot -?-?--?-?-?-?-?-?-?-?-?-?- Glucose FHR FuHt Pres Dilation -?-?-?-?-?-?-?-?--?-?-?-?- Effaced St Visit Note 09/30/24 -?-?-?-?-?-?-?-?-?-?-?-?- 13w 5d 175 lb 118/79 Negative -?-?-?-?-?-?-?-?-?-?-?-?- Negative 151 -?-?-?-?-?-?-?-?-?-?-?-?- KW- NOB was done by JAVON at end august. KW- NOB was done by JAVON at august. is IVF and AMA, hx of 1 c/s with Bashir Amin. did genetic testing with IVF. unsure if she would like a repeat c/s or TOLAC ACOG First Trimester First Trimester: Desire for , Alcohol, Tobacco Cessation, Illicit/Recreational Drug/Substance Use, Intimate Partner Violence, Barriers to care, Unstable Housing, Communication Barriers, Environmental/Work Hazards, Anticipated Course of Care, Toxoplasmosis Precations, Use of Any medications, Sexual activity, Exercise, Dental Care, Sauna/Hot tub use, Seat Belt use, Childbirth classes/Hospital facilities, Travel, Indications for Ultrasound and Screening for Aneuploidy; Discussed ROS Const Reports system reviewed and no additional complaints, except as documented Eyes Reports system reviewed and no additional complaints, except as documented ENT Reports system reviewed and no additional complaints, except as documented Card Reports system reviewed and no additional complaints, except as documented Resp Reports system reviewed and no additional complaints, except as documented GI Reports system reviewed and no additional complaints, except as documented, Denies nausea and Denies vomiting Reports system reviewed and no additional complaints, except as documented Musc Reports system reviewed and no additional complaints, except as documented Skin/Breast Reports system reviewed and no additional complaints, except as documented Neuro Yes system reviewed and no additional complaints, except as documented Psych Reports system reviewed and no additional complaints, except as documented Endo Reports system reviewed and no additional complaints, except as documented Ancelmo/Lymph Reports system reviewed and no additional complaints, except as documented Aller/Immun Reports system reviewed and no additional complaints, except as documented Exam Const General: cooperative, healthy appearing and no acute distress Orientation: alert, awake and oriented x3 Neck Neck: normal visual inspection and full ROM Resp Effort & Inspection: normal respiratory effort, able to speak in complete sentences and symmetric chest movement GI Inspection: normal to inspection Palpation: soft and other Other: gravid Skin General: no rashes or lesions noted Neuro General: patient alert, patient awake and patient oriented x3 Cognition: normal cognition Speech: speech normal Gait: normal gait Motor: muscle tone normal throughout Extrem General: normal to inspection and full ROM Psych Appearance: grossly normal Mental Status: mental status grossly normal Mood: congruent mood Affect: normal affect Speech and Movement: speech and movement normal Attitude: cooperative Thought Process: normal Thought Content: normal Judgment: judgment good Results POC Urinalysis 2 Dip (Clinic) Office Urine Glucose Negative Last Edit by Alva Crowder on 09/30/24 15:27 Office Urine Protein Negative Last Edit by Alva Crowder on 09/30/24 15:27 Coding Level of Care Code OB Routine Diagnoses History of hypothyroidism Z86.39 Marijuana use F12.90 Previous section Z98.891 Anxiety F41.9 Supervision of high-risk O09.90 13 weeks gestation of Z3A.13 Weeks of gestation: 13 weeks Depression F32.A Dysmenorrhea, unspecified N94.6 Endometriosis determined by laparoscopy N80.9 Infertility Assessment and Plan Assessment and Plan (1) History of hypothyroidism: Status: Acute (2) Marijuana use: Status: Acute Comment: not while , last use 03/2024. counseling provided, random tox screen notified (3) Previous section: Status: Acute Comment: possibly interested in (4) Anxiety: Status: Acute Comment: Lexapro (5) Supervision of high-risk : Status: Acute Comment: PRR, TRISTAN 04/02 PC: Adan : Jc (6) : Status: Acute Qualifiers: Weeks of gestation: 13 weeks Qualified Code(s): Z3A.13 - 13 weeks gestation of Comment: NIPT w gender/carrier - declines (IVF transfer embryos are tested) (7) Depression: Status: Acute Comment: counseled regarding risks of therapy, recommend staying on current therapy due to previous SI after coming off. referral to [place] [phone] or [facility]. discussed possible zurzuvae if needed next time (8) Dysmenorrhea, unspecified: Status: Chronic (9) Endometriosis determined by laparoscopy: Status: Acute (10) Infertility: Status: Chronic Comment: IVF 5day transfer 07/15 TRISTAN 04/02/25 Orders: Orders POC Urinalysis 2 Dip (Clinic) Today Plan Details Additional Comments: ACOG trimester education reviewed and updated. see problem list details for updated plan management information and see below for orders placed at this visit. [place] appropriate handout given. 09/30/24 2530 <Electronically signed by Evonne ceron CNM> Date _ Evonne Mendez CNM Cosigner Signature: Date (if applicable) CC: ~ [facility] Work Phone: 1(353) 505-261907-21-2025 Evaluation note* Diagnosis Onset Date Resolution Status Admit Date Anxiety acute September 08 8:25am Depression acute September 08 8:25am Endometriosis determined by laparoscopy acute September 08, 2024 8:25am Marijuana use acute September 08, 2024 8:25am acute September 08 8:25am Previous section acute September 08, 2024 8:25am Supervision of high-risk acute September 08, 2024 8:25am Dysmenorrhea, unspecified chronic September 08, 2024 8:25am Infertility chronic September 08 8:25am Anxiety acute September 30, 3:19pm Depression acute September 30, 025 3:19pm Endometriosis determined by laparoscopy acute September 30 3:19pm History of hypothyroidism acute September 30, 2024 3:19pm Marijuana use acute September 3:19pm acute September 30, 3:19pm Previous section acute September 30, 2024 3:19pm Supervision of high-risk acute September 30 3:19pm Dysmenorrhea, unspecified chronic September 30, 2024 3:19pm Infertility chronic September 30, 2024 3:19pm Anxiety acute October 3:35pm Depression acute October 3:35pm Endometriosis determined by laparoscopy acute October 30, 2024 3:35pm History of hypothyroidism acute October 30, 2024 3:35pm Marijuana use acute October 202024 3:35pm acute October 3:35pm Previous section acute October 30, 2024 3:35pm Supervision of high-risk acute October 30, 2024 3:35pm Dysmenorrhea, unspecified chronic October 30, 2024 3:35pm Infertility chronic October 3:35pm [facility] Work Phone: 1(803) 172-548707-21-2025 Evaluation note* Diagnosis Onset Date Resolution Status Admit Date Anxiety acute September 08 8:25am Depression acute September 08 8:25am Endometriosis determined by laparoscopy acute September 08, 2024 8:25am Marijuana use acute September 08, 2024 8:25am acute September 08 8:25am Previous section acute September 08, 2024 8:25am Supervision of high-risk acute September 08, 2024 8:25am Dysmenorrhea, unspecified chronic September 08, 2024 8:25am Infertility chronic September 08 8:25am Anxiety acute September 30, 025 3:19pm Depression acute September 30, 3:19pm Endometriosis determined by laparoscopy acute September 30 3:19pm History of hypothyroidism acute September 30, 2024 3:19pm Marijuana use acute September 3:19pm acute September 30, 2 025 3:19pm Previous section acute September 30, 2024 3:19pm Supervision of high-risk acute September 30 3:19pm Dysmenorrhea, unspecified chronic September 30, 2024 3:19pm Infertility chronic September 30, 2024 3:19pm Anxiety acute October 3:35pm History of hypothyroidism acute October 30, 2024 3:35pm Marijuana use acute October 202024 3:35pm acute October 3:35pm Previous section acute October 30, 2024 3:35pm Supervision of high-risk acute October 30, 2024 3:35pm Infertility chronic October 3:35pm Anxiety acute November 25, 2 025 3:44pm Depression acute November 25, 2 025 3:44pm Endometriosis determined by laparoscopy acute November 25 3:44pm History of hypothyroidism acute November 25, 2024 3:44pm Marijuana use acute November 3:44pm acute November 25, 2 025 3:44pm Previous section acute November 25, 2024 3:44pm Supervision of high-risk acute November 25 3:44pm Dysmenorrhea, unspecified chronic November 25, 2024 3:44pm Infertility chronic November 25, 2024 3:44pm [facility] Work Phone: 1(367) 900-609607-21-2025 [facility] [address] [place] [address], [place] [address] OFFICE VISIT Date of Service: 09/08/24 MR#: [id number] Acct: [id number] Name: SOLANGE MILLIGAN Rep #: [id number] : 1985 Provider: Dr. 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 Is patient in pain?: No Allergies No Known Allergies Allergy (Verified 09/08/24 08:27) Medications ?Medication ?Instructions ?Recorded ?Confirmed ?Type escitalopram oxalate 20 mg tablet 20 mg PO HS #30 tabs 06/17/24 09/08/24 Rx promethazine 12.5 mg tablet 12.5 mg PO Q6H PRN nausea and 08/19/24 09/08/24 Rx vomiting #60 tabs PNV no.63-iron,carbonyl 27mg-folic 1 cap PO QDAY 08/2809/08/24 History acid 800 mcg-dha 200 mg capsule ondansetron 4 mg disintegrating 4 mg PO Q4H PRN nausea and 08/28/24 08/28/24 Rx tablet vomiting #60 tabs Last Menstrual Period: 05/20/24 Zika: Zika virus screening: Negative : No PFSH PFSH Medical History Screening for cervical cancer delivery delivered Acute postoperative pain Depression Anxiety Endometriosis Infertility Endometriosis determined by laparoscopy Surgical History History of surgery Hx of LASIK [place] teeth extracted History of repair of anterior cruciate ligament of left knee Family History Father Cancer Non-Hodgkins Lymphoma Mother Cancer skin cancer Social History adopted: No household members: spouse and children housing: house number of children: 1 service: No current occupational status: employed 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 history of recent travel: Yes (2024) out of state: Yes out of country: Yes sexually active: Yes Smoking Status: Never smoker alcohol intake: current alcohol intake frequency: a few times a week details: social, not while substance use type: does not use, marijuana and other details: last use March 2024 caffeine: Yes Type: coffee what type of physical activity do you participate in: walking How many days of moderate to strenuous exercise, like a brisk walk, did you do in the last 7 days: 3 frequency: 3-4 times per week trang/voodoo: None seatbelt use: always do you feel safe at home: Yes additional social history: [employer]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 Date Name GA/Weeks Outcome Route Bth Weight Gen Labor Lgth Anesthesia Del Locatn Provider FOB 09/02/22 Adan live - full term HPI NOB IVF 07/15 Details: SOLANGE MILLIGAN is a 39 year old who presents for New OB visit. OB Visit [facility] Calculator Estimated Delivery Date Method Current WG Current Estimate 04/02/25 Manual 10w 4d IVF 5 day t ransfer 07/15/24 Other Estimates 04/07/25 Conception 9w 6d Comments: HIV: Urine Culture: Sequential Screen: NIPT Screen: Estimated Due Date: 04/02/25 Expected Delivery Route/Plan patient counseled regarding risks/benefits of trial of labor versus repeat . ACOG/uptodate education given to patient. 42 % likelihood of success per calculator TOLAC consent form signed: [] still undecided about vs rpt Menstrual History Last Menstrual Period: 05/20/24 Reported LMP: unknown Normal amount/duration: No Frequency in days: 30 On hormonal BC at conception: No hCG+: 07/29/24 Antepartum Record Genetic Screening: Congenital Heart Defect: Other, Neural Tube Defect: Other, Hemoglobinopathy Or Carrier: Other, Cystic Fibrosis: Other, Chromosome Abnormality: Other, Malick-Sachs: Other, Hemophilia: Other, Intellectual Disability/Autism: Other, Recurrent Loss/Stillbirth: Other, Other Structural Defect: Other, Other Genetic Disease: Other and Maternal Metabolic Disorder: Partner ( is type1 diabetic) Infection History: Live with someone with TB or Exposed to TB: No, Patient or Partner has history of Genital Herpes: No, Rash or Viral illness since last mentrual period: No, Prior GBS-Infected child: No, History of STD: No, HIV Infection: No, History of Hepatitis: No, Recent travel outside of [place]: Yes ([place] ), Concern for hepatitis exposure: No, Varicella immune: Yes and Covid Vaccinated: Yes (Moderna 2020) Medical History Medical History: Positive: Auto-immune disorder (endometriosis ), Depression/ depression,Operations/hospitalizations (see surgical history ), Uterine anomaly/fabián (tilted ) and Infertility and Negative: Diabetes, Hypertension, Heart disease, Kidney disease/UTI, Neurologic/epilepsy, Psychia tric, Hepatitis/liver disease, Varicosities/phlebitis, Thyroid dysfunction, Trauma/domestic violence, History of blood transfusions, D (Rh) Sensitized, Pulmonary (e.g.,TB,Asthma), Seasonal allergies,Drug/latex allergies/reactions, Breast, Flooring Professional surgery, Anesthetic complications, History of abnormal pap, Anti- retroviral treatment and Relevant family history ACOG First Trimester First Trimester: Desire for , Alcohol, Tobacco Cessation, Illicit/Recreational Drug/Substance Use, Intimate Partner Violence, Barriers to care, Unstable Housing, Communication Barriers, Environmental/Work Hazards, Anticipated Course of Care, Nurtrition and weight gain, Toxoplasmosis Precations, Use of Any medications, Sexual activity, Exercise, Dental Care, Sauna/Hot tub use, Seat Belt use, Childbirth classes/Hospital facilities, Travel, Indications for Ultrasound and Screening for Aneuploidy; Discussed ROS Const Reports system reviewed and no additional complaints, except as documented, Reports fatigue and Denies fever(s) Eyes Reports system reviewed and no additional complaints, except as documented ENT Reports system reviewed and no additional complaints, except as documented Card Denies chest pain and Denies dyspnea Resp Reports system reviewed and no additional complaints, except as documented, Denies cough and Deniesdyspnea GI Denies abdominal pain and Reports nausea Reports system reviewed and no additional complaints, except as documented Musc Reports system reviewed and no additional complaints, except as documented Skin/Breast Reports system reviewed and no additional complaints, except as documented Neuro Yes system reviewed and no additional complaints, except as documented Psych Reports system reviewed and no additional complaints, except as documented Endo Reports system reviewed and no additional complaints, except as documented and Reports fatigue Exam Const General: healthy appearing, comfortable and no acute distress Orientation: alert [facility] Head: normal to inspection, normocephalic and atraumatic Ears: hearing grossly normal bilaterally and external ears normal Nose: external nose normal and nares normal Mouth: oral mucosae normal Teeth and gingiva: dentition normal Eyes General: appearance normal, both eyes and all related structures Neck Neck: normal visual inspection, no lymphadenopathy and supple Thyroid: thyroid normal Resp Effort & Inspection: normal respiratory effort GI Inspection: normal to inspection Palpation: soft and no hepatosplenomegaly General: bladder normal to palpation External Female Exam: normal external appearance and normal appearance of the urethra Urethra: normal appearance of the urethra Speculum Exam - Vagina: normal appearance of the vagina and normal vaginal discharge Speculum Exam - Cervix: normal appearance of the cervix Bimanual Exam- Vagina & Uterus: normal bimanual exam, bladder normal to palpation, non-tender and other Bimanual Exam- Adnexa, other: non-tender Skin General: no rashes or lesions noted Neuro Motor: muscle tone normal throughout and no movement abnormalities noted Extrem General: normal to inspection and full ROM Supplemental Info ACOG book given and patient encouraged to read about nutrition, exercise, weight gain, and food avoidance in . Coding Level of Care Code OB Routine Diagnoses Marijuana use F12.90 Previous section Z98.891 Anxiety F41.9 Supervision of high-risk O09. Z34.90 Depression F32.A Dysmenorrhea, unspecified N94.6 Endometriosis determined by laparoscopy N80.9 Infertility Assessment and Plan Assessment and Plan (1) Marijuana use: Status: Acute Comment: not while , last use 03/2024. counseling provided, random tox screen notified (2) Previous section: Status: Acute Comment: possibly interested in (3) Anxiety: Status: Acute Comment: Lexapro (4) Supervision of high-risk : Status: Acute Comment: TRI[facility] 04/02 PC: Adan : Jc (5) : Status: Acute Comment: NIPT w gender/carrier - declines (IVF transfer embryos are tested) (6) Depression: Status: Acute Comment: counseled regarding risks of therapy, recommend staying on current therapy due to previous SI aftercoming off. referral to [id number] or [facility]. discussed possible zurzuvae if needed next time (7) Dysmenorrhea, unspecified: Status: Chronic (8) Endometriosis determined by laparoscopy: Status: Acute (9) Infertility: Status: Chronic Comment: IVF 5day transfer 07/15 [facility] 04/02/25 Orders: Orders CBC W/Diff, Automated 08/28/24 Dr. Natacha Wei, DO F12.90 - Cannabis use, unspecified, uncomplicated, O09.90 - Supervision of high risk , unspecified, unspecified trimester Type & Screen 08/28/24 Dr. Natacha Wei DO F12.90 - Cannabis use, unspecified, uncomplicated, O09.90 - Supervision of high risk , unspecified, unspecified trimester Rubella IgG 08/28/24 Dr. Natacha Wei DO F12.90 - Cannabis use, unspecified, uncomplicated, O09.90 - Supervision of high risk , unspecified, unspecified trimester Hepatitis C Antibody 08/28/24 Dr. Natacha Wei DO F12.90 - Cannabis use, unspecified, uncomplicated, O09.90 - Supervision of high risk , unspecified, unspecified trimester Hepatitis B Surface Antigen 08/28/24 Dr. Natacha Wei DO F12.90 - Cannabis use, unspecified, uncomplicated, O09.90 - Supervision of high risk , unspecified, unspecified trimester Culture, Urine 08/28/24 Dr. Natacha Wei DO F12.90 - Cannabis use, unspecified, uncomplicated, O09.90 - Supervision of high risk , unspecified, unspecified trimester, Z86.39 - Personal history of other endocrine, nutritional and metabolic disease Syphilis Antibodies 08/28/24 Dr. Natacha Wei DO F12.90 - Cannabis use, unspecified, uncomplicated, O09.90 - Supervision of high risk , unspecified, unspecified trimester Chlamydia/GC MOIRA aptima 08/28/24 Dr. Natacha Wei DO F12.90 - Cannabis use, unspecified, uncomplicated, O09.90 - Supervision of high risk , unspecified, unspecified trimester, Z86.39 - Personal history of other endocrine, nutritional and metabolic disease HIV 08/28/24 Dr. Natacha Wei DO F12.90 - Cannabis use, unspecified, uncomplicated, O09.90- Supervision of high risk , unspecified, unspecified trimester Hemoglobin A1c 08/28/24 Dr. Natacha Wei DO F12.90 - Cannabis use, unspecified, uncomplicated, O09.90 - Supervision of high risk , unspecified, unspecified trimester Urine Drug Screen 08/28/24 Dr. Natacha Wei DO F12.90 - Cannabis use, unspecified, uncomplicated, O09.90 - Supervision of high risk , unspecified, unspecified trimester, Z86.39 - Personal history of other endocrine, nutritional and metabolic disease Thyroid Stim Hormone (TSH) Today Dr. Natacha Wei DO Z86.39 - Personal history of other endocrine, nutritional and metabolic disease Medications: New ondansetron 4 mg PO Q4H PRN 60 tabs 2RF nausea and vomiting Paco Shaikh TELEPHONE LINEWORKER, TELEPHONE LINEWORKER-C Plan Patient oriented to practice and discussed care expectations and screenings. ACOG book offered to patient. Discussed routine and specially indicated labs if needed- patient consents to testing. See problem list details for plan information. Optional screening including maternal carrier screenings, neural tube defect screening, genetic screening options including quad screen, nuchal translucency, sequential screening, and NIPT screening offered to patient and patient chose: none .embryo was tested. 09/08/24 0917 e Frankde DO> Date _ Natacha Wei DO Cosign Signature: Date (if applicable) CC: ~ [facility]07-01-2025 NoteHNO ID: [id number] Author: ARY GIFFORD MD Service: ? Author Type: Physician Type: Progress Notes Filed: 08/19/2024 13:47 Note Text: Viable fletcher IUP Size equal Date. Plan: patient to follow up with her ob for care. Ct Hodge, [facility]07-01-2025 History of Present illness Narrative* Ary Gifford MD - 08/19/2024 11:54 AM EDT Viable fletcher IUP Size equal Date. Plan: patient to follow up with her ob for care. Ct Hodge MD * Tucker Rose RN - 08/19/2024 11:50 AM EDT Patient presents today for OB scan s/p FET#3 on 07/15/24. The patient did stay to meet with nursing.Patient presents with spouse. Primary ATA: Ct Hodge MD Number of embryos transferred: 1 By FET date patient is 7w5d By CRL on ultrasound patient is 8w2d FHR 165 [facility] is Ultrasound findings are consistent with dates. Patient denies pain. Patient denies bleeding. Patient confirms that they continue to take their medications, Estrogen and Progesterone, as prescribed. Patient understands they will take these medications until 10 weeks of . Patient's medication stop date is 09/04/2024. Patient educated that OB scan will be reviewed by the physician today and plan will be communicatedto patient. Patient plans to follow up with local provider for ongoing OB care. Patient reported feeling very nauseous, inquiring about nausea medications. Patient informed that as she is now transitioning to OB for care management, to contact their office to inquire what their recommendations are and request intervention per primary provider, as they will be the one to manageand assess patient's ongoing symptoms. Patient verbalized understanding. Patient requesting estrace prescription be reordered to new pharmacy as current pharmacy is closing. New order pended to provider to [facility] in [place] per patient request. Tucker Rose RN August 19, 2024 11:51 AM [facility] NoteHNO ID: [id number] Author: TUCKER ROSE RN Service: ? Author Type: Registered Nurse Type: Progress Notes Filed: 08/19/2024 13:47 Note Text: Patient presents today for OB scan s/p FET#3 on 07/15/24. The patient did stay to meet with nursing. Patient presents with spouse. Primary ATA: Ct Hodge MD Number of embryos transferred: 1 By FET date patient is 7w5d By CRL on ultrasound patient is 8w2d FHR 165 [facility] is Ultrasound findings are consistent with dates. Patient denies pain. Patient denies bleeding. Patient confirms that they continue to take their medications, Estrogen and Progesterone, as prescribed. Patient understands they will take these medications until 10 weeks of . Patient's medication stop date is 09/04/2024. Patient educated that OB scan will be reviewed by the physician today and plan will be communicated to patient. Patient plans to follow up with local provider for ongoing OB care. Patient reported feeling very nauseous, inquiring about nausea medications. Patient informed that as she is now transitioning to OB for care management, to contact their office to inquire what their recommendations are and request intervention per primary provider, as they will be the one to manage and assess patient's ongoing symptoms. Patient verbalized understanding. Patient requesting estrace prescription be reordered to new pharmacy as current pharmacy is closing. [facility] order p[facility] [place] per patient request. Tucker Rose RN August 19, 2024 11:51 [facility]06-18-2025 NoteHNO ID: [id number] Author: KASSANDRA DEWEY RN Service: ? Author Type: Registered Nurse Type: Progress Notes Filed: 08/06/2024 08:16 Note Text: Transfer Date: 07/15/24 Gestational age today: 5.5 on day of hcg draw 08/05/24 hCG Level (s): Latest Ref Rng 07/29/2024 08/05/2024 hCG Quantitative, Blood <5.0 mIU/mL 2,370.0 (H) 13,669.0 (H) Plan: Progesterone / Estrace until 09/04/24 OB scan on 08/13/24 Called patient to number listed, verified pt. Updated pt on plan and answered all questions sent to pt Kassandra Dewey RN August 06, 2024 8:09 [facility]06-18-2025 History of Present illness Narrative* Kassandra Dewey RN - 08/06/2024 8:09 AM EDT Transfer Date: 07/15/24 Gestational age today: 5.5 on day of hcg draw 08/05/24 hCG Level (s): Latest Ref Rng 07/29/2024 08/05/2024 hCG Quantitative, Blood <5.0 mIU/mL 2,370.0 (H) 13,669.0 (H) Plan: Progesterone / Estrace until 09/04/24 OB scan on 08/13/24 Called patient to number listed, verified pt. Updated pt on plan and answered all questions MC sent to pt Kassandra Dewey RN August 06, 2024 8:09 AM documented in this encounterSelect [facility]25 NoteHNO ID: [id number] Author: KASSANDRA DEWEY RN Service: ? Author Type: Registered Nurse Type: Progress Notes Filed: 08/05/2024 14:49 Note Text: Transfer Date: 07/15/24 Gestational age today: 5.5 hCG Level (s): No back at this time. Pain: No Bleeding: No Plan: Progesterone / Estrace until 09/04/24 OB scan on 08/13/24 scheduled Will follow up on hcg results 08/06 Location: [place] Visit type: repeat hcg level, f/u on 08/05 results Date: 08/06 @ televisit Called patient to number listed, verified pt. Updated pt on plan and answered all questions MC sent to pt Kassandra Dewey RN August 05, 2024 10:03 [facility]06-17-2025 History of Present illness Narrative* Kassandra Dewey RN - 08/05/2024 10:02 AM EDT Transfer Date: 07/15/24 Gestational age today: 5.5 hCG Level (s): No back at this time. Pain: No Bleeding: No Plan: Progesterone / Estrace until 09/04/24 OB scan on 08/13/24 scheduled Will follow up on hcg results 08/06 Location: [place] Visit type: repeat hcg level, f/u on 08/05 results Date: 08/06 @ televisit Called patient to number listed, verified pt. Updated pt on plan and answered all questions MC sent to pt Kassandra Dewey RN August 05, 2024 10:03 AM documented in this encounterSelect [facility]25 NoteHNO ID: [id number] Author: JOSE MEDRANO RN Service: ? Author Type: Registered Nurse Type: Progress Notes Filed: 07/29/2024 12:11 Note Text: Transfer Date: 07/15 Gestational age today: 4w5d hCG Level (s): Latest Ref Rng 07/29/2024 hCG Quantitative, Blood <5.0 mIU/mL 2,370.0 (H) Pain: No Bleeding: No Plan: Progesterone / Estrace until 09/04 Repeat in 1 week Jose Medrano RN July 29, 2024 10:38 [facility]06-10-2025 History of Present illness Narrative* Jose Medrano RN - 07/29/2024 10:38 AM EDT Transfer Date: 07/15 Gestational age today: 4w5d hCG Level (s): Latest Ref Rng 07/29/2024 hCG Quantitative, Blood <5.0 mIU/mL 2,370.0 (H) Pain: No Bleeding: No Plan: Progesterone / Estrace until 09/04 Repeat in 1 week Jose Medrano RN July 29, 2024 10:38 AM documented in this encounterSelect [facility]25 NoteHNO ID: [id number] Author: ARY GIFFORD MD Service: ? Author Type: Physician Type: Procedures Filed: 07/15/2024 21:11 Note Text: [facility] ATA TRANSFER PROCEDURE NOTE Date: 07/15/2024 Primary Proceduralist: Ct Hodge MD Neurosurgical Nurse(s): Not applicable Informed Consent: Indications: Solange Milligan, is a 39 year old female here today for Embryo Transfer. [place] Protocol: UNIVERSAL PROTOCOL / SAFETY CHECKLIST Procedure to be Performed: FET Sign In: A Moment of CARE was completed. Appropriate PPE (Personal Protective Equipment) worn by all providers involved with the procedure. Special equipment not required. Patient/Surrogate Stated/Verified: Patient name, Date of , Relevant allergies, and The intended procedure Time Out: Relevant labs, photos, and/or imaging studies have been reviewed. Intended patient and procedure match the source document(s) (e.g. consent, HANDP, associated studies [imaging, pathology]) match the intended patient and procedure. Consent obtained and matches the intended procedure. Yes. Correct side/site is not applicable. Medications required for this procedure are verified. Fire risk assessed and is not applicable. Implants: embryo dish verified with patient. Sign Out: Specimens not collected. All instruments, equipment, possible retained foreign bodies are accounted for. Yes. The post-procedure plan of care has been communicated to the patient or surrogate. TRANSFER Transfer Date: 07/15/24 Transfer Procedure: Embryo Transfer Transfer Physician: Ary Gifford M.D. Pre-Procedure Diagnosis: Infertility Post-Procedure Diagnosis: Infertility Source of embryos: Patient Total Thawed: 1 # of Embryos Transferred: 1 ASRM Guidelines: Recommended limits adhered to Catheter Type: Doherty Comment: 23 cm Ease of Transfer: Easy Direction: Mid Curve: no Depth (cm): 9 Distance from fundus (mm): 12 Tissue Status: For Autologous Use Only/ Not Evaluated for Infectious Substances Cell Stage: Grade: PGT?: Specimens: None No qualified resident/fellow was available. I/primary surgeon/proceduralist performed the entire procedure. SIGNATURE: Ct Hodge MD PATIENT NAME: Solange Milligan DATE: July 15, 2024 TIME: 9:10 [facility]05-27-2025 Procedure note* Ary Gifford MD - 07/15/2024 9:10 PM EDT [facility] ATA TRANSFER PROCEDURE NOTE Date: 07/15/2024 Primary Proceduralist: Ct Hodge MD Neurosurgical Nurse(s): Not applicable Informed Consent: Indications: Solange Milligan, is a 39 year old female here today for Embryo Transfer. [place] Protocol: UNIVERSAL PROTOCOL / SAFETY CHECKLIST Procedure to be Performed: FET Sign In: A Moment of CARE was completed. Appropriate PPE (Personal Protective Equipment) worn by all providers involved with the procedure. Special equipment not required. Patient/Surrogate Stated/Verified: Patient name, Date of , Relevant allergies, and The intended procedure Time Out: Relevant labs, photos, and/or imaging studies have been reviewed. Intended patient and procedure match the source document(s) (e.g. consent, H&P, associated studies [imaging, pathology]) match the intended patient and procedure. Consent obtained and matches the intended procedure. Yes. Correct side/site is not applicable. Medications required for this procedure are verified. Fire risk assessed and is not applicable. Implants: embryo dish verified with patient. Sign Out: Specimens not collected. All instruments, equipment, possible retained foreign bodies are accounted for. Yes. The post-procedure plan of care has been communicated to the patient or surrogate. TRANSFER Transfer Date: 07/15/24 Transfer Procedure: Embryo Transfer Transfer Physician: Ary Gifford M.D. Pre-Procedure Diagnosis: Infertility Post-Procedure Diagnosis: Infertility Source of embryos: Patient Total Thawed: 1 # of Embryos Transferred: 1 ASRM Guidelines: Recommended limits adhered to Catheter Type: Doherty Comment: 23 cm Ease of Transfer: Easy Direction: Mid Curve: no Depth (cm): 9 Distance from fundus (mm): 12 Tissue Status: For Autologous Use Only/ Not Evaluated for Infectious Substances Cell Stage: Grade: PGT?: Specimens: None No qualified resident/fellow was available. I/primary surgeon/proceduralist performed the entire procedure. SIGNATURE: Ct Hodge MD PATIENT NAME: Solange Milligan DATE: July 15, 2024 TIME: 9:10 PM [facility] Procedure note* Ary Gifford MD - 07/15/2024 9:10 PM EDT [facility] ATA TRANSFER PROCEDURE NOTE Date: 07/15/2024 Primary Proceduralist: Ct Hodge MD Neurosurgical Nurse(s): Not applicable Informed Consent: Indications: Solange Milligan, is a 39 year old female here today for Embryo Transfer. [place] Protocol: UNIVERSAL PROTOCOL / SAFETY CHECKLIST Procedure to be Performed: FET Sign In: A Moment of CARE was completed. Appropriate PPE (Personal Protective Equipment) worn by all providers involved with the procedure. Special equipment not required. Patient/Surrogate Stated/Verified: Patient name, Date of , Relevant allergies, and The intended procedure Time Out: Relevant labs, photos, and/or imaging studies have been reviewed. Intended patient and procedure match the source document(s) (e.g. consent, H&P, associated studies [imaging, pathology]) match the intended patient and procedure. Consent obtained and matches the intended procedure. Yes. Correct side/site is not applicable. Medications required for this procedure are verified. Fire risk assessed and is not applicable. Implants: embryo dish verified with patient. Sign Out: Specimens not collected. All instruments, equipment, possible retained foreign bodies are accounted for. Yes. The post-procedure plan of care has been communicated to the patient or surrogate. TRANSFER Transfer Date: 07/15/24 Transfer Procedure: Embryo Transfer Transfer Physician: Ary Gifford M.D. Pre-Procedure Diagnosis: Infertility Post-Procedure Diagnosis: Infertility Source of embryos: Patient Total Thawed: 1 # of Embryos Transferred: 1 ASRM Guidelines: Recommended limits adhered to Catheter Type: Doherty Comment: 23 cm Ease of Transfer: Easy Direction: Mid Curve: no Depth (cm): 9 Distance from fundus (mm): 12 Tissue Status: For Autologous Use Only/ Not Evaluated for Infectious Substances Cell Stage: Grade: PGT?: Specimens: None No qualified resident/fellow was available. I/primary surgeon/proceduralist performed the entire procedure. SIGNATURE: Ct Hodge MD PATIENT NAME: Solange Milligan DATE: July 15, 2024 TIME: 9:10 PM documented in this encounterSelect [facility]25 NoteHNO ID: [id number] Author: ROSALIE PAIGE, ? Service: ? Author Type: Technologist Type: Progress Notes Filed: 07/15/2024 13:54 Note Text: Embryo Transfer procedure performed. Detailed notes can be found in the paper chart in the [facility]. [facility] of Present illness Narrative* Rosalie Paige - 07/15/2024 1:53 PM EDT Embryo Transfer procedure performed. Detailed notes can be found in the paper chart in the [facility]. Rosalie Paige documented in this [facility] Instructions* Patient Instructions* Reena Hernandez RN - 07/15/2024 1:30 PM EDT POST EMBRYO TRANSFER INSTRUCTIONS You will need to have your blood drawn for Quantitative HCG on 07/29/24 at [place]. You can expect to be called the afternoon of your blood draw with your test results. If for any reason that date or location is changed, please call [phone] to inform us. Continue your current medications as instructed UNTIL YOU ARE 10 WEEKS or until a BLOOD test is confirmed negative. It is not uncommon to have breast tenderness, bloating, vaginal spotting ranging from pink to red to brown and generally feeling premenstrual while waiting to test. You can feel this way and still be - DO NOT STOP YOUR MEDICATIONS until testing is completed. Call the office if you develop: - Pain, redness and heat at your injection sites From the day of your transfer on, please treat yourself as if you are . Things to avoid: - Hot tubs/raising your core temperature - Chemical exposures - Drugs/medications that are not safe in - Processed lunch meat, unpasteurized cheeses - Smoking - Fish that are high in mercury Our recommendations on maintaining a healthy lifestyle during this time include: - Regular physical activity. Bed-rest is NOT recommended and will not increase your chance of - Daily vitamin or folic acid - Healthy diet - Adequate sleep - Sexual intimacy/intercourse/orgasm will not interfere with implantation. It is difficult to maintain the balance between optimism and realism. Remember you have done and are doing all that you can to improve your odds. Set reasonable expectations for yourselves. Keeping yourself busy and mentally distracted will help the time pass while waiting to test. If you have any questions, please call [phone]. documented in this encounterSelect [facility]-19-2025 NoteHNO ID: [id number] Author: JOSE MEDRANO RN Service: ? Author Type: Registered Nurse Type: Progress Notes Filed: 07/07/2024 12:57 Note Text: RN called patient, name and verified. Plan given for IVF cycle per physician, see flowsheet for details. [employer] message sent. Medications reviewed and verified, instructions given. Patient denies any questions or concerns. Message sent to scheduling pool for next appt. Jose Medrano RN July 07, 2024 12:57 [facility]05-19-2025 History of Present illness Narrative* Jose Medrano RN - 07/07/2024 12:57 PM EDT RN called patient, name and verified. Plan given for IVF cycle per physician, see flowsheet fordetails. MyChart message sent. Medications reviewed and verified, instructions given. Patient denies any questions or concerns. Message sent to scheduling pool for next appt. Jose Medrano RN July 07, 2024 12:57 PM * Jose Medrano RN - 07/07/2024 7:59 AM EDT The patient is here today for follicular ultrasound and blood work. The patient reports no problemsor complaints. Ultrasound and blood will be reviewed by the physician, the flow sheet will be updated and instructions will be communicated to the patient. Jose Medrano RN documented in this encounterSelect [facility]05-19-2025 NoteHNO ID: [id number] Author: JOSE MEDRANO RN Service: ? Author Type: Registered Nurse Type: Progress Notes Filed: 07/07/2024 12:31 Note Text: The patient is here today for follicular ultrasound and blood work. The patient reports no problems or complaints. Ultrasound and blood will be reviewed by the physician, the flow sheet will be updated and instructions will be communicated to the patient. Jose Medrano, [facility]05-08-2025 Telephone encounter Note* Telephone Encounter - Compa Campos RN - 06/26/2024 7:53 AM EDT Thaw plan scanned to chart. Pt requested lining check 07/07 instead of 07/04 since she had to work 07/04. Compa Campos RN June 26, 2024 7:54 AM [facility]05-08-2025 Miscellaneous Notes* Telephone Encounter - Compa Campos RN - 06/26/2024 7:53 AM EDT Thaw plan scanned to chart. Pt requested lining check 07/07 instead of 07/04 since she had to work 07/04. Compa Campos RN June 26, 2024 7:54 AM documented in this encounterSelect [facility]05-06-2025 Telephone encounter Note * Telephone Encounter - Compa Campos RN - 06/24/2024 11:29 AM EDT Lmp 5/3. Pt started 6 mg estrace 5/4. Pt will upload notarized thaw plan, then I will schedule lining check 07/04. Pt will notify me when consent is uploaded. Compa Campos RN June 24, 2024 11:33 AM [facility]-06-2025 Miscellaneous Notes* Telephone Encounter - Compa Campos RN - 06/24/2024 11:29 AM EDT Lmp 5/3. Pt started 6 mg estrace 5/4. Pt will upload notarized thaw plan, then I will schedule lining check 07/04. Pt will notify me when consent is uploaded. Compa Campos RN June 24, 2024 11:33 AM * Telephone Encounter - Pal Andrade Chely - 05/28/2024 11:00 AM EDT Needs sis order put in so she can schedule documented in this encounterSelect Medical [facility]ty [facility]04-29-2025 Evaluation note* Diagnosis Onset Date Resolution Status Admit Date Depression acute June 17 12:59pm Anxiety acute September 08 8:25am Depression acute September 08 8:25am Endometriosis determined by laparoscopy acute September 08, 2024 8:25am Marijuana use acute September 08, 2024 8:25am acute September 08 8:25am Previous section acute September 08, 2024 8:25am Supervision of high-risk acute September 08, 2024 8:25am Dysmenorrhea, unspecified chronic September 08, 2024 8:25am Infertility chronic September 08 8:25am Anxiety acute September 30, 2 025 3:19pm Depression acute September 30, 2 025 3:19pm Endometriosis determined by laparoscopy acute September 30 3:19pm History of hypothyroidism acute September 30, 2024 3:19pm Marijuana use acute September 3:19pm acute September 30, 2 025 3:19pm Previous section acute September 30, 2024 3:19pm Supervision of high-risk acute September 30 3:19pm Dysmenorrhea, unspecified chronic September 30, 2024 3:19pm Infertility chronic September 30, 2024 3:19pm [facility] Work Phone: 1(946) 588-553404-10-2025 NoteTanAry armstrong MD 05/29/2024 7:56 PM HYSTERSONOGRAPY PROCEDURE Date/Time: 05/29/2024 7:54 PM Performed by: Ary Gifford MD Authorized by: Ary Gifford MD Informed Consent / [place] Protocol: The "Time-Out" verifies the correct patient, procedure, side/site, position (if applicable) and completion and review of fire risk assessment/protocols (if appropriate): Diagnosis: (Z01.812) Pre-procedural laboratory examination (primary encounter diagnosis) (N80.9) Endometriosis (D21.9) Fibroids (Z31.41) Fertility testing Pre-Procedure Details: Informed Consent Consent Obtained: Written [place] Protocol A moment to CARE was completed. SIGN IN Sign in communication not applicable due to emergent procedure. Personnel directly involved with the procedure wore the appropriate PPE. Special Equipment: Yes Patient/Surrogate Stated/Verified: Patient name, Date of , Relevant allergies and Intended procedure TIME OUT Relevant labs, photos, and/or imaging studies have been reviewed. Intended patient and procedure match source documents. Consent obtained and matches the intended procedure. No correct side/site applicable for marking and visibility. No medications required for procedure. No fire risk assessment and interventions applicable. No implant(s) inserted. : fibroids, endometriosis, fertility testing. HCG: Negative Procedure Details: External Genitalia: Normal in appearance Vagina: Normal in appearance Pelvic Exam Performed: no Speculum placed in vagina: yes Cervix cleaned and prepped: yes Tenaculum applied to cervix: no Uterus sounded: no Saline Infused Sonohysterogram Sucessfully Performed: Yes Post-Procedure Details: Patient tolerance: Patient tolerated the procedure well with no immediate complications Patient Education: side effects discussed with patient including irregular spotting SIGN OUT No specimen collected. All instruments, equipment, possible retained foreign bodies accounted for. The post-procedure POC has been communicated to the patient or surrogate. Comments: Normal cavity.[facility]04-10-2025 NoteHNO ID: [id number] Author: ARY GIFFORD MD Service: ? Author Type: Physician Type: Procedures Filed: 05/29/2024 19:56 Note Text: HYSTERSONOGRAPY PROCEDURE Date/Time: 05/29/2024 7:54 PM Performed by: Ary Gifford MD Authorized by: Ary Gifford MD Informed Consent / [place] Protocol: The "Time-Out" verifies the correct patient, procedure, side/site, position (if applicable) and completion and review of fire risk assessment/protocols (if appropriate): Diagnosis: (Z01.812) Pre-procedural laboratory examination (primary encounter diagnosis) (N80.9) Endometriosis (D21.9) Fibroids (Z31.41) Fertility testing Pre-Procedure Details: Informed Consent Consent Obtained: Written [place] Protocol A moment to CARE was completed. SIGN IN Sign in communication not applicable due to emergent procedure. Personnel directly involved with the procedure wore the appropriate PPE. Special Equipment: Yes Patient/Surrogate Stated/Verified: Patient name, Date of , Relevant allergies and Intended procedure TIME OUT Relevant labs, photos, and/or imaging studies have been reviewed. Intended patient and procedure match source documents. Consent obtained and matches the intended procedure. No correct side/site applicable for marking and visibility. No medications required for procedure. No fire risk assessment and interventions applicable. No implant(s) inserted. : fibroids, endometriosis, fertility testing. HCG: Negative Procedure Details: External Genitalia: Normal in appearance Vagina: Normal in appearance Pelvic Exam Performed: no Speculum placed in vagina: yes Cervix cleaned and prepped: yes Tenaculum applied to cervix: no Uterus sounded: no Saline Infused Sonohysterogram Sucessfully Performed: Yes Post-Procedure Details: Patient tolerance: Patient tolerated the procedure well with no immediate complications Patient Education: side effects discussed with patient including irregular spotting SIGN OUT No specimen collected. All instruments, equipment, possible retained foreign bodies accounted for. The post-procedure POC has been communicated to the patient or surrogate. Comments: Normal cavity. Ct Hodge [facility]04-10-2025 Procedure note* Ary Gifford MD - 05/29/2024 7:54 PM EDTAssociated Order(s): HYSTERSONOGRAPHY (W NOTE) Post-Procedure Diagnose(s): Fertility testing; Endometriosis; Fibroids HYSTERSONOGRAPY PROCEDURE Date/Time: 05/29/2024 7:54 PM Performed by: Ary Gifford MD Authorized by: Ary Gifford MD Informed Consent / [place] Protocol: The "Time-Out" verifies the correct patient, procedure, side/site, position (if applicable) and completion and review of fire risk assessment/protocols (if appropriate): Diagnosis: (Z01.812) Pre-procedural laboratory examination (primary encounter diagnosis) (N80.9) Endometriosis (D21.9) Fibroids (Z31.41) Fertility testing Pre-Procedure Details: Informed Consent Consent Obtained: Written [place] Protocol A moment to CARE was completed. SIGN IN Sign in communication not applicable due to emergent procedure. Personnel directly involved with the procedure wore the appropriate PPE. Special Equipment: Yes Patient/Surrogate Stated/Verified: Patient name, Date of , Relevant allergies and Intended procedure TIME OUT Relevant labs, photos, and/or imaging studies have been reviewed. Intended patient and procedure match source documents. Consent obtained and matches the intended procedure. No correct side/site applicable for marking and visibility. No medications required for procedure. No fire risk assessment and interventions applicable. No implant(s) inserted. : fibroids, endometriosis, fertility testing. HCG: Negative Procedure Details: External Genitalia: Normal in appearance Vagina: Normal in appearance Pelvic Exam Performed: no Speculum placed in vagina: yes Cervix cleaned and prepped: yes Tenaculum applied to cervix: no Uterus sounded: no Saline Infused Sonohysterogram Sucessfully Performed: Yes Post-Procedure Details: Patient tolerance: Patient tolerated the procedure well with no immediate complications Patient Education: side effects discussed with patient including irregular spotting SIGN OUT No specimen collected. All instruments, equipment, possible retained foreign bodies accounted for. The post-procedure POC has been communicated to the patient or surrogate. Comments: Normal cavity. Ct Hodge MD [facility] Work Phone: 1(485) 499-174604-10-2025 Procedure note* Ary Gifford MD - 05/29/2024 7:54 PM EDTAssociated Order(s): HYSTERSONOGRAPHY (W NOTE) Post-Procedure Diagnose(s): Fertility testing; Endometriosis; Fibroids HYSTERSONOGRAPY PROCEDURE Date/Time: 05/29/2024 7:54 PM Performed by: Ary Gifford MD Authorized by: Ary Gifford MD Informed Consent / [place] Protocol: The "Time-Out" verifies the correct patient, procedure, side/site, position (if applicable) and completion and review of fire risk assessment/protocols (if appropriate): Diagnosis: (Z01.812) Pre-procedural laboratory examination (primary encounter diagnosis) (N80.9) Endometriosis (D21.9) Fibroids (Z31.41) Fertility testing Pre-Procedure Details: Informed Consent Consent Obtained: Written [place] Protocol A moment to CARE was completed. SIGN IN Sign in communication not applicable due to emergent procedure. Personnel directly involved with the procedure wore the appropriate PPE. Special Equipment: Yes Patient/Surrogate Stated/Verified: Patient name, Date of , Relevant allergies and Intended procedure TIME OUT Relevant labs, photos, and/or imaging studies have been reviewed. Intended patient and procedure match source documents. Consent obtained and matches the intended procedure. No correct side/site applicable for marking and visibility. No medications required for procedure. No fire risk assessment and interventions applicable. No implant(s) inserted. : fibroids, endometriosis, fertility testing. HCG: Negative Procedure Details: External Genitalia: Normal in appearance Vagina: Normal in appearance Pelvic Exam Performed: no Speculum placed in vagina: yes Cervix cleaned and prepped: yes Tenaculum applied to cervix: no Uterus sounded: no Saline Infused Sonohysterogram Sucessfully Performed: Yes Post-Procedure Details: Patient tolerance: Patient tolerated the procedure well with no immediate complications Patient Education: side effects discussed with patient including irregular spotting SIGN OUT No specimen collected. All instruments, equipment, possible retained foreign bodies accounted for. The post-procedure POC has been communicated to the patient or surrogate. Comments: Normal cavity. Ct Hodge MD documented in this encounterSelect [facility]04-09-2025 Telephone encounter Note * Telephone Encounter - Chely Mckeon - 05/28/2024 11:00 AM EDT Needs sis order put in so she can schedule [facility]04-03-2025 Telephone encounter Note* Telephone Encounter - Carmen Braden RN - 05/22/2024 10:14 AM EDT FAX number sent to patient per her request. Carmen Braden RN May 22, 2024 10:14 AM [facility]04-03-2025 Miscellaneous Notes* Telephone Encounter - Carmen Braden RN - 05/22/2024 10:14 AM EDT FAX number sent to patient per her request. Carmen Braden RN May 22, 2024 10:14 AM * Telephone Encounter - Carmen Braden RN - 05/22/2024 9:12 AM EDT Mychart sent to patient and informed the preference is for hysteroscopy to be done here at [facility] at [facility]. Carmen Braden RN May 22, 2024 9:12 AM documented in this encounterSelect [facility]04-03-2025 Telephone encounter Note * Telephone Encounter - Carmen Braden RN - 05/22/2024 9:12 AM EDT Mychart sent to patient and informed the preference is for hysteroscopy to be done here at [facility] at [facility]. Carmen Braden RN May 22, 2024 9:12 AM [facility]-27-2025 Evaluation note* Diagnosis Onset Date Resolution Status Admit Date Screening for cervical cancer acute May 15, 2024 2:08pm Infertility chronic May 15 025 2:08pm [facility] Work Phone: 1(926) 830-673503-27-2025 Evaluation note* Diagnosis Onset Date Resolution Status Admit Date Infertility chronic May 15, 2 025 2:08pm Screening for cervical cancer inacti ve May 15, 2024 2:08pm Depression acute June 17 12:59pm Anxiety acute September 08 8:25am Depression acute September 08 8:25am Endometriosis determined by laparoscopy acute September 08, 2024 8:25am Marijuana use acute September 08, 2024 8:25am acute September 08 8:25am Previous section acute September 08, 2024 8:25am Supervision of high-risk acute September 08, 2024 8:25am Dysmenorrhea, unspecified chronic September 08, 2024 8:25am Infertility chronic September 08 8:25am [facility] Work Phone: [phone]) 733-678901-23-2025 Progress note* Ary Gifford MD - 03/13/2024 8:30 AM EST Date of Consult: 03/13/2024 Solange Milligan is a 39 year old female presenting with the following history: HISTORY OF PRESENT ILLNESS: Solange Milligan is a 39 year old female with March 13, 2024 Patient is here to discuss FET. Solange Milligan is a 39 year old female with history of endometriosis and unexplained infertility. She underwent IVF in 2021 and has her son via at term for failure to progress in 2022. She has been having regular period since stops over a yearago. She reports dysmenorrhea but is mild to moderate. We briefly discuss possible laparoscopy if pain is worsen. She is comfortable of not doing laparoscopy and moving forward to FET. Prior note G0 with stage IV endometriosis s/p complete resection, including bowel resection 01/2020. Bilaterally patent tubes on chromopertubation. TTC x3 years. Reports that she has "ovulation problems" detected on outside lab work. Reports abnormal SA "bad motility" but results unavailable, patient will getresults to me via [employer]. Obstetric History T1 L1 SAB0 IAB0 Ectopic0 Multiple0 Live Births1 Fertility Evaluations and Treatments: Eval Checklist Results Date Comments HSG Normal Chromopertubation during surgery 02/07 Hysteroscopy Laparoscopy OPK (Ovulation Predictor Kit) Ovarian [place] Normal AMH 6.33 09/07 Semen Analysis Ultrasound Other (See comments) MENSTRUAL HISTORY: Menarche Age: 15 Length of Cycle: 28-35 Regular Days: 4 Menstrual Flow: Moderate,Heavy Menstrual Symptoms: Pain,Cramping Patient's last menstrual period was 02/21/2024 (approximate). PAST MEDICAL HISTORY Diagnosis Date Abnormal glandular Papanicolaou smear of cervix 2008 Abn. Pap smear (cervix) Dysmenorrhea Endometriosis Fibroid Thyroid disease PAST SURGICAL HISTORY Procedure Laterality Date COLPOSCOPY CERVIX UPPER/ADJACENT VAGINA 10/07/2008 Colposcopy, for lgsil IVF RETRIEVAL ANY METHOD 08/2021 YANI 2014 PAST SURGICAL HISTORY OF 06/01/2003 ACL OF LEFT LEG PAST SURGICAL HISTORY OF 07/2019 laparoscopy FAMILY HISTORY Problem Relation Age of Onset other (non hodgkins lymphoma) Father Cancer Paternal Grandfather No Hodgkins Lymphoma ETHNICITY: White Assessment and Plan [facility] Frozen Embryo Transfer Treatment Plan: Specialty comments (one liner/diamond things to know): Solange Milligan is a 39 year old female with history of endometriosis and unexplained infertility. She underwent IVF in 2021 and has her son via at term for failure to progress in 2022. She has been having regular period since stops over a year ago. She reports dysmenorrhea but is mild to moderate. We briefly discuss possible laparoscopy if pain is worsen. She is comfortable of not doing laparoscopy and moving forward to FET. The following plan discuss with pt. Pretreatment:OCP Uterine cavity testing: SIS date: ordered Protocol: Programmed NatPro Study: No If programmed, type of estradiol: Oral estradiol Type of progesterone: 50 mg Progesterone in Oil IM daily OK for OCPs to delay cycle start if needed: Yes Appointment on 03/13/24 THYROID STIMULATING HORMONE VITAMIN D 25 HYDROXY T4 FREE/FREE THYROXINE TYPE + SCREEN SONOHYSTEROGRAPHY (SIS) [facility] Solange Milligan is a 39 year old female here to discuss FET. - FET pre-requirement sent/given to pt - protocol discussed - estrace and IM prog protocol - Number of embryo to transfer 1 - Up to date physical exam - she will set up. - After all of the pre-requirement are done, pt aware that she needs to call IVF coordinator to discuss about protocol, get meds order and we will send thaw plan to her at that time. - Other test needed - see above All questions are answered MD Ct Webb MD 03/13/2024 This visit was conducted as a virtual visit via zoom. I have communicated my name and active licensure. The patient's identity and physical location wereverified at the time of this visit. Either the patient or their legal risk control field representative has been informed of the risks and benefits of -- and alternatives to -- treatment through a remote evaluation andconsents to proceed with the evaluation remotely. I spent a total of 30 minutes on the date of the service which included preparing to see the patient, [id number] patient care, completing clinical documentation, performing a medically appropriate examination, counseling and educating the patient/family/caregiver, ordering medications, tests, or p rocedures, communicating results to the patient/family/caregiver, and care coordination (not separately reported). Ct Hodge MD [facility]01-23-2025 Consult note* Ary Gifford MD - 03/13/2024 8:30 AM EST Date of Consult: 03/13/2024 Solange Milligan is a 39 year old female presenting with the following history: HISTORY OF PRESENT ILLNESS: Solange Milligan is a 39 year old female with March 13, 2024 Patient is here to discuss FET. Solange Milligan is a 39 year old female with history of endometriosis and unexplained infertility. She underwent IVF in 2021 and has her son via at term for failure to progress in 2022. She has been having regular period since stops over a yearago. She reports dysmenorrhea but is mild to moderate. We briefly discuss possible laparoscopy if pain is worsen. She is comfortable of not doing laparoscopy and moving forward to FET. Prior note G0 with stage IV endometriosis s/p complete resection, including bowel resection 01/2020. Bilaterally patent tubes on chromopertubation. TTC x3 years. Reports that she has "ovulation problems" detected on outside lab work. Reports abnormal SA "bad motility" but results unavailable, patient will getresults to me via [employer]. Obstetric History T1 L1 SAB0 IAB0 Ectopic0 Multiple0 Live Births1 Fertility Evaluations and Treatments: Eval Checklist Results Date Comments HSG Normal Chromopertubation during surgery 02/07 Hysteroscopy Laparoscopy OPK (Ovulation Predictor Kit) Ovarian [place] Normal AMH 6.33 09/07 Semen Analysis Ultrasound Other (See comments) MENSTRUAL HISTORY: Menarche Age: 15 Length of Cycle: 28-35 Regular Days: 4 Menstrual Flow: Moderate,Heavy Menstrual Symptoms: Pain,Cramping Patient's last menstrual period was 02/21/2024 (approximate). PAST MEDICAL HISTORY Diagnosis Date Abnormal glandular Papanicolaou smear of cervix 2008 Abn. Pap smear (cervix) Dysmenorrhea Endometriosis Fibroid Thyroid disease PAST SURGICAL HISTORY Procedure Laterality Date COLPOSCOPY CERVIX UPPER/ADJACENT VAGINA 10/07/2008 Colposcopy, for lgsil IVF RETRIEVAL ANY METHOD 08/2021 YANI 2014 PAST SURGICAL HISTORY OF 06/01/2003 ACL OF LEFT LEG PAST SURGICAL HISTORY OF 07/2019 laparoscopy FAMILY HISTORY Problem Relation Age of Onset other (non hodgkins lymphoma) Father Cancer Paternal Grandfather No Hodgkins Lymphoma ETHNICITY: White Assessment and Plan ATA Frozen Embryo Transfer Treatment Plan: Specialty comments (one liner/diamond things to know): Solange Milligan is a 39 year old female with history of endometriosis and unexplained infertility. She underwent IVF in 2021 and has her son via at term for failure to progress in 2022. She has been having regular period since stops over a year ago. She reports dysmenorrhea but is mild to moderate. We briefly discuss possible laparoscopy if pain is worsen. She is comfortable of not doing laparoscopy and moving forward to FET. The following plan discuss with pt. Pretreatment:OCP Uterine cavity testing: SIS date: ordered Protocol: Programmed NatPro Study: No If programmed, type of estradiol: Oral estradiol Type of progesterone: 50 mg Progesterone in Oil IM daily OK for OCPs to delay cycle start if needed: Yes Appointment on 03/13/24 THYROID STIMULATING HORMONE VITAMIN D 25 HYDROXY T4 FREE/FREE THYROXINE TYPE + SCREEN SONOHYSTEROGRAPHY (SIS) [facility] Solange Milligan is a 39 year old female here to discuss FET. - FET pre-requirement sent/given to pt - protocol discussed - estrace and IM prog protocol - Number of embryo to transfer 1 - Up to date physical exam - she will set up. - After all of the pre-requirement are done, pt aware that she needs to call IVF coordinator to discuss about protocol, get meds order and we will send thaw plan to her at that time. - Other test needed - see above All questions are answered MD Ct Webb MD 03/13/2024 This visit was conducted as a virtual visit via zoom. I have communicated my name and active licensure. The patient's identity and physical location wereverified at the time of this visit. Either the patient or their legal risk control field representative has been informed of the risks and benefits of -- and alternatives to -- treatment through a remote evaluation andconsents to proceed with the evaluation remotely. I spent a total of 30 minutes on the date of the service which included preparing to see the patient, [id number] patient care, completing clinical documentation, performing a medically appropriate examination, counseling and educating the patient/family/caregiver, ordering medications, tests, or p rocedures, communicating results to the patient/family/caregiver, and care coordination (not separately reported). Ct Hodge MD documented [facility] Plan of care note* ATA Plan Note - rAy Gifford MD - 03/13/2024 8:27 AM EST ATA Frozen Embryo Transfer Treatment Plan: Specialty comments (one liner/diamond things to know): Solange Milligan is a 39 year old female with history of endometriosis and unexplained infertility. She underwent IVF in 2021 and has her son via at term for failure to progress in 2022. She has been having regular period since stops over a year ago. She reports dysmenorrhea but is mild to moderate. We briefly discuss possible laparoscopy if pain is worsen. She is comfortable of not doing laparoscopy and moving forward to FET. The following plan discuss with pt. Pretreatment:OCP Uterine cavity testing: SIS date: ordered Protocol: Programmed NatPro Study: No If programmed, type of estradiol: Oral estradiol Type of progesterone: 50 mg Progesterone in Oil IM daily OK for OCPs to delay cycle start if needed: Yes Appointment on 03/13/24 THYROID STIMULATING HORMONE VITAMIN D 25 HYDROXY T4 FREE/FREE THYROXINE TYPE + SCREEN SONOHYSTEROGRAPHY (SIS) [facility] Solange Milligan is a 39 year old female here to discuss FET. - FET pre-requirement sent/given to pt - protocol discussed - estrace and IM prog protocol - Number of embryo to transfer 1 - Up to date physical exam - she will set up. - After all of the pre-requirement are done, pt aware that she needs to call IVF coordinator to discuss about protocol, get meds order and we will send thaw plan to her at that time. - Other test needed - see above All questions are answered MD Ct Webb MD 03/13/2024 [facility] Miscellaneous Notes* ATA Plan Note - Ary Gifford MD - 03/13/2024 8:27 AM EST ATA Frozen Embryo Transfer Treatment Plan: Specialty comments (one liner/diamond things to know): Solange Milligan is a 39 year old female with history of endometriosis and unexplained infertility. She underwent IVF in 2021 and has her son via at term for failure to progress in 2022. She has been having regular period since stops over a year ago. She reports dysmenorrhea but is mild to moderate. We briefly discuss possible laparoscopy if pain is worsen. She is comfortable of not doing laparoscopy and moving forward to FET. The following plan discuss with pt. Pretreatment:OCP Uterine cavity testing: SIS date: ordered Protocol: Programmed NatPro Study: No If programmed, type of estradiol: Oral estradiol Type of progesterone: 50 mg Progesterone in Oil IM daily OK for OCPs to delay cycle start if needed: Yes Appointment on 03/13/24 THYROID STIMULATING HORMONE VITAMIN D 25 HYDROXY T4 FREE/FREE THYROXINE TYPE + SCREEN SONOHYSTEROGRAPHY (SIS) [facility] Solange Milligan is a 39 year old female here to discuss FET. - FET pre-requirement sent/given to pt - protocol discussed - estrace and IM prog protocol - Number of embryo to transfer 1 - Up to date physical exam - she will set up. - After all of the pre-requirement are done, pt aware that she needs to call IVF coordinator to discuss about protocol, get meds order and we will send thaw plan to her at that time. - Other test needed - see above All questions are answered MD Ct Webb MD 03/13/2024 documented in this encounterSelect [facility] Telephone encounter Note * Telephone Encounter - Evie Vargas APRN.SUELLEN - 02/18/2024 8:05 AM EST Appears viscous lidocaine was sent to pharmacy. Evie Vargas APRN.CNP [facility]-30-[facility]24 Miscellaneous Notes* Telephone Encounter - Evie Vargas APRN.CNP - 02/18/2024 8:05 AM EST Appears viscous lidocaine was sent to pharmacy. Evie Vargas APRN.CNP documented in this encounterSelect [facility]12-29-2024 Telephone encounter Note * Telephone Encounter - Ebony Vines MA - 02/17/2024 4:02 PM EST The following approved medication requests have been transmitted electronically. Requested Prescriptions Signed Prescriptions Disp Refills LIDOCAINE VISCOUS 2 % solution 100 mL 0 Sig: Take 15 mL by mouth as needed. Authorizing Provider: NAOMI ELIZONDO MA [facility]12-29-2024 Miscellaneous Notes* Telephone Encounter - Ebony Vines MA - 02/17/2024 4:02 PM EST The following approved medication requests have been transmitted electronically. Requested Prescriptions Signed Prescriptions Disp Refills LIDOCAINE VISCOUS 2 % solution 100 mL 0 Sig: Take 15 mL by mouth as needed. Authorizing Provider: NAOMI ELIZONDO MA * Telephone Encounter - Naomi Elizondo PA - 02/17/2024 3:29 PM EST Please let patient know medication sent to pharmacy documented in this encounterSelect [facility]-29-2024 Telephone encounter Note * Telephone Encounter - Naomi Elizondo PA - 02/17/2024 3:29 PM EST Please let patient know medication sent to pharmacy [facility] Telephone encounter Note* Telephone Encounter - Mikaela Stephen RN - 02/17/2024 2:35 PM EST Patient calling with request for medication sent in for mouth is not available Patient denies any new or worsening symptoms of which a provider is not aware: N/A. Pharmacy told patient that Lidocainewas available. Send new prescription to same pharmacy. [facility] Miscellaneous Notes* Telephone Encounter - Mikaela Stephen RN - 02/17/2024 2:35 PM EST Patient calling with request for medication sent in for mouth is not available Patient denies any new or worsening symptoms of which a provider is not aware: N/A. Pharmacy told patient that Lidocainewas available. Send new prescription to same pharmacy. documented in this encounterSelect [facility]12-29-2024 Instructions* Patient Instructions* Evie Vargas APRN.SUELLEN - 02/17/2024 8:31 AM EST covid rsv and influenza test ordered You will be notified in 12-24 hours, results available on MyChart Rest, increase water intake Motrin or Tylenol as needed for fever or pain. Salt water gargles, chloraseptic spray or lozenges as needed for sore throat. Warm beverages, honey. Nasal saline spray as needed Cool mist humidifier at night Tylenol (generic acetaminophen) 500 mg-2 tabs every 8 hrs. as needed for fever and aches Ibuprofen 600 mg (3-200mg tablets) every 6 hours Mucinex dm Tessalon Perles 2 every 8 hours, do not combine this with robitussin or delsym BMX solution as ordered * Seek medical care immediately, call 911, go to ER if you have chest pain, difficulty breathing, shortness of breath, inability to swallow. documented in this encounterSelect [facility]12-29-2024 NoteHNO ID: [id number] Author: EVIE VARGAS APRN.CNP Service: ? Author Type: Nurse Practitioner Type: Progress Notes Filed: 02/17/2024 08:31 Note Text: Subjective The history is provided by the patient. No language pathologist was used. HPI Solange Milligan is a 39 year old female who presents today for CC of cough, sore throat, fcongestion, body aches for 3 days. She has used otc mucinex dm. She had a coworker that was ill BP 138/75 Pulse 87 Temp 37.1 ?C (98.7 ?F) Resp 20 Wt 80 kg (176 lb 5.9 oz) LMP 01/27/2024 (Exact Date) SpO2 96% No BMI 30.27 kg/m? Social History Tobacco Use Smoking status: Never Smokeless tobacco: Never Vaping Use Vaping status: Never Used Substance Use Topics Alcohol use: Not Currently Comment: 10 drinks per week per pt 01/20/2020 Drug use: Not Currently Types: Marijuana Comment: medical marijuana - for anxiety, pain - edibles PAST MEDICAL HISTORY Diagnosis Date Abnormal glandular Papanicolaou smear of cervix 2009 Abn. Pap smear (cervix) Dysmenorrhea Endometriosis Fibroid Thyroid disease I have confirmed and edited as necessary, the [facility] Review of Systems Constitutional: Negative for chills and fever. HENT: Positive for congestion, sinus pain and sore throat. Negative for ear pain. Respiratory: Positive for cough. Negative for sputum production, shortness of breath and wheezing. Cardiovascular: Negative for chest pain. Gastrointestinal: Negative for abdominal pain, diarrhea, nausea and vomiting. Musculoskeletal: Negative for myalgias. Neurological: Negative for headaches. Objective Physical Exam Vitals and nursing note reviewed. HENT: Head: Atraumatic. Microcephalic. Right Ear: Tympanic membrane, ear canal and external ear normal. Left Ear: Tympanic membrane, ear canal and external ear normal. Nose: Mucosal edema, congestion and rhinorrhea present. Right Sinus: No maxillary sinus tenderness or frontal sinus tenderness. Left Sinus: No maxillary sinus tenderness or frontal sinus tenderness. Mouth/Throat: Pharynx: Uvula midline. Posterior oropharyngeal erythema and postnasal drip present. No oropharyngeal exudate. Comments: Multiple herpangina present in the back of throat Cardiovascular: Rate and Rhythm: Normal rate and regular rhythm. Heart sounds: Normal heart sounds. Pulmonary: Effort: Pulmonary effort is normal. Breath sounds: Normal breath sounds. Lymphadenopathy: Head: Right side of head: No submental, submandibular or tonsillar adenopathy. Left side of head: No submental, submandibular or tonsillar adenopathy. Cervical: No cervical adenopathy. Skin: General: Skin is warm and dry. Neurological: Mental Status: She is alert. Psychiatric: Mood and Affect: Affect normal. ASSESSMENT/PLAN: 1. URI with cough and congestion - ICD9: 465.9, ICD10: J06.9 (primary diagnosis) - Discussed viral etiology and rationale for treatment. - Symptomatic treatment with prn analgesia - Supportive care with fluids and rest - COVID AND INFLUENZA A/B AND RSV PCR, ROUTINE Testing ordered Comfort measures discussed - see patient instructions. When to seek higher level of care Notified in 12-24 hours with results, available on [employer] 2. Sore throat - ICD9: 462, ICD10: J02.9 - suspect viral - herpangina present - BMX solution - Discussed supportive care treatment with fluids, rest and analgesia. - The patient may also use warm salt water gargles, throat lozenges and/or OTC throat spray as needed. - The patient should follow up in one week if symptoms persist or worsen - Call back if drooling, increased temperature, symptoms of dehydration and/or still sick in one week Diagnosis and treatment plan were discussed and questions were answered to the patient's satisfaction. Pt acknowledged understanding of concepts and follow up plan. Specific signs and symptoms that would indicate the need for higher level of care were discussed in detail warranting prompt ER evaluation. Evie Sam, UTILITY SPRAY OPERATOR.[facility]EN[facility] History of Present illness Narrative* Evie Vargas APRN.SUELLEN - 02/17/2024 8:20 AM EST Images from the original note were not included. Subjective The history is provided by the patient. No language pathologist was used. HPI Solange Milligan is a 39 year old female who presents today for CC of cough, sore throat, fcongestion, body aches for 3 days. She has used otc mucinex dm. She had a coworker that was ill BP 138/75 Pulse 87 Temp 37.1 C (98.7 F) Resp 20 Wt 80 kg (176 lb 5.9 oz) LMP 01/27/2024 (Exact Date) SpO2 96% No BMI 30.27 kg/m Social History Tobacco Use Smoking status: Never Smokeless tobacco: Never Vaping Use Vaping status: Never Used Substance Use Topics Alcohol use: Not Currently Comment: 10 drinks per week per pt 01/20/2020 Drug use: Not Currently Types: Marijuana Comment: medical marijuana - for anxiety, pain - edibles PAST MEDICAL HISTORY Diagnosis Date Abnormal glandular Papanicolaou smear of cervix 2008 Abn. Pap smear (cervix) Dysmenorrhea Endometriosis Fibroid Thyroid disease I have confirmed and edited as necessary, the [facility] Review of Systems Constitutional: Negative for chills and fever. HENT: Positive for congestion, sinus pain and sore throat. Negative for ear pain. Respiratory: Positive for cough. Negative for sputum production, shortness of breath and wheezing. Cardiovascular: Negative for chest pain. Gastrointestinal: Negative for abdominal pain, diarrhea, nausea and vomiting. Musculoskeletal: Negative for myalgias. Neurological: Negative for headaches. Objective Physical Exam Vitals and nursing note reviewed. HENT: Head: Atraumatic. Microcephalic. Right Ear: Tympanic membrane, ear canal and external ear normal. Left Ear: Tympanic membrane, ear canal and external ear normal. Nose: Mucosal edema, congestion and rhinorrhea present. Right Sinus: No maxillary sinus tenderness or frontal sinus tenderness. Left Sinus: No maxillary sinus tenderness or frontal sinus tenderness. Mouth/Throat: Pharynx: Uvula midline. Posterior oropharyngeal erythema and postnasal drip present. No oropharyngeal exudate. Comments: Multiple herpangina present in the back of throat Cardiovascular: Rate and Rhythm: Normal rate and regular rhythm. Heart sounds: Normal heart sounds. Pulmonary: Effort: Pulmonary effort is normal. Breath sounds: Normal breath sounds. Lymphadenopathy: Head: Right side of head: No submental, submandibular or tonsillar adenopathy. Left side of head: No submental, submandibular or tonsillar adenopathy. Cervical: No cervical adenopathy. Skin: General: Skin is warm and dry. Neurological: Mental Status: She is alert. Psychiatric: Mood and Affect: Affect normal. ASSESSMENT/PLAN: 1. URI with cough and congestion - ICD9: 465.9, ICD10: J06.9 (primary diagnosis) - Discussed viral etiology and rationale for treatment. - Symptomatic treatment with prn analgesia - Supportive care with fluids and rest - COVID & INFLUENZA A/B & RSV PCR, ROUTINE Testing ordered Comfort measures discussed - see patient instructions. When to seek higher level of care Notified in 12-24 hours with results, available on [employer] 2. Sore throat - ICD9: 462, ICD10: J02.9 - suspect viral - herpangina present - BMX solution - Discussed supportive care treatment with fluids, rest and analgesia. - The patient may also use warm salt water gargles, throat lozenges and/or OTC throat spray as needed. - The patient should follow up in one week if symptoms persist or worsen - Call back if drooling, increased temperature, symptoms of dehydration and/or still sick in one week Diagnosis and treatment plan were discussed and questions were answered to the patient's satisfaction. Pt acknowledged understanding of concepts and follow up plan. Specific signs and symptoms that would indicate the need for higher level of care were discussed indetail warranting prompt ER evaluation. Evie Vargas APRN.SUELLEN documented in this encounterSelect [facility]12-[facility]-2024 NoteHNO ID: [id number] Author: JOSE ENRIQUE JENNINGS APRN.CNP Service: ? Author Type: Nurse Practitioner Type: Progress Notes Filed: 01/20/2024 11:53 Note Text: Subjective HPI Nontoxic-appearing female presents urgent care chief complaint rash. Duration of symptoms 3 weeks. Associated symptoms pruritic rash on arms has now spread to chest. Had a similar rash 3 months ago that self resolved. Has been using tea tree oil lotion. This is helped some. Has been using a low potency corticosteroid hydrocortisone cream this has worked but rash returns. No recent medication changes. Overall feels well. No fevers. No nausea or vomiting. Denies chance of . Is not breast-feeding. Past medical history prescription medications allergies reviewed. .Patient presents with: Rash: itching x 3 weeks, recurring from 3 months ago, all over PAST MEDICAL HISTORY Diagnosis Date Abnormal glandular Papanicolaou smear of cervix 2008 Abn. Pap smear (cervix) Dysmenorrhea Endometriosis Fibroid Thyroid disease PAST SURGICAL HISTORY Procedure Laterality Date COLPOSCOPY CERVIX UPPER/ADJACENT VAGINA 10/07/2008 Colposcopy, for lgsil IVF RETRIEVAL ANY METHOD 08/2021 YANI 2014 PAST SURGICAL HISTORY OF 06/01/2003 ACL OF LEFT LEG PAST SURGICAL HISTORY OF 07/2019 laparoscopy ALLERGIES Seasonal Allergies MEDICATIONS buPROPion XL (WELLBUTRIN XL) 150 mg 24 hr tablet Take 1 tablet by mouth every afternoon. escitalopram oxalate (LEXAPRO) 20 mg tablet Take 1 tablet by mouth every afternoon. azelastine 0.1% nasal spray Use 2 Sprays in each nostril two times a day as needed. cholecalciferol (VITAMIN D3) 1,000 unit tab tablet Take by mouth. doxycycline (VIBRA-TABS) 100 mg tablet Take 1 tablet by mouth twice daily. (Patient not taking: Reported on 08/01/2022) methylPREDNISolone (MEDROL) 16 mg tablet Take 1 tablet by mouth once daily. (Patient not taking: Reported on 08/01/2022) Norethindrone Acet-Ethinyl Est (JUNEL ,) 1.5-30 mg-mcg Take 1 tablet by mouth once daily for 21 days. Take continuously (Patient not taking: Reported on 01/20/2024) progesterone 50 mg/mL injection Inject 1 mL intramuscularly once daily. Inject in the morning (Patient not taking: Reported on 08/01/2022) Needle, Disp, 22 G (BD DISPOSABLE NEEDLES) 22 gauge x 1 1/2" To be used to inject progesterone in oil (Patient not taking: Reported on 08/01/2022) Syringe with Needle, Disp, (SYRINGE 3CC/20GX1") To be used to draw up progesterone in oil (Patient not taking: Reported on 08/01/2022) estradiol (ESTRACE) 2 mg tablet Take 3 tablets by mouth once daily. (Patient not taking: Reported on 08/01/2022) FLUoxetine (PROZAC) 40 mg capsule Take 50 mg by mouth once daily. (Patient not taking: Reported on 01/20/2024) PNV no.95/ferrous fum/folic ac ( ORAL) Take 1 tablet by mouth once daily. (Patient not taking: Reported on 07/18/2023) levothyroxine (SYNTHROID) 50 mcg tablet Take 50 mcg by mouth once daily. (Patient not taking: Reported on 08/01/2022) FAMILY HISTORY Problem Relation Age of Onset other (non hodgkins lymphoma) Father Cancer Paternal Grandfather No Hodgkins Lymphoma Social History Tobacco Use Smoking status: Never Smokeless tobacco: Never Vaping Use Vaping status: Never Used Substance Use Topics Alcohol use: Not Currently Comment: 10 drinks per week per pt 01/20/2020 Drug use: Not Currently Types: Marijuana Comment: medical marijuana - for anxiety, pain - edibles BP 104/66 Pulse 78 Temp 36.7 ?C (98.1 ?F) Resp 16 Wt 79 kg (174 lb 2.6 oz) LMP 12/04/2021 (Approximate) SpO2 99% BMI 29.90 kg/m? Review of Systems Constitutional: Negative for chills, fever and malaise/fatigue. HENT: Negative for congestion, ear discharge, ear pain, sinus pain and sore throat. Eyes: Negative for blurred vision, pain, discharge and redness. Respiratory: Negative for cough, hemoptysis, sputum production, shortness of breath, wheezing and stridor. Cardiovascular: Negative for chest pain. Gastrointestinal: Negative for abdominal pain, diarrhea, nausea and vomiting. Musculoskeletal: Negative for myalgias. Skin: Positive for itching and rash. Neurological: Negative for dizziness and headaches. Objective Physical Exam Constitutional: General: She is not in acute distress. Appearance: She is not toxic-appearing. HENT: Head: Normocephalic. Nose: Nose normal. Mouth/Throat: Mouth: Mucous membranes are moist. Pharynx: Oropharynx is clear. No oropharyngeal exudate or posterior oropharyngeal erythema. Eyes: Pupils: Pupils are equal, round, and reactive to light. Cardiovascular: Rate and Rhythm: Normal rate. Pulmonary: Effort: Pulmonary effort is normal. No respiratory distress. Musculoskeletal: Cervical back: Normal range of motion. Skin: General: Skin is warm and dry. Comments: The rash some scaling noted on highlighted area. Rash is blanching. Spares palms and ceballos (more content not included)...[facility]12-01-[facility] History of Present illness Narrative* Jose Enrique Jennings APRN.HEADER MACHINE OPERATOR - 01/20/2024 11:21 AM EST Images from the original note were not included. Subjective HPI Nontoxic-appearing female presents urgent care chief complaint rash. Duration of symptoms 3 weeks. Associated symptoms pruritic rash on arms has now spread to chest. Had a similar rash 3 months ago that self resolved. Has been using tea tree oil lotion. This is helped some. Has been using a low potency corticosteroid hydrocortisone cream this has worked but rash returns. No recent medication changes. Overall feels well. No fevers. No nausea or vomiting. Denies chance of . Is not breast-feeding. Past medical history prescription medications allergies reviewed. .Patient presents with: Rash: itching x 3 weeks, recurring from 3 months ago, all over PAST MEDICAL HISTORY Diagnosis Date Abnormal glandular Papanicolaou smear of cervix 2008 Abn. Pap smear (cervix) Dysmenorrhea Endometriosis Fibroid Thyroid disease PAST SURGICAL HISTORY Procedure Laterality Date COLPOSCOPY CERVIX UPPER/ADJACENT VAGINA 10/07/2008 Colposcopy, for lgsil IVF RETRIEVAL ANY METHOD 08/2021 YANI 2014 PAST SURGICAL HISTORY OF 06/01/2003 ACL OF LEFT LEG PAST SURGICAL HISTORY OF 07/2019 laparoscopy ALLERGIES Seasonal Allergies MEDICATIONS buPROPion XL (WELLBUTRIN XL) 150 mg 24 hr tablet Take 1 tablet by mouth every afternoon. escitalopram oxalate (LEXAPRO) 20 mg tablet Take 1 tablet by mouth every afternoon. azelastine 0.1% nasal spray Use 2 Sprays in each nostril two times a day as needed. cholecalciferol (VITAMIN D3) 1,000 unit tab tablet Take by mouth. doxycycline (VIBRA-TABS) 100 mg tablet Take 1 tablet by mouth twice daily. (Patient not taking: Reported on 08/01/2022) methylPREDNISolone (MEDROL) 16 mg tablet Take 1 tablet by mouth once daily. (Patient not taking: Reported on 08/01/2022) Norethindrone Acet-Ethinyl Est (JUNEL ,) 1.5-30 mg-mcg Take 1 tablet by mouth once daily for 21 days. Take continuously (Patient not taking: Reported on 01/20/2024) progesterone 50 mg/mL injection Inject 1 mL intramuscularly once daily. Inject in the morning (Patient not taking: Reported on 08/01/2022) Needle, Disp, 22 G (BD DISPOSABLE NEEDLES) 22 gauge x 1 1/2" To be used to inject progesterone in oil (Patient not taking: Reported on 08/01/2022) Syringe with Needle, Disp, (SYRINGE 3CC/20GX1") To be used to draw up progesterone in oil (Patient not taking: Reported on 08/01/2022) estradiol (ESTRACE) 2 mg tablet Take 3 tablets by mouth once daily. (Patient not taking: Reported on 08/01/2022) FLUoxetine (PROZAC) 40 mg capsule Take 50 mg by mouth once daily. (Patient not taking: Reported on 01/20/2024) PNV no.95/ferrous fum/folic ac ( ORAL) Take 1 tablet by mouth once daily. (Patient not taking: Reported on 07/18/2023) levothyroxine (SYNTHROID) 50 mcg tablet Take 50 mcg by mouth once daily. (Patient not taking: Reported on 08/01/2022) FAMILY HISTORY Problem Relation Age of Onset other (non hodgkins lymphoma) Father Cancer Paternal Grandfather No Hodgkins Lymphoma Social History Tobacco Use Smoking status: Never Smokeless tobacco: Never Vaping Use Vaping status: Never Used Substance Use Topics Alcohol use: Not Currently Comment: 10 drinks per week per pt 01/20/2020 Drug use: Not Currently Types: Marijuana Comment: medical marijuana - for anxiety, pain - edibles BP 104/66 Pulse 78 Temp 36.7 C (98.1 F) Resp 16 Wt 79 kg (174 lb 2.6 oz) LMP 12/04/2021 (Approximate) SpO2 99% BMI 29.90 kg/m Review of Systems Constitutional: Negative for chills, fever and malaise/fatigue. HENT: Negative for congestion, ear discharge, ear pain, sinus pain and sore throat. Eyes: Negative for blurred vision, pain, discharge and redness. Respiratory: Negative for cough, hemoptysis, sputum production, shortness of breath, wheezing and stridor. Cardiovascular: Negative for chest pain. Gastrointestinal: Negative for abdominal pain, diarrhea, nausea and vomiting. Musculoskeletal: Negative for myalgias. Skin: Positive for itching and rash. Neurological: Negative for dizziness and headaches. Objective Physical Exam Constitutional: General: She is not in acute distress. Appearance: She is not toxic-appearing. HENT: Head: Normocephalic. Nose: Nose normal. Mouth/Throat: Mouth: Mucous membranes are moist. Pharynx: Oropharynx is clear. No oropharyngeal exudate or posterior oropharyngeal erythema. Eyes: Pupils: Pupils are equal, round, and reactive to light. Cardiovascular: Rate and Rhythm: Normal rate. Pulmonary: Effort: Pulmonary effort is normal. No respiratory distress. Musculoskeletal: Cervical back: Normal range of motion. Skin: General: Skin is warm and dry. Comments: The rash some scaling noted on highlighted area. Rash is blanching. Spares palms and hands. No mucosal membrane involvement desquamation of skin. Neurological: General: No focal deficit present. Mental Status: She is alert. ASSESSMENT/PLAN: 1. Rash - ICD9: 782.1, ICD10: R21 Diagnosis rash. Suspicious of eczema. Patient was educated on supportive therapies. Patient will follow up with primary care provider as needed. Patient was instructed to immediately proceed to emergency room for any new, worsening, or symptoms lasting longer than anticipated. The patient's clinical presentation is otherwise unremarkable at this time. Based on exam and clinical finding, the patient is stable for discharge. Plan of care was discussed with patient. Patient verbalizes understanding and agrees to plan of care. This note was generated using Merit[employer] software. It may contain errors in wording, punctuation, or spelling. Jose Enrique Jennings APRN.SUELLEN documented [facility] Telephone encounter Note * Telephone Encounter - Virginia Estes MA - 07/19/2023 7:42 AM EDT Patient notified of results and medication at pharmacy, voiced understanding of instructions given. Virginia Estes MA [facility]-30-[facility]24 Miscellaneous Notes* Telephone Encounter - Virginia Estes MA - 07/19/2023 7:42 AM EDT Patient notified of results and medication at pharmacy, voiced understanding of instructions given. Virginia Estes MA * Telephone Encounter - Naomi Elizondo PA - 07/19/2023 7:08 AM EDT Please contact patient and let her know that she tested negative for bacterial vaginosis and yeast.Since she did have skin irritation and itching, I have sent in an antifungal cream to apply externally to the vaginal area. Please follow-up with gynecology if symptoms persist. documented in this encounter[facility] Telephone encounter Note * Telephone Encounter - Naomi Elizondo PA - 07/19/2023 7:08 AM EDT Please contact patient and let her know that she tested negative for bacterial vaginosis and yeast.Since she did have skin irritation and itching, I have sent in an antifungal cream to apply externally to the vaginal area. Please follow-up with gynecology if symptoms persist. [facility] History of Present illness Narrative* Naomi Elizondo PA - 07/18/2023 5:45 PM EDT This note was created using Abroad[employer]. Subjective Solange Milligan is a 38 year old female. HPI 38-year-old female presents for vaginal irritation and itching for the past 2 to 3 days. Patient states she started getting vaginal irritation and itching a few days ago. She has had a little bitof white vaginal discharge. She is concerned she may have a yeast infection. She denies any rash, but states she has some redness due to irritation. She denies any concern for STD. She denies any concern for . She is on menstrual cycle currently. She is not breast-feeding. She denies beingon antibiotics recently. She does not get yeast infections frequently. No history of BV. No abdominal pain, pelvic pain, back pain. No urinary symptoms. No hematuria. She has tried an [id number]-qnmdecq vaginal suppository without improvement. No other complaint. PAST MEDICAL HISTORY Diagnosis Date Abnormal glandular Papanicolaou smear of cervix 2008 Abn. Pap smear (cervix) Dysmenorrhea Endometriosis Fibroid Thyroid disease PAST SURGICAL HISTORY Procedure Laterality Date COLPOSCOPY CERVIX UPPER/ADJACENT VAGINA 10/07/2008 Colposcopy, for lgsil IVF RETRIEVAL ANY METHOD 08/2021 BOBBYIK 2014 PAST SURGICAL HISTORY OF 06/01/2003 ACL OF LEFT LEG PAST SURGICAL HISTORY OF 07/2019 laparoscopy ALLERGIES Seasonal Allergies MEDICATIONS azelastine 0.1% nasal spray Use 2 Sprays in each nostril two times a day as needed. FLUoxetine (PROZAC) 40 mg capsule Take 50 mg by mouth once daily. cholecalciferol (VITAMIN D3) 1,000 unit tab tablet Take by mouth. doxycycline (VIBRA-TABS) 100 mg tablet Take 1 tablet by mouth twice daily. (Patient not taking: Reported on 08/01/2022) methylPREDNISolone (MEDROL) 16 mg tablet Take 1 tablet by mouth once daily. (Patient not taking: Reported on 08/01/2022) Norethindrone Acet-Ethinyl Est (JUNEL ,) 1.5-30 mg-mcg Take 1 tablet by mouth once daily for 21 days. Take continuously progesterone 50 mg/mL injection Inject 1 mL intramuscularly once daily. Inject in the morning (Patient not taking: Reported on 08/01/2022) Needle, Disp, 22 G (BD DISPOSABLE NEEDLES) 22 gauge x 1 1/2" To be used to inject progesterone in oil (Patient not taking: Reported on 08/01/2022) Syringe with Needle, Disp, (SYRINGE 3CC/20GX1") To be used to draw up progesterone in oil (Patient not taking: Reported on 08/01/2022) estradiol (ESTRACE) 2 mg tablet Take 3 tablets by mouth once daily. (Patient not taking: Reported on 08/01/2022) PNV no.95/ferrous fum/folic ac ( ORAL) Take 1 tablet by mouth once daily. (Patient not taking: Reported on 07/18/2023) levothyroxine (SYNTHROID) 50 mcg tablet Take 50 mcg by mouth once daily. (Patient not taking: Reported on 08/01/2022) FAMILY HISTORY Problem Relation Age of Onset other (non hodgkins lymphoma) Father Cancer Paternal Grandfather No Hodgkins Lymphoma Social History Tobacco Use Smoking status: Never Smokeless tobacco: Never Vaping Use Vaping Use: Never used Substance Use Topics Alcohol use: Not Currently Comment: 10 drinks per week per pt 01/20/2020 Drug use: Not Currently Types: Marijuana Comment: medical marijuana - for anxiety, pain - edibles Review of Systems Constitutional: Negative for chills and fever. HENT: Negative for congestion, ear pain and sore throat. Respiratory: Negative for cough and shortness of breath. Cardiovascular: Negative for chest pain. Gastrointestinal: Negative for diarrhea and vomiting. Genitourinary: Positive for vaginal discharge. Negative for decreased urine volume, dyspareunia, dysuria, frequency, urgency, vaginal bleeding and vaginal pain. Objective BP 102/78 Pulse 76 Temp 36.8 C (98.2 F) Resp 21 Wt 80.3 kg (177 lb 0.5 oz) LMP 12/04/2021(Approximate) SpO2 99% BMI 30.39 kg/m Physical Exam Vitals and nursing note reviewed. Exam conducted with a glass bulb machine adjuster present. Constitutional: General: She is not in acute distress. Appearance: Normal appearance. She is not toxic-appearing. HENT: Nose: Nose normal. Mouth/Throat: Mouth: Mucous membranes are moist. Eyes: Conjunctiva/sclera: Conjunctivae normal. Cardiovascular: Rate and Rhythm: Normal rate and regular rhythm. Pulmonary: Effort: Pulmonary effort is normal. Breath sounds: Normal breath sounds. Abdominal: General: Abdomen is flat. Palpations: Abdomen is soft. Tenderness: There is no abdominal tenderness. Genitourinary: Labia: Right: No rash. Left: No rash. Vagina: Erythema and bleeding present. Cervix: Cervical bleeding present. No cervical motion tenderness. Comments: Patient has bleeding from cervix and blood noted in vaginal vault, on menstrual cycle. She does have mild erythema/irritation noted of the vagina. No CMT. No cervical erythema or irritation. No adnexal tenderness. Skin: General: Skin is warm and dry. Neurological: Mental Status: She is alert. Assessment and Plan ASSESSMENT/PLAN: 1. Vaginal irritation - ICD9: 623.9, ICD10: N89.8 - WILL/TRICHOMONAS NAAT - BACTERIAL VAGINOSIS NAAT -Await swabs prior to treatment. -Declines STD swabs. No concern for . Diagnosis and treatment plan were discussed and questions were answered to the patient's satisfaction. Pt acknowledged understanding of concepts and follow up plan. Specific signs and symptoms that would indicate the need for higher level of care were discussed in detail warranting prompt ER evaluation. ANA Acosta documented in this encounterSelect [facility] Telephone encounter Note * Telephone Encounter - Kate Pitt RN - 06/28/2023 7:41 AM EDT My chart message sent to schedule [facility]-2024 Miscellaneous Notes* Telephone Encounter - Kate Pitt RN - 06/28/2023 7:41 AM EDT My chart message sent to schedule * Telephone Encounter - Sheng Salcedo MD - 06/27/2023 5:06 PM EDT The following was approved. The patient needs to be seen for a follow-up visit before additional refills will be provided. The following approved medication requests have been transmitted electronically. Requested Prescriptions Signed Prescriptions Disp Refills azelastine 0.1% nasal spray 30 mL 0 Sig: Use 2 Sprays in each nostril two times a day as needed. Authorizing Provider: SHENG SALCEDO MD * Telephone Encounter - Queenie Walker RN - 06/27/2023 2:04 PM EDT [facility] 08-25-20. No f/u on file. Patient phones requesting refills as follows: Requested Prescriptions Pending Prescriptions Disp Refills azelastine 0.1% nasal spray 30 mL 0 Sig: Use 2 Sprays in each nostril two times a day as needed. Please review and advise. Queenie Walker RN documented in this encounter[facility]24 Telephone encounter Note * Telephone Encounter - Sheng Salcedo MD - 06/27/2023 5:06 PM EDT The following was approved. The patient needs to be seen for a follow-up visit before additional refills will be provided. The following approved medication requests have been transmitted electronically. Requested Prescriptions Signed Prescriptions Disp Refills azelastine 0.1% nasal spray 30 mL 0 Sig: Use 2 Sprays in each nostril two times a day as needed. Authorizing Provider: SHENG SALCEDO MD [facility]24 Telephone encounter Note* Telephone Encounter - Queenie Walker RN - 06/27/2023 2:04 PM EDT [facility] 08-25-20. No f/u on file. Patient phones requesting refills as follows: Requested Prescriptions Pending Prescriptions Disp Refills azelastine 0.1% nasal spray 30 mL 0 Sig: Use 2 Sprays in each nostril two times a day as needed. Please review and advise. Queenie Walker RN [facility]-10-2023 Miscellaneous Notes* Telephone Encounter - Earline Goldberg RN - 01/28/2023 5:27 PM EST Reason for call: + covid Outcome: home Care Reason for Disposition [1] COVID-19 diagnosed by positive lab test (e.g., PCR, rapid self-test kit) AND [2] mild symptoms (e.g., cough, fever, others) AND [3] no complications or SOB Answer Assessment - Initial Assessment Questions 1. COVID-19 DIAGNOSIS: home test today 2. COVID-19 EXPOSURE: no 3. ONSET: yesterday 4. WORST SYMPTOM: tired 5. COUGH cough with clear mucus, coughing a decent amount 6. FEVER no 7. RESPIRATORY STATUS: fine 8. [id number]: worse 9. OTHER SYMPTOMS: body aches, sore throat headache, took tylenol and mucinex which helped 10. HIGH RISK DISEASE: no 11. VACCINE: 1 vaccine and 1 booster maybe 12. : delivered 5 months ago 13. O2 SATURATION MONITOR: no Protocols used: COVID-19 - Diagnosed or [id number] given information from CDC guidelines regarding nursing documented in this encounterSelect [facility]23 Progress note Author Salvador Amin [facility] September 04, 2022 8:45am Note Date/Time September 04, 2022 8:45 am [facility] Medical Records Department [address] [place] [address] Progress Note - OBGYN 09/04/22 0844 MR#: [id number] Acct: [id number] Name: SOLANGE MILLIGAN Rep #:[id number] : 1985 37 From: Salvador Amin MD PCP: Dr. Jess Guerrero MD Status:ADM IN Location: [id number] Subjective Subjective No overnight complaints Objective Data Objective Data Vital Signs: Vital Signs Temp Pulse Resp BP Pulse Ox O2 Del Method 98.1 F 82 16 134/74 H 97 Room Air 09/03/22 20:40 09/04/22 01:05 09/04/22 01:05 09/04/22 01:05 09/04/22 01:05 09/04/22 01:05 Oxygen Delivery Method Room Air Weight: 186 lb 4.65 oz Body Mass Index (BMI) 31.9 Intake & Output: Intake and Output for Last 24 Hours 09/02/22 09/03/22 09/04/22 23:59 23:59 23:59 Intake Total 2612.75 / 2612.75 Output Total 1800 / 1800 Balance 812.75 / 812.75 Lab / Micro Data 09/03/22 05:55 Physical Exam Const alert, oriented x3, no apparent distress, average body habitus, healthy appearing and well nourished HEENT normocephalic and moist oral mucous membranes Eyes PERRL Neck full ROM Resp normal respiratory effort, no retractions and no use of accessory muscles Extremity normal to inspection, full ROM and no clubbing, cyanosis or edema Neuro moves all extremities and no focal motor deficits Psych mental status grossly normal, affect normal, speech normal and activity/motor behavior normal Assessment & Plan (1) delivery delivered: PLAN: Postop day 2 status post primary section for failure to progress. Breast-feeding. Pain well controlled. Okay to discharge home 09/04/22 0845 <Electronically signed by Salvador Amin MD> Cosigner Signature (if applicable): CC: ~ Signed [facility] Work Phone: 1(759) 709-573207-17-2023 Discharge summary Author Salvador Amin [facility] September 04, 2022 8:44am Note Date/Time September 04, 2022 8:44 am [facility] Medical Records Department [address] [place] [address] Discharge Summary 09/04/22 0844 MR#: [id number] Acct: [id number] Name: SOLANGE MILLIGAN Rep #:[id number] 2 : 1985 37 From: Salvador Amin MD PCP: Dr. Jess Guerrero MD Status:ADM IN Location: [id number] Discharge Summary Date of Admission: 09/01/22 Date of Discharge: 09/04/22 Summary: Patient arrived on 09/01/2022 with SROM. Subsequently with rest of active phase of labor and elected for primary section performed on 09/02/2022. Routine postoperative recovery and discharged home on 09/04/2022 Meaningful Use Info Meaningful Use Diagnoses (Choose all that apply): None applicable Discharge Plan Admission Admit Date/Time: 09/01/22 03:00 Primary Reason for Your Visit: Spontaneous rupture membranes Attending Provider: Salvador Amin Primary Care Provider: Jess Guerrero Instructions Additional Instructions / Restrictions: Regular diet. Okay to shower. No tub baths for 2 weeks. No lifting over 25 pounds for 2 to 3 weeks. No intercourse for 6 to 8 weeks. Call if fevers, chills, chest pain, shortness of breath. Follow-up 2 weeks postoperatively Discharge Orders/Prescriptions Prescriptions: New oxycodone 5 mg tablet 5 mg PO Q6H PRN (Reason: pain (scale score 7-10)) 4 Days Qty: 16 0RF Continued fluoxetine 40 MG capsule 40 mg PO DAILY multivitamin with folic acid 1 TABLET tablet 1 tab PO DAILY prasterone (dhea) 25 MG capsule 25 mg PO BID levothyroxine 50 MCG tablet 50 mcg PO DAILY cholecalciferol (vitamin D3) 1,000 UNIT tablet 2,000 unit PO BID PNV 470-ejyxb-obiqi-3-fish oil 1 EACH tablet,chewable 4 ea PO DAILY docusate sodium 100 MG capsule 100 mg PO BID PRN PRN (Reason: Constipation) Qty: 60 0RF ibuprofen 600 MG tablet 600 mg PO TID PRN (Reason: Pain Score 1-10/10) Qty: 30 0RF acetaminophen 500 MG tablet 1,000 mg PO Q6H PRN (Reason: Pain 1-10 Or Fever) Discontinued oxycodone 5 MG tablet 5 - 10 mg PO Q4H PRN PRN (Reason: Pain Score 1-10) Referrals / Follow Up: Jess Guerrero MD [Primary Care Provider] - Disposition Disposition (needs filled in before D/C Order can be placed): Home, Self Care 09/04/22 0844 <Electronically signed by Salvador Amin MD> Cosigner Signature (if applicable): CC: Dr. Jess Guerrero MD; Dr. Salvador Amin MD~ Signed [facility] Work Phone: 1(735) 622-659907-17-2023 Hospital Discharge instructions Additional Instructions Regular diet. Okay to shower. No tub baths for 2 weeks. No lifting over 25 pounds for 2 to 3 weeks. No intercourse for 6 to 8 weeks. Call if fevers, chills, chest pain, shortness of breath. Follow-up 2 weeks postoperatively Date of Discharge: 09/04/22[facility] Work Phone: 1(209) 528-251207-16-2023 Progress note Author Savlador Amin [facility] September 03, 2022 9:37am Note Date/Time September 03, 2022 9:37 am [facility] Medical Records Department [address] [place] [address] Progress Note - OBGYN 09/03/22 0935 MR#: [id number] Acct: [id number] Name: SOLANGE MILLIGAN Rep #:[id number] : 1985 37 From: Salvador Amin MD PCP: Dr. Jess Guerrero MD Status:ADM IN Location: [id number] Subjective Subjective No overnight complaints Objective Data Objective Data Vital Signs: Vital Signs Temp Pulse Resp BP Pulse Ox O2 Del Method 97.2 F L 68 18 142/85 H 97 Room Air 09/03/22 08:08 09/03/22 08:08 09/03/22 08:08 09/03/22 08:08 09/03/22 08:08 09/03/22 08:08 Oxygen Delivery Method Room Air Weight: 186 lb 4.65 oz Body Mass Index (BMI) 31.9 Intake & Output: Intake and Output for Last 24 Hours 09/01/22 09/02/22 09/03/22 23:59 23:59 23:59 Intake Total 1749.04 / 1749.04 2612.75 / 2612.75 Output Total 800 / 800 1800 / 1800 Balance 949.04 / 949.04 812.75 / 812.75 Lab / Micro Data 09/03/22 05:55 Labs: Laboratory Results - last 24 hr 09/03/22 05:55: WBC 15.0 H, RBC 2.96 L, Hgb 8.9 L, Hct 26.7 L, MCV 90.2, MCH 30.1, MCHC 33.3, RDW Std Deviation 38.0, RDW Coeff of Gerry 11.8, Plt Count 220, MPV 10.1 Physical Exam Const alert, oriented x3, no apparent distress, average body habitus, healthy appearing and well nourished HEENT normocephalic and moist oral mucous membranes Eyes PERRL Neck full ROM Resp normal respiratory effort, no retractions and no use of accessory muscles GI GI Narrative: Soft, nontender, bandage clean dry and intact Extremity normal to inspection, full ROM and no clubbing, cyanosis or edema Neuro moves all extremities and no focal motor deficits Psych mental status grossly normal, affect normal, speech normal and activity/motor behavior normal Assessment & Plan (1) delivery delivered: PLAN: Postop day 1 status post primary section for failure to progress. Breast-feeding. Pain overall well controlled. Likely discharge home tomorrow 09/03/22 0937 <Electronically signed by Salvador Amin MD> Cosigner Signature (if applicable): CC: ~ Signed [facility] Work Phone: 1(313) 284-918107-15-2023 Progress note Author Salvador Amin [facility] September 02, 2022 1:15am Note Date/Time September 02, 2022 1:16 am [facility] Medical Records Department [address] [place] [address] Progress Note - OBGYN 09/02/22 0111 MR#: [id number] Acct: [id number] Name: SOLANGE MILLIGAN Rep #:[id number] 5 : 1985 37 From: Salvador Amin MD PCP: Dr. Jess Guerrero MD Status:ADM IN Location: [place] [address] Subjective Subjective Patient comfortable with epidural Objective Data Objective Data Vital Signs: Vital Signs Temp Pulse BP Pulse Ox 99.0 F 81 120/65 96 09/01/22 23:19 09/01/22 23:20 09/01/22 23:20 09/01/22 23:19 Weight: 186 lb 4.65 oz Body Mass Index (BMI) 31.9 Intake & Output: Intake and Output for Last 24 Hours 08/31/22 09/01/22 09/02/22 23:59 23:59 23:59 Intake Total 1749.04 / 1749.04 .. Output Total 800 / 800 Balance 949.04 / 949.04 .. Lab / Micro Data 09/01/22 03:15 Labs: Laboratory Results - last 24 hr 09/01/22 02:42: Vag Amniotic Fld Detect POSITIVE H 09/01/22 03:15: WBC 8.8, RBC 3.86 L, Hgb 11.7 L, Hct 34.5 L, MCV 89.4, MCH 30.3,MCHC 33.9, RDW Std Deviation 37.9, RDW Coeff of Gerry 11.9, Plt Count 252, MPV 10.2, Immature Gran % (Auto) 0.500, Neut % (Auto) 58.2, Lymph % (Auto) 33.4, Weber % (Auto) 6.9, Eos % (Auto) 0.5, Baso % (Auto) 0.5, Absolute Neuts (auto) 5.1, Absolute Lymphs (auto) 2.95, Nucleated RBC % 0, Syphilis Total Ab Non-reactive, Blood Type A POSITIVE, Antibody Screen NEGATIVE Physical Exam Const alert, oriented x3, no apparent distress, average body habitus, healthy appearing and well nourished HEENT normocephalic and moist oral mucous membranes Eyes PERRL Neck full ROM Resp normal respiratory effort, no retractions and no use of accessory muscles GI GI Narrative: Soft, nontender, gravid Psych mental status grossly normal, affect normal, speech normal and activity/motor behavior normal Assessment & Plan (1) : PLAN: Called by nursing with repeat cervical exam unchanged and further worsening of swelling of anterior cervical lip, nursing also notes possible asynclitic position. Patient seen and examined educated patient on findings we discussed options for continued augmentation of labor versus primary section with no cervical change in greater than 6 hours risk benefits alternatives discussed. Patient elects for primary section. Patient understands risk of the procedure include but are not limited to visceral or vascular injury, prolonged hospitalization, blood loss need for transfusion, reoperation. Educated patient on increased risk of infection and blood loss with section versus vaginal delivery. Patient states understanding andwished to proceed. All questions were answered for patient and partner, and consent signed. For primary section now. For 2 g Ancef and 500 mg of azithromycin. Instructed nursing to call and surgical team including anesthesiaand WOOL TAMPER 09/02/22 0115 <Electronically signed by Salvador Amin MD> Cosigner Signature (if applicable): CC: ~ Signed [facility] Work Phone: 1(543) 936-432707-15-2023 Procedure [facility] 09-02-2022 Progress note Author Salvador Amin [facility] September 01, 2022 11:36pm Note Date/Time September 01, 2022 11:3 6pm [facility] Medical Records Department [address] [place] [address] Progress Note - OBGYN 09/01/22 2332 MR#: [id number] Acct: [id number] Name: SOLANGE MILLIGAN Rep #:[id number] : 1985 37 From: Salvador Amin MD PCP: Dr. Jess Guerrero MD Status:ADM IN Location: MU246-2 Subjective Subjective Patient comfortable with epidural Objective Data Objective Data Vital Signs: Vital Signs Temp Pulse BP Pulse Ox 99.0 F 81 120/65 96 09/01/22 23:19 09/01/22 23:20 09/01/22 23:20 09/01/22 23:19 Weight: 186 lb 4.65 oz Body Mass Index (BMI) 31.9 Intake & Output: Intake and Output for Last 24 Hours 08/30/22 08/31/22 09/01/22 23:59 23:59 23:59 Intake Total 1749.04 / 1749.04 Output Total 800 / 800 Balance 949.04 / 949.04 Lab / Micro Data 09/01/22 03:15 Labs: Laboratory Results - last 24 hr 09/01/22 02:42: Vag Amniotic Fld Detect POSITIVE H 09/01/22 03:15: WBC 8.8, RBC 3.86 L, Hgb 11.7 L, Hct 34.5 L, MCV 89.4, MCH 30.3,MCHC 33.9, RDW Std Deviation 37.9, RDW Coeff of Gerry 11.9, Plt Count 252, MPV 10.2, Immature Gran % (Auto) 0.500, Neut % (Auto) 58.2, Lymph % (Auto) 33.4, Weber % (Auto) 6.9, Eos % (Auto) 0.5, Baso % (Auto) 0.5, Absolute Neuts (auto) 5.1, Absolute Lymphs (auto) 2.95, Nucleated RBC % 0, Syphilis Total Ab Non-reactive, Blood Type A POSITIVE, Antibody Screen NEGATIVE Physical Exam Const alert, oriented x3, no apparent distress, average body habitus, healthy appearing and well nourished HEENT normocephalic and moist oral mucous membranes Eyes PERRL Neck full ROM Resp normal respiratory effort, no retractions and no use of accessory muscles GI GI Narrative: Soft, nontender, gravid Narrative: Cervical exam: 880/-1, swelling of anterior lip of cervix Psych mental status grossly normal, affect normal, speech normal and activity/motor behavior normal Assessment & Plan (1) : PLAN: Called by nursing that patient has been observed for 30 minutes with reassuring heart tones okay to restart Pitocin. Patient seen and examined. Cervical exam as above unchanged from previous exam. Overall momentsof recurrent decelerations but less than 1 hour and then heart tones resolve. Educated patient on findings discussed care plan going forward and heroptions. Educated patient on last cervical change was at 1800 and discussed findings of swelling of the anterior lip. Discussed possible asynclitic along with inappropriate dilation progression. Discussed heart tones including recurrent decelerations that ultimately resolve. Educated patient and partner on findings and options. Patient wishes to continue labor. We will recheck in 1 hour 09/01/22 8053 <Electronically signed by Salvador Amin MD> Cosigner Signature (if applicable): CC: ~ Signed [facility] Work Phone: 1(786) 550-483707-14-2023 Progress note Author Salvador Amin [facility] September 01, 2022 5:32pm Note Date/Time September 01, 2022 5:32 pm [facility] Medical Records Department [address] [place] [address] Progress Note - OBGYN 09/01/22 1728 MR#: [id number] Acct: [id number] Name: SOLANGE MILLIGAN Rep #:[id number] 1 : 1985 37 From: Salvador Amin MD PCP: Dr. Jess Guerrero MD Status:ADM IN Location: [id number] Subjective Subjective Patient now comfortable with epidural. No complaints Objective Data Objective Data Vital Signs: Vital Signs Temp Pulse BP Pulse Ox 98.1 F 64 121/62 H 97 09/01/22 16:29 09/01/22 16:30 09/01/22 16:30 09/01/22 12:10 Weight: 186 lb 4.65 oz Body Mass Index (BMI) 31.9 Intake & Output: Intake and Output for Last 24 Hours 08/30/22 08/31/22 09/01/22 23:59 23:59 23:59 Intake Total 1629.37 / 1629.37 Output Total 600 / 600 Balance 1029.37 / 1029.37 Lab / Micro Data 09/01/22 03:15 Labs: Laboratory Results - last 24 hr 09/01/22 02:42: Vag Amniotic Fld Detect POSITIVE H 09/01/22 03:15: WBC 8.8, RBC 3.86 L, Hgb 11.7 L, Hct 34.5 L, MCV 89.4, MCH 30.3,MCHC 33.9, RDW Std Deviation 37.9, RDW Coeff of Gerry 11.9, Plt Count 252, MPV 10.2, Immature Gran % (Auto) 0.500, Neut % (Auto) 58.2, Lymph % (Auto) 33.4, Weber % (Auto) 6.9, Eos % (Auto) 0.5, Baso % (Auto) 0.5, Absolute Neuts (auto) 5.1, Absolute Lymphs (auto) 2.95, Nucleated RBC % 0, Syphilis Total Ab Non-reactive, Blood Type A POSITIVE, Antibody Screen NEGATIVE Physical Exam Const alert, oriented x3, no apparent distress, average body habitus, healthy appearing and well nourished HEENT normocephalic and moist oral mucous membranes Eyes PERRL Neck full ROM Resp normal respiratory effort, no retractions and no use of accessory muscles Psych mental status grossly normal, affect normal, speech normal and activity/motor behavior normal Assessment & Plan (1) : PLAN: Met with nursing and reviewed internal progress and notified patient feeling lots of pressure and was checked to be 7 cm decided for epidural epidural placed and rechecked after epidural placement and cervical exam was found at that time to be 5 cm by nursing. Later contacted by nursing with prolonged deceleration that resolved, given orders for expectant management. Then later meeting and review of heart tracing with nursing found to have recurrent decelerations. Patient seen and examined comfortable with epidural inhands and knees for approximately 10 minutes no decelerations Pitocin still on then deceleration occurred while in room and given orders to nursing to turn offPitocin for at least 30 minutes and we will continue to evaluate heart rate tracing. Educated patient on findings and length of recurrent decelerations borderline to discuss other delivery options, patient stated understanding. We will continue to monitor with Pitocin off 09/01/22 1732 <Electronically signed by Salvador Amin MD> Cosigner Signature (if applicable): CC: ~ Signed [facility] Work Phone: 1(918) 756-994307-14-2023 History and physical note Author Salvador Amin [facility] September 01, 2022 8:09am Note Date/Time September 01, 2022 7:40 am [facility] Medical Records Department [address] [place] [address] H&P Exam - [facility] 09/01/22 0737 MR#: [id number] Acct: [id number] Name: SOLANGE MILLIGAN Rep #:[id number] 5 : 1985 37 From: Salvador Amin MD PCP: Dr. Jess Guerrero MD Status:ADM IN Location: [id number] History and Physical Date of Admission: 09/01/22 Chief complaint: Leakage of fluid History present illness: 37-year-old G1, P0 at 38 weeks and 5 days with TRISTAN 09/10/2022 arrives with leakage of clear fluid. Denies headache, vision change, chest pain, shortness of breath, nausea vomit, right upper quadrant pain. Patient states good movement. is complicated by AMA, BMI 32, IVF , anxiety depression, GBS positive Obstetric history: G1: Current Past medical history: Anxiety depression Medications: vitamin, fluoxetine Allergies: No known drug allergies Past surgical history: Lasix, wisdom teeth extraction, fulguration of endometriosis, IVF, left ACL Family history: Denies history DVT or PE Social history: Denies smoking, alcohol use, drug use Review of systems: Besides above pertinent positives a full review of systems was performed and found to be negative Physical exam: Vitals: Blood pressure 135/82 pulse 74 General: Normal-appearing no acute distress HEENT: Normocephalic/atraumatic no cervical lymphadenopathy Cardiac/respiratory: No use of accessory muscles, nonlabored breathing Abdomen: Soft, nontender, gravid Extremities: No peripheral edema normal peripheral pulses Psych: Normal affect normal demeanor nonpressured speech Labs: White blood cell count 8.8 hemoglobin 11.7 hematocrit 34.5% platelets 252. RPR nonreactive. Blood type a positive antibody negative. ROM positive Assessment and plan: Called by nursing patient arrived with leakage of clear fluid and ROM positive, given orders for admit labor and delivery along with patient GBS positive for penicillin. Called back by nursing with unchanged cervical exam given orders for Pitocin augmentation. Patient seen and examined. 37-year-old G1, P0 at 38 weeks and 5 days arrives with SROM. Continue penicillin for GBS prophylaxis. Continue augmentation with Pitocin 09/01/22 0809 <Electronically signed by Salvador Amin MD> Cosigner Signature (if applicable): CC: Dr. Jess Guerrero MD; Dr. Salvador Amin MD~ Signed [facility] Work Phone: 1([phone]) 318-461306-13-2023 Instructions* Patient Instructions* Allison Machado - 08/01/2022 11:55 AM EDT CRM DEVELOPER [phone] OFFICE [phone] [id number] [employer] [facility] SURGICAL SCHEDULERS documented in this encounterSelect [facility]-13-[facility]23 History of Present illness Narrative* Hermes Parikh MD - 08/01/2022 11:45 AM EDT Images from the original note were not included. [facility] SECTION FOR MINIMALLY INVASIVE GYNECOLOGIC SURGERY OUTPATIENT VISIT DATE 08/01/2022 OUTPATIENT VISIT TYPE ESTABLISHED PRIMARY CARE PHYSICIAN: Jess Guerrero MD ([facility]) [address] [place] [id number] CHIEF COMPLAINT: Follow Up HISTORY OF PRESENT ILLNESS: Solange Milligan is a pleasant 37 year old female who presents for management of CPP with a PMHx significant for endometriosis, pelvic floor dysfunction, fibroids. She was last seen in clinic on 05/20/2021. At that time, she desired to pursue IUI cycles and possible IVF, and wanted to wait before continuing management. The plan at her last visit included: PLAN: After a thorough discussion, we have derived at the following plan: - Pelvic floor PT - Further imaging if PT fails or pain becomes constant - RTC 3 months for follow up In clinic today, pt reports follow-up to make sure she is doing everything she needs to do before delivery. She would like a second opinion about pelvic floor tightness before delivery, and any related concerns. IMAGING/LABS: [facility] 09/07/2021 Impression Saline infusion sonohysterogram demonstrated a normal appearing endometrial cavity. The details of these findings are described in the procedure section below. Uterus Uterus: Visualized Uterus position: anteverted Description of uterine malformations: normally shaped Myometrium: heterogeneous Endometrium: endometrial-myometrial junction: regular, No filling defects were identified. Cervix details: normal Uterus long 88 mm Uterus ap 39 mm Uterus tr 52 mm Uterus Vol 93.4 cm Endometrial thickness single layer 2.4 mm Endom. th. single layer 1.9 mm Side: anterior Side: posterior Endometrial thickness, total 4.3 mm Fibroids: Fibroids identified Uterine fibroid D1 11 mm Uterine fibroid D2 11 mm Uterine fibroid D3 12 mm Uterine fibroid mean 11.3 mm Uterine fibroid vol 0.760 cm Uterine fibroids findings: Posterior. Fundal Uterine fibroid D1 15 mm Uterine fibroid D2 12 mm Uterine fibroid D3 15 mm Uterine fibroid mean 14.0 mm Uterine fibroid vol 1.414 cm Uterine fibroids findings: Posterior. Fundal Right Ovary Rt ovary: Visualized Rt ovary D1 54 mm Rt ovary D2 43 mm Rt ovary D3 41 mm Rt ovary mean 4.6 cm Rt ovary Vol 49.6 cm Left Ovary Lt ovary: Visualized Lt ovary D1 60 mm Lt ovary D2 40 mm Lt ovary D3 32 mm Lt ovary mean 4.4 cm Lt ovary Vol 39.4 cm Lt ovarian cyst(s): Cysts identified Lt ovarian cyst D1 34 mm Lt ovarian cyst D2 22 mm Lt ovarian cyst D3 17 mm Lt ovarian cyst mean 24.3 mm Lt ovarian cyst vol 6.658 cm Lt ovarian cyst findings: complex cyst Cul de Sac Visualized. no free fluid visualized Procedure Saline infused ultrasound was performed and shows that the endometrial cavity is normal in size and contour. No focal endometrial thickening, endometrial polyps or sub mucosal fibroids are observed. The anterior single layer endometrial thickness measures 2.4 mm and the posterior single layer endometrial thickness measures 1.9 mm. Past Medical History: PAST MEDICAL HISTORY Diagnosis Date Abnormal glandular Papanicolaou smear of cervix 2008 Abn. Pap smear (cervix) Dysmenorrhea Endometriosis Fibroid Thyroid disease Past Surgical History: PAST SURGICAL HISTORY Procedure Laterality Date COLPOSCOPY CERVIX UPPER/ADJACENT VAGINA 10/07/2008 Colposcopy, for lgsil LASIK 2014 PAST SURGICAL HISTORY OF 06/01/03 ACL OF LEFT LEG PAST SURGICAL HISTORY OF 07/2019 laparoscopy Family History: FAMILY HISTORY Problem Relation Age of Onset other (non hodgkins lymphoma) Father Cancer Paternal Grandfather No Hodgkins Lymphoma Social History: Social History Tobacco Use Smoking status: Never Smokeless tobacco: Never Vaping Use Vaping Use: Never used Substance Use Topics Alcohol use: Not Currently Comment: 10 drinks per week per pt 01/20/2020 Drug use: Not Currently Types: Marijuana Comment: medical marijuana - for anxiety, pain - edibles Current Outpatient Medications Medication Sig FLUoxetine (PROZAC) 40 mg capsule Take 50 mg by mouth once daily. PNV no.95/ferrous fum/folic ac ( ORAL) Take 1 tablet by mouth once daily. cholecalciferol (VITAMIN D3) 1,000 unit tab tablet Take by mouth. doxycycline (VIBRA-TABS) 100 mg tablet Take 1 tablet by mouth twice daily. (Patient not taking: Reported on 08/01/2022) methylPREDNISolone (MEDROL) 16 mg tablet Take 1 tablet by mouth once daily. (Patient not taking: Reported on 08/01/2022) Norethindrone Acet-Ethinyl Est (JUNEL ,) 1.5-30 mg-mcg Take 1 tablet by mouth once daily for 21 days. Take continuously progesterone 50 mg/mL injection Inject 1 mL intramuscularly once daily. Inject in the morning (Patient not taking: Reported on 08/01/2022) Needle, Disp, 22 G (BD DISPOSABLE NEEDLES) 22 gauge x 1 1/2" To be used to inject progesterone in oil (Patient not taking: Reported on 08/01/2022) Syringe with Needle, Disp, (SYRINGE 3CC/20GX1") To be used to draw up progesterone in oil (Patient not taking: Reported on 08/01/2022) estradiol (ESTRACE) 2 mg tablet Take 3 tablets by mouth once daily. (Patient not taking: Reported on 08/01/2022) azelastine (ASTELIN) 0.1% nasal spray Use 2 Sprays in each nostril twice daily as needed. levothyroxine (SYNTHROID) 50 mcg tablet Take 50 mcg by mouth once daily. (Patient not taking: Reported on 08/01/2022) No current facility-administered medications for this visit. Allergies As of Date: 08/01/2022 Allergen Noted Reaction SEASONAL ALLERGIES 08/25/2020 Other: See Comments Fully Assessed 08/01/2022 REVIEW OF SYSTEMS: POSITIVES IN BOLD Per HPI PHYSICAL EXAMINATION: Vital Signs: 08/01/22 1142 Weight: 81.1 kg (178 lb 12.8 oz) Height: 162.6 cm (5' 4") General appearance: Well appearing, alert, in no acute distress, well-hydrated, well nourished. Skin: Skin color, texture, turgor normal, no suspicious rashes or lesions Abdomen: Normal abdominal exam, Abdomen soft, non-tender. Bowel sounds normal. No masses, organomegaly see below PELVIC EXAMINATION: Def IMPRESSION: Solange Milligan is a 37 year old female who presents with Pelvic floor dysfunction in female Endometriosis Fibroids. I advised that pelvic floor tightness will not impact her delivery. She is more sensitive to pain, so she will likely experience a more painful delivery, but her chronic conditions will not affect the ability for her pelvic floor to expand during labor. I explained that for an ATA , she will be at a higher risk for preeclampsia, , and a . Advised she follow her OB team's suggestion for post delivery control. Encouraged her to reach out after delivery if she continues to have a recurrence of symptoms. She agrees to reconnect in one year. PLAN: - Pt to follow up with OB team for continued care. - Follow up in one year. Written and verbal health teaching given to patient, patient verbalizes understanding and agrees with treatment plan. I spent 15 minutes in the visit, with more than 50% of the total [id number] time of the visit in counseling / coordination of care. I personally interviewed, confirmed and edited the above information if obtained by others. Scribe Attestation: By signing my name below, I, Allison Machado, attest that this documentation has been prepared under the direction and in the presence of Dr. Hermes Ramirez MD. Electronically Signed:Allison Carterwinnie, July 31, 2022 9:55 AM Hermes Parikh MD documented in this encounterSelect [facility]05-04-2023 History of Present illness Narrative* Geni Avelar APRN.CNP - 06/22/2022 5:27 PM EDT Met with parents. Discussed well child & adolescent psychiatrist visits, immunization schedule, and what to expect. Encouraged parents to contact us with any questions. Geni Avelar APRN.CNP documented in this encounterSelect [facility]05-04-2023 Instructions* Patient Instructions* Geni Avelar APRN.CNP - 06/22/2022 4:16 PM EDT In the hospital: - You'll have access to wonderful nurses to assist you if . support is also available at the [facility] after you leave the hospital. We collaborate and work closely together. After leaving the hospital: - You will likely need to see us for your baby's first appointment in 1-3 days. This depends on howsoon your baby is discharged, and other factors such as weight (babies normally lose weight after , but we monitor this and make sure they're starting to gain appropriately) and we're often alsochecking for bilirubin levels. (High bilirubin levels after cause jaundice. Some levels of jaundice can be normal, but we monitor closely to make sure we don't reach a level needing treatment. Treatment for jaundice is phototherapy (going under lights in the hospital). - If you ever need to speak to a nurse, call [phone] and ask to speak to a pediatric nurse. Our [place] pediatric nurses are available during hours our office is open. A [facility] nurse is available to speak to you at all hours, 24-7. Pediatrics Hours, [facility]: Sunday: Closed Alex[place]: 8 a.m. - 8 p.m. Sunday: 8 a.m. - 8 p.m. Sunday: 8 a.m. - 8 p.m. : 8 a.m. - 8 p.m. Sunday: 8 a.m. - 5 p.m. Sunday: 8 a.m. - Noon - Once your baby has a medical chart, we can connect them to your Mychart. This is a great way to be in touch with us, and stay up to date with your baby's medical records. documented in this encounterSelect Medical [facility]11-30-2022 History of Present illness Narrative* Jose Medrano RN - 01/18/2022 8:01 AM EST Solange Milligan is here for early OB ultrasound. This is her 1st ultrasound. Ultrasound report indicates Solange is 6 weeks and 5 days Gestational Sac: visualized Yolk Sac: visualized Embryo: visualized FHR: 126 Estimated gestational age based on dates: 6w3d Ultrasound findings are consistent with dates. Solange is a patient of Dr. Chauhan Achieved by: IVF FET on 12/23/21; # of embryos transferred: 1 G1, P 0 HCG : Component Latest Ref Rng & Units 01/06/2022 01/13/2022 hCG Quantitative, Blood 5.0 mIU/mL 2,613.0 (H) 27,615.0 (A) Blood Type: A+ History of Ectopic: No History of Miscarriage: No History of Abdominal Surgery: Yes laparoscopy Pain: No Bleeding: No Plan: Progesterone / estrace until 02/12 Pt advised to: Follow up with OB OB Provider: will schedule___ Jose Medrano RN documented in this encounterSelect [facility]11-28-2022 History of Present illness Narrative* Cecile Mcmullen RN - 01/16/2022 9:03 AM EST Component Latest Ref Rng & Units 01/06/2022 01/13/2022 hCG Quantitative, Blood 5.0 mIU/mL 2,613.0 (H) 27,615.0 (A) Call to pt at cell number listed Informed pt of appropriate rise in HCG level. Pt will continue all hormones and RTC for scan on 01/18/22. Pt verbalized understanding Cecile Mcmullen RN January 16, 2022 9:04 AM documented in this encounterSelect [facility]11-27-2022 History of Present illness Narrative* Jose Medrano RN - 01/15/2022 10:15 AM EST The appointment was cancelled for this patient. Jose Medrano RN documented in this [facility]11-26-2022 History of Present illness Narrative* Jose Medrano RN - 01/14/2022 7:48 AM EST Orders pended for early OB scan Jose Medrano RN January 14, 2022 7:49 AM documented in this [facility]11-25-2022 History of Present illness Narrative* Abraham Simon RN - 01/13/2022 3:06 PM EST Called pt at number listed. Informed pt that we did not receive her level yet. Will add pt to schedule for tomorrow, 01/14. If level is not back tomorrow, will schedule for follow up on Sunday, 01/16. Pt to continue all medications. Pt verbalized understanding Abraham Simon RN January 13, 2022 3:07 PM documented in this [facility]11-18-2022 History of Present illness Narrative* Cecile Mcmullen RN - 01/06/2022 10:26 AM EST Component Latest Ref Rng & Units 01/06/2022 hCG Quantitative, Blood <5.0 mIU/mL 2,613.0 (H) Call to pt at cell number listed Informed pt of positive HCG level, pt is . Pt will continue all hormones and repeat HCG level in 1 week. RTC on 01/13/22 Pt verbalized understanding Cecile Mcmullen RN January 06, 2022 10:26 AM documented in this encounterSelect [facility]11-04-2022 Procedure note* Marcelina Chauhan MD - 12/23/2021 1:53 PM EDT [facility] ATA TRANSFER PROCEDURE NOTE Date: 12/23/2021 Primary Proceduralist: Marcelina Chauhan MD Neurosurgical Nurse(s): Jovanna Diaz MD Informed Consent: Consents and Labels Consent Signed: Informed Consent obtained and on the chart Labels Verified With Patient: Yes Indications: Solange Milligan, is a 36 year old female here today for Embryo Transfer. [place] Protocol: Procedure to be Performed: embryo transfer Sign In: A Moment of CARE was completed. Personnel directly involved with the procedure wore the appropriate PPE (Personal Protective Equipment). Patient/Surrogate Stated/Verified: PATIENT VERIFIED(optional for EMERGENT procedures): Patient name, Date of , Relevant allergies, and The intended procedure Time Out Communication: Intended patient and procedure match the source documents. Consent documented and matches the intended procedure. Sign Out: SIGN OUT (optional for EMERGENT procedures): No specimen collected. All instruments, equipment, possible retained foreign bodies accounted for. Post-procedure follow-up management communicated and Plan of Care Visit completed when applicable. Marcelina Chauhan MD TRANSFER Transfer Date: 12/23/21 Transfer Procedure: Embryo Transfer Transfer Physician: Marcelina Chauhan M.D. Pre-Procedure Diagnosis: Infertility Post-Procedure Diagnosis: Infertility Source of embryos: Patient Total Thawed: 1 # of Embryos Transferred: 1 ASRM Guidelines: Recommended limits adhered to Catheter Type: Doherty Ease of Transfer: Easy Direction: Mid Distance from fundus (mm): 12 Tissue Status: For Autologous Use Only/ Not Evaluated for Infectious Substances Specimens: None I/primary surgeon/proceduralist performed the entire procedure. SIGNATURE: Marcelina Chauhan MD PATIENT NAME: Solange iMlligan DATE: December 23, 2021 TIME: 1:53 PM documented in this encounterSelect [facility]11-04-2022 History of Present illness Narrative* Rosalio Crowder - 12/23/2021 1:47 PM EDT Embryo Transfer procedure performed. Detailed notes can be found in the paper chart in the [facility] Office. Rosalio Crowder documented in this encounterSelect [facility]11-04-2022 Instructions* Patient Instructions* Tucker Christianson RN - 12/23/2021 1:26 PM EDT POST EMBRYO TRANSFER INSTRUCTIONS You will need to have your blood drawn for Quantitative HCG on 01/06/22 at [place]. You can expect to be called the afternoon of your blood draw with your test results. If for any reason that date or location is changed, please call [phone] to inform us. Continue your current medications as instructed UNTIL YOU ARE 10 WEEKS or until a BLOOD test is confirmed negative. It is not uncommon to have breast tenderness, bloating, vaginal spotting ranging from pink to red to brown and generally feeling premenstrual while waiting to test. You can feel this way and still be - DO NOT STOP YOUR MEDICATIONS until testing is completed. Call the office if you develop: - Pain, redness and heat at your injection sites From the day of your transfer on, please treat yourself as if you are . Things to avoid: - Hot tubs/raising your core temperature - Chemical exposures - Drugs/medications that are not safe in - Processed lunch meat, unpasteurized cheeses - Smoking - Fish that are high in mercury Our recommendations on maintaining a healthy lifestyle during this time include: - Regular physical activity. Bed-rest is NOT recommended and will not increase your chance of - Daily vitamin or folic acid - Healthy diet - Adequate sleep - Sexual intimacy/intercourse/orgasm will not interfere with implantation. It is difficult to maintain the balance between optimism and realism. Remember you have done and are doing all that you can to improve your odds. Set reasonable expectations for yourselves. Keeping yourself busy and mentally distracted will help the time pass while waiting to test. If you have any questions, please call [phone]. documented in this [facility] Miscellaneous Notes* Telephone Encounter - Cecile Mcmullen RN - 12/23/2021 10:40 AM EDT Call to pt at cell number listed Pt states that she just has a sore throat, no fevers/chills, negative Covid test. Informed pt that she should still plan to come in for FET this after. Confirmed with lab that her embryo was already thawed this morning. Informed pt that if symptoms change and worsen before this after give office a call. Pt verbalized understanding Cecile Mcmullen RN December 23, 2021 10:41 AM * Telephone Encounter - Virginia Gan - 12/23/2021 10:13 AM EDT Pt calling has a FET scheduled for today but woke up with sore throat wasn't sure if she should come in? Or are the eggs already thawed. Please follow up documented in this encounterSelect [facility]-03-2022 Miscellaneous Notes* Telephone Encounter - Olive Flores - 12/22/2021 9:03 AM EDT Patient called by lab to set up frozen embryo transfer. Confirmed. Olive Flores December 22, 2021 9:05 AM documented in this encounterSelect [facility]10-28-2022 History of Present illness Narrative* Cecile Mcmullen RN - 12/16/2021 8:20 AM EDT The patient is here today for follicular ultrasound and blood work. The patient reports no problemsor complaints. Ultrasound and blood will be reviewed by the physician, the flow sheet will be updated and instructions will be communicated to the patient. Pt and partner signed thaw plan. Cecile Mcmullen RN Call to patient at cell number listed Informed patient of confirmed FET date on 12/23/21. Patient will start doxy, medrol and JESUS ALBERTO on 12/18/21. Reviewed all instructions and sent to patient via [employer]. Patient verbalized understanding Cecile Mcmullen RN December 16, 2021 11:38 AM documented in this encounterSelect [facility]10-20-2022 Miscellaneous Notes* Telephone Encounter - Cecile Mcmullen RN - 12/08/2021 10:12 AM EDT Call to pt at cell number listed Pt states she started her period on 12/03/21 and started estrace 6 mg PO. Scheduled lining check on12/16/21 at 8:45 am. Sent new thaw plan to pt to be notarized and bring to lining check. Pt verbalized understanding Cecile Mcmullen RN December 08, 2021 10:14 AM * Telephone Encounter - Virginia Gan - 12/05/2021 3:45 PM EDT Pt calling to report her cycle has started :12/03, started her medicatins, has been speaking with nurse Saldaña documented in this encounterSelect [facility]10-10-2022 History of Present illness Narrative* Cecile Mcmullen RN - 11/28/2021 10:48 AM EDT Component Latest Ref Rng & Units 11/28/2021 hCG Quantitative, Blood <5.0 mIU/mL <0.1 Call to pt at cell number listed Informed pt that HCG level is negative. Pt will stop taking all hormones today and plan for another FET. Pt still has 15 frozen embryos. Pt will start back on estrace with NMP. Pt verbalized understanding Cecile Mcmullen RN November 28, 2021 10:58 AM documented in this encounterSelect [facility]09-26-2022 History of Present illness Narrative* John Baez IVF Tech - 11/14/2021 1:43 PM EDT Embryo Transfer procedure performed. Detailed notes can be found in the paper chart in the [facility]. John Baez IVF Tech documented in this [facility]09-23-2022 Miscellaneous Notes* Telephone Encounter - Rosalie Paige - 11/11/2021 10:28 AM EDT Patient called by lab to set up embryo transfer. Confirmed thaw. Rosalei Paige November 11, 2021 10:29 AM documented in this encounterSelect [facility]09-19-2022 Miscellaneous Notes* Telephone Encounter - Cecile Mcmullen RN - 11/07/2021 4:06 PM EDT Call to pt at cell number listed Pt states that she has to travel for work from 11/18-11/25. Pt scheduled for FET on 11/14/21 Informed pt that is should be fine since she will be in her 2 week wait. Sent letter to fly with medications. Pt verbalized understanding Cecile Mcmullen RN November 07, 2021 4:08 PM * Telephone Encounter - Virginia Gan - 11/07/2021 3:30 PM EDT Pt calling will be traveling after implantation , would like some answers if that's okay for her todo. documented in this encounterSelect [facility]09-19-2022 History of Present illness Narrative* Cecile Mcmullen RN - 11/07/2021 7:10 AM EDT The patient is here today for follicular ultrasound and blood work. The patient reports no problemsor complaints. Ultrasound and blood will be reviewed by the physician, the flow sheet will be updated and instructions will be communicated to the patient. Pt and partner signed thaw plan and reviewed JESUS ALBERTO injections. Cecile Mcmullen RN Call to patient at cell number listed Informed patient of confirmed FET date on 11/14/21. Patient will start doxy, medrol and JESUS ALBERTO on 11/09/21. Reviewed all instructions and sent to patient via [employer]. Patient verbalized understanding Cecile Mcmullen RN November 07, 2021 1:45 PM documented in this encounterSelect [facility]09-02-2022 Miscellaneous Notes* Telephone Encounter - Cecile Mcmullen RN - 10/21/2021 11:02 AM EDT Call to pt at cell number listed Pt is back from vacation and wanted to get set up for FET. Informed pt to take last BCP today, no pills 10/22-10/24. Pt will start estrace 6 mg PO on 10/25/21. Scheduled lining check on 11/07/21 at 6:30 am. Pt aware to bring signed/notarized thaw plan to appt. [employer] sent with plan Pt verbalized understanding Cecile Mcmullen RN October 21, 2021 11:04 AM * Telephone Encounter - Claudette Bernardo - 10/19/2021 3:55 PM EDT Pt just got back from vacation and wants to discuss next steps and medication for implantation documented in this encounterSelect [facility]08-12-2022 Miscellaneous Notes* Telephone Encounter - Cecile Mcmullen RN - 09/30/2021 12:51 PM EDT Call to pt at cell number listed Pt states that she started her period today and wants to start on active BCP because she is going OOT end of Sep. Pt will start active BCP today and give the office a call once she returns home to set up timeline for FET and starting estrace. Sent over thaw plan, pt does not want to know gender. Pt verbalized understanding Cecile Mcmullen RN September 30, 2021 12:52 PM * Telephone Encounter - Claudette Bernardo - 09/30/2021 8:08 AM EDT Pt started period today 09/30, wanted to confirm next steps documented in this encounterSelect [facility]07-21-2022 Miscellaneous Notes* Telephone Encounter - Cecile Mcmullen RN - 09/08/2021 11:00 AM EDT Call to pt at cell number listed Pt states she wanted to get set up for an FET. Pt is going OOT end of Sep so most likely will wait until Sept period to get started. Still waiting on PGT-A results Ordered all meds and episode created. Will need thaw plan sent once results back Pt verbalized understanding Cecile Mcmullen RN September 08, 2021 11:02 AM * Telephone Encounter - Claudette Bernardo - 09/08/2021 9:26 AM EDT Pt's SIS came back fine, and she wants to discuss medications and next steps before her transfer inSeptember documented in this encounterSelect [facility]07-10-2022 History of Present illness Narrative* Olive Flores - 08/28/2021 11:47 AM EDT PGT-A freeze all cycle. Olive Flores documented in this encounterSelect [facility]07-08-2022 History of Present illness Narrative* Abraham Simon RN - 08/26/2021 9:36 AM EDT Call to pt at cell number listed and left a voicemail. Following up to see how patient was feeling. Pt instructed to call office today for a update. Abraham Simon RN August 26, 2021 9:36 AM documented in this encounterSelect [facility]07-06-2022 History of Present illness Narrative* Yesi Horn MD - 08/24/2021 10:40 AM EDT Here this morning with complaints of bloating after surgery on Sunday. The bloating is in fact better this morning htan yesterday. She denies any SOB. But she does get twinges of pain with activity that leads to sensation of nausea. Has had difficulty with urination. Does not urinate much and has some pain with urination. On scan today her ovaries are enlarged bilaterally and clearly pushing upwards on the bladder. Eachovary measure between 6-7 cm and there is small amount of fluid in the cul de sac. No fluid surrounding the uterus or the upper abdomen. EXAM Pt appears comfortable. Has gained 5 lbs per pt. Abdomen- soft but slightly distended. Extrem. No edema Assessment- enlarged ovaries bilaterally, post retrieval of 39 eggs Plan- warning signs were dicussed with her but reassurance given that her symptoms are better today. She will call with worsening symptoms or at least given update back to us on Sunday morning. Offered blood work if it would make her feel better, but clinically I do not think is indicated. Yesi Horn MD August 24, 2021 10:45 AM documented in this encounterSelect [facility]07-05-2022 Miscellaneous Notes* Telephone Encounter - Rosalie L Royal - 08/23/2021 12:26 PM EDT The lab will talk to her tomorrow during her morning call. OK to proceed if she talked to [employer]. * Telephone Encounter - Evonne Mccracken - 08/23/2021 10:24 AM EDT Returned patient call. Patient wants to test her embryos for PGT-A. Per patient, they didn't fill any paperwork out at retrieval 08/22 and would like this done. Will send message to IVF lab to see if this is still possible. If ok given, will send order to [email or web address]. Evonne Mccracken August 23, 2021 10:26 AM Per IVF lab, Rosalie Rich Royal 2 hours ago (12:28 PM) [place] The lab will talk to her tomorrow during her morning call. OK to proceed if she talked to [email or web address] Called patient back. Patient wishes to proceed with PGt-A. Will send order in portal. Patient also reports abdominal cramping, bloating and some nausea. She is taking Tylenol Q 3hours and called off of work today. She had a very liquidy stool and it is painful to urinate, but she is urinating. No SOB at rest or while lying flat but she does feel uncomfortable. Pain 05/29 Evonne Mccracken August 23, 2021 3:58 PM 39 eggs retrieved 08/22/21. Message sent to Dr. Chauhan. Evonne Mccracken August 23, 2021 3:33 PM [employer] order placed in portal. Evonne Mccracken August 23, 2021 3:[address] Chauhan, I would really like her seen by a physician tomorrow to make sure she doesn't need tapped. She should also be instructed to weight herself today and daily to keep track and let us know if there is anything >4-5 pound increase. Evonne Mccracken August 23, 2021 4:02 PM Scheduled patient for 9am in [place] tomorrow. Dr. Chauhan will notify Dr. Horn. Patient instructed to weigh herself daily. Patient will try to borrow a scale from a friend as hers is broken. Note sent to nurses to weigh patient tomorrow. Evonne Mccracken August 23, 2021 4:36 PM * Telephone Encounter - Claudette Bernardo - 08/23/2021 9:59 AM EDT Pt trying to set up embryo testing, pt needs number to DNA lab documented in this encounterSelect [facility]07-04-2022 History of Present illness Narrative* Rosalio Crowder - 08/22/2021 9:34 AM EDT Retrieval procedure performed. Detailed notes can be found in the paper chart in the [facility]. Rosalio Crowder documented in this encounterSelect [facility]07-03-2022 History of Present illness Narrative* Taylor Joyce RN - 08/21/2021 7:47 AM EDT Pt arrived this morning for post trigger lab work. General questions answered about retrieval. Willreview lab work once resulted. Taylor Joyce RN August 21, 2021 7:40 AM Post trigger labs reviewed by Dr. Horn. Plan for retrieval 08/22. Taylor Joyce RN August 21, 2021 12:09 PM documented in this encounterSelect [facility]07-02-2022 History of Present illness Narrative* Evonne Mccracken - 08/20/2021 8:41 AM EDT The patient is here today for follicular ultrasound and blood work. The patient reports no problemsor complaints. Ultrasound and blood will be reviewed by the physician, the flow sheet will be updated and instructions will be communicated to the patient. Patient aware she will probably only trigger with Lupron and has been instructed already. Half dose hcg trigger taught to patient in case it is added. OHSS s/s reviewed with patient. Retrieval instructions reviewed with patient. Semen collection kit given. Patient questioning PGT-A today. Info sent and patient advised she would have to make payment before procedure. She will let nurse know tomorrow what she decides and nursing will check with physician if deciding on PGT-A is allowed this late in the cycle. Evonne Mccracken RN called patient, name and verified. Plan given for IVF cycle per physician, see flowsheet fordetails. MyChart message sent. Medications reviewed and verified, instructions given. Patient denies any questions or concerns. Message sent to scheduling pool for next appt. Evonne Mccracken August 20, 2021 12:08 PM documented in this encounterSelect [facility]07-01-2022 History of Present illness Narrative* Cecile Mcmullen RN - 08/19/2021 9:31 AM EDT The patient is here today for follicular ultrasound and blood work. The patient reports no problemsor complaints. Ultrasound and blood will be reviewed by the physician, the flow sheet will be updated and instructions will be communicated to the patient. Pt stayed to meet with nursing. Discussed trigger injections and timeline for possible FET in September/early October. Abraham Simon RN August 19, 2021 9:32 AM Call to patient at cell number listed Informed pt to continue all same dose of medications, see cycle flow sheet. RTC 08/20/21 at 0815. Pt verbalized understanding Zoey Simon RN August 19, 2021 1:38 PM documented in this encounterSelect [facility]06-29-2022 History of Present illness Narrative* Cecile Mcmullen RN - 08/17/2021 3:38 PM EDT Call to patient at cell number listed Informed pt to continue all same dose of medications, see cycle flow sheet. RTC 08/19/21 at 8:30 am. Pt verbalized understanding Cecile Mcmullen RN August 17, 2021 3:38 PM documented in this encounterSelect [facility]06-29-2022 Miscellaneous Notes* Telephone Encounter - Cecile Mcmullen RN - 08/17/2021 3:31 PM EDT See nurse visit from today. Cecile Mcmullen RN August 17, 2021 3:31 PM * Telephone Encounter - Claudette Bernardo - 08/17/2021 2:56 PM EDT Pt wondering if there's an update on her estrogen level results documented in this encounterSelect [facility]06-28-2022 History of Present illness Narrative* Sharon Mckeon RN - 08/16/2021 1:42 PM EDT RN called patient, name and verified. Plan given for IVF cycle per physician, see flowsheet fordetails. Rdiot message sent. Medications reviewed and verified, instructions given. Patient denies any questions or concerns. Message sent to scheduling pool for next appt. Sharon Mckeon RN August 16, 2021 1:42 PM * Abraham Simon RN - 08/16/2021 10:24 AM EDT Call to pt at cell number listed. Voicemail left instructing patient to start [employer] when she gets home based off of e2 level. RN to call back with plan after afternoon meeting. Abraham Simon RN August 16, 2021 10:25 AM documented in this encounterSelect [facility]06-24-2022 History of Present illness Narrative* Dayana Vera, PT - 08/12/2021 7:48 AM EDT Episode Visit Count: 1 Therapist That Will Oversee The Plan Of Care: Dayana Vera Start of Care Date: 08/12/21 Onset Date: 08/12/06 Patient Identified by Name and Date of : Yes REHABILITATION AND SPORTS THERAPY PHYSICAL THERAPY EVALUATION PLAN OF CARE: Assessment: Solange Milligan presents with chief complaint of pelvic pain that interferes with bladder function;bowel function;altered sexual function . She presents with impairments in decreased pelvic floor ROM; pelvic floor muscle tightness/tenderness; impaired bladder, bowel, and sexual function.PROMIS (Patient-Reported Outcomes Measurement Information System) scores were unable to be reviewed. Prognosis for therapy is Good due to: current objective clinical presentation . She will benefit from skilled therapy services to meet the goals established for this plan of care as noted below. Goals for Episode of Care: created on 08/12/21 through 11/10/21 Incontinence: Patient to demonstrate independence with HEP Patient to urinate every 2-4 hours Patient able to cough, sneeze, lift and/or exercise without leaking Patient reports urgency is experienced less than baseline / initial evaluation Patient reports increased ability to fully empty bowels without straining Pelvic Pain: Patient reports painfree intercourse Patient displays decreased muscle spasms in pelvic floor to allow for decreased pain levels Patient demonstrates ability to perform diaphragmatic breathing and relaxation Patient displays improved muscle dynamics of pelvic floor including ability to lengthen Patient Goals: improve pain, improve bladder and bowel function Planned Interventions, Frequency, and Duration: Current Frequency: 1x/week Duration: 4 weeks (reassess at 4 weeks and progress as indicated) Total Number of Visits Planned: 4 Planned Treatment Interventions: Therapeutic exercise (50629);Manual therapy (57751);Self-care homemanagement (50718);Patient/Family/Caregiver Education PLAN FOR NEXT VISIT: progress stretches, discuss dilators, assess external connective tissue Patient demonstrates good understanding of plan of care and treatment. The above goals and plan of care were discussed and agreed upon by patient/family. SUBJECTIVE: Pt reports 15 year history of pelvic pain, especially pain with periods. Pt reports 2 laproscopic surgeries in 2019 for endometriosis. Pt reports bowel concerns, as well, has difficulty emptying bowels without pain. Pt reports occasional pain during urination. 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 Pap smear (cervix) Dysmenorrhea Endometriosis Fibroid Thyroid disease PAST SURGICAL HISTORY Procedure Laterality Date COLPOSCOPY CERVIX UPPER/ADJACENT VAGINA 10/07/2008 Colposcopy, for lgsil LASIK 2014 PAST SURGICAL HISTORY OF 4/12/04 ACL OF LEFT LEG PAST SURGICAL HISTORY OF 07/2019 laparoscopy Intake Information: Prescription present Previous Treatment: Surgery Falls Interview: No positive findings with falls interview Aquatic Screen: No Pain: Pain Pain Level: 3 (7/10 at worst) Pain Location: Abdomen Description: Aching;Dull Frequency: Intermittent Post Treatment Pain Post Treatment Pain Level: No Change PROMIS Scales Higher is Better 01/19/2020 07/20/2020 08/25/2020 GH Physical - Score 44.9 42.3 44.9 (Good) GH Physical - Percentile 31 % 22 % 31 % GH Mental - Score 41.1 43.5 43.5 (Good) GH Mental - Percentile 19 % 26 % 26 % T-scores: mean of general population = 50. 5 points is clinically meaningfully difference Percentiles provide an indication of how the patient's score ranks in relation to the general population. Higher percentile rankings indicate better function/quality of life. 50th percentile is the average of the general population and indicates half of respondents had a worse score. T-scores: mean of general population = 50. 5 points is clinically meaningfully difference Percentiles provide an indication of how the patient's score ranks in relation to the general population. Higher percentile rankings indicate better function/quality of life. 50th percentile is the average of the general population and indicates half of respondents had a worse score. OBJECTIVE MEASURES WITH LEVEL OF FUNCTION: Pelvic Floor Pregnancies: 0 Pain with penetration: Deep;Pain during intercourse Urinary/Bowel History : Urinary History;Bowel History Difficulty starting stream: No Incomplete emptying: No Stress Incontinence: Cough/sneeze Urgency: Yes Frequency of Urgency Episodes: 3x/week Frequency of Leaks Secondary to Urge: 0 Nocturia (times per night): 1 Daytime Frequency (hours): 1 Fluid Intake: Water;Coffee (8 oz measurements) Water : 12 Coffee: 3 Difficulty evacuating / Excessive Straining: Yes Incomplete emptying: Yes Bowel Movement Frequency: "a couple times a week" Fecal incontinence: No Bowel Aides / Supplements: magnesium pill Pelvic Floor Muscle Assessment Consent for pelvic assessment/testing and treatment: Patient was educated regarding pelvic floor physical therapy assessment/treatment which may include pelvic floor and girdle muscle assessment externally or internally (vaginal or rectal approach).;Patient verbalized consent for the above treatment approaches today. Patient understands they have control of the treatment and an opportunity to stop treatment at any time. Pelvic Floor Muscle Assessment: PERFECT;Muscle Dynamics Power: 3 Endurance: 10 Fast Reps: 10 Contracton Pressure: Moderate squeeze, felt all the way around finger surface Duration of Contraction: >3 seconds Recruitment of pelvic floor muscles: Coordinated Range of Motion: Decreased Ability to Lengthen pelvic floor: Difficulty at first, but improves with cueing and practice Diaphragmatic Breathing : Fair Pelvic Floor Manual Assessment Pelvic Floor Tenderness/Hyperactivity: Tested Vaginally in Tested Vaginally in : Supine/hooklying Deep transverse perineal: Bilateral (02/19) Iliococcygeus: Bilateral (02/19) Pubococcygeus: Bilateral (02/19) LE AROM R LE AROM: WFL L LE AROM: WFL LE Flexibility Flexibility: Hamstring Flexibility;Hip Adductor;Hip Internal Rotation Flexibility;Hip External Rotation Flexibility R Hamstring Flexibility: WNL L Hamstring Flexibility: WNL R Adductor Flexibility: WNL L Adductor Flexibility: WNL R Hip Internal Rotation Flexibility: WNL L Hip Internal Rotation Flexibility: WNL R Hip External Rotation Flexibility: WNL L Hip External Rotation Flexibility: WNL LE Strength Trunk Strength: Lower Abdominals: 4/5 R LE Strength: 5/5 L LE Strength: 5/5 Tissue Restriction/Tenderness Scale: 1= mild, 2= moderate, 3= severe Education: Education Learning Preferences: Demonstration;Explanation;Performance;Printed Materials Barriers: None Learning/educational needs: Home exercise program;Plan of Care Education Provided: Yes, see treatment interventions for education provided Education Provided To: Patient Education Mode/Type: Demonstration;Explanation/Discussion;Literature/Printed Materials;Performance Response to Education/Teach Back: States/Identifies;Return Demonstration TREATMENT: PT Treatment Interventions: Therapeutic Exercise;Self-[facility] Management Evaluation Therapeutic Exercise: 1: *diaphragmatic breathing 2: *supine adductor stretch, [id number] 3: *PF lengthening, 2x10 4: *knack technique Skilled Intervention: Patient was educated in proper exercise technique and purpose for exercises. Reviewed and educated patient on additions/changes for home exercise program as above (*). Skilled judgment was provided in selection of appropriate interventions. Provided written instruction for home exercise program to facilitate proper performance and compliance. Self-Fci Management: 1: Reviewed pelvic floor anatomy and function with 3D pelvic model 2: Reviewed typical vs dysfunctional bladder and bowel health 3: Reviewed bladder irritants, importance of water intake 4: Reviewed urinary urgency suppression techniques 5: Reviewed toileting techniques to fully empty bowels without straining 6: Reviewed strategies to improve urinary frequency 7: Reviewed impact of stress on muscle tension, muscle tension on pain: *body scanning Skilled Intervention: Skilled judgment in the selection of proper modification for activity of daily living/home management based on clinical presentation, deficits, and needs. Educated the patient regarding recommendations and provided written instruction to facilitate compliance. Billing * Evaluation Low Complexity: 1 Unit Therapeutic Exercise Treatment Minutes: 9 Self-Care/Home Management Treatment Minutes: 17 Total Treatment Time Minutes (timed/untimed): 52 Dayana Vera PT documented in this encounter[facility] Miscellaneous Notes* Telephone Encounter - Cecile Mcmullen RN - 08/11/2021 9:42 AM EDT Call to pt at cell number listed Pt wanted to to review when to start her meds. Informed pt that only injection she will start tomorrow is Follistim. Pt will hold off on ganirelixuntil office tells pt to start. Pt verbalized understanding Cecile Mcmullen RN August 11, 2021 9:43 AM * Telephone Encounter - Chely Aguillon Pss - 08/11/2021 8:47 AM EDT Pt picked up her meds has ques on when to take them documented in this encounterSelect [facility]22 History of Present illness Narrative* Cecile Mcmullen RN - 08/08/2021 2:58 PM EDT Images from the original note were not included. Call to pt at cell number listed Informed pt of message above. Cecile Mcmullen RN August 08, 2021 2:59 PM * Cecile Mcmullen RN - 08/08/2021 7:19 AM EDT The patient is here today for follicular ultrasound and blood work. The patient reports no problemsor complaints. Ultrasound and blood will be reviewed by the physician, the flow sheet will be updated and instructions will be communicated to the patient. Pt turned in consents and reviewed medications. Cecile Mcmullen RN Call to patient at cell number listed Informed pt to start meds and when to stop BCP, see cycle flow sheet. RTC 08/16/21 at 6:45 am. Mychart sent with plan Pt verbalized understanding Cecile Mcmullen RN August 08, 2021 2:04 PM documented in this encounterSelect [facility]-14-2022 Miscellaneous Notes* Telephone Encounter - Marysol Curiel - 08/02/2021 4:11 PM EDT Mother wants us to send a prior to [facility] because the reps at [facility] tell her that it is covered. EXCLUSIONS. 1.Health care services and related expenses for infertility treatments, including assisted reproductive technology, regardless of the reason for the treatment, except when performed for the diagnosis, treatment and correction of the underlying causes of infertility. (Note some state mandates require coverage for infertility treatments.). 2.The following services related to a Gestational Carrier or Surrogate: ? All costs related to reproductive techniques including: ? Assisted reproductive technology. ? Artificial insemination. ? Intrauterine insemination. ? Obtaining and transferring embryo(s). ? Preimplantation Genetic Testing (PGT) and related services. ? Health care services including: ? Inpatient or outpatient care and/or preventive care. ? Screenings and/or diagnostic testing. ? Delivery and post-trudy care. * Telephone Encounter - Becka England - 07/28/2021 2:01 PM EDT Patient's mother called in and paid for her IVF cycle $11,478. She said that she had questions about the US going to insurance. She was told that US were covered with a PA. She was told by 1 [facility] person that they are covered at 50% after deductible and another person told her that they were covered at 80% after deductible. Patient has $250 to meet deductible. Isn't sure if she should by the US package. I wasn't sure what she should do in this situation, told her I would leave a message for Frederick. documented in this [facility]06[facility] Miscellaneous Notes* Telephone Encounter - Cecile Mcmullen RN - 07/25/2021 11:03 AM EDT Call to pt at cell number listed Pt states she started her period yesterday 07/24/21 and started active BCP then as well. Scheduled for baseline on 08/08/21. Pt will bring signed/notarized consent to appt. Pt will all Frederick and make sure all payment is completed of baseline will be cancelled. Pt verbalized understanding Cecile Mcmullen RN July 25, 2021 11:09 AM Completed PA for leuprolide PA number [id number]. Called [phone] Cecile Mcmullen RN July 25, 2021 11:12 AM documented in this [facility]06-06-[facility] Miscellaneous Notes* Telephone Encounter - Cecile Mcmullen RN - 07/25/2021 9:59 AM EDT See telephone call from today 07/25/21. Cecile Mcmullen RN July 25, 2021 9:59 AM * Telephone Encounter - Olive Durand RN - 07/25/2021 9:45 AM EDT Patient sent this my chart Olive Durand RN July 25, 2021 9:45 AM I just started my period today Monday 07/24 and I will start control today. I'm traveling for work and will call when I can to schedule baseline ultrasound. documented in this encounterC[place] [id number] Miscellaneous Notes* Telephone Encounter - Jose Medrano RN - 07/21/2021 2:13 PM EDT MC sent Jose Medrano RN July 21, 2021 2:13 PM * Telephone Encounter - Olive Durand RN - 07/21/2021 10:32 AM EDT patient sent this message Olive Durand RN July 21, 2021 10:32 AM Attached is the document with our genetic test results. Please let me know if we need to consult with someone on this or if this step is now complete for our IVF process? documented in this encounterSelect [facility]-02-2022 Miscellaneous Notes* Telephone Encounter - Olive Durand RN - 07/21/2021 10:32 AM EDT See phone call Olive Durand RN July 21, 2021 10:32 AM documented in this encounterSelect [facility]-25-2022 Miscellaneous Notes* Telephone Encounter - Marysol Curiel - 07/13/2021 2:45 PM EDT C and left message for patients mother (Prashanth) [phone] to discuss insurance. Patient gave permission to call her. documented in this encounterSelect [facility]-24-2022 Miscellaneous Notes* Telephone Encounter - Marysol Curiel - 07/12/2021 3:52 PM EDT Patient wanted her mom to call in and ask insurance questions. This patient gives her consent for the mom to talk on patients behalf. * Telephone Encounter - Chely Aguillon Pss - 07/12/2021 9:18 AM EDT Pt attended class and has updates on her ins documented in this encounterSelect [facility]-20-2022 History of Present illness Narrative* Audelia Pacheco APRN.CNP - 07/08/2021 7:11 AM EDT Solange is a 36 year old who presents for an annual gynecologic exam without complaints. Menses: cycles every 25-30 days and 3 days of flow. 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 Pap smear (cervix) Dysmenorrhea Endometriosis Fibroid Thyroid disease PAST SURGICAL HISTORY Procedure Laterality Date COLPOSCOPY CERVIX UPPER/ADJACENT VAGINA 10/07/2008 Colposcopy, for lgsil LASIK 2014 PAST SURGICAL HISTORY OF 06/01/03 ACL OF LEFT LEG PAST SURGICAL HISTORY OF 07/2019 laparoscopy FAMILY HISTORY Problem Relation Age of Onset other (non hodgkins lymphoma) Father Cancer Paternal Grandfather No Hodgkins Lymphoma SOCIAL HISTORY Social History Tobacco Use Smoking status: Never Smoker Smokeless tobacco: Never Used Vaping Use Vaping Use: Never used Substance Use Topics Alcohol use: Yes Comment: 10 drinks per week per pt 01/20/2020 Drug use: Not Currently Types: Marijuana Comment: medical marijuana - for anxiety, pain - edibles REVIEW OF SYSTEMS Abdomen: No abdominal pain, nausea, vomiting, diarrhea, or constipation. No bloating, early satiety, indigestion, or increased flatulence. Bladder: No dysuria, gross hematuria, urinary frequency, urinary urgency, or incontinence. Breast: No breast lumps, nipple d/c, overlying skin changes, redness or skin retraction. Allergies and current medication updated:Yes EXAM: Ht 5' 4.5" (1.64m) Wt 178 lb 3.2 oz (80.8kg) LMP 06/14/2021 BMI 30.13 kg/(m^2). GENERAL: pleasant, female in no apparent distress HEENT: Normocephalic, atraumatic, mucus membranes moist and no lesions NECK: Supple, full range of motion, no adenopathy and thyroid normal DERMATOLOGY: Normal, without lesions, non-icteric and non-hirsute BREAST: soft, non-tender, symmetric, no dominant mass, normal nipple-areolar complex, no lymphadenopathy and no nipple discharge CHEST: Normal inspiratory effort ABDOMEN: soft, non-tender and no masses PELVIC: external genitalia normal, normal Bartholin's glands, urethra, Cresson's glands, no vulvar lesions, no cervical lesions, good vaginal support, physiologic discharge present, normal appearing perineal body and perianal region BIMANUAL: uterus normal size, shape and consistency, no adnexal masses and non-tender RECTOVAGINAL: deferred. NEURO: alert and oriented x3,exam grossly non-focal EXTREMITIES: normal ASSESSMENT/PLAN: 1) Health maintenance: Pap done with HPV. Mammogram starting age 40. Nutrition, exercise and routine health maintenance exams reviewed. Calcium/Vitamin D supplementation information provided. HPV vaccine: completed series 2) Contraception: none. Contraceptive options reviewed and information provided. 3) STD screening: Declined STD check. 4) Follow up one year or sooner as needed Audelia Pacheco APRN.SUELLEN documented in this encounterSelect [facility]-16-2022 History of Present illness Narrative* Corina Morrismoses Smith Pss - 07/04/2021 12:22 PM EDT POPULATION HEALTH NAVIGATION OUTREACH Action/FYI Patient Outreach: Left voicemail for patient to call back to schedule in RST. (please see Delta ID order dated for 05/20/2021). Any agent can assist with scheduling. Pt identified by name and : NO Outreach Outcome/Action Unable to reach patient: Left message Reason for Outreach Care Gap or Scheduling/Wellness visits Payer: Payor: [facility] / Plan: [employer] [facility] CHOICE PLUS / Product Type: HMO / Care Gap Reviewed:: RST Reminder: Reminder note to check Health Maintenance for items below Health Maintenance items due: ANNUAL PCP TEAM CHRONIC DISEASE VISIT Never done HEPATITIS C SCREENING Never done HIV SCREENING Never done DTAP,TDAP,TD(1 - Tdap) Never done HPV TESTING due on 07/25/2017 PAP TESTING due on 04/20/2020 COVID-19 VACCINE(3 - Booster for Moderna series) due on 12/27/2020 Message Sent to Practice: No Navigation Signature: Corina Zafar July 04, 2021 12:23 PM documented in this encounterSelect [facility]-2022 History of Present illness Narrative* Cecile Mcmullen RN - 07/04/2021 9:24 AM EDT Patient had an IVF consult with Marcelina Chauhan MD. Present for the phone call today is patient and partner/. Identified patient by name and date of . Yes. Chief Complaint- IVF Nurse Teach Medications and allergies reviewed and updated. Yes. History reviewed: OB, Medical, Surgical, and Substance & Sexuality- Yes. Pre IVF requirements reviewed- Yes. Pre IVF requirements sent to the patient via Rdiot- Yes Patient reminded to call us with start of periods- Yes Previous Fertility Treatment? - none G 0P 0 AB 0 LMP 06/14/21, Cycles- 26-28 days Episode created- yes / Protocol- Antagonist Will monitor at [facility] yearly exam/PAP - needs Uterine Eval - needs Mammo needed (42yo) - n/a AMH- done Pt. Labs: Type & Screen, HIV 1&2, Syphilis (RPR), Hepatitis B Core AB, Hepatitis B Surface AG, Hepatitis C AB, Rubella, Varicella, GC/Chlam - needs [facility] carrier screening - done Partner STD: HIV 1&2, Syphilis (RPR) Hepatitis B Core AB, Hepatitis B Surface AG, GC/Chlam - needs SA/Freeze Backup - done PGTA/M - n/a Financial/Coverage- Self Pay Pharmacy [facility] yes IVF / Embryo / Covid Consents- Nursing reviewed with patient and Sent via [employer] Is there anything special we should know about your medical history: Any artificial parts, pins, limbs, lines, drains, ports, implants, prosthetics- Patient Declines Medical problems- Patient Declines Diabetes- Patient Declines Sleep apnea- Patient Declines Blood clots or history of hematology issues- Patient Declines Any Latex allergies No. control use in past? Yes. Any contraindications? No / migraines No / smoking No / blood clotsNo RN Discussed: Nursing reviewed with patient all below Vacations and Traveling / Covid-19 / Weekend monitoring and retrieval / Time-off work MyChart use with plans, instructions results, appts. No jumping, bouncing, heavy lifting, or high impact activity during IVF cycle. Risk of ovarian torsion. No Motrin, Advil, Ibuprofen, etc. Tylenol or Acetaminophen only. Team approach of doctors and nurses. Stimulation can go 10-14 days. IVF appointments in the morning, called monitoring, which consist of ultrasound and bloodwork. Noonmeeting with MD to discuss results/POC. Nurse call patient in afternoon with plan and send MyChart,schedule next appt. Patient and Partner verbally agreed on 07/04/21 not to order medication until all of the above requirements are completed, and they have been formally instructed to order medication. Patient and Partner verbally agreed on 07/04/21 to share their medical information with each other. Partner will be available and with patient before and after surgery. To Do List: 1. Sign consents 2. Wait for [facility] resutls 3. Pt and partner needs STDs self pay 4. Pt needs annual/pap scheduled 5. Pt will start BCP CD1 and call office to schedule baseline. Cecile Mcmullen RN July 04, 2021 2:47 PM documented in this encounterSelect [facility]-2022 Miscellaneous Notes* Telephone Encounter - Jose Medrano RN - 06/28/2021 11:14 AM EDT Called patient to number listed, verified pt. Advised patient she needs nurse teach appointment She is wondering if she should go on a work trip in July. Advised if checklist is done first 2 weeks would be OCP. Verbalizes understanding. Transferred to schedule nurse teach Jose Medrano RN June 28, 2021 11:16 AM * Telephone Encounter - Chely Aguillon Pss - 06/28/2021 10:56 AM EDT Pt wants to discuss her protocol as she is going on vacation * Telephone Encounter - Chely Aguillon Pss - 06/28/2021 10:55 AM EDT Pt attending class on 07/05 documented in this encounterSelect [facility]-2022 History of Present illness Narrative* Marcelina Chauhan MD - 06/27/2021 7:13 AM EDT Images from the original note were not included. REPRODUCTIVE ENDOCRINOLOGY AND INFERTILITY RETURN PATIENT CLINIC NOTE SERVICE DATE: 06/27/2021 SERVICE TIME: 7:13 AM NAME: Solange Milligan This is a virtual visit using Zoom. It required patient-provider interaction for the medical decision making as documented below. FERTILITY HISTORY Note copied from prior visit dated 04/29/2020 by myself Solange Milligan is a 35 year old G0 with unexplained primary infertility and stage IV endometriosis s/p complete resection, including bowel resection 01/2020. TTC x3 years. Note copied from prior visit dated 09/27/2020 by myself Patient has done letrozole OI x 4 cycles now without . Having regular cycles with predictable LH surges on home OPKs. LMP 424 LH 5/6 LMP 07/11 LH 6/8 LMP 6 LH 7/ LMP 7 LH 8/ INTERVAL UPDATE/PROGRESS Now s/p OI w/monitoring, trigger, and IUI x4 without LABS/IMAGING: Component Latest Ref Rng & Units 05/09/2021 Anti Mullerian Hormone 0.58 - 8.13 ng/mL 4.82 ASSESSMENT AND PLAN Solange Milligan is a 36 year old female Diagnoses and all orders for this visit: Infertility counseling Other orders - Norethindrone Acet-Ethinyl Est (,) 1.5-30 mg-mcg; Take 1 tablet by mouth once daily for 21 days. Take continuously TOPICS DISCUSSED: 1. Dropped cycles discussed: Yes 2. Freezing discussed - embryos and/or eggs: Yes 3. control discussed: Yes 4. Number of embryos to replace 1 5. PGD candidate: No 6. Hyperstimulation discussed: Yes 7. Ovarian reserve testing discussed: Yes 8. Ectopic discussed: Yes 9. Team of physicians discussed: Yes 10. Surgical procedure & complications discussed: Yes 11. Folate discussed Yes 12. Discussed information regarding ICSI: Yes 13. Carrier screening discussed: Yes PLAN: 1. COS: antagonist protocol, FSH 200-250 2. Source of sperm: ejaculated, counts normal on IUIs, no need for repeat SA or freeze 3. ICSI: Yes Counseling: - counseled on diagnosis and risk/benefits of treatment options - counseled on risks and outcomes, including SAB and genetic anomaly rates Next Steps: - continue folate and vit D supplementation - completed carrier screening - arrange financials for deposit/insurance prio-auth - call to schedule IVF nurse teach - MyChart message with the following information were sent to the patient: IVF overview, IVF requirement checklist, and IVF pricing I spent a total of 40 minutes face to face with the patient. Greater than 50% of the time was spentcounseling and coordinating the care based on my plan and assessment as noted. I spent a total of 45 minutes on the date of the service which included preparing to see the patient, [id number] patient care, completing clinical documentation, obtaining and/or reviewing separately obtained history, counseling and educating the patient/family/caregiver, and ordering medications, tests, or procedures. Dr. Marcelina Chauhan M.D. Reproductive Endocrinology and Infertility To patients reading this note: Please be advised the primary purpose of this note is for me to communicate with myself and other members of your medical team. Standard sentence structure is not always used. Medical terminology and medical abbreviations may be used. There may be grammatical and typographical errors missed in proofreading. documented in this encounterSelect [facility]-11-2022 Procedure note* Barb Galvez APRN.CNP - 05/30/2021 2:45 PM EDT [facility] IUI PROCEDURE NOTE Date: 05/30/2021 Primary Proceduralist: Barb Galvez APRN.CNP Consents and Labels Consent Signed: Informed Consent obtained and on the chart Labels Verified With Patient: Yes Indications: Solange Milligan, is a 36 year old female here today for intrauterine insemination. IUI # 4. Cycle Day: 14 Last menstrual period: 05/16/2021 [place] Protocol: UNIVERSAL PROTOCOL / SAFETY CHECKLIST Procedure to be Performed: IUI Sign In: A Moment of CARE was completed. Personnel directly involved with the procedure wore the appropriate PPE (Personal Protective Equipment). Patient/Surrogate Stated/Verified: PATIENT VERIFIED(optional for EMERGENT procedures): Patient name, Date of , Relevant allergies and The intended procedure Time Out Communication: Intended patient and procedure match the source documents. Consent documented and matches the intended procedure. Sign Out: SIGN OUT (optional for EMERGENT procedures): No specimen collected. All instruments, equipment, possible retained foreign bodies accounted for. Barb Galvez APRN.CNP IUI IUI Date: 05/30/21 IUI #: 4 Pre-Procedure Diagnosis: Infertility Post-Procedure Diagnosis: Infertility Cycle Meds: Letrozole 5 mg Luteal Phase Progesterone: N/A Trigger: Ovidrel Catheter Type: Unisem catheter Tenaculum: No Catheter passed: Easy Complications: None Sperm Information: Source of Sperm: Partner Ejaculated: Yes Fresh/Frozen: Fresh TMC (total motile count of sperm afterwash): 58.4 million Cycle reviewed, all questions answered. Pt instructed to take a test in 17 days if no menses and call with results. SIGNATURE: Barb Galvez APRN.CNP PATIENT NAME: Solange Milligan DATE: May 30, 2021 TIME: 2:45 PM documented in this encounterSelect Medical [facility]-01-2022 History of Present illness Narrative* Hermes Parikh MD - 05/20/2021 7:00 AM EDT Images from the original note were not included. [facility] [place] SECTION FOR MINIMALLY INVASIVE GYNECOLOGIC SURGERY OUTPATIENT VISIT DATE 05/20/2021 OUTPATIENT VISIT TYPE CONSULT PRIMARY CARE PHYSICIAN: Jess Guerrero MD ([facility]) [address] [address] CHIEF COMPLAINT: Endo Consultation requested by self for an opinion regarding Solange Milligan , and my final recommendations will be communicated back to the requesting physician by way of shared medical record or letter via US mail. HISTORY OF PRESENT ILLNESS: Solange Milligan is a pleasant 36 year old female who presents with a history of ENDOMETRIOSIS. She describes her symptoms as cramping, painful period, constipation, patient states that she feelslike taking letrozole flares up her symptoms Symptoms have been present the patient's entire life, symptoms are much better since surgery [place] [address] Gonzalez. Her pain is felt at these locations: pelvis Pain radiates to: lower back She describes her periods as being regular, present q 28-30 days, last for 3-4 days, 2 heavy days of flow, and a few days of light flow/spotting, + clots. She goes through 1 pads/tampons every 2 hours during her two heaviest days of flow. Her pain is worse during her menses. Patient believes pain is also worse during ovulation. She has tried the following for menses suppression: OCP, IUD several years ago She is currently not taking anything for menses suppression -Dysmenorrhea: Yes -Dysuria: Yes -Dyschezia: Yes -Dyspareunia: Yes She has not missed work/school due to pain. She has not visited the Emergency Room for the pain. She does desire future child bearing. She has not been a victim of emotional, physical, or sexual abuse. Aggravating factors: letrozole, ovulation, bowel movements, fried food Alleviating factors: warm bath, heat. -Colonoscopy: 2019. -EMB: No -Previous surgical intervention: diagnostic laparoscopy done in [place] around 04/2019, S/p: exam under anesthesia, cystoscopy with stent placement, diagnostic laparoscopy, excision of endometriosis,left ureterolysis, chromopertubation (Dr. Gonzalez), appendectomy, resection of sigmoid colon and primary reanastomosis (Dr. Sanchez) on 02/02/2020 -Previous non-surgical intervention: None, would like to discuss PFPT IMAGING: US: 05/02/2021 Impression A anteverted uterus that measures 86 mm x 38 mm x 57 mm. The myometrium is heterogenous and Posterior myometrial thickness is greater then anterior which is suggestive of adenomyosis. In addition,1 small subserosal fibroid is noted- it measures 1.2cm in greatest dimension. The central endometrium complex measures 11.1 mm in combined thickness. No abnormal blood flow to suggest a polyp or focal endometrial pathology is observed within the endometrial complex. The contour of the endometrial cavity was normal on 3-D imaging. Both ovaries are visualized. the Right ovary contains a simple appearing cyst that measures 3cm in greatest dimension. There are no solid components and no internal vascular flow. The Left ovary appears normal. There is no free fluid visualized in the peritoneal cavity. Technique: Three dimensional imaging was created on a dedicated stand-alone 3D workstation with images created and archived, and supervised and reviewed by the interpreting physician utilizing images from a US Scan performed on 05/02/21 Duplex scan was performed using B-Mode/izquierdo scale imaging and Doppler spectral analysis and color flow. Slide test is positive- which likely indicates no significant adhesive disease. Recommendations Follow up as clinically indicated. Menstrual History LMP on 04/19/2021 Method Transabdominal, transvaginal, 3D ultrasound examination. Uterus Uterus: Visualized Uterus position: anteverted Uterus long 86 mm Uterus ap 38 mm Uterus tr 57 mm Uterus Vol 97.2 cm Endometrial thickness, total 11.1 mm Uterine fibroid D1 10 mm Uterine fibroid D2 10 mm Uterine fibroid D3 12 mm Uterine fibroid mean 10.7 mm Uterine fibroid vol 0.628 cm Uterine fibroids findings: Posterior, mid Right Ovary Rt ovary: Visualized Rt ovary D1 44 mm Rt ovary D2 42 mm Rt ovary D3 36 mm Rt ovary Vol 34.8 cm Rt ovarian cyst D1 29 mm Rt ovarian cyst D2 25 mm Rt ovarian cyst D3 33 mm Rt ovarian cyst mean 29.0 mm Rt ovarian cyst vol 12.527 cm Rt ovarian cyst findings: simple cyst Left Ovary Lt ovary: Visualized Lt ovary D1 30 mm Lt ovary D2 19 mm Lt ovary D3 18 mm Lt ovary Vol 5.1 cm Cul de Sac Visualized. no free fluid visualized Past Gynecologic History: Menarche: 15 LMP: Last pap cytology: 2020 per patient report History of abnormal history No History of STI: No History of PID: No Past Obstetrical History: Vaginal delivery: 0 Section: 0 Ectopic: 0 Miscarriage: 0 Past Medical History: PAST MEDICAL HISTORY Diagnosis Date Abnormal glandular Papanicolaou smear of cervix 2008 Abn. Pap smear (cervix) Dysmenorrhea Past Surgical History: PAST SURGICAL HISTORY Procedure Laterality Date COLPOSCOPY CERVIX UPPER/ADJACENT VAGINA 10/07/2008 Colposcopy, for lgsil LASIK 2014 PAST SURGICAL HISTORY OF 06/01/03 ACL OF LEFT LEG PAST SURGICAL HISTORY OF 07/2019 laparoscopy Family History: FAMILY HISTORY Problem Relation Age of Onset other (non hodgkins lymphoma) Father Cancer Paternal Grandfather No Hodgkins Lymphoma Social History: Social History Tobacco Use Smoking status: Never Smoker Smokeless tobacco: Never Used Vaping Use Vaping Use: Not on file Substance Use Topics Alcohol use: Yes Comment: 10 drinks per week per pt 01/20/2020 Drug use: Yes Types: Marijuana Comment: medical marijuana - for anxiety, pain - edibles Current Outpatient Medications Medication Sig letrozole (FEMARA) 2.5 mg tablet Take 2 tablets by mouth once daily for 5 days. Take on cycle days 3-7. azelastine (ASTELIN) 0.1% nasal spray Use 2 Sprays in each nostril twice daily as needed. cholecalciferol (VITAMIN D3) 1,000 unit tab tablet Take by mouth. levothyroxine (SYNTHROID) 50 mcg tablet Take 50 mcg by mouth once daily. docusate sodium (COLACE) 100 mg capsule Take 1 capsule by mouth twice daily. (Patient not taking: Reported on 05/20/2021 ) No current facility-administered medications for this visit. Allergies As of Date: 05/20/2021 Allergen Noted Reaction SEASONAL ALLERGIES 08/25/2020 Other: See Comments Fully Assessed 05/20/2021 REVIEW OF SYSTEMS: POSITIVES IN BOLD Per HPI PHYSICAL EXAMINATION: Vital Signs: 05/20/21 0718 BP: 122/82 Weight: 80.4 kg (177 lb 3.2 oz) Height: 160 cm (5' 3") Body mass index is 31.39 kg/m . General appearance: Well appearing, alert, in no acute distress, well-hydrated, well nourished. Skin: Skin color, texture, turgor normal, no suspicious rashes or lesions Abdomen: Normal abdominal exam, Abdomen soft, non-tender. Bowel sounds normal. No masses, organomegaly Depression: denies symptoms of depression. Emotional support: No PELVIC EXAMINATION: Vulva/Perineum: Normal Urethra: No mass, tenderness or diverticulum Bladder:normal Vagina: no erythema, no ulcerations and no vaginal discharge Cervix: normal Uterus: Normal size, non-tender Adnexae: No palpable mass, no cysts, no tenderness Bimanual: No anterior vaginal wall tenderness, no levator obturator tenderness, ++obturator tenderness bilaterally , no cul de sac or uterosacral tenderness Rectal: Muskuloskeletal: no change in pain with straight leg raise, hip flexion, abduction, or adduction against resistance. No change in pain with internal and external hip rotation IMPRESSION: Ms. Milligan is a 36 year old female who presents today with High-tone pelvic floor dysfunction in female (primary encounter diagnosis) Chronic pelvic pain in female History of endometriosis Dyspareunia in female Pain could be endometriosis related as patient has not been on supression since her surgery. She did have severe endometriosis. Currently pain seems to be related to her pelvic floor and only associated to her cycle. Patients main goal is fertility and is undergoing IUI cycles. Is close to transitioning to IVF. PLAN: After a thorough discussion, we have derived at the following plan: - Pelvic floor PT - Further imaging if PT fails or pain becomes constant - RTC 3 months for follow up Written and verbal health teaching given to patient, patient verbalizes understanding and agrees with treatment plan. Medical Decision Making: Problems: Moderate: 1+ chronic illnesses with change Data: Unique source(s) for external note(s) reviewed: 3+ Unique test result(s) reviewed: 3+ Medical Decision Making Level: 4 - Moderate Hermes Parikh MD [facility] Miscellaneous Notes* Telephone Encounter - Barb Galvez APRN.CNP - 05/16/2021 1:40 PM EDT spoke with Solange, last cycle she did not get OPK, but progesterone confirmed ovulation, calling fornext steps discussed adding in midcycle scan/trigger shot LMP 05/16 Plan: Letrozole 5mg/midcycle/trigger/IUI Verified that patient has medications needed for this cycle. Episode started, cycle flow sheet filled out. Scheduled midcycle scan: 05/27 aBrb Galvez APRN.CNP May 16, 2021 2:02 PM The following approved medication requests have been transmitted electronically. Signed Prescriptions Disp Refills Choriogonadotropin Anthony,HumRec (OVIDREL) 250 mcg/0.5 mL syrg 1 Each 2 Sig: Inject 250 mcg subcutaneously one time only for 1 dose. Authorizing Provider: BARB GALVEZ APRN.CNP Please schedule the patient for the following- Location: [place] Provider: nurse Visit type: monitoring Reason for visit/appointment notes: midcycle scan Date: 05/27 Time (if discussed): 07 Call to patient needed: no documented in [facility] Miscellaneous Notes* Telephone Encounter - Leigh Ann Fragoso PA-C - 05/12/2021 4:48 PM EDT Sent a [facility]. Leigh Ann Fragoso PA-C May 12, 2021 4:48 PM * Telephone Encounter - Olive Durand RN - 05/12/2021 11:57 AM EDT Patient sent this my chart Olive Durand RN May 12, 2021 11:57 AM I have a question about PROGESTERONE BLD resulted on 05/09/21, 11:56 PM. So if this normal and I ovulated why did the peak not show on the tests? What can I do differently next cycle? The letrozole makes me feel pretty bad so to take it and not have a peak is really demoralizing. Should I do anything different medications kowalski or testing? A repeat of this month would break my heart. documented [facility] Miscellaneous Notes* Telephone Encounter - Olive Durand RN - 05/12/2021 11:57 AM EDT See phone call Olive Durand RN May 12, 2021 11:57 AM documented [facility] History of Past illness Narrative* Problem Noted Date Resolved Date Condyloma acuminatum 08/05/2007 06/24/2012 documented as of this encounter (statuses as of 05/12/2021) [facility] History of Past illness Narrative* Problem Noted Date Resolved Date Condyloma acuminatum 08/05/2007 06/24/2012 documented as of this encounter (statuses as of 05/12/2021) [facility] History of Past illness Narrative* Problem Noted Date Resolved Date Condyloma acuminatum 08/05/2007 06/24/2012 documented as of this encounter (statuses as of 05/16/2021) [facility] History of Past illness Narrative* Problem Noted Date Resolved Date Condyloma acuminatum 08/05/2007 06/24/2012 documented as of this encounter (statuses as of 05/20/2021) [facility] History of Past illness Narrative* Problem Noted Date Resolved Date Condyloma acuminatum 08/05/2007 06/24/2012 documented as of this encounter (statuses as of 05/30/2021) [facility] History of Past illness Narrative* Problem Noted Date Resolved Date Condyloma acuminatum 08/05/2007 06/24/2012 documented as of this encounter (statuses as of 06/27/2021) [facility] of Past illness Narrative* Problem Noted Date Resolved Date Condyloma acuminatum 08/05/2007 06/24/2012 documented as of this encounter (statuses as of 06/27/2021) [address]16[address]2008 History of Past illness Narrative* Problem Noted Date Resolved Date Condyloma acuminatum 08/05/2007 06/24/2012 documented as of this encounter (statuses as of 06/28/2021) [address]16[address]2008 History of Past illness Narrative* Problem Noted Date Resolved Date Condyloma acuminatum 08/05/2007 06/24/2012 documented as of this encounter (statuses as of 07/04/2021) [address]16[address]2008 History of Past illness Narrative* Problem Noted Date Resolved Date Condyloma acuminatum 08/05/2007 06/24/2012 documented as of this encounter (statuses as of 07/06/2021) [address]16[address]2008 History of Past illness Narrative* Problem Noted Date Resolved Date Condyloma acuminatum 08/05/2007 06/24/2012 documented as of this encounter (statuses as of 07/06/2021) [address]16[address]2008 History of Past illness Narrative* Problem Noted Date Resolved Date Condyloma acuminatum 08/05/2007 06/24/2012 documented as of this encounter (statuses as of 07/08/2021) [address]16[address]2008 History of Past illness Narrative* Problem Noted Date Resolved Date Condyloma acuminatum 08/05/2007 06/24/2012 documented as of this encounter (statuses as of 07/12/2021) [address] History of Past illness Narrative* Problem Noted Date Resolved Date Condyloma acuminatum 08/05/2007 06/24/2012 documented as of this encounter (statuses as of 07/14/2021) [address]16[address]2008 History of Past illness Narrative* Problem Noted Date Resolved Date Condyloma acuminatum 08/05/2007 06/24/2012 documented as of this encounter (statuses as of 07/21/2021) [address]16-2008 History of Past illness Narrative* Problem Noted Date Resolved Date Condyloma acuminatum 08/05/2007 06/24/2012 documented as of this encounter (statuses as of 07/21/2021) [address] History of Past illness Narrative* Problem Noted Date Resolved Date Condyloma acuminatum 08/05/2007 06/24/2012 documented as of this encounter (statuses as of 07/25/2021) [address]16[address]2008 History of Past illness Narrative* Problem Noted Date Resolved Date Condyloma acuminatum 08/05/2007 06/24/2012 documented as of this encounter (statuses as of 07/25/2021) [address] History of Past illness Narrative* Problem Noted Date Resolved Date Condyloma acuminatum 08/05/2007 06/24/2012 documented as of this encounter (statuses as of 08/02/2021) [address] History of Past illness Narrative* Problem Noted Date Resolved Date Condyloma acuminatum 08/05/2007 06/24/2012 documented as of this encounter (statuses as of 08/08/2021) [address] History of Past illness Narrative* Problem Noted Date Resolved Date Condyloma acuminatum 08/05/2007 06/24/2012 documented as of this encounter (statuses as of 08/11/2021) [address]16-2008 History of Past illness Narrative* Problem Noted Date Resolved Date Condyloma acuminatum 08/05/2007 06/24/2012 documented as of this encounter (statuses as of 08/12/2021) [address]16-2008 History of Past illness Narrative* Problem Noted Date Resolved Date Condyloma acuminatum 08/05/2007 06/24/2012 documented as of this encounter (statuses as of 08/16/2021) [address]16-2008 History of Past illness Narrative* Problem Noted Date Resolved Date Condyloma acuminatum 08/05/2007 06/24/2012 documented as of this encounter (statuses as of 08/17/2021) [address]16-2008 History of Past illness Narrative* Problem Noted Date Resolved Date Condyloma acuminatum 08/05/2007 06/24/2012 documented as of this encounter (statuses as of 08/17/2021) [address]16-2008 History of Past illness Narrative* Problem Noted Date Resolved Date Condyloma acuminatum 08/05/2007 06/24/2012 documented as of this encounter (statuses as of 08/20/2021) [address]16-2008 History of Past illness Narrative* Problem Noted Date Resolved Date Condyloma acuminatum 08/05/2007 06/24/2012 documented as of this encounter (statuses as of 08/21/2021) [address]16-2008 History of Past illness Narrative* Problem Noted Date Resolved Date Condyloma acuminatum 08/05/2007 06/24/2012 documented as of this encounter (statuses as of 08/21/2021) [address] History of Past illness Narrative* Problem Noted Date Resolved Date Condyloma acuminatum 08/05/2007 06/24/2012 documented as of this encounter (statuses as of 08/22/2021) [address]16-2008 History of Past illness Narrative* Problem Noted Date Resolved Date Condyloma acuminatum 08/05/2007 06/24/2012 documented as of this encounter (statuses as of 08/23/2021) [address] History of Past illness Narrative* Problem Noted Date Resolved Date Condyloma acuminatum 08/05/2007 06/24/2012 documented as of this encounter (statuses as of 08/24/2021) [address]16-2008 History of Past illness Narrative* Problem Noted Date Resolved Date Condyloma acuminatum 08/05/2007 06/24/2012 documented as of this encounter (statuses as of 08/26/2021) [address]16-2008 History of Past illness Narrative* Problem Noted Date Resolved Date Condyloma acuminatum 08/05/2007 06/24/2012 documented as of this encounter (statuses as of 08/28/2021) [address]16-2008 History of Past illness Narrative* Problem Noted Date Resolved Date Condyloma acuminatum 08/05/2007 06/24/2012 documented as of this encounter (statuses as of 09/08/2021) [address]16-2008 History of Past illness Narrative* Problem Noted Date Resolved Date Condyloma acuminatum 08/05/2007 06/24/2012 documented as of this encounter (statuses as of 09/09/2021) [place] [address] History of Past illness Narrative* Problem Noted Date Resolved Date Condyloma acuminatum 08/05/2007 06/24/2012 documented as of this encounter (statuses as of 09/30/2021) [address]16-2008 History of Past illness Narrative* Problem Noted Date Resolved Date Condyloma acuminatum 08/05/2007 06/24/2012 documented as of this encounter (statuses as of 10/21/2021) [address] History of Past illness Narrative* Problem Noted Date Resolved Date Condyloma acuminatum 08/05/2007 06/24/2012 documented as of this encounter (statuses as of 11/07/2021) [address]16-2008 History of Past illness Narrative* Problem Noted Date Resolved Date Condyloma acuminatum 08/05/2007 06/24/2012 documented as of this encounter (statuses as of 11/07/2021) [address] History of Past illness Narrative* Problem Noted Date Resolved Date Condyloma acuminatum 08/05/2007 06/24/2012 documented as of this encounter (statuses as of 11/11/2021) [address]16-2008 History of Past illness Narrative* Problem Noted Date Resolved Date Condyloma acuminatum 08/05/2007 06/24/2012 documented as of this encounter (statuses as of 11/14/2021) [address]16-2008 History of Past illness Narrative* Problem Noted Date Resolved Date Condyloma acuminatum 08/05/2007 06/24/2012 documented as of this encounter (statuses as of 11/28/2021) [address] History of Past illness Narrative* Problem Noted Date Resolved Date Condyloma acuminatum 08/05/2007 06/24/2012 documented as of this encounter (statuses as of 12/08/2021) [address]16-2008 History of Past illness Narrative* Problem Noted Date Resolved Date Condyloma acuminatum 08/05/2007 06/24/2012 documented as of this encounter (statuses as of 12/18/2021) [address]16-2008 History of Past illness Narrative* Problem Noted Date Resolved Date Condyloma acuminatum 08/05/2007 06/24/2012 documented as of this encounter (statuses as of 12/22/2021) [address] History of Past illness Narrative* Problem Noted Date Resolved Date Condyloma acuminatum 08/05/2007 06/24/2012 documented as of this encounter (statuses as of 12/23/2021) [address]16-2008 History of Past illness Narrative* Problem Noted Date Resolved Date Condyloma acuminatum 08/05/2007 06/24/2012 documented as of this encounter (statuses as of 12/23/2021) [address] History of Past illness Narrative* Problem Noted Date Resolved Date Condyloma acuminatum 08/05/2007 06/24/2012 documented as of this encounter (statuses as of 01/06/2022) [address] History of Past illness Narrative* Problem Noted Date Resolved Date Condyloma acuminatum 08/05/2007 06/24/2012 documented as of this encounter (statuses as of 01/13/2022) [address] History of Past illness Narrative* Problem Noted Date Resolved Date Condyloma acuminatum 08/05/2007 06/24/2012 documented as of this encounter (statuses as of 01/15/2022) [address] History of Past illness Narrative* Problem Noted Date Resolved Date Condyloma acuminatum 08/05/2007 06/24/2012 documented as of this encounter (statuses as of 01/16/2022) [address] History of Past illness Narrative* Problem Noted Date Resolved Date Condyloma acuminatum 08/05/2007 06/24/2012 documented as of this encounter (statuses as of 01/16/2022) [address] History of Past illness Narrative* Problem Noted Date Resolved Date Condyloma acuminatum 08/05/2007 06/24/2012 documented as of this encounter (statuses as of 01/18/2022) [address]16-2008 History of Past illness Narrative* Problem Noted Date Resolved Date Condyloma acuminatum 08/05/2007 06/24/2012 documented as of this encounter (statuses as of 06/23/2022) [address] History of Past illness Narrative* Problem Noted Date Resolved Date Condyloma acuminatum 08/05/2007 06/24/2012 documented as of this encounter (statuses as of 08/13/2022) [facility] History of Past illness Narrative* Problem Noted Date Diagnosed Date Resolved Date Condyloma acuminatum 08/05/2007 013 documented as of this encounter (statuses as of 01/28/2023) [facility] note* Diagnosis Encounter for fertility testing Fertility testing documented in this encounter [facility] note* Diagnosis Encounter for fertility testing- Primary Fertility testing documented in this encounter [facility] note* Diagnosis High-tone pelvic floor dysfunction in female- Primary Chronic pelvic pain in female Unspecified symptom associated with female genital organs History of endometriosis Personal history of other genital system and obstetric disorders Dyspareunia in female documented in this encounter [facility] note* Diagnosis Encounter for artificial insemination- Primary Artificial insemination documented in this encounter [facility] note* Diagnosis Infertility counseling- Primary Other procreative management counseling and advice documented in this encounter [facility] note* Diagnosis Female infertility- Primary Female infertility of unspecified origin documented in this encounter [facility] note* Diagnosis Pelvic pain in female Unspecified symptom associated with female genital organs documented in this encounter [facility] note* Diagnosis Encounter for gynecological examination (general) (routine) without abnormal findings- Primary Screening for cervical cancer Screening for malignant neoplasm of the cervix Encounter for screening for human papillomavirus (HPV) Special screening examination for human papillomavirus (HPV) documented in this encounter [facility] note* Diagnosis Female infertility- Primary Female infertility of unspecified origin [facility] Diagnosis Female infertility Female infertility of unspecified origin [facility] Diagnosis High-tone pelvic floor dysfunction in female- Primary [facility] Diagnosis Female infertility- Primary Female infertility of unspecified origin [facility] Diagnosis Primary female infertility- Primary Female infertility of unspecified origin [facility] Diagnosis Primary female infertility Female infertility of unspecified origin documented in this encounter [facility] note* Diagnosis Female infertility- Primary Female infertility of unspecified origin documented in this encounter [facility] note* Diagnosis 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 documented in this encounter [facility] note* Diagnosis Female infertility- Primary Female infertility of unspecified origin documented in this encounter [facility] note* Diagnosis Primary female infertility- Primary Female infertility of unspecified origin documented in this encounter [facility] note* Diagnosis Female infertility Female infertility of unspecified origin documented in this encounter [facility] note* Diagnosis Primary female infertility- Primary Female infertility of unspecified origin documented in this encounter [facility] note* Diagnosis examination or test, unconfirmed documented in this encounter [facility] note* Diagnosis Female infertility- Primary Female infertility of unspecified origin documented in this encounter [facility] note* Diagnosis Female infertility Female infertility of unspecified origin documented in this encounter [facility] note* Diagnosis Female infertility- Primary Female infertility of unspecified origin documented in this encounter [facility] note* Diagnosis examination or test, unconfirmed- Primary documented in this encounter [facility] noteNo assessment information availableWDetwiler [facility] Work Phone: [facility]* Diagnosis examination or test, unconfirmed- Primary , location unknown state, incidental Encounter for test, result positive examination or test, positive result documented in this encounter [facility] note* Diagnosis Encounter for test, result unknown- Primary documented in this encounter [facility] note* Diagnosis Female infertility- Primary Female infertility of unspecified origin APPOINTMENT CANCELLED documented in this encounter [facility] note* Diagnosis Positive test- Primary examination or test, positive result examination or test, unconfirmed Encounter for test, result positive- Primary examination or test, positive result documented in this encounter [facility] note* Diagnosis Encounter for test, result positive- Primary examination or test, positive result documented in this encounter [facility] note* Diagnosis Early stage of - Primary state, incidental , location unknown state, incidental documented in this encounter [facility] note* Diagnosis MEET WITH PHYSICIAN- Primary documented in this encounter [facility] note* Diagnosis Pelvic floor dysfunction in female Endometriosis Endometriosis, site unspecified Fibroids Leiomyoma of uterus, unspecified documented in this encounter [facility] note* Diagnosis Onset Date Resolution Status delivery delivered acute acute [facility] Work Phone: Evaluation note* Diagnosis Vaginal irritation- Primary Unspecified noninflammatory disorder of vagina documented in this encounter [facility] note* Diagnosis Post-operative state- Primary Other postprocedural status Endometriosis Endometriosis, site unspecified Post-operative state Other postprocedural status Endometriosis Endometriosis, site unspecified Preoperative examination- Primary Preoperative examination, unspecified Lung nodules Other nonspecific abnormal finding of lung field Endometriosis Endometriosis, site unspecified Dyschezia Unspecified constipation Constipation, unspecified constipation type Medical marijuana use Encounter for long-term (current) use of other medications Hypothyroidism, unspecified type Elevated glucose Other abnormal glucose Depression, unspecified depression type Disease of diaphragm- endometriosis, depth unknown Disorders of diaphragm Rash- Primary Rash and other nonspecific skin eruption documented in this encounter [facility] note* Diagnosis Post-operative state- Primary Other postprocedural status Endometriosis Endometriosis, site unspecified Post-operative state Other postprocedural status Endometriosis Endometriosis, site unspecified Preoperative examination- Primary Preoperative examination, unspecified Lung nodules Other nonspecific abnormal finding of lung field Endometriosis Endometriosis, site unspecified Dyschezia Unspecified constipation Constipation, unspecified constipation type Medical marijuana use Encounter for long-term (current) use of other medications Hypothyroidism, unspecified type Elevated glucose Other abnormal glucose Depression, unspecified depression type Disease of diaphragm- endometriosis, depth unknown Disorders of diaphragm URI with cough and congestion- Primary Sore throat Acute pharyngitis documented in this encounter [facility] note* Diagnosis Post-operative state- Primary Other postprocedural status Endometriosis Endometriosis, site unspecified Post-operative state Other postprocedural status Endometriosis Endometriosis, site unspecified Preoperative examination- Primary Preoperative examination, unspecified Lung nodules Other nonspecific abnormal finding of lung field Endometriosis Endometriosis, site unspecified Dyschezia Unspecified constipation Constipation, unspecified constipation type Medical marijuana use Encounter for long-term (current) use of other medications Hypothyroidism, unspecified type Elevated glucose Other abnormal glucose Depression, unspecified depression type Disease of diaphragm- endometriosis, depth unknown Disorders of diaphragm Endometriosis- Primary Endometriosis, site unspecified Fibroids Leiomyoma of uterus, unspecified Fertility testing Encounter for preconception consultation Other procreative management counseling and advice Vitamin D deficiency Unspecified vitamin D deficiency Hypothyroidism, unspecified type documented in this encounter [facility] note* Diagnosis Post-operative state- Primary Other postprocedural status Endometriosis Endometriosis, site unspecified Post-operative state Other postprocedural status Endometriosis Endometriosis, site unspecified Preoperative examination- Primary Preoperative examination, unspecified Lung nodules Other nonspecific abnormal finding of lung field Endometriosis Endometriosis, site unspecified Dyschezia Unspecified constipation Constipation, unspecified constipation type Medical marijuana use Encounter for long-term (current) use of other medications Hypothyroidism, unspecified type Elevated glucose Other abnormal glucose Depression, unspecified depression type Disease of diaphragm- endometriosis, depth unknown Disorders of diaphragm Pre-procedural laboratory examination- Primary Endometriosis Endometriosis, site unspecified Fibroids Leiomyoma of uterus, unspecified Fertility testing documented in this encounter [facility] note* Diagnosis Post-operative state- Primary Other postprocedural status Endometriosis Endometriosis, site unspecified Post-operative state Other postprocedural status Endometriosis Endometriosis, site unspecified Preoperative examination- Primary Preoperative examination, unspecified Lung nodules Other nonspecific abnormal finding of lung field Endometriosis Endometriosis, site unspecified Dyschezia Unspecified constipation Constipation, unspecified constipation type Medical marijuana use Encounter for long-term (current) use of other medications Hypothyroidism, unspecified type Elevated glucose Other abnormal glucose Depression, unspecified depression type Disease of diaphragm- endometriosis, depth unknown Disorders of diaphragm Female infertility Female infertility of unspecified origin documented in this encounter [facility] note* Diagnosis Post-operative state- Primary Other postprocedural status Endometriosis Endometriosis, site unspecified Post-operative state Other postprocedural status Endometriosis Endometriosis, site unspecified Preoperative examination- Primary Preoperative examination, unspecified Lung nodules Other nonspecific abnormal finding of lung field Endometriosis Endometriosis, site unspecified Dyschezia Unspecified constipation Constipation, unspecified constipation type Medical marijuana use Encounter for long-term (current) use of other medications Hypothyroidism, unspecified type Elevated glucose Other abnormal glucose Depression, unspecified depression type Disease of diaphragm- endometriosis, depth unknown Disorders of diaphragm Female infertility- Primary Female infertility of unspecified origin documented in this encounter [facility] note* Diagnosis Post-operative state- Primary Other postprocedural status Endometriosis Endometriosis, site unspecified Post-operative state Other postprocedural status Endometriosis Endometriosis, site unspecified Preoperative examination- Primary Preoperative examination, unspecified Lung nodules Other nonspecific abnormal finding of lung field Endometriosis Endometriosis, site unspecified Dyschezia Unspecified constipation Constipation, unspecified constipation type Medical marijuana use Encounter for long-term (current) use of other medications Hypothyroidism, unspecified type Elevated glucose Other abnormal glucose Depression, unspecified depression type Disease of diaphragm- endometriosis, depth unknown Disorders of diaphragm examination or test, unconfirmed- Primary Encounter for assisted reproductive fertility procedure cycle documented in this encounter [facility] note* Diagnosis Post-operative state- Primary Other postprocedural status Endometriosis Endometriosis, site unspecified Post-operative state Other postprocedural status Endometriosis Endometriosis, site unspecified Preoperative examination- Primary Preoperative examination, unspecified Lung nodules Other nonspecific abnormal finding of lung field Endometriosis Endometriosis, site unspecified Dyschezia Unspecified constipation Constipation, unspecified constipation type Medical marijuana use Encounter for long-term (current) use of other medications Hypothyroidism, unspecified type Elevated glucose Other abnormal glucose Depression, unspecified depression type Disease of diaphragm- endometriosis, depth unknown Disorders of diaphragm Positive test (HCC)- Primary examination or test, positive result , location unknown (HCC) state, incidental documented in this encounter [facility] note* Diagnosis Post-operative state- Primary Other postprocedural status Endometriosis Endometriosis, site unspecified Post-operative state Other postprocedural status Endometriosis Endometriosis, site unspecified Preoperative examination- Primary Preoperative examination, unspecified Lung nodules Other nonspecific abnormal finding of lung field Endometriosis Endometriosis, site unspecified Dyschezia Unspecified constipation Constipation, unspecified constipation type Medical marijuana use Encounter for long-term (current) use of other medications Hypothyroidism, unspecified type Elevated glucose Other abnormal glucose Depression, unspecified depression type Disease of diaphragm- endometriosis, depth unknown Disorders of diaphragm Positive test (HCC)- Primary examination or test, positive result documented in this encounter [facility] note* Diagnosis Post-operative state- Primary Other postprocedural status Endometriosis Endometriosis, site unspecified Post-operative state Other postprocedural status Endometriosis Endometriosis, site unspecified Preoperative examination- Primary Preoperative examination, unspecified Lung nodules Other nonspecific abnormal finding of lung field Endometriosis Endometriosis, site unspecified Dyschezia Unspecified constipation Constipation, unspecified constipation type Medical marijuana use Encounter for long-term (current) use of other medications Hypothyroidism, unspecified type Elevated glucose Other abnormal glucose Depression, unspecified depression type Disease of diaphragm- endometriosis, depth unknown Disorders of diaphragm Positive test (HCC)- Primary examination or test, positive result [facility] Diagnosis Post-operative state- Primary Other postprocedural status Endometriosis Endometriosis, site unspecified Post-operative state Other postprocedural status Endometriosis Endometriosis, site unspecified Preoperative examination- Primary Preoperative examination, unspecified Lung nodules Other nonspecific abnormal finding of lung field Endometriosis Endometriosis, site unspecified Dyschezia Unspecified constipation Constipation, unspecified constipation type Medical marijuana use Encounter for long-term (current) use of other medications Hypothyroidism, unspecified type Elevated glucose Other abnormal glucose Depression, unspecified depression type Disease of diaphragm- endometriosis, depth unknown Disorders of diaphragm , location unknown (HCC) state, incidental [facility] Author Natacha [facility] Note Date/Time September 08, 2024 9:17 am [facility] [address] [place] [address], [address] [place] [address] OFFICE VISIT Date of Service: 09/08/24 MR#: [id number] Acct: [id number] Name: SOLANGE MILLIGAN Rep #: [id number] : 1985 Provider: Dr. 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 Is patient in pain?: No Allergies No Known Allergies Allergy (Verified 09/08/24 08:27) Medications ?Medication ?Instructions ?Recorded ?Confirmed ?Type escitalopram oxalate 20 mg tablet 20 mg PO HS #30 tabs 06/17/24 09/08/24 Rx promethazine 12.5 mg tablet 12.5 mg PO Q6H PRN nausea and 08/19/24 09/08/24 Rx vomiting #60 tabs PNV no.63-iron,carbonyl 27mg-folic 1 cap PO QDAY 08/2809/08/24 History acid 800 mcg-dha 200 mg capsule ondansetron 4 mg disintegrating 4 mg PO Q4H PRN nausea and 08/28/24 08/28/24 Rx tablet vomiting #60 tabs Last Menstrual Period: 05/20/24 Zika: Zika virus screening: Negative : No PFSH PFSH Medical History Screening for cervical cancer delivery delivered Acute postoperative pain Depression Anxiety Endometriosis Infertility Endometriosis determined by laparoscopy Surgical History History of surgery Hx of LASIK [place] teeth extracted History of repair of anterior cruciate ligament of left knee Family History Father Cancer Non-Hodgkins Lymphoma Mother Cancer skin cancer Social History adopted: No household members: spouse and children housing: house number of children: 1 service: No current occupational status: employed 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 pets and animals: Yes history of recent travel: Yes ([place] 2024) out of state: Yes out of country: Yes sexually active: Yes Smoking Status: Never smoker alcohol intake: current alcohol intake frequency: a few times a week details: social, not while substance use type: does not use, marijuana and other details: last use March 2024 caffeine: Yes Type: coffee what type of physical activity do you participate in: walking How many days of moderate to strenuous exercise, like a brisk walk, did you do in the last 7 days: 3 frequency: 3-4 times per week trang/voodoo: None seatbelt use: always do you feel safe at home: Yes 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 Date Name GA/Weeks Outcome Route Bth Weight Infant Gen Labor Lgth Anesthesia Del Locatn Provider FOB 09/02/22 Adan live - full term HPI NOB IVF 07/15 Details: SOLANGE MILLIGAN is a 39 year old who presents for New OB visit. OB Visit [facility] Calculator Estimated Delivery Date Method Current WG Current Estimate 04/02/25 Manual 10w 4d IVF 5 day t ransfer 07/15/24 Other Estimates 04/07/25 Conception 9w 6d Comments: HIV: Urine Culture: Sequential Screen: NIPT Screen: Estimated Due Date: 04/02/25 Expected Delivery Route/Plan patient counseled regarding risks/benefits of trial of labor versus repeat . ACOG/uptodate education given to patient. 42 % likelihood of success per calculator TOLAC consent form signed: [] still undecided about vs rpt Menstrual History Last Menstrual Period: 05/20/24 Reported LMP: unknown Normal amount/duration: No Frequency in days: 30 On hormonal BC at conception: No hCG+: 07/29/24 Antepartum Record Genetic Screening: Congenital Heart Defect: Other, Neural Tube Defect: Other, Hemoglobinopathy Or Carrier: Other, Cystic Fibrosis: Other, Chromosome Abnormality: Other, Malick-Sachs: Other, Hemophilia: Other, Intellectual Disability/Autism: Other, Recurrent Loss/Stillbirth: Other, Other Structural Defect: Other, Other Genetic Disease: Other and Maternal Metabolic Disorder: Partner ( is type1 diabetic) Infection History: Live with someone with TB or Exposed to TB: No, Patient or Partner has history of Genital Herpes: No, Rash or Viral illness since last mentrual period: No, Prior GBS-Infected child: No, History of STD: No, HIV Infection: No, History of Hepatitis: No, Recent travel outside of [place]: Yes ([place] ), Concern for hepatitis exposure: No, Varicella immune: Yes and Covid Vaccinated: Yes (2020) Medical History Medical History: Positive: Auto-immune disorder (endometriosis ), Depression/ depression, Operations/hospitalizations (see surgical history ), Uterine anomaly/fabián (tilted ) and Infertility and Negative: Diabetes, Hypertension, Heart disease, Kidney disease/UTI, Neurologic/epilepsy, Psychiatric, Hepatitis/liver disease, Varicosities/phlebitis, Thyroid dysfunction, Trauma/domestic violence, History of blood transfusions, D (Rh) Sensitized, Pulmonary (e.g.,TB,Asthma), Seasonal allergies, Drug/latex allergies/reactions, Breast, Flooring Professional surgery, Anesthetic complications, History of abnormal pap, Anti-retroviral treatment and Relevant family history ACOG First Trimester First Trimester: Desire for , Alcohol, Tobacco Cessation, Illicit/Recreational Drug/Substance Use, Intimate Partner Violence, Barriers to care, Unstable Housing, Communication Barriers, Environmental/Work Hazards, Anticipated Course of Care, Nurtrition and weight gain, Toxoplasmosis Precations, Use of Any medications, Sexual activity, Exercise, Dental Care, Sauna/Hot tub use, Seat Belt use, Childbirth classes/Hospital facilities, Travel, Indications for Ultrasound and Screening for Aneuploidy; Discussed ROS Const Reports system reviewed and no additional complaints, except as documented, Reports fatigue and Denies fever(s) Eyes Reports system reviewed and no additional complaints, except as documented ENT Reports system reviewed and no additional complaints, except as documented Card Denies chest pain and Denies dyspnea Resp Reports system reviewed and no additional complaints, except as documented, Denies cough and Denies dyspnea GI Denies abdominal pain and Reports nausea Reports system reviewed and no additional complaints, except as documented Musc Reports system reviewed and no additional complaints, except as documented Skin/Breast Reports system reviewed and no additional complaints, except as documented Neuro Yes system reviewed and no additional complaints, except as documented Psych Reports system reviewed and no additional complaints, except as documented Endo Reports system reviewed and no additional complaints, except as documented and Reports fatigue Exam Const General: healthy appearing, comfortable and no acute distress Orientation: alert [facility] Head: normal to inspection, normocephalic and atraumatic Ears: hearing grossly normal bilaterally and external ears normal Nose: external nose normal and nares normal Mouth: oral mucosae normal Teeth and gingiva: dentition normal Eyes General: appearance normal, both eyes and all related structures Neck Neck: normal visual inspection, no lymphadenopathy and supple Thyroid: thyroid normal Resp Effort & Inspection: normal respiratory effort GI Inspection: normal to inspection Palpation: soft and no hepatosplenomegaly General: bladder normal to palpation External Female Exam: normal external appearance and normal appearance of the urethra Urethra: normal appearance of the urethra Speculum Exam - Vagina: normal appearance of the vagina and normal vaginal discharge Speculum Exam - Cervix: normal appearance of the cervix Bimanual Exam- Vagina & Uterus: normal bimanual exam, bladder normal to palpation, non-tender and other Bimanual Exam- Adnexa, other: non-tender Skin General: no rashes or lesions noted Neuro Motor: muscle tone normal throughout and no movement abnormalities noted Extrem General: normal to inspection and full ROM Supplemental Info ACOG book given and patient encouraged to read about nutrition, exercise, weight gain, and food avoidance in . Coding Level of Care Code OB Routine Diagnoses Marijuana use F12.90 Previous section Z98.891 Anxiety F41.9 Supervision of high-risk O09.90 Z34.90 Depression F32.A Dysmenorrhea, unspecified N94.6 Endometriosis determined by laparoscopy N80.9 Infertility Assessment and Plan Assessment and Plan (1) Marijuana use: Status: Acute Comment: not while , last use 03/2024. counseling provided, random tox screen notified (2) Previous section: Status: Acute Comment: possibly interested in (3) Anxiety: Status: Acute Comment: Lexapro (4) Supervision of high-risk : Status: Acute Comment: [facility] 04/02 PC: Adan : Jc (5) : Status: Acute Comment: NIPT w gender/carrier - declines (IVF transfer embryos are tested) (6) Depression: Status: Acute Comment: counseled regarding risks of therapy, recommend staying on current therapy due to previous SI after coming off. referral to [place] [id number] or [facility]. discussed possible zurzuvae if needed next time (7) Dysmenorrhea, unspecified: Status: Chronic (8) Endometriosis determined by laparoscopy: Status: Acute (9) Infertility: Status: Chronic Comment: IVF 5day transfer 07/15 [facility] 04/02/25 Orders: Orders CBC W/Diff, Automated 08/28/24 Dr. Natacha Wei DO F12.90 - Cannabis use, unspecified, uncomplicated, O09.90 - Supervision of high risk , unspecified, unspecified trimester Type & Screen 08/28/24 Dr. Natacha Wei DO F12.90 - Cannabis use, unspecified, uncomplicated, O09.90 - Supervision of high risk , unspecified, unspecified trimester Rubella IgG 08/28/24 Dr. Natacha Wei DO F12.90 - Cannabis use, unspecified, uncomplicated, O09.90 - Supervision of high risk , unspecified, unspecified trimester Hepatitis C Antibody 08/28/24 Dr. Natacha Wei DO F12.90 - Cannabis use, unspecified, uncomplicated, O09.90 - Supervision of high risk , unspecified, unspecified trimester Hepatitis B Surface Antigen 08/28/24 Dr. Natacha Wei DO F12.90 - Cannabis use, unspecified, uncomplicated, O09.90 - Supervision of high risk , unspecified, unspecified trimester Culture, Urine 08/28/24 Dr. Natacha Wei DO F12.90 - Cannabis use, unspecified, uncomplicated, O09.90 - Supervision of high risk , unspecified, unspecified trimester, Z86.39 - Personal history of other endocrine, nutritional and metabolic disease Syphilis Antibodies 08/28/24 Dr. Natacha Wei DO F12.90 - Cannabis use, unspecified, uncomplicated, O09.90 - Supervision of high risk , unspecified, unspecified trimester Chlamydia/GC MOIRA aptima 08/28/24 Dr. Natacha Wei DO F12.90 - Cannabis use, unspecified, uncomplicated, O09.90 - Supervision of high risk , unspecified, unspecified trimester, Z86.39 - Personal history of other endocrine, nutritional and metabolic disease HIV 08/28/24 Dr. Natacha Wei DO F12.90 - Cannabis use, unspecified, uncomplicated, O09.90 - Supervision of high risk , unspecified, unspecified trimester Hemoglobin A1c 08/28/24 Dr. Natacha Wei DO F12.90 - Cannabis use, unspecified, uncomplicated, O09.90 - Supervision of high risk , unspecified, unspecified trimester Urine Drug Screen 08/28/24 Dr. Natacha Wei DO F12.90 - Cannabis use, unspecified, uncomplicated, O09.90 - Supervision of high risk , unspecified, unspecified trimester, Z86.39 - Personal history of other endocrine, nutritional and metabolic disease Thyroid Stim Hormone (TSH) Today Dr. Natacha Wei DO Z86.39 - Personal history of other endocrine, nutritional and metabolic disease Medications: New ondansetron 4 mg PO Q4H PRN 60 tabs 2RF nausea and vomiting Paco Shaikh TELEPHONE LINEWORKER, TELEPHONE LINEWORKER-C Plan Patient oriented to practice and discussed care expectations and screenings. ACOG book offered to patient. Discussed routine and specially indicated labs if needed- patient consents to testing. See problem list details for plan information. Optional screening including maternal carrier screenings, neural tube defect screening, genetic screening options including quad screen, nuchal translucency, sequential screening, and NIPT screening offered to patient and patient chose: none .embryo was tested. 09/08/24 09 <Electronically signed by Natacha Gonzalez DO> Date _ Natacha Wei DO Cosigner Signature: Date (if applicable) CC: ~ [place] [employer] Work Phone: Reason for referral (narrative)* Diagnostic Procedure Only (Routine) - Pending Review Specialty Diagnoses / Procedures Referred By Contac t Referred To Contact [facility] Diagnoses Encounter for fertility testing Procedures FOLLICULAR US [facility] US PELVIC NONOBSTETRIC IMAGE TASHIA LIMITED/F/U Barb Galvez APRN.HEADER MACHINE OPERATOR [id number] [facility] [address] [place] [address] [id number] [place] [address] Referral ID Status Reason Start Date Expiration Date Visits Requested Visits Authorized [id number] Pending Review Auto-Generat ed Referral 05/16/2021 05/16/2022 1 1 [facility] for referral (narrative)* Diagnostic Procedure Only (Routine) - Pending Review Specialty Diagnoses / Procedures Referred By Contac t Referred To Contact [facility] Diagnoses Female infertility Procedures FOLLICULAR US [facility] US PELVIC NONOBSTETRIC IMAGE TASHIA LIMITED/F/U Marcelina Chauhan MD [address] [place] [address] [facility] [address] [place] [address] Referral ID Status Reason Start Date Expiration Date Visits Requested Visits Authorized [id number] Pending Review Auto-Generat ed Referral 07/25/2021 07/25/2022 6 6 [facility] for referral (narrative)* Diagnostic Procedure Only (Routine) - Pending Review Specialty Diagnoses / Procedures Referred By Contac t Referred To Contact [facility] Diagnoses Female infertility Procedures FOLLICULAR US WHI US PELVIC NONOBSTETRIC IMAGE TASHIA LIMITED/F/U Marcelina Chauhan MD [address] [place] [address] [facility] [address] [place] [address] Referral ID Status Reason Start Date Expiration Date Visits Requested Visits Authorized [id number] Pending Review Auto-Generat ed Referral 09/08/2021 09/08/2022 1 1 [facility] for referral (narrative)* Diagnostic Procedure Only (Routine) - Pending Review Specialty Diagnoses / Procedures Referred By Contac t Referred To Contact [facility] Diagnoses Female infertility Procedures FOLLICULAR US WHI US PELVIC NONOBSTETRIC IMAGE TASHIA MANZANO/F/U Marcelina Chauhan MD [address] [place] [address] [facility] [address] [place] [address] Referral ID Status Reason Start Date Expiration Date Visits Requested Visits Authorized [id number] Pending Review Auto-Generat ed Referral 2 12/08/2022 1 1 T [facility] for referral (narrative)* Diagnostic Procedure Only (Routine) - Pending Review Specialty Diagnoses / Procedures Referred By Contac t Referred To Contact [facility] Diagnoses , location unknown Procedures OBSTETRIC ULTRASOUND WHI US PREG UTERUS AFTER 1ST [place] [address] [place] [address] [address] Referral ID Status Reason Start Date Expiration Date Visits Requested Visits Authorized [id number] Pending Review Auto-Generat ed Referral 2 01/06/2023 1 1 [facility] Diagnostic Procedure Only (Routine) - Pending Review Specialty Diagnoses / Procedures Referred By Kristen t Referred To Contact [facility] Diagnoses examination or test, unconfirmed Procedures OBSTETRIC ULTRASOUND WHI US PREG UTERUS AFTER 1ST TRIMEST GESTATION Danya Burgos UTILITY SPRAY OPERATOR.HEADER MACHINE OPERATOR [address] [place] [address] [address] Referral ID Status Reason Start Date Expiration Date Visits Requested Visits Authorized [id number] Pending Review Auto-Generat ed Referral 2 01/14/2023 1 1 [facility] for referral (narrative)* Diagnostic Procedure Only (Routine) - New Request Specialty Diagnoses / Procedures Referred By Kristen abebe Referred To Contact [facility] Diagnoses Endometriosis Fibroids Fertility testing Procedures SONOHYSTEROGRAPHY (SIS) US WHI SALINE INFUS SONOHYSTEROGRAPHY W/COLOR DOPPLER Ary Gifford MD [address] [place] [address] [address] Referral ID Status Reason Start Date Expiration Date Visits Requested Visits Authorized [id number] New Request Auto-Generat ed Referral 03/13/2024 03/13/2025 1 1 [facility]No reason for referral information availableWDetw[facility] Work Phone: Reason for visit Narrative* Diagnostic Procedure Only (Routine) - Authorized Specialty Diagnoses / Procedures Referred By Kristen abebe Referred To Contact [facility] Diagnoses Endometriosis Fibroids Fertility testing Procedures SONOHYSTEROGRAPHY (SIS) US WHI SALINE INFUS SONOHYSTEROGRAPHY W/COLOR DOPPLER CATH & SALINE/CONTRAST SONOHYSTER/HYSTEROSALPI HYSTEROSALPINGOGRAPHY RS&I Ary Gifford MD [address] [place] [address] Phone: tel: fax: [address] [address] Referral ID Status Reason Start Date Expiration Date Visits Requested Visits Authorized [id number] Authorized Benefit Check 05/27/2024 02/18/2025 2 2 [facility] for visit Narrative* Consult, Test, Treat (Elective) - Authorized Specialty Diagnoses / Procedures Referred By Kristen abebe Referred To Contact [facility] Diagnoses Female infertility, unspecified Procedures TRANSFER OF EMBRYO,INTRAUTERINE FET#3 [place] [address] [place] [address] [facility] [address] [place] [address] Phone: tel: Referral ID Status Reason Start Date Expiration Date Visits Requested Visits Authorized [id number] Authorized Benefit Check 03/31/2024 09/27/2024 4 4 [facility] for visit Narrative* Diagnostic Procedure Only (Routine) - Closed Specialty Diagnoses / Procedures [facility] Ref[facility] To Contact [facility] Diagnoses , location unknown (HCC) Procedures OBSTETRIC ULTRASOUND I US PREG UTERUS AFTER 1ST TRIMEST GESTATION Rachel Frederick MD [address] [place] [address] Phone: tel: fax: [address] [address] Referral ID Status Reason Start Date Expiration Date V isits Requested Visits Authorized [id number] Closed Auto-Generate d Referral 07/29/2024 07/29/2025 1 1 [facility] Advance Directives No Advanced Directives Records FoundDocuments on File Type Date Recorded 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 Advance Directive(s) 01/13/2020 10:25 AM Documents on File Type Date Recorded 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 Advance Directive(s) 01/13/2020 10:25 AM Advance Directive Response Recorded Date/ Time Living Will No February 04 10:52pm Power of Administrative Services Assistant No February 05, 2020 10:52pm Advance Directive Response Recorded Date/ Time Living Will No May 16, 2022 4:03pm Power of Administrative Services Assistant No May 16 4:03pm Advance Directive Response Recorded Date/ Time Living Will No September 01, 2022 3:15am Power of Administrative Services Assistant No September 01 3:15am Reason for Referral Specialty Diagnoses / Procedures Referred By Contac t Referred To Contact [facility] Diagnoses High-tone pelvic floor dysfunction in female Procedures CONSULT TO PHYSICAL THERAPY PHYSICAL THERAPY EVALUATION HIGH COMPLEX 45 MINS Hermes Lozano MD [address] [place] [address] [facility] [address] [address] Referral ID Status Reason Start Date Expiration Date Visits Requested Visits Authorized [id number] Pending Review Auto-Generat ed Referral 05/20/2021 05/20/2022 1 1 Summary Purpose Family History No Family History Records Found Relationship Condition Age at Onset Recorded Date/T grady father Malignant neoplasm Unknown mother Malignant neoplasm Unknown Chief Complaint and Reason for Visit Chief Complaint SHORTNESS OF BREATH Chief Complaint SHORTNESS OF BREATH PRIMARY Reason for Visit delivery de livered Chief Complaint Admit Date PAP ONLY May 15, 2024 2:0 8pm Reason for Visit Admit Date Screening for cervical cancer April 2:08pm Infertility May 15, 2024 2:0 8pm Chief Complaint Admit Date PAP ONLY May 15, 2024 2:0 8pm Depression med discussion *IVF May 12:59pm NOB IVF 07/15September 08, 2024 8:25 am Reason for Visit Admit Date Infertility May 15, 2024 2:0 8pm Screening for cervical cancer April 2:08pm Depression June 17, 2024 12: 59pm Anxiety September 08, 2024 8:25 am Depression September 08, 2024 8:25 am Endometriosis determined by laparoscopy September 08, 2024 8:25am Marijuana use September 08, 2024 8:25 am September 08, 2024 8:25 am Previous section September 08 8:25am Supervision of high-risk September 08, 2024 8:25am Dysmenorrhea, unspecified September 08 8:25am Infertility September 08, 2024 8:25 am Chief Complaint Admit Date Depression med discussion *IVF May 12:59pm NOB IVF 07/15September 08, 2024 8:25 am 14wk OB *IVF transfer 07/15 [facility] 04/02 3:19pm Reason for Visit Admit Date Depression June 17, 2024 12: 59pm Anxiety September 08, 2024 8:25 am Depression September 08, 2024 8:25 am Endometriosis determined by laparoscopy September 08, 2024 8:25am Marijuana use September 08, 2024 8:25 am September 08, 2024 8:25 am Previous section September 08 8:25am Supervision of high-risk September 08, 2024 8:25am Dysmenorrhea, unspecified September 08 8:25am Infertility September 08, 2024 8:25 am Anxiety September 30, 2024 3: 19pm Depression September 30, 2024 3: 19pm Endometriosis determined by laparoscopy September 30, 2024 3:19pm History of hypothyroidism September 30, 2 025 3:19pm Marijuana use September 30, 2024 3: 19pm September 30, 2024 3: 19pm Previous section September 30, 2 025 3:19pm Supervision of high-risk Augus 2024 3:19pm Dysmenorrhea, unspecified September 30, 2 025 3:19pm Infertility September 30, 2024 3: 19pm Chief Complaint Admit Date NOB IVF 07/15September 08, 2024 8:25 am 14wk OB *IVF transfer 07/15 TRISTAN 04/02 3:19pm 18 WK OB October 30, 2024 3:35pm Reason for Visit Admit Date Anxiety September 08, 2024 8:25 am Depression September 08, 2024 8:25 am Endometriosis determined by laparoscopy September 08, 2024 8:25am Marijuana use September 08, 2024 8:25 am September 08, 2024 8:25 am Previous section September 08 8:25am Supervision of high-risk September 08, 2024 8:25am Dysmenorrhea, unspecified September 08 8:25am Infertility September 08, 2024 8:25 am Anxiety September 30, 2024 3: 19pm Depression September 30, 2024 3: 19pm Endometriosis determined by laparoscopy September 30, 2024 3:19pm History of hypothyroidism September 30, 2 025 3:19pm Marijuana use September 30, 2024 3: 19pm September 30, 2024 3: 19pm Previous section September 30, 2 025 3:19pm Supervision of high-risk Augus 2024 3:19pm Dysmenorrhea, unspecified September 30, 2 025 3:19pm Infertility September 30, 2024 3: 19pm Anxiety October 30, 2024 3:35pm Depression October 30, 2024 3:35pm Endometriosis determined by laparoscopy October 30, 2024 3:35pm History of hypothyroidism October 3:35pm Marijuana use October 30, 2024 3:35pm October 30, 2024 3:35pm Previous section October 3:35pm Supervision of high-risk Septe mber 2024 3:35pm Dysmenorrhea, unspecified October 3:35pm Infertility October 30, 2024 3:35pm Chief Complaint Admit Date NOB IVF 07/15September 08, 2024 8:25 am 14wk OB *IVF transfer 07/15 [facility] 04/02 Augu 2024 3:19pm 18 WK OB October 30, 2024 3:35pm 21wk5d ob November 25, 2024 3: 44pm Reason for Visit Admit Date Anxiety September 08, 2024 8:25 am Depression September 08, 2024 8:25 am Endometriosis determined by laparoscopy September 08, 2024 8:25am Marijuana use September 08, 2024 8:25 am September 08, 2024 8:25 am Previous section September 08 8:25am Supervision of high-risk September 08, 2024 8:25am Dysmenorrhea, unspecified September 08 8:25am Infertility September 08, 2024 8:25 am Anxiety September 30, 2024 3: 19pm Depression September 30, 2024 3: 19pm Endometriosis determined by laparoscopy September 30, 2024 3:19pm History of hypothyroidism September 30, 2 025 3:19pm Marijuana use September 30, 2024 3: 19pm September 30, 2024 3: 19pm Previous section September 30, 2 025 3:19pm Supervision of high-risk Augus t 2024 3:19pm Dysmenorrhea, unspecified September 30, 2 025 3:19pm Infertility September 30, 2024 3: 19pm Anxiety October 30, 2024 3:35pm History of hypothyroidism October 3:35pm Marijuana use October 30, 2024 3:35pm October 30, 2024 3:35pm Previous section October 3:35pm Supervision of high-risk Septe mber 2024 3:35pm Infertility October 30, 2024 3:35pm Anxiety November 25, 2024 3: 44pm Depression November 25, 2024 3: 44pm Endometriosis determined by laparoscopy November 25, 2024 3:44pm History of hypothyroidism November 25, 2 025 3:44pm Marijuana use November 25, 2024 3: 44pm November 25, 2024 3: 44pm Previous section November 25, 2 025 3:44pm Supervision of high-risk Octob 2024 3:44pm Dysmenorrhea, unspecified November 25, 2 025 3:44pm Infertility November 25, 2024 3: 44pm Additional Source Comments Source Comments (unrecognize d section and content) In the event this informatio n is protected by the Federal Confidentiality of Alcohol and Drug Abuse Patient Records regulations: The Federal rules restrict any use of the information to criminally investigate or prosecute any alcohol or drug abuse patient.[facility] the event this information is protected by the Federal Confidentiality of Alcohol and Drug Abuse Patient Records regulations: The Federal rules restrict any use of the information to criminally investigate or prosecute any alcohol or drug abuse patient.[facility] the event this information is protected by the Federal Confidentiality of Alcohol and Drug Abuse Patient Records regulations: The Federal rules restrict any use of the information to criminally investigate or prosecute any alcohol or drug abuse patient.[facility] the event this information is protected by the Federal Confidentiality of Alcohol and Drug Abuse Patient Records regulations: The Federal rules restrict any use of the information to criminally investigate or prosecute any alcohol or drug abuse patient.[facility] the event this information is protected by the Federal Confidentiality of Alcohol and Drug Abuse Patient Records regulations: The Federal rules restrict any use of the information to criminally investigate or prosecute any alcohol or drug abuse patient.[facility] the event this information is protected by the Federal Confidentiality of Alcohol and Drug Abuse Patient Records regulations: The Federal rules restrict any use of the information to criminally investigate or prosecute any alcohol or drug abuse patient.[facility] the event this information is protected by the Federal Confidentiality of Alcohol and Drug Abuse Patient Records regulations: The Federal rules restrict any use of the information to criminally investigate or prosecute any alcohol or drug abuse patient.[facility] the event this information is protected by the Federal Confidentiality of Alcohol and Drug Abuse Patient Records regulations: The Federal rules restrict any use of the information to criminally investigate or prosecute any alcohol or drug abuse patient.[facility] the event this information is protected by the Federal Confidentiality of Alcohol and Drug Abuse Patient Records regulations: The Federal rules restrict any use of the information to criminally investigate or prosecute any alcohol or drug abuse patient.[facility] the event this information is protected by the Federal Confidentiality of Alcohol and Drug Abuse Patient Records regulations: The Federal rules restrict any use of the information to criminally investigate or prosecute any alcohol or drug abuse patient.[facility] the event this information is protected by the Federal Confidentiality of Alcohol and Drug Abuse Patient Records regulations: The Federal rules restrict any use of the information to criminally investigate or prosecute any alcohol or drug abuse patient.[facility] the event this information is protected by the Federal Confidentiality of Alcohol and Drug Abuse Patient Records regulations: The Federal rules restrict any use of the information to criminally investigate or prosecute any alcohol or drug abuse patient.[facility] the event this information is protected by the Federal Confidentiality of Alcohol and Drug Abuse Patient Records regulations: The Federal rules restrict any use of the information to criminally investigate or prosecute any alcohol or drug abuse patient.[facility] the event this information is protected by the Federal Confidentiality of Alcohol and Drug Abuse Patient Records regulations: The Federal rules restrict any use of the information to criminally investigate or prosecute any alcohol or drug abuse patient.[facility] the event this information is protected by the Federal Confidentiality of Alcohol and Drug Abuse Patient Records regulations: The Federal rules restrict any use of the information to criminally investigate or prosecute any alcohol or drug abuse patient.[facility] the event this information is protected by the Federal Confidentiality of Alcohol and Drug Abuse Patient Records regulations: The Federal rules restrict any use of the information to criminally investigate or prosecute any alcohol or drug abuse patient.[facility] the event this information is protected by the Federal Confidentiality of Alcohol and Drug Abuse Patient Records regulations: The Federal rules restrict any use of the information to criminally investigate or prosecute any alcohol or drug abuse patient.[facility] the event this information is protected by the Federal Confidentiality of Alcohol and Drug Abuse Patient Records regulations: The Federal rules restrict any use of the information to criminally investigate or prosecute any alcohol or drug abuse patient.[facility] the event this information is protected by the Federal Confidentiality of Alcohol and Drug Abuse Patient Records regulations: The Federal rules restrict any use of the information to criminally investigate or prosecute any alcohol or drug abuse patient.[facility] the event this information is protected by the Federal Confidentiality of Alcohol and Drug Abuse Patient Records regulations: The Federal rules restrict any use of the information to criminally investigate or prosecute any alcohol or drug abuse patient.[facility] the event this information is protected by the Federal Confidentiality of Alcohol and Drug Abuse Patient Records regulations: The Federal rules restrict any use of the information to criminally investigate or prosecute any alcohol or drug abuse patient.[facility] the event this information is protected by the Federal Confidentiality of Alcohol and Drug Abuse Patient Records regulations: The Federal rules restrict any use of the information to criminally investigate or prosecute any alcohol or drug abuse patient.[facility] the event this information is protected by the Federal Confidentiality of Alcohol and Drug Abuse Patient Records regulations: The Federal rules restrict any use of the information to criminally investigate or prosecute any alcohol or drug abuse patient.[facility] the event this information is protected by the Federal Confidentiality of Alcohol and Drug Abuse Patient Records regulations: The Federal rules restrict any use of the information to criminally investigate or prosecute any alcohol or drug abuse patient.[facility] the event this information is protected by the Federal Confidentiality of Alcohol and Drug Abuse Patient Records regulations: The Federal rules restrict any use of the information to criminally investigate or prosecute any alcohol or drug abuse patient.[facility] the event this information is protected by the Federal Confidentiality of Alcohol and Drug Abuse Patient Records regulations: The Federal rules restrict any use of the information to criminally investigate or prosecute any alcohol or drug abuse patient.[facility] the event this information is protected by the Federal Confidentiality of Alcohol and Drug Abuse Patient Records regulations: The Federal rules restrict any use of the information to criminally investigate or prosecute any alcohol or drug abuse patient.[facility] the event this information is protected by the Federal Confidentiality of Alcohol and Drug Abuse Patient Records regulations: The Federal rules restrict any use of the information to criminally investigate or prosecute any alcohol or drug abuse patient.[facility] the event this information is protected by the Federal Confidentiality of Alcohol and Drug Abuse Patient Records regulations: The Federal rules restrict any use of the information to criminally investigate or prosecute any alcohol or drug abuse patient.[facility] the event this information is protected by the Federal Confidentiality of Alcohol and Drug Abuse Patient Records regulations: The Federal rules restrict any use of the information to criminally investigate or prosecute any alcohol or drug abuse patient.[facility] the event this information is protected by the Federal Confidentiality of Alcohol and Drug Abuse Patient Records regulations: The Federal rules restrict any use of the information to criminally investigate or prosecute any alcohol or drug abuse patient.[facility] the event this information is protected by the Federal Confidentiality of Alcohol and Drug Abuse Patient Records regulations: The Federal rules restrict any use of the information to criminally investigate or prosecute any alcohol or drug abuse patient.[facility] the event this information is protected by the Federal Confidentiality of Alcohol and Drug Abuse Patient Records regulations: The Federal rules restrict any use of the information to criminally investigate or prosecute any alcohol or drug abuse patient.[facility] the event this information is protected by the Federal Confidentiality of Alcohol and Drug Abuse Patient Records regulations: The Federal rules restrict any use of the information to criminally investigate or prosecute any alcohol or drug abuse patient.[facility] the event this information is protected by the Federal Confidentiality of Alcohol and Drug Abuse Patient Records regulations: The Federal rules restrict any use of the information to criminally investigate or prosecute any alcohol or drug abuse patient.[facility] the event this information is protected by the Federal Confidentiality of Alcohol and Drug Abuse Patient Records regulations: The Federal rules restrict any use of the information to criminally investigate or prosecute any alcohol or drug abuse patient.[facility] the event this information is protected by the Federal Confidentiality of Alcohol and Drug Abuse Patient Records regulations: The Federal rules restrict any use of the information to criminally investigate or prosecute any alcohol or drug abuse patient.[facility] the event this information is protected by the Federal Confidentiality of Alcohol and Drug Abuse Patient Records regulations: The Federal rules restrict any use of the information to criminally investigate or prosecute any alcohol or drug abuse patient.[facility] the event this information is protected by the Federal Confidentiality of Alcohol and Drug Abuse Patient Records regulations: The Federal rules restrict any use of the information to criminally investigate or prosecute any alcohol or drug abuse patient.[facility] the event this information is protected by the Federal Confidentiality of Alcohol and Drug Abuse Patient Records regulations: The Federal rules restrict any use of the information to criminally investigate or prosecute any alcohol or drug abuse patient.[facility] the event this information is protected by the Federal Confidentiality of Alcohol and Drug Abuse Patient Records regulations: The Federal rules restrict any use of the information to criminally investigate or prosecute any alcohol or drug abuse patient.[facility] the event this information is protected by the Federal Confidentiality of Alcohol and Drug Abuse Patient Records regulations: The Federal rules restrict any use of the information to criminally investigate or prosecute any alcohol or drug abuse patient.[facility] the event this information is protected by the Federal Confidentiality of Alcohol and Drug Abuse Patient Records regulations: The Federal rules restrict any use of the information to criminally investigate or prosecute any alcohol or drug abuse patient.[facility] the event this information is protected by the Federal Confidentiality of Alcohol and Drug Abuse Patient Records regulations: The Federal rules restrict any use of the information to criminally investigate or prosecute any alcohol or drug abuse patient.[facility] the event this information is protected by the Federal Confidentiality of Alcohol and Drug Abuse Patient Records regulations: The Federal rules restrict any use of the information to criminally investigate or prosecute any alcohol or drug abuse patient.[facility] the event this information is protected by the Federal Confidentiality of Alcohol and Drug Abuse Patient Records regulations: The Federal rules restrict any use of the information to criminally investigate or prosecute any alcohol or drug abuse patient.[facility] the event this information is protected by the Federal Confidentiality of Alcohol and Drug Abuse Patient Records regulations: The Federal rules restrict any use of the information to criminally investigate or prosecute any alcohol or drug abuse patient.[facility] the event this information is protected by the Federal Confidentiality of Alcohol and Drug Abuse Patient Records regulations: The Federal rules restrict any use of the information to criminally investigate or prosecute any alcohol or drug abuse patient.[facility] the event this information is protected by the Federal Confidentiality of Alcohol and Drug Abuse Patient Records regulations: The Federal rules restrict any use of the information to criminally investigate or prosecute any alcohol or drug abuse patient.[facility] the event this information is protected by the Federal Confidentiality of Alcohol and Drug Abuse Patient Records regulations: The Federal rules restrict any use of the information to criminally investigate or prosecute any alcohol or drug abuse patient.[facility] the event this information is protected by the Federal Confidentiality of Alcohol and Drug Abuse Patient Records regulations: The Federal rules restrict any use of the information to criminally investigate or prosecute any alcohol or drug abuse patient.[facility] the event this information is protected by the Federal Confidentiality of Alcohol and Drug Abuse Patient Records regulations: The Federal rules restrict any use of the information to criminally investigate or prosecute any alcohol or drug abuse patient.[facility] the event this information is protected by the Federal Confidentiality of Alcohol and Drug Abuse Patient Records regulations: The Federal rules restrict any use of the information to criminally investigate or prosecute any alcohol or drug abuse patient.[facility] the event this information is protected by the Federal Confidentiality of Alcohol and Drug Abuse Patient Records regulations: The Federal rules restrict any use of the information to criminally investigate or prosecute any alcohol or drug abuse patient.[facility] the event this information is protected by the Federal Confidentiality of Alcohol and Drug Abuse Patient Records regulations: The Federal rules restrict any use of the information to criminally investigate or prosecute any alcohol or drug abuse patient.[facility] the event this information is protected by the Federal Confidentiality of Alcohol and Drug Abuse Patient Records regulations: The Federal rules restrict any use of the information to criminally investigate or prosecute any alcohol or drug abuse patient.[facility] the event this information is protected by the Federal Confidentiality of Alcohol and Drug Abuse Patient Records regulations: The Federal rules restrict any use of the information to criminally investigate or prosecute any alcohol or drug abuse patient.[facility]ull[facility] the event this information is protected by the Federal Confidentiality of Alcohol and Drug Abuse Patient Records regulations: The Federal rules restrict any use of the information to criminally investigate or prosecute any alcohol or drug abuse patient.[facility] the event this information is protected by the Federal Confidentiality of Alcohol and Drug Abuse Patient Records regulations: The Federal rules restrict any use of the information to criminally investigate or prosecute any alcohol or drug abuse patient.[facility]ull[facility] the event this information is protected by the Federal Confidentiality of Alcohol and Drug Abuse Patient Records regulations: The Federal rules restrict any use of the information to criminally investigate or prosecute any alcohol or drug abuse patient.[facility] the event this information is protected by the Federal Confidentiality of Alcohol and Drug Abuse Patient Records regulations: The Federal rules restrict any use of the information to criminally investigate or prosecute any alcohol or drug abuse patient.[facility] the event this information is protected by the Federal Confidentiality of Alcohol and Drug Abuse Patient Records regulations: The Federal rules restrict any use of the information to criminally investigate or prosecute any alcohol or drug abuse patient.[facility] the event this information is protected by the Federal Confidentiality of Alcohol and Drug Abuse Patient Records regulations: The Federal rules restrict any use of the information to criminally investigate or prosecute any alcohol or drug abuse patient.[facility] the event this information is protected by the Federal Confidentiality of Alcohol and Drug Abuse Patient Records regulations: The Federal rules restrict any use of the information to criminally investigate or prosecute any alcohol or drug abuse patient.[facility]In the event this information is protected by the Federal Confidentiality of Alcohol and Drug Abuse Patient Records regulations: The Federal rules restrict any use of the information to criminally investigate or prosecute any alcohol or drug abuse patient.[facility] the event this information is protected by the Federal Confidentiality of Alcohol and Drug Abuse Patient Records regulations: The Federal rules restrict any use of the information to criminally investigate or prosecute any alcohol or drug abuse patient.[facility]In the event this information is protected by the Federal Confidentiality of Alcohol and Drug Abuse Patient Records regulations: The Federal rules restrict any use of the information to criminally investigate or prosecute any alcohol or drug abuse patient.[facility]In the event this information is protected by the Federal Confidentiality of Alcohol and Drug Abuse Patient Records regulations: The Federal rules restrict any use of the information to criminally investigate or prosecute any alcohol or drug abuse patient.[facility]In the event this information is protected by the Federal Confidentiality of Alcohol and Drug Abuse Patient Records regulations: The Federal rules restrict any use of the information to criminally investigate or prosecute any alcohol or drug abuse patient.[facility] the event this information is protected by the Federal Confidentiality of Alcohol and Drug Abuse Patient Records regulations: The Federal rules restrict any use of the information to criminally investigate or prosecute any alcohol or drug abuse patient.[facility] the event this information is protected by the Federal Confidentiality of Alcohol and Drug Abuse Patient Records regulations: The Federal rules restrict any use of the information to criminally investigate or prosecute any alcohol or drug abuse patient.[facility] the event this information is protected by the Federal Confidentiality of Alcohol and Drug Abuse Patient Records regulations: The Federal rules restrict any use of the information to criminally investigate or prosecute any alcohol or drug abuse patient.[facility] the event this information is protected by the Federal Confidentiality of Alcohol and Drug Abuse Patient Records regulations: The Federal rules restrict any use of the information to criminally investigate or prosecute any alcohol or drug abuse patient.[facility] the event this information is protected by the Federal Confidentiality of Alcohol and Drug Abuse Patient Records regulations: The Federal rules restrict any use of the information to criminally investigate or prosecute any alcohol or drug abuse patient.[facility]In the event this information is protected by the Federal Confidentiality of Alcohol and Drug Abuse Patient Records regulations: The Federal rules restrict any use of the information to criminally investigate or prosecute any alcohol or drug abuse patient.[facility]In the event this information is protected by the Federal Confidentiality of Alcohol and Drug Abuse Patient Records regulations: The Federal rules restrict any use of the information to criminally investigate or prosecute any alcohol or drug abuse patient.[facility]In the event this information is protected by the Federal Confidentiality of Alcohol and Drug Abuse Patient Records regulations: The Federal rules restrict any use of the information to criminally investigate or prosecute any alcohol or drug abuse patient.[facility]In the event this information is protected by the Federal Confidentiality of Alcohol and Drug Abuse Patient Records regulations: The Federal rules restrict any use of the information to criminally investigate or prosecute any alcohol or drug abuse patient.[facility]In the event this information is protected by the Federal Confidentiality of Alcohol and Drug Abuse Patient Records regulations: The Federal rules restrict any use of the information to criminally investigate or prosecute any alcohol or drug abuse patient.[facility]In the event this information is protected by the Federal Confidentiality of Alcohol and Drug Abuse Patient Records regulations: The Federal rules restrict any use of the information to criminally investigate or prosecute any alcohol or drug abuse patient.[facility]In the event this information is protected by the Federal Confidentiality of Alcohol and Drug Abuse Patient Records regulations: The Federal rules restrict any use of the information to criminally investigate or prosecute any alcohol or drug abuse patient.[facility]In the event this information is protected by the Federal Confidentiality of Alcohol and Drug Abuse Patient Records regulations: The Federal rules restrict any use of the information to criminally investigate or prosecute any alcohol or drug abuse patient.[facility]In the event this information is protected by the Federal Confidentiality of Alcohol and Drug Abuse Patient Records regulations: The Federal rules restrict any use of the information to criminally investigate or prosecute any alcohol or drug abuse patient.[facility]In the event this information is protected by the Federal Confidentiality of Alcohol and Drug Abuse Patient Records regulations: The Federal rules restrict any use of the information to criminally investigate or prosecute any alcohol or drug abuse patient.[facility]In the event this information is protected by the Federal Confidentiality of Alcohol and Drug Abuse Patient Records regulations: The Federal rules restrict any use of the information to criminally investigate or prosecute any alcohol or drug abuse patient.[facility]In the event this information is protected by the Federal Confidentiality of Alcohol and Drug Abuse Patient Records regulations: The Federal rules restrict any use of the information to criminally investigate or prosecute any alcohol or drug abuse patient.[facility] Reason for Visit (unrecogniz ed section and content) Reason Comments Infertility Specialty Diagnoses / Procedures Referred By Contac t Referred To Contact [facility] Diagnoses Female infertility Procedures FOLLICULAR US WHI US PELVIC NONOBSTETRIC IMAGE DCMTN LIMITED/F/U Rachel Frederick MD [address] [id number] Phone: tel: fax: [place] [address] Referral ID Status Reason Start Date Expiration Date V isits Requested Visits Authorized [id number] Closed Auto-Generate d Referral 06/16/2024 06/13/2025 1 1 Reason Onset Date Comments Appointment Cancelled 01/15/2022 Specialty Diagnoses / Procedures Referred By Kristen t Referred To Contact [facility] Diagnoses FET [place] [address] [place] [address] [facility] [address] [place] [address] Referral ID Status Reason Start Date Expiration Date Visits Requested Visits Authorized [id number] Authorized Financial Clearance Required - Self Pay Do Not Bill Insurance - SP patient Patient Cleared - True Self-Pay required payment collected Financial Clearance Not Required 03/08/2022 99 99 Specialty Diagnoses / Procedures Referred By Contsherry t Referred To Contact [facility] Diagnoses IVF Pacakge [place] [id number] [facility] [address] [place] [address] Referral ID Status Reason Start Date Expiration Date Visits Requested Visits Authorized [id number] Authorized Financial Clearance Required - Self Pay Do Not Bill Insurance - SP patient Financial Clearance Not Required 08/31/2021 11/29/2021 99 99 Reason Comments Question Reason Comments lmp 05/16/21/switch protocol see Fivetranhart message Reason Comments New Patient Reason Comments IUI Specialty Diagnoses / Procedures Referred By Contac t Referred To Contact [facility] Diagnoses IUI H Procedures ARTIFIC INSEMINATION [place]TRA[place]ER[place] [address] [place] [address] 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 Reason Comments Yearly Exam Reason Comments frederick pt's mother has ques tions about finances and insurance Reason Comments lmp started oc's 07/24/21 set up baseline Reason Comments cecile Reason Comments PT Eval Specialty Diagnoses / Procedures Referred By Kristen abebe Referred To Contact [facility] Diagnoses High-tone pelvic floor dysfunction in female Procedures CONSULT TO PHYSICAL THERAPY PHYSICAL THERAPY EVALUATION HIGH COMPLEX 45 MINS Hermes Lozano MD [address] [id number] [facility] [place] [address] [place] [address] Referral ID Status Reason Start Date Expiration Date V isits Requested Visits Authorized [id number] Authorized 02/19/2021 02/18/2022 20 20 Reason Comments Estrogen level results Reason Comments Embryo testing Evonne does she do the shaylee rwork? Reason Comments Meds and next steps Reason Comments Next Steps Reason Comments Next steps for implantation Reason Comments Patient Question Reason Comments Patient Update Specialty Diagnoses / Procedures Referred By Kristen abebe Referred To Contact [facility] Diagnoses IVF Pacakge Procedures [place] [address] [place] [address] [facility] [address] [phone] Reason Comments Patient Update Reason Comments Refill Request Specialty Diagnoses / Procedures Referred By Kristen abebe Referred To Contact [facility] Diagnoses FET [place] [address] [place] [address] [facility] [address] [place] [address] Reason Comments Infertility Reason Comments US Specialty Diagnoses / Procedures Referred By Contac t Referred To Contact [facility] Diagnoses , location unknown Procedures OBSTETRIC ULTRASOUND WHI US PREG UTERUS AFTER 1ST [place] [address] [place] [phone] [facility] [address] [place] [address] Referral ID Status Reason Start Date Expiration Date V isits Requested Visits Authorized [id number] Closed Auto-Generate d Referral 01/06/2022 01/06/2023 1 1 Reason Comments Follow Up Reason Comments Covid Positive Reason Onset Date Comments Refill Request 06/27/2023 Reason Comments Vaginal Problem Possible yeast infec tion x 2 days Reason Comments Results Reason Comments Rash itching x 3 weeks, r ecurring from 3 months ago, all over Reason Comments Cough Sore throat, body ac hes, chills, headache, fatigue, SOB, bilat ear pain x 3 days Reason Comments Medication Problem Reason Comments need sis order put in so she can schedul e Reason Comments hcg level Reason Comments Results, Lab Reason Onset Date Comments Refill Request 08/26/2024 Reason Comments Med Change Request Care Teams (unrecognized sec tion and content) Appointment Clerk Relationship Specialty Start Date End Date Jess Guerrero PCP - General Family Practice 06/20/14 Geovany Gonzalez MD [address] [place] [address] Referring Gynecology 12/30/19 Appointment Clerk Relationship Specialty Start Date End Date Jess Guerrero PCP - General Family Practice 06/20/14 Geovany Gonzalez MD [address] [place] [address] Referring Gynecology 12/30/19 Appointment Clerk Relationship Specialty Start Date End Date Jess Guerrero PCP - General Family Practice 06/20/14 Geovany Gonzalez MD [address] [place] [address] Referring Gynecology 12/30/19 Appointment Clerk Relationship Specialty Start Date End Date Jess Guerrero PCP - General Family Practice 06/20/14 Geovany Gonzalez MD [address] [place] [address] Referring Gynecology 12/30/19 Appointment Clerk Relationship Specialty Start Date End Date Jess Guerrero PCP - General Family Practice 06/20/14 Geovany Gonzalez MD [address] [place] [address] Referring Gynecology 12/30/19 Appointment Clerk Relationship Specialty Start Date End Date Jess Guerrero PCP - General Family Practice 06/20/14 Geovany Gonzalez MD [address] [place] [address] Referring Gynecology 12/30/19 Appointment Clerk Relationship Specialty Start Date End Date Jess Guerrero PCP - General Family Practice 06/20/14 Geovany Gonzalez MD [address] [place] [address] Referring Gynecology 12/30/19 Appointment Clerk Relationship Specialty Start Date End Date Jess Guerrero PCP - General Family Practice 06/20/14 Geovany Gonzalez MD [address] [place] [address] Referring Gynecology 12/30/19 Appointment Clerk Relationship Specialty Start Date End Date Jess Guerrero PCP - General Family Practice 06/20/14 Geovany Gonzalez MD [address] [place] [address] Referring Gynecology 12/30/19 Appointment Clerk Relationship Specialty Start Date End Date Jess Guerrero PCP - General Family Practice 06/20/14 Geovany Gonzalez MD [address] [place] [address] Referring Gynecology 12/30/19 Appointment Clerk Relationship Specialty Start Date End Date Jess Guerrero PCP - General Family Practice 06/20/14 Geovany Gonzalez MD [address] [place] [address] Referring Gynecology 12/30/19 Appointment Clerk Relationship Specialty Start Date End Date Jess Guerrero PCP - General Family Practice 06/20/14 Geovany Gonzalez MD [address] [place] [address] Referring Gynecology 12/30/19 Appointment Clerk Relationship Specialty Start Date End Date Jess Guerrero PCP - General Family Practice 06/20/14 Geovany Gonzalez MD [address] [place] [address] Referring Gynecology 12/30/19 Appointment Clerk Relationship Specialty Start Date End Date Jess Guerrero PCP - General Family Practice 06/20/14 Geovany Gonzalez MD [address] [place] [address] Referring Gynecology 12/30/19 Appointment Clerk Relationship Specialty Start Date End Date Jess Guerrero PCP - General Family Practice 06/20/14 Geovany Gonzalez MD [address] [place] [address] Referring Gynecology 12/30/19 Appointment Clerk Relationship Specialty Start Date End Date Jess Guerrero PCP - General Family Practice 06/20/14 Geovany Gonzalez MD [address] [place] [address] Referring Gynecology 12/30/19 Appointment Clerk Relationship Specialty Start Date End Date Jess Guerrero PCP - General Family Practice 06/20/14 Geovany Gonzalez MD [address] [place] [address] Referring Gynecology 12/30/19 Appointment Clerk Relationship Specialty Start Date End Date Jess Guerrero PCP - General Family Medicine 06/20/14 Geovany Gonzalez MD [address] [place] [address] Referring Gynecology 12/30/19 Appointment Clerk Relationship Specialty Start Date End Date Jess Guerrero PCP - General Family Medicine 06/20/14 Geovany Gonzalez MD [address] [place] [address] Referring Gynecology 12/30/19 Appointment Clerk Relationship Specialty Start Date End Date Jess Guerrero PCP - General Family Medicine 06/20/14 Geovany Gonzalez MD [address] [place] [address] Referring Gynecology 12/30/19 Appointment Clerk Relationship Specialty Start Date End Date Jess Guerrero PCP - General Family Medicine 06/20/14 Geovany Gonzalez MD [address] [place] [address] Referring Gynecology 12/30/19 Appointment Clerk Relationship Specialty Start Date End Date Jess Guerrero PCP - General Family Medicine 06/20/14 Geovany Gonzalez MD [address] [place] [address] Referring Gynecology 12/30/19 Appointment Clerk Relationship Specialty Start Date End Date Jess Guerrero PCP - General Family Medicine 06/20/14 Geovany Gonzalez MD [address] [place] [address] Referring Gynecology 12/30/19 Appointment Clerk Relationship Specialty Start Date End Date Jess Guerrero PCP - General Family Medicine 06/20/14 Geovany Gonzalez MD [address] [place] [address] Referring Gynecology 12/30/19 Appointment Clerk Relationship Specialty Start Date End Date Jess Guerrero PCP - General Family Medicine 06/20/14 Geovany Gonzalez MD [address], [place] [id number] Referring Gynecology 12/30/19 Team Status: Active Member Role Status Dates Dr. Jess Guerrero MD Family Provider Active Dr. Jess Guerrero MD Primary Care Provider Active Team Status: Inactive Member Role Status Dates Dr. Jess Guerrero MD Primary Care Provider Active Dr. Salvador Amin MD Attending Provider Active Team Status: Inactive Member Role Status Dates Dr. Jess Guerrero MD Primary Care Provider, Attendin g Provider Active Team Status: Inactive Member Role Status Dates Dr. Jess Guerrero MD Primary Care Provider Active Dr. Natacha Trujillo MD Emergency Provider Active Team Status: Inactive Member Role Status Dates Dr. Jess Guerrero MD Primary Care Provider Active Dr. Natacha Trujillo MD Attending Provider, Emergency Provider Active Team Status: Active Member Role Status Dates Dr. Jess Guerrero MD Primary Care Provider Active Dr. Salvador Amin MD Attending Provider Active Team Status: Inactive Member Role Status Dates Dr. Jess Guerrero MD Primary Care Provider Active Dr. Salvador Amin MD Admit Provider, At tending Provider, Referring Provider Active Appointment Clerk Relationship Specialty Start Date End Date Jess Guerrero PCP - General Family Medicine 06/20/14 Geovany Gonzalez MD [address] [id number] Referring Gynecology 12/30/19 Appointment Clerk Relationship Specialty Start Date End Date Jess Guerrero PCP - General Family Medicine 06/20/14 Geovany Gonzalez MD [address] [place] [address] Referring Gynecology 12/30/19 Appointment Clerk Relationship Specialty Start Date End Date Jess Guerrero PCP - General Family Medicine 06/20/14 Geovany Gonzalez MD [address] [place] [address] Referring Gynecology 12/30/19 Appointment Clerk Relationship Specialty Start Date End Date Maynor Bowens MD [address] [facility] [address] [place], [place] [id number] PCP - General Internal Medicine 01/20/24 Appointment Clerk Relationship Specialty Start Date End Date Maynor Bowens MD [address] [facility] [address] [place] [address] PCP - General Internal Medicine 01/20/24 Appointment Clerk Relationship Specialty Start Date End Date Maynor Bowens MD [address] [facility] [address] [place] [address] PCP - General Internal Medicine 01/20/24 Appointment Clerk Relationship Specialty Start Date End Date Maynor Bowens MD [address] [facility] [address] [place] [address] PCP - General Internal Medicine 01/20/24 Appointment Clerk Relationship Specialty Start Date End Date Maynor Bowens MD [address] [facility] [address] [place] [address] PCP - General Internal Medicine 01/20/24 Appointment Clerk Relationship Specialty Start Date End Date Maynor Bowens MD [address] [facility] [address] [place] [address] PCP - General Internal Medicine 01/20/24 Appointment Clerk Relationship Specialty Start Date End Date Maynor Bowens MD [address] [facility] [address] [place], [place] [id number] PCP - General Internal Medicine 01/20/24 Appointment Clerk Relationship Specialty Start Date End Date Maynor Bowens MD [address] [facility] [facility] [address] [place], [place] [id number] PCP - General Internal Medicine 01/20/24 Team Status: Active Member Role Status Dates Dr. Jess Guerrero MD Family Provider Active Maynor Bowens MD Primary Care Provider Active Team Status: Inactive Member Role Status Dates Maynor Bowens MD Primary Care Provider Active St art: May 15, 2024 End: May 15, 2024 Maynor Bowens MD Referring Provider Active Start : May 15, 2024 End: May 15, 2024 CAROLS Silva Attending Provider Active Start: May 15, 2024 End: May 15, 2024 Team Status: Inactive Member Role Status Dates Maynor Bowens MD Primary Care Provider Active St art: May 15, 2024 End: May 15, 2024 CARLOS Silva Attending Provider Active Start: May 15, 2024 End: May 15, 2024 CARLOS Silva Referring Provider Active Start: May 15, 2024 End: May 15, 2024 Appointment Clerk Relationship Specialty Start Date End Date Maynor Bowens MD [address] [facility] [address] [place], [place] [id number] PCP - General Internal Medicine 01/20/24 Appointment Clerk Relationship Specialty Start Date End Date Maynor Bowens MD [address] [facility] [address] [place], [place] [id number] PCP - General Internal Medicine 01/20/24 Appointment Clerk Relationship Specialty Start Date End Date Maynor Bowens MD [address] [facility] [address] [place] [address] PCP - General Internal Medicine 01/20/24 Appointment Clerk Relationship Specialty Start Date End Date Maynor Bowens MD [address] [facility] [address] [place] [address] PCP - General Internal Medicine 01/20/24 Appointment Clerk Relationship Specialty Start Date End Date Maynor Bowens MD [address] [facility] [address] [place] [address] PCP - General Internal Medicine 01/20/24 Appointment Clerk Relationship Specialty Start Date End Date Maynor Bowens MD [address] [facility] [address] [place] [address] PCP - General Internal Medicine 01/20/24 Appointment Clerk Relationship Specialty Start Date End Date Maynor Bowens MD [address] [facility] [address] [place] [address] PCP - General Internal Medicine 01/20/24 Appointment Clerk Relationship Specialty Start Date End Date Maynor Bowens MD [address] [facility] [address] [place] [address] PCP - General Internal Medicine 01/20/24 Appointment Clerk Relationship Specialty Start Date End Date Maynor Bowens MD [address] [facility] [address] [place] [address] PCP - General Internal Medicine 01/20/24 Team Status: Active Member Role/Relationship Status Dates Dr. Jess Guerrero MD Family Provider Active Maynor Bowens MD Primary Care Provider Active Team Status: Inactive Member Role/Relationship Status Pradeep Bowens MD Primary Care Provider Active St art: May 15, 2024 End: May 15, 2024 Maynor Bowens MD Referring Provider Active Start : May 15, 2024 End: May 15, 2024 CARLOS Silva Attending Provider Active Start: May 15, 2024 End: May 15, 2024 Team Status: Inactive Member Role/Relationship Status Pradeep Bowens MD Primary Care Provider Active St art: May 15, 2024 End: May 15, 2024 CARLOS Silva Attending Provider Active Start: May 15, 2024 End: May 15, 2024 CARLOS Silva Referring Provider Active Start: May 15, 2024 End: May 15, 2024 Team Status: Inactive Member Role/Relationship Status Pradeep Bowens MD Primary Care Provider Active St art: June 17, 2024 End: June 17, 2024 Maynor Bowens MD Referring Provider Active Start : June 17, 2024 End: June 17, 2024 Dr. Ольга Ontiveros MD Attending Provider Active Start: June 17, 2024 End: June 17, 2024 Team Status: Inactive Member Role/Relationship Status Pradeep Bowens MD Primary Care Provider Active St art: September 08, 2024 End: September 08, 2024 Maynor Bowens MD Referring Provider Active Start : September 08, 2024 End: September 08, 2024 Dr. Natacha Wei , Attending Provider Activ e Start: September 08, 2024 End: September 08, 2024 Team Status: Active Member Role/Relationship Status Pradeep Bowens MD Primary Care Provider Active St art: September 08, 2024 Dr. Natacha Wei DO Attending Provider Activ e Start: September 08, 2024 Team Status: Inactive Member Role/Relationship Status Pradeep Bowens MD Primary Care Provider Active St art: September 08, 2024 End: September 08, 2024 Dr. Natacha Wei DO Attending Provider Activ e Start: September 08, 2024 End: September 08, 2024 Team Status: Inactive Member Role/Relationship Status Pradeep Bowens MD Primary Care Provider Active St art: June 17, 2024 End: June 17, 2024 Maynor Bowens MD Referring Provider Active Start : June 17, 2024 End: June 17, 2024 Dr. Ольга Ontiveros MD Attending Provider Active Start: June 17, 2024 End: June 17, 2024 Team Status: Inactive Member Role/Relationship Status Pradeep Bowens MD Primary Care Provider Active St art: September 08, 2024 End: September 08, 2024 Maynor Bowens MD Referring Provider Active Start : September 08, 2024 End: September 08, 2024 Dr. Natacha Wei DO Attending Provider Activ e Start: September 08, 2024 End: September 08, 2024 Team Status: Inactive Member Role/Relationship Status Pradeep Bowens MD Primary Care Provider Active St art: September 08, 2024 End: September 08, 2024 Dr. Natacha Wei DO Attending Provider Activ e Start: September 08, 2024 End: September 08, 2024 Team Status: Inactive Member Role/Relationship Status Pradeep Bowens MD Primary Care Provider Active St art: September 30, 2024 End: September 30, 2024 Maynor Bowens MD Referring Provider Active Start : September 30, 2024 End: September 30, 2024 Evonne Mendez CNM Attending Provider Active S tart: September 30, 2024 End: September 30, 2024 Team Status: Inactive Member Role/Relationship Status Pradeep Bowens MD Primary Care Provider Active St art: September 08, 2024 End: September 08, 2024 Maynor Bowens MD Referring Provider Active Start : September 08, 2024 End: September 08, 2024 Dr. Natacha Wei DO Attending Provider Activ e Start: September 08, 2024 End: September 08, 2024 Team Status: Inactive Member Role/Relationship Status Pradeep Bowens MD Primary Care Provider Active St art: September 08, 2024 End: September 08, 2024 Dr. Natacha Wei DO Attending Provider Activ e Start: September 08, 2024 End: September 08, 2024 Team Status: Inactive Member Role/Relationship Status Pradeep Bowens MD Primary Care Provider Active St art: September 30, 2024 End: September 30, 2024 Maynor Bowens MD Referring Provider Active Start : September 30, 2024 End: September 30, 2024 Evonne Mendez CNM Attending Provider Active S tart: September 30, 2024 End: September 30, 2024 Team Status: Inactive Member Role/Relationship Status Pradeep Bowens MD Primary Care Provider Active St art: October 30, 2024 End: October 30, 2024 Maynor Bowens MD Referring Provider Active Start : October 30, 2024 End: October 30, 2024 Paco Shaikh TELEPHONE LINEWORKER, TELEPHONE LINEWORKER-C Attending Provider Active Start: October 30, 2024 End: October 30, 2024 Team Status: Active Member Role/Relationship Status Dates Dr. Jess Guerrero MD Primary care physician Active Maynor Bowens MD Primary care physician Active Team Status: Inactive Member Role/Relationship Status Pradeep Bowens MD Primary care physician Active S tart: September 08, 2024 End: September 08, 2024 Maynor Bowens MD Referring Provider Active Start : September 08, 2024 End: September 08, 2024 Dr. Natacha Wei DO Attending physician Acti ve Start: September 08, 2024 End: September 08, 2024 Team Status: Inactive Member Role/Relationship Status Pradeep Bowens MD Primary care physician Active S tart: September 08, 2024 End: September 08, 2024 Dr. Natacha Wei DO Attending physician Acti ve Start: September 08, 2024 End: September 08, 2024 Team Status: Inactive Member Role/Relationship Status Pradeep Bowens MD Primary care physician Active S tart: September 30, 2024 End: September 30, 2024 Maynor Bowens MD Referring Provider Active Start : September 30, 2024 End: September 30, 2024 Evonne Mendez CNM Attending physician Active Start: September 30, 2024 End: September 30, 2024 Team Status: Inactive Member Role/Relationship Status Pradeep Bowens MD Primary care physician Active S tart: October 30, 2024 End: October 30, 2024 Maynor Bowens MD Referring Provider Active Start : October 30, 2024 End: October 30, 2024 Paco Shaikh NP, TELEPHONE LINEWORKER-C Attending physician Active Start: October 30, 2024 End: October 30, 2024 Team Status: Inactive Member Role/Relationship Status Dates Maynor Bowens MD Primary care physician Active S tart: November 25, 2024 End: November 25, 2024 Maynor Bowens MD Referring Provider Active Start : November 25, 2024 End: November 25, 2024 Dr. Natacha Wei DO Attending physician Noemy meier Start: November 25, 2024 End: November 25, 2024 INFORMATION SOURCE (unrecogn ized section and content) DATE CREATED AUTHOR 08/18/2021 [facility] DATE CREATED AUTHOR AUTHOR'S ORGANIZ ATION 07/30/2024 [facility] DATE CREATED AUTHOR AUTHOR'S ORGANIZ ATION 08/21/2024 [facility] DATE CREATED AUTHOR AUTHOR'S ORGANIZ ATION 12/07/2024 [facility] DATE CREATED AUTHOR AUTHOR'S ORGANIZ ATION 12/30/2024 [facility] Goals (unrecognized section and content) Type Care Experience patient counseled re garding risks/benefits of trial of labor versus repeat . ACOG/uptodate education given to patient. 42 % likelihood of success per calculatorTOLAC consent form signed: []still undecided about vs rpt IF NO SPONTANEOUS LABOR BY 39 WEEKS, THEN THE PLAN IS FOR A REPEAT SECTION. FOR RECORDS PERTAINING TO PATIENTS WHO ARE OR HAVE BEEN ENROLLED IN A CHEMICAL DEPENDENCY/SUBSTANCEABUSE PROGRAM, SOME INFORMATION MAY BE OMITTED. This clinical summary was aggregated from multiple sources. Caution should be exercised in using it in the provision of clinical care. This summary normalizes information from multiple sources, and as a consequence, information in this document may materially change the coding, format and clinical context of patient data. In addition, data may be omitted in some cases. CLINICAL DECISIONS SHOULD BE BASED ON THE PRIMARY CLINICAL RECORDS. [employer] provides no warranty or guarantee of the accuracy or completeness of information in this document.
== END | disposition home or self-care (01) ==
LOC: PSN 07:05
PROVIDERS: PCP Family Medicine; Referring Provider Obstetrics & Gynecology; Visit Provider Obstetrics & Gynecology
DX: O26.899 Other specified pregnancy related conditions, unspecified trimester (principal); R01.1 Cardiac murmur, unspecified; Z3A.00 Weeks of gestation of pregnancy not specified
CPT/HCPCS: 93005

== ENCOUNTER → 2025-01-09 | Outpatient (CLI) | payer OTHER, SELFPAY ==
[2025-01-09 12:54] LABS: Hematocrit 33.9 % (37-47); Hemoglobin 11.2 g/dL (12.0-15.0); Immature Granulocytes Count 0.040 X10^3/uL (0.0-0.0); Mean Corp Hgb Conc 33.0 g/dL (32-36); Mean Corpuscular Volume 90.6 fL (81-99); Mean Platelet Vol. 9.6 fl (6.2-12.0); NRBC Flagged by Analyzer 0 % (0-5); Platelet Count 318 K/mm3 (150-450); RBC Distribution Width CV 12.0 % (11.6-14.6); RBC Distribution Width SD 39.8 fl (35.1-43.9); Red Blood Count 3.74 M/mm3 (4.2-5.4); White Blood Count 8.0 K/mm3 (4.4-11.0)
[2025-01-09 13:23] LABS: Glucose Challenge Gest 1H 50g 116 mg/dL (70-140); HIV Nonreactive (Nonreactive); Syphilis Antibodies Nonreactive (Nonreactive)
== END | disposition home or self-care (01) ==
LOC: BWCLAB 11:43 → LABSPEC 13:11
PROVIDERS: Obstetrics & Gynecology; PCP Family Medicine; Referring Provider Advanced Practice Midwife; Visit Provider Advanced Practice Midwife
DX: O26.899 Other specified pregnancy related conditions, unspecified trimester (principal); O09.92 Supervision of high risk pregnancy, unspecified, second trimester; R35.0 Frequency of micturition; Z3A.00 Weeks of gestation of pregnancy not specified; Z13.1 Encounter for screening for diabetes mellitus
CPT/HCPCS: 36415; 82950; 85025; 86703; 86780; 87086